=== PATIENT | female | born 1965 | race Caucasian/White ===

== ENCOUNTER 2017-01-29 16:16 | Emergency (ER) | payer MEDICARE, OTHER ==
[2017-01-29 17:56] LABS: Bilirubin Negative (Negative); Blood, Urine Trace (Negative); Glucose, Urine (Dipstick) 250 mg/dL (Negative); Ketone, Urine Negative (Negative); Nitrite Negative (Negative); Protein, Urine (Dipstick) 100 mg/dL (Neg-Trace); Urobilinogen 0.2 mg/dL (0.2-1.0)
[2017-01-29 17:59] LABS: Bacteria/HPF 4+ HPF (None Seen); RBC/HPF 0-3 HPF (0-3); Squamous Epithelial 0-3 HPF (0-3); WBC/HPF 21-50 HPF (0-3)
[2017-01-29 18:11] LABS: Hyaline Casts/LPF 0-3 HYALINE CAST LPF (0-3 Hyaline)
[2017-01-29] MEDS ORDERED: Fentanyl 100 MCG/2 ML VIAL ONE (18:37)
[2017-01-29] MEDS ORDERED: Ketorolac Tromethamine 30 MG/ML VIAL ONE (18:37)
[2017-01-29] MEDS ORDERED: fentaNYL 50 mcg/hour Patch TD SCH (18:45)
[2017-01-29 18:59] LABS: #Lymphocytes 1.5 thou/uL (1.20-3.40); #Monocytes 0.8 thou/uL (0.11-0.59); #Neutrophils 9.3 thou/uL (1.40-6.50); %Basophils 0.4 % (0.0-1.0); %Eosinophils 0.4 % (0.0-10.0); %Lymphocytes 12.8 % (21.0-51.0); %Monocytes 6.6 % (0.0-10.0); Hematocrit 42.5 % (36.0-47.0); Mean Platelet Volume 6.5 fL (7.4-10.4); Red Blood Cell (RBC) Count 4.25 mill/uL (4.20-5.40); White Blood Cell (WBC) Count 11.6 thou/uL (4.8-10.8)
[2017-01-29 19:18] LABS: Lactic Acid - Sepsis 1.5 mmol/L (0.5-2.2)
[2017-01-29 19:19] LABS: Anion Gap 14 mmol/L (10-20); BUN (Urea Nitrogen) 10 mg/dL (9.8-20.1); Calc. Creatinine Clearance 0 mL/min (70-130); Calcium 9.3 mg/dL (7.8-10.44); Carbon Dioxide 29 mmol/L (22-29); Chloride 98 mmol/L (98-107); Estimated GFR-MDRD 77
[2017-01-29] MEDS ORDERED: Ondansetron HCl/PF 4 MG/2 ML Vial ONE (19:36)
== END 2017-01-29 20:45 | disposition home or self-care (01) ==
LOC: ERS 16:16
DX: T83.091A Other mechanical complication of indwelling urethral catheter, initial encounter (principal); N39.0 Urinary tract infection, site not specified; E03.9 Hypothyroidism, unspecified; I12.0 Hypertensive chronic kidney disease with stage 5 chronic kidney disease or end stage renal disease; E11.22 Type 2 diabetes mellitus with diabetic chronic kidney disease; N18.9 Chronic kidney disease, unspecified; G43.909 Migraine, unspecified, not intractable, without status migrainosus; E78.5 Hyperlipidemia, unspecified; F41.9 Anxiety disorder, unspecified; E66.9 Obesity, unspecified
CPT/HCPCS: 36415; 80048; 81003; 81015; 83605; 85025; 87040; 87077; 87086; 87149; 87186; J1885; J1956; J2405; J3010

== ENCOUNTER 2017-01-31 17:25 | Inpatient (IN) | payer MEDICARE, MEDICAID ==
[2017-01-31] MEDS ORDERED: Aztreonam 1 GM in Sodium Chloride 0.9% 100 ML IVPB SCH (19:15)
--- NOTE | 2017-01-31 20:06 | HP ---
PRIMARY CARE PROVIDER: Fanny Barber CHIEF COMPLAINT: Dysuria. HISTORY OF PRESENT ILLNESS: Ms. Mills is a pleasant 51-year-old lady who was seen at [facility] on 01/31/2017 following transfer from emergency room at [facility]. She is a senior living resident and has a history of multiple sclerosis and chronic Cho catheterization. S he reports having abdominal pain 6 weeks ago. She also reports having dysuria. She reports that [facility] pain was across her abdomen, now. She is unable to recall any aggravating or relieving factors. She reports that she had a urine test and was started on levofloxacin. She did not improve in terms of dysuria. She was seen at this emergency room 2 days ago and was started on levofloxacin. She s ubsequently went to the emergency room at [facility] the same day. Today, she was notified that h er urine cultures grew organisms that were resistant to levofloxacin. She therefore presented to [facility] emergency room at [facility] and was transferred to this facility. She reports chills and night sweats. She has no other complaints. The following complete review of systems was negative, unless otherwise mentioned in the HPI or belo w: Constitutional: Weight loss or gain, sense of well-being, ability to conduct usual activities, exer cise tolerance. Skin/Breast: Rash, itching, changes in hair growth or loss, nail changes, breast lumps, tenderness, swelling, nipple discharge. Eyes: Vision, double vision, tearing, blind spots, pain. ENT/Mouth: Headaches (location, time of onset, duration, precipitating factors), vertigo, lighthead edness, injury. Vision, double vision, tearing, blind spots, pain, nose bleeding, colds, obstruction , discharge, dental difficulties, gingival bleeding, dentures, neck stiffness, pain, tenderness, mas ses in thyroid or other areas. Cardiovascular: Precordial pain, substernal distress, palpitations, syncope, dyspnea on exertion, o rthopnea, nocturnal paroxysmal dyspnea, edema, cyanosis, hypertension, heart murmurs, varicosities, phlebitis, claudication. Respiratory: Pain, shortness of breath, wheezing, stridor, cough, hemoptysis, fever or night sweats . Gastrointestinal: Poor appetite, dysphagia, indigestion, abdominal pain, heartburn, eructation, patti sea, vomiting, hematemesis, jaundice, constipation, or diarrhea, abnormal stools (drea-colored, anjum y, bloody, greasy, foul smelling), flatulence, hemorrhoids, recent changes in bowel habits. Genitourinary: Urgency, frequency, dysuria, nocturia, hematuria, polyuria, oliguria, unusual (or ch fabio in) color of urine, stones, hesitancy, change in size of stream, dribbling, acute retention or incontinence, libido, potency. Musculoskeletal: Pain, swelling, redness or heat of muscles or joints, limitation, of motion, muscu lar weakness, atrophy, cramps. Neurologic/Psychiatric: Convulsions, paralyses, tremor, incoordination, paraesthesias, difficulties with memory of speech, sensory or motor disturbances, or muscular coordination (ataxia, tremor), em otional problems, anxiety, depression, previous psychiatric care, unusual perceptions, hallucination s. Allergy/Immunologic: Skin rash, anemia, bleeding tendency, polydipsia, polyuria, intolerance to hea t or cold. PAST MEDICAL HISTORY: Significant for multiple sclerosis, hypothyroidism, hypertension, anxiety dis order, diabetes mellitus type 2, urinary retention with chronic indwelling Cho catheter, chronic k idney disease stage 3, chronic lymphedema of the lower extremities, and morbid obesity. PAST SURGICAL HISTORY: Significant for tonsillectomy, adenoidectomy, thyroidectomy, D\T\C x2, hyste rectomy, and left hand surgery. ALLERGIES: PENICILLIN, OMNICEF, AMITRIPTYLINE, CHLORPHENIRAMINE, CLINDAMYCIN, MORPHINE, SUMATRIPTAN , TETRACYCLINE, SULFONAMIDES, and TRIPTANS. FAMILY HISTORY: Significant for coronary artery disease and diabetes mellitus. SOCIAL HISTORY: The patient is a senior living resident at [facility] in [facility]. She denies tobacco use, alcohol use or recreational drug use. CURRENT MEDICATIONS: This include alprazolam 0.25 mg daily, vitamin D3 1000 units daily, azathiopri ne 50 mg 2 times a day, docusate 100 mg daily, duloxetine 60 mg 2 times a day, montelukast 10 mg sirena ly, pantoprazole 40 mg daily, pravastatin 20 mg daily, fentanyl 50 mcg transdermal patch every 72 ho urs, furosemide 40 mg 2 times a day, levothyroxine 112 mcg daily, mirtazapine 15 mg daily, Humalog i nsulin by sliding scale, Lantus insulin 80 units at bedtime, lisinopril 40 mg daily, and Dilaudid 2 mg at bedtime. PHYSICAL EXAMINATION: GENERAL: On examination, Ms. Mills is awake and alert, not in acute distress. She is morbidly obe se. VITAL SIGNS: Blood pressure is 160/102, pulse is 105. She is breathing at rate of 18 and saturatin g 98% on room air. She is afebrile. EYES: No scleral icterus. No conjunctival pallor. ENT: Moist mucosal membranes, no oropharyngeal erythema or exudates. NECK: Supple, nontender, normal range of movement, trachea is midline. RESPIRATORY: Accessory muscles of breathing are not active. Chest wall movements are symmetric deepthi aterally. LUNGS: Clear to auscultation without wheeze, rhonchi or crepitations. CARDIOVASCULAR: S1 and S2 are heard, regular. LUNGS: Peripheral pulses are palpable. No carotid bruit, no pericardial rub. ABDOMEN: Distended, nontender, bowel sounds heard, no hepatomegaly, no splenomegaly. NEUROLOGIC: Cranial nerves II-XII are intact, deep tendon reflexes are 2+. PSYCHIATRIC: Normal mood, normal affect, patient is oriented to time, place and person. MUSCULOSKELETAL: Power is 5/5 in all 4 extremities. Normal range of movement at all major extremit y joints. LYMPHATIC: No cervical lymphadenopathy. SKIN: No rashes or subcutaneous nodules. IMAGING AND LABORATORY DATA: Ms. Mills's labs and investigations were reviewed. She had a chest x -ray at [facility], which did not show any pulmonary infiltrates. Laboratory investigations show leukocytosis with 12,100 white cells, of which 92% are neutrophils, normal hemoglobin, normal platel et count, normal electrolytes, normal creatinine of 0.89, elevated lactic acid level of 2.9, normal calcium, normal total bilirubin, normal AST, normal ALT, normal alkaline phosphatase. Urinalysis is positive for blood, nitrite and leukocyte esterase. Urine cultures from 01/24/2017 grew Morganella morganii and Proteus mirabilis. Morganella morganii is sensitive to amikacin, cefepime, ceftazidim e, ceftriaxone, cefoxitin, gentamicin, meropenem, piperacillin, tazobactam and tobramycin. Proteus mirabilis is sensitive to amikacin, ampicillin/sulbactam, cefepime, ceftazidime, ceftriaxone, gentam icin, meropenem, piperacillin, tazobactam, tobramycin, and trimethoprim/sulfamethoxazole. ASSESSMENT AND PLAN: Mr. Mills is a pleasant 51-year-old lady who was seen at [facility] on 01/31/2017. Her problem list includes: 1. Sepsis: Ms. Mills was tachycardic in the emergency room at [facility]. She also has leukocy tosis. She meets the criteria for sepsis, with suspected source of infection in the urinary tract. 2. Urinary tract infection. Ms. Mills will be admitted to the hospital and started on intravenous fluid resuscitation as well as antibiotics. Given her extensive allergy history, including allergy to OMNICEF which was recently known, I am electing to treat her with aztreonam. 3. Diabetes mellitus type 2: Her home medications will be resumed once clarified. She will be sta rted on insulin sliding scale as well. 4. Multiple sclerosis: Home medications to be restarted. 5. Hypertension: Resume home medications, monitor vital signs and titrate antihypertensives as nee ded. 6. Chronic kidney disease stage 3: This appears to have improved. Her creatinine is normal today. 7. Hypothyroidism: Stable. Many thanks for allowing me to participate in your patient's care. Please feel free to contact me w ith any questions or concerns. LEVEL OF RISK: Moderate. LEVEL OF COMPLEXITY: Moderate.
[2017-01-31] MEDS ORDERED: cloNIDine HCl 0.1 MG TAB PO PRN (20:37)
[2017-01-31] MEDS ORDERED: HYDROmorphone 2 MG TAB PO SCH (21:00)
[2017-01-31] MEDS ORDERED: INSULIN GLARGINE HUM REC ANLOG 65 UNIT SQ SCH (21:00)
[2017-01-31] MEDS ORDERED: HYDROmorphone HCl 0.5 MG/0.5 ML SYRINGE ONE (21:10)
[2017-01-31] MEDS: azaTHIOprine 50 MG TAB PO SCH (23:23)
[2017-01-31] MEDS: Phenazopyridine HCl 97.5 MG TABLET PO SCH (23:23)
[2017-01-31] MEDS: Pravastatin Sodium 20 MG TAB PO SCH (23:23)
[2017-01-31] MEDS: ALPRAZolam 0.5 MG TAB PO SCH (23:24)
[2017-01-31] MEDS: Insulin Detemir 100 UNITS/ML 65 UNITS in Pre-Filled Syringe 1 EACH SC SCH (23:24)
[2017-01-31] MEDS: Sodium Chloride 0.9% 1,000 ML IV SCH (23:25)
[2017-01-31] MEDS: Cyclobenzaprine 10 MG TAB PO PRN (23:32)
[2017-01-31] MEDS: HYDROmorphone 2 MG TAB PO PRN (23:32)
[2017-01-31 23:58] VITALS: BMI 39.2
[2017-02-01] MEDS: Levothyroxine Sodium 112 MCG TAB PO SCH (05:02)
[2017-02-01] MEDS: Sodium Chloride 0.9% 1,000 ML IV SCH ×3 (05:04→21:04)
[2017-02-01 05:44] LABS: #Eosinphils 0.3 thou/uL (0.0-0.7); #Lymphocytes 1.8 thou/uL (1.20-3.40); #Monocytes 0.8 thou/uL (0.11-0.59); #Neutrophils 6.4 thou/uL (1.40-6.50); %Basophils 0.4 % (0.0-1.0); %Eosinophils 2.8 % (0.0-10.0); %Lymphocytes 19.4 % (21.0-51.0); %Monocytes 8.8 % (0.0-10.0); Hematocrit 39.4 % (36.0-47.0); Mean Platelet Volume 6.9 fL (7.4-10.4); Red Blood Cell (RBC) Count 3.88 mill/uL (4.20-5.40); White Blood Cell (WBC) Count 9.4 thou/uL (4.8-10.8)
[2017-02-01 05:55] LABS: Anion Gap 10 mmol/L (10-20); BUN (Urea Nitrogen) 9 mg/dL (9.8-20.1); Calc. Creatinine Clearance 178 mL/min (70-130); Carbon Dioxide 24 mmol/L (22-29); Chloride 106 mmol/L (98-107); Estimated GFR-MDRD 87
[2017-02-01] MEDS: glipiZIDE 5 MG TAB PO SCH ×2 (08:04→15:30)
[2017-02-01] MEDS: Cyclobenzaprine 10 MG TAB PO PRN ×2 (08:04→20:52)
[2017-02-01] MEDS: Phenazopyridine HCl 97.5 MG TABLET PO SCH ×3 (08:05→20:51)
[2017-02-01] MEDS: Montelukast Sodium 10 mg Tablet PO SCH (08:06)
[2017-02-01] MEDS: azaTHIOprine 50 MG TAB PO SCH ×2 (08:06→20:51)
[2017-02-01] MEDS: Losartan Potassium 25 MG TAB PO SCH (08:06)
[2017-02-01] MEDS: Furosemide 40 MG TAB PO SCH (08:06)
[2017-02-01] MEDS: Lactinex Tablet PO SCH (08:06)
[2017-02-01] MEDS: HYDROmorphone 2 MG TAB PO PRN ×2 (08:07→20:51)
[2017-02-01] MEDS: Enoxaparin Sodium 40 MG/0.4 ML SYRINGE SC SCH (08:07)
[2017-02-01] MEDS: Insulin Detemir 100 UNITS/ML 65 UNITS in Pre-Filled Syringe 1 EACH SC SCH ×2 (08:10→20:52)
[2017-02-01] MEDS: Ondansetron HCl/PF 4 MG/2 ML Vial IVP PRN ×3 (08:55→20:53)
[2017-02-01] MEDS: cefTRIAXone\\ROCEPHIN 2 GM in Sodium Chloride 0.9% 100 ML IVPB SCH (08:55)
[2017-02-01] MEDS ORDERED: fentaNYL 50 mcg/hour Patch TD SCH (09:00)
[2017-02-01] MEDS ORDERED: FLU VACC QS2017-18 36 mo. & older 0.5 ML SYRINGE IM ONE (09:00)
[2017-02-01] MEDS ORDERED: Aztreonam 1 GM in Sodium Chloride 0.9% 100 ML IVPB SCH (09:00)
--- NOTE | 2017-02-01 09:41 | CT ---
CT ABDOMEN AND PELVIS WITHOUT CONTRAST: Comparison: 04-06-15 History: Recurrent urinary tract infections, history of kidney stones. Technique: Multiple contiguous axial images were obtained in a CT of the abdomen and pelvis without contrast. Coronal reformats were performed. FINDINGS: There is diffuse hypoattenuation of the liver likely secondary to diffuse fatty infiltration. There is a more significant hypoattenuation in the left lobe of the liver. There is still flow seen within the portal venous structures in this location. The cause for this hypoattenuation in the left lobe could represent a more significant fatty infiltration of the liver versus areas of decreased enhance ment from potential blockage of flow to the left lobe of the liver. There are hyperdensities in the dependent aspect of the gallbladder which may represent gallstones. The patient has a horseshoe kidney. There are nonobstructing calcifications in the left renal molali ty of the horseshoe kidney. No hydronephrosis is seen within either molality of the horseshoe kidney . The adrenal glands, spleen, and pancreas are unremarkable although evaluation is limited on this non contrast examination. The patient is status post hysterectomy. A catheter is seen within the urinary bladder. The visualiz ed large and small bowel are unremarkable. No abdominal or pelvic lymphadenopathy are seen. Atherosc lerotic calcifications are seen in the aorta. There is round atelectasis in the left lung base. Degenerative changes are seen in the spine. The ab dominal wall soft tissues are unremarkable. IMPRESSION: 1. Fatty liver. 2. Increased hypoattenuation in the left lobe of the liver is nonspecific. This could represent more significant fatty infiltration left lobe of the liver. An infarction of the left lobe of the liver is also a possibility. Correlate with OFTs. 3. Horseshoe kidney with nonobstructing calcifications. POS: MARITA
[2017-02-01] MEDS ORDERED: Ibuprofen 600 MG TAB PO PRN ×2 (12:47→12:51)
--- NOTE | 2017-02-01 15:44 | PDOC.PN ---
- Subjective Encounter Start Date: 02/01/17 Encounter Start Time: 14:00 Subjective: no trouble breathing -: eating well - Objective MAR Reviewed: Yes Vital Signs & Weight: Vital Signs (12 hours) Temp Pulse Resp BP BP Pulse Ox 02/01/17 11:32 98.3 F 85 16 118/59 L 97 02/01/17 08:00 98.3 F 85 16 124/77 99 02/01/17 04:10 98.3 F 91 18 108/65 96 Weight Weight 265 lb 5 oz Result Diagrams: 02/01/17 05:18 02/01/17 05:18 Additional Labs: Accuchecks 02/01/17 02/01/17 01/31/17 11:37 09:32 23:23 POC Glucose 164 H 137 H 100 Phys Exam - Physical Examination HEENT: PERRLA, moist MMs Neck: no nodes, no JVD Respiratory: no wheezing, no rales Cardiovascular: RRR, no significant murmur Gastrointestinal: soft, non-tender, no distention, positive bowel sounds Musculoskeletal: pulses present Neurological: non-focal, moves all 4 limbs Psychiatric: A&O x 3 Dx/Plan (1) Sepsis Code(s): A41.9 - SEPSIS, UNSPECIFIED ORGANISM Status: Acute Qualifiers: Sepsis type: sepsis due to unspecified organism Qualified Code(s): A41.9 - Sepsis, unspecified organism (2) UTI (urinary tract infection) Status: Acute Qualifiers: Urinary tract infection type: acute cystitis Hematuria presence: without hematuria Qualified Code(s): N30.00 - Acute cystitis without hematuria (3) Chronic pain syndrome Code(s): G89.4 - CHRONIC PAIN SYNDROME Status: Chronic (4) DM type 2 (diabetes mellitus, type 2) Status: Chronic Qualifiers: Diabetes mellitus complication status: with unspecified complications Diabetes mellitus termite control service representative insulin use: with halfway use Qualified Code(s) : E11.8 - Type 2 diabetes mellitus with unspecified complications; Z79.4 - jail (current) use of insulin; Z79.4 - watermaster (current) use of insulin; Z79.4 - jail (current) use of insulin; Z79.4 - jail (current) use of insulin (5) 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 Review of Systems - Medications/Allergies Allergies/Adverse Reactions: Allergies Allergy/AdvReac Type Severity Reaction Status Date / Time sulfamethoxazole Allergy Severe Verified 11/28/13 12:26 [From Bactrim] trimethoprim [From Bactrim] Allergy Severe Verified 11/28/13 12:26 amitriptyline Allergy Verified 11/26/13 01:32 chlorpheniramine Allergy Verified 11/26/13 01:32 clindamycin Allergy Verified 11/26/13 01:32 morphine Allergy Verified 11/26/13 01:32 sulfacetamide Allergy Verified 11/26/13 01:32 sumatriptan Allergy Verified 11/26/13 01:32 tetracycline [Tetracycline] Allergy Verified 11/26/13 01:32 [id number] Antimigraine Allergy Verified 11/26/13 01:32 Agents Medications: Current Medications Acidophilus (Floranex) 1 tab PO DAILY [facility] Last Admin: 02/01/17 08:06 Dose: 1 tab Alprazolam (Xanax) 0.5 mg PO HS [facility] Last Admin: 01/31/17 23:24 Dose: 0.5 mg Azathioprine (Imuran) 50 mg PO BID [facility] Last Admin: 02/01/17 08:06 Dose: 50 mg Clonidine HCl (Catapres) 0.1 mg PO Q6HR PRN PRN Reason: SBP >170 Cyclobenzaprine HCl (Flexeril) 5 mg PO TIDPRN PRN PRN Reason: Muscle Spasms Last Admin: 02/01/17 08:04 Dose: 5 mg Enoxaparin Sodium (Lovenox) 40 mg SC 0900 [facility] Last Admin: 02/01/17 08:07 Dose: 40 mg Fentanyl (Duragesic) 50 mcg TD Q3D [facility] Last Admin: 02/01/17 10:02 Dose: 50 mcg Furosemide (Lasix) 40 mg PO DAILY [facility] Last Admin: 02/01/17 08:06 Dose: 40 mg Glipizide (Glucotrol) 5 mg PO BID-AC [facility] Last Admin: 02/01/17 15:30 Dose: 5 mg Hydromorphone HCl (Dilaudid) 2 mg PO BIDPRN PRN PRN Reason: Pain Last Admin: 02/01/17 08:07 Dose: 2 mg Sodium Chloride (Normal Saline 0.9%) 1,000 mls @ 100 mls/hr IV .Q10H [facility] Last Admin: 02/01/17 09:07 Dose: 1,000 mls Insulin Detemir 65 units/ (Miscellaneous Medication) 0.65 mls @ 0 mls/hr SC BID [facility] Last Admin: 02/01/17 08:10 Dose: 0.65 mls Ceftriaxone Sodium 2 gm/ (Sodium Chloride) 100 mls @ 200 mls/hr IVPB Q24HR [facility] Last Admin: 02/01/17 08:55 Dose: 100 mls Ibuprofen (Motrin) 600 mg PO TIDPRN PRN PRN Reason: Pain Last Admin: 02/01/17 13:39 Dose: 600 mg Levothyroxine Sodium (Synthroid) 112 mcg PO 0600 [facility] Last Admin: 02/01/17 05:02 Dose: 112 mcg Losartan Potassium (Cozaar) 25 mg PO DAILY [facility] Last Admin: 02/01/17 08:06 Dose: 25 mg Miscellaneous Medication (Movantik) 12.5 mg PO DAILYPRN PRN PRN Reason: opiod induced constipation Montelukast Sodium (Singulair) 10 mg PO DAILY [facility] Last Admin: 02/01/17 08:06 Dose: 10 mg Ondansetron HCl (Zofran) 4 mg IVP Q6H PRN PRN Reason: Nausea/Vomiting Last Admin: 02/01/17 15:30 Dose: 4 mg Pantoprazole Sodium (Protonix) 40 mg PO DAILY [facility] Last Admin: 02/01/17 08:06 Dose: 40 mg Phenazopyridine HCl (Azo Standard) 195 mg PO TID [facility] Last Admin: 02/01/17 15:30 Dose: 195 mg Pravastatin Sodium (Pravachol) 20 mg PO HS [facility] Last Admin: 01/31/17 23:23 Dose: 20 mg Sodium Chloride (Flush - Normal Saline) 10 ml IVF Q12HR [facility] Last Admin: 02/01/17 08:14 Dose: 10 ml Sodium Chloride (Flush - Normal Saline) 10 ml IVF PRN PRN PRN Reason: Saline Flush
[2017-02-01] MEDS: ALPRAZolam 0.5 MG TAB PO SCH (20:51)
[2017-02-01] MEDS: Pravastatin Sodium 20 MG TAB PO SCH (20:52)
[2017-02-02 05:11] LABS: #Eosinphils 0.2 thou/uL (0.0-0.7); #Lymphocytes 1.7 thou/uL (1.20-3.40); #Monocytes 0.5 thou/uL (0.11-0.59); %Basophils 0.7 % (0.0-1.0); %Eosinophils 3.7 % (0.0-10.0); %Lymphocytes 26.4 % (21.0-51.0); %Monocytes 7.5 % (0.0-10.0); Hematocrit 36.6 % (36.0-47.0); Mean Platelet Volume 6.7 fL (7.4-10.4); Red Blood Cell (RBC) Count 3.64 mill/uL (4.20-5.40); White Blood Cell (WBC) Count 6.5 thou/uL (4.8-10.8)
[2017-02-02] MEDS: Levothyroxine Sodium 112 MCG TAB PO SCH (05:11)
[2017-02-02] MEDS: Sodium Chloride 0.9% 1,000 ML IV SCH (05:14)
[2017-02-02 05:37] LABS: Anion Gap 7 mmol/L (10-20); BUN (Urea Nitrogen) 11 mg/dL (9.8-20.1); Calc. Creatinine Clearance 189 mL/min (70-130); Calcium 7.7 mg/dL (7.8-10.44); Carbon Dioxide 29 mmol/L (22-29); Chloride 108 mmol/L (98-107); Estimated GFR-MDRD Greater than 90
[2017-02-02] MEDS: cefTRIAXone\\ROCEPHIN 2 GM in Sodium Chloride 0.9% 100 ML IVPB SCH (08:31)
[2017-02-02] MEDS: glipiZIDE 5 MG TAB PO SCH (08:31)
[2017-02-02] MEDS: Montelukast Sodium 10 mg Tablet PO SCH (08:34)
[2017-02-02] MEDS: azaTHIOprine 50 MG TAB PO SCH (08:34)
[2017-02-02] MEDS: Losartan Potassium 25 MG TAB PO SCH (08:34)
[2017-02-02] MEDS: Phenazopyridine HCl 97.5 MG TABLET PO SCH (08:34)
[2017-02-02] MEDS: Furosemide 40 MG TAB PO SCH (08:34)
[2017-02-02] MEDS: Lactinex Tablet PO SCH (08:34)
[2017-02-02] MEDS: Enoxaparin Sodium 40 MG/0.4 ML SYRINGE SC SCH (08:35)
[2017-02-02] MEDS: Insulin Detemir 100 UNITS/ML 65 UNITS in Pre-Filled Syringe 1 EACH SC SCH (08:36)
[2017-02-02] MEDS ORDERED: FLU VACC QS2017-18 36 mo. & older 0.5 ML SYRINGE IM ONE (09:00)
[2017-02-02] MEDS: Cyclobenzaprine 10 MG TAB PO PRN (09:45)
[2017-02-02] MEDS: HYDROmorphone 2 MG TAB PO PRN (09:46)
[2017-02-02] MEDS: Ondansetron HCl/PF 4 MG/2 ML Vial IVP PRN (09:51)
[2017-02-02 11:47] VITALS: BP 153/84; TEMP 97.6
--- NOTE | 2017-02-02 16:53 | PDOC.PN ---
- Subjective Encounter Start Date: 02/02/17 Encounter Start Time: 08:15 Subjective: feels better - Objective MAR Reviewed: Yes Vital Signs & Weight: Vital Signs (12 hours) Temp Pulse Resp BP Pulse Ox 02/02/17 11:46 97.6 F 78 18 153/84 H 98 02/02/17 08:40 98.2 F 85 16 97 02/02/17 07:55 98.2 F 85 16 126/54 L 97 Weight Weight 265 lb 5 oz I&O: 02/01/17 02/02/17 02/03/17 06:59 06:59 06:59 Intake Total 1700 780 Output Total 4200 1850 Balance -2500 -1070 Result Diagrams: 02/02/17 05:02 02/02/17 05:02 Additional Labs: Accuchecks 02/02/17 02/02/17 02/01/17 11:05 04:13 21:10 POC Glucose 88 87 182 H 02/01/17 16:48 POC Glucose 150 H Phys Exam - Physical Examination HEENT: PERRLA, moist MMs Neck: no JVD, supple Respiratory: no wheezing, no rales Cardiovascular: RRR, no significant murmur Gastrointestinal: soft, non-tender, positive bowel sounds Musculoskeletal: no edema, pulses present Neurological: non-focal, moves all 4 limbs Psychiatric: A&O x 3 Dx/Plan (1) Sepsis Code(s): A41.9 - SEPSIS, UNSPECIFIED ORGANISM Status: Resolved Qualifiers: Sepsis type: sepsis due to unspecified organism Qualified Code(s): A41.9 - Sepsis, unspecified organism (2) UTI (urinary tract infection) Status: Acute Qualifiers: Urinary tract infection type: acute cystitis Hematuria presence: without hematuria Qualified Code(s): N30.00 - Acute cystitis without hematuria (3) Chronic pain syndrome Code(s): G89.4 - CHRONIC PAIN SYNDROME Status: Chronic (4) DM type 2 (diabetes mellitus, type 2) Status: Chronic Qualifiers: Diabetes mellitus complication status: with unspecified complications 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
--- NOTE | 2017-02-02 21:54 | DIS ---
DATE OF ADMISSION: 01/31/2017 DATE OF DISCHARGE: 02/02/2017 DISCHARGE DISPOSITION: To retirement. PRIMARY DISCHARGE DIAGNOSIS: Sepsis with urinary tract infection, resolving. SECONDARY DISCHARGE DIAGNOSES: Chronic pain syndrome; diabetes mellitus type 2 ; history of multiple sclerosis; functional quadriplegia secondary to multiple sclerosis, being wheelchair bound; hypertension; morbid obesity. PROCEDURES DONE DURING HOSPITALIZATION: Abdominal and pelvic CAT scan done showed fatty liver with horseshoe kidney with nonobstructing calcifications. Urine culture drawn on 01/29/2017 grew Morganella morganii and Proteus sensitive to cephalosporins. ALLERGIES: To SULFA, AMITRIPTYLINE, CHLORPHENIRAMINE, CLINDAMYCIN, MORPHINE, SUMATRIPTAN, TETRACYCLINE, and TRIPTANS. DISCHARGE MEDICATIONS: Xanax 0.5 mg p.o. at bedtime, Vantin 200 mg p.o. twice daily for another 6 days, vitamin D 3000 units p.o. daily, Flexeril 5 mg p.o. 3 times daily p.r.n., Cymbalta 60 mg p.o. daily, Lasix 40 mg p.o. daily, Dilaudid 4 mg p.o. twice daily, Humalog 20 units subcu twice daily, Lantus 65 units subcu twice daily, Floranex 1 tab daily, levothyroxine 112 mcg p.o. daily, Cozaar 25 mg p.o. daily, melatonin 5 mg p.o. at bedtime p.r.n., Movantik 12.5 mg p.o. daily, Protonix 40 mg p.o. daily, K-Dur 20 mEq p.o. twice daily, Pravachol 20 mg p.o. at bedtime, Imuran 50 mg p.o. twice daily, fentanyl patch 50 mcg transdermal q.72 hours, Glipizide 5 mg p.o. twice daily. DISCHARGE PLAN: Patient to follow up with primary care physician in 1 week. BRIEF COURSE DURING HOSPITALIZATION: The patient initially got admitted on the after she was transferred from [facility] with complaints of dysuria and abdominal pain. She has chronic Cho catheter due to advanced multiple sclerosis and chronic deconditioning with very poor functional status being wheelchair bound. She has had cultures drawn on the , which grew Proteus and Morganella morganii. Based on the sensitivity patterns, the patient has been placed on Vantin at the time of discharge. She was on IV antibiotics prior to this. The patient has history of chronic pain syndrome and is at risk for respiratory depression. She is hemodynamically stable and will be shortly discharged back to retirement. The only change in her medication is Vantin, which she needs to take for another 6 days. It is not clear if this is colonization versus invasive strain. Please note, the patient has chronic indwelling Cho catheter. A total of 35 minutes was spent on discharge plan. Patient needs to follow up with her primary care physician in 1 week. Please see a [id number] documentation on [facility] for the day of discharge. ROSALINA
== END 2017-02-02 14:52 | DRG 871 ==
LOC: ERS 17:25 → T4-B 19:40
PROVIDERS: ADMIT Internal Medicine; ATTEND Internal Medicine
DX: A41.9 Sepsis, unspecified organism (principal); R53.2 Functional quadriplegia; E11.22 Type 2 diabetes mellitus with diabetic chronic kidney disease; N18.3 Chronic kidney disease, stage 3 (moderate); E66.01 Morbid (severe) obesity due to excess calories; N30.00 Acute cystitis without hematuria; G35 Multiple sclerosis; Z96.0 Presence of urogenital implants; E03.9 Hypothyroidism, unspecified; R33.9 Retention of urine, unspecified; Z68.39 Body mass index [BMI] 39.0-39.9, adult; I89.0 Lymphedema, not elsewhere classified; Z88.1 Allergy status to other antibiotic agents; Z88.5 Allergy status to narcotic agent; Z88.0 Allergy status to penicillin; Z88.2 Allergy status to sulfonamides; Z79.4 Long term (current) use of insulin; I12.9 Hypertensive chronic kidney disease with stage 1 through stage 4 chronic kidney disease, or unspecified chronic kidney disease; G89.4 Chronic pain syndrome; Z99.3 Dependence on wheelchair; B96.4 Proteus (mirabilis) (morganii) as the cause of diseases classified elsewhere; K64.8 Other hemorrhoids; F41.8 Other specified anxiety disorders; E78.5 Hyperlipidemia, unspecified; E55.9 Vitamin D deficiency, unspecified
CPT/HCPCS: 36415; 36416; 74176; 80048; 81003; 81015; 83605; 85025; 87040; 87077; 87086; 87149; 87186; 90471; 90682; 90732; 96365; 96375; A4216; G0008; G0009; J0696; J1170; J1650; J1815; J1885; J1956; J2405; J3010; J3490; J7050; J7500; Q2036

== ENCOUNTER 2017-09-11 16:55 | Inpatient (IN) | payer MEDICAID, MEDICARE ==
[~2017-09-11 16:55] MED LIST: ISOVUE-370 76%-LOCM 1 ML ONE
[2017-09-11] MEDS ORDERED: HYDROmorphone 0.5 MG/0.5 ML SYRINGE ONE (18:27)
[2017-09-11 18:30] LABS: Bilirubin Negative (Negative); Blood, Urine Large (Negative); Glucose, Urine (Dipstick) Negative (Negative); Leukocyte Moderate (Negative); Nitrite Positive (Negative); Protein, Urine (Dipstick) 100 mg/dL (Neg-Trace); Urobilinogen 0.2 mg/dL (0.2-1.0)
[2017-09-11 18:37] LABS: Clarity Cloudy (Clear)
[2017-09-11 18:39] LABS: Squamous Epithelial 0-3 HPF (0-3)
[2017-09-11 18:40] LABS: Bacteria/HPF Rare-Few HPF (None Seen)
[2017-09-11 18:41] LABS: Hyaline Casts/LPF NONE SEEN LPF (0-3 Hyaline)
[2017-09-11 18:53] LABS: #Eosinphils 0.1 thou/uL (0.0-0.7); #Lymphocytes 1.1 thou/uL (1.20-3.40); #Monocytes 0.6 thou/uL (0.11-0.59); %Basophils 0.3 % (0.0-1.0); %Eosinophils 0.5 % (0.0-10.0); %Lymphocytes 9.3 % (21.0-51.0); %Monocytes 5.1 % (0.0-10.0); %Neutrophils 84.8 % (42.0-75.0); Hemoglobin 11.8 g/dL (12.0-16.0); Mean Corpuscular HGB CONC 32.3 g/dL (32.0-36.0); Mean Corpuscular Hemoglobin 31.4 pg (27.0-31.0); Mean Corpuscular Volume 97.2 fl (81.0-99.0); Mean Platelet Volume 6.2 fL (7.4-10.4); Platelet Count 444 thou/uL (130-400); RBC Distribution Width 14.9 % (11.5-14.5); Red Blood Cell (RBC) Count 3.76 mill/uL (4.20-5.40); White Blood Cell (WBC) Count 11.8 thou/uL (4.8-10.8)
[2017-09-11 18:57] LABS: INR-International Normal Ratio 1.1; Prothrombin Time 14.1 SEC (12.0-14.7)
[2017-09-11 18:58] LABS: PTT 31.9 SEC (22.9-36.1)
[2017-09-11 18:59] LABS: BHCG - Serum Negative (NEGATIVE); Pregs Control Background? CLEAR/WHITE (CLR/WHITE); Pregs Control Bar Appear? YES (CONTROL BAR)
[2017-09-11] MEDS ORDERED: Lorazepam 2 MG/ML VIAL ONE (19:25)
[2017-09-11] MEDS ORDERED: cefTRIAXone\\ROCEPHIN 2 GM VIAL ONE (19:26)
--- NOTE | 2017-09-11 19:32 | RAD ---
PORTABLE AP CHEST: Date: 09/11/17 HISTORY: Abdominal pain, fever. Skin complaints. COMPARISON: 01/31/17. FINDINGS: Cardiac silhouette and pulmonary vasculature are within normal limits. There is linear minimal patchy density in the region of the lingula, but some of the findings were seen on prior studies and this i s likely attributable to an area of scarring. There is linear density seen in the right mid lung zone . This could be related to either a linear area of atelectasis or possibly secondary to a tiny amount of fluid or pleural thickening in the region of the minor fissure. Lungs are otherwise clear. Vascul ar calcifications are seen in the thoracic aorta. IMPRESSION: 1. No acute cardiopulmonary process. 2. Probable scarring in the region of the lingula. POS: YONNY
[2017-09-11 19:53] LABS: ALT (SGPT) 13 U/L (8-55); AST (SGOT) 24 U/L (5-34); Albumin 3.6 g/dL (3.5-5.0); Alkaline Phosphatase 97 U/L (40-150); Anion Gap 14 mmol/L (10-20); BUN (Urea Nitrogen) 13 mg/dL (9.8-20.1); Bilirubin, Total 0.4 mg/dL (0.2-1.2); CK (CPK) 27 U/L (29-168); Calc. Creatinine Clearance 0 mL/min (70-130); Calcium 8.5 mg/dL (7.8-10.44); Carbon Dioxide 29 mmol/L (22-29); Chloride 99 mmol/L (98-107); Estimated GFR-MDRD 83; Globulin 3.8 g/dL (2.4-3.5); Glucose 154 mg/dL (70-105); Magnesium 2.3 mg/dL (1.6-2.6); Potassium 4.1 mmol/L (3.5-5.1); Protein, Total 7.4 g/dL (6.0-8.3); Sodium 138 mmol/L (136-145)
--- NOTE | 2017-09-11 21:08 | CT ---
CT OF THE ABDOMEN AND PELVIS WITH IV CONTRAST: Date: 09/11/17 PROVIDED CLINICAL HISTORY: Perineal pain. COMPARISON: Comparison is made with the examination performed 02/01/17. FINDINGS: The visualized lung bases are free of significant opacity. Fatty infiltration of the liver demonstrated. Horseshoe kidney is again seen. The solid abdominal org ans demonstrate an otherwise unremarkable CT appearance. There is no bowel dilatation, intraperitoneal fat stranding, free fluid, or free air apparent. There is widening of the symphysis pubis, measuring about 18.0 mm. This is a new finding from the gary or study. The opposing medial margins of the pubic bodies are somewhat poorly defined in terms of the ir cortices. There is mild soft tissue fullness and stranding about this region. There is no evidence for a well-defined regional fluid collection. There is nonspecific soft tissue prominence seen in th e expected location of the distal rectum and anus. The osseous structures demonstrate no additional lytic or blastic processes. Vascular calcification i s noted. Cho catheter is noted within the urinary bladder. IMPRESSION: 1. Widened appearance to the symphysis pubis with indistinct cortical margins and surrounding soft t issue density. In the absence of interval surgical change in this region, the findings would be suspi cious for septic arthritis involving the symphysis pubis. 2. Nonspecific soft tissue prominence in the region of the anus and distal rectum. Correlation with direct visualization is necessary. 3. Other chronic findings as above. POS: [facility]
[2017-09-11] MEDS ORDERED: Ondansetron ODT 4 MG TAB SL PRN (22:20)
[2017-09-11] MEDS ORDERED: Sodium Chloride 0.9% 1,000 ML IV SCH (22:20)
[2017-09-11] MEDS ORDERED: Acetaminophen 325 MG TAB PO PRN (22:20)
[2017-09-11] MEDS ORDERED: HYDROcodone/Acetaminophen 5/325 mg Tablet PO PRN ×2 (22:20)
[2017-09-11] MEDS ORDERED: Ondansetron HCl/PF 4 MG/2 ML Vial IVP PRN (22:20)
[2017-09-11 22:21] VITALS: BMI 35.2
[2017-09-11] MEDS ORDERED: Piperacillin/Tazobactam 3.375 GM in Sodium Chloride 0.9% 100 ML IVPB SCH (23:59)
[2017-09-12] MEDS ORDERED: Guaifenesin DM 100-10/5 ML UDCUP PO PRN (00:59)
[2017-09-12] MEDS ORDERED: Dextrose 50% Abboject 50 ML SYRINGE SLOW IVP PRN (00:59)
[2017-09-12] MEDS ORDERED: Acetaminophen 325 MG TAB PO PRN (00:59)
[2017-09-12] MEDS ORDERED: Dextrose 5% in Water 1,000 ML IV PRN (00:59)
[2017-09-12] MEDS ORDERED: HumaLOG 300 UNITS/3 ML VIAL SC PRN ×2 (00:59)
[2017-09-12] MEDS: Piperacillin/Tazobactam 4.5 GM in Sodium Chloride 0.9% 100 ML IVPB SCH ×3 (01:41→17:48)
[2017-09-12] MEDS ORDERED: fentaNYL 50 mcg/hour Patch TD SCH (02:00)
[2017-09-12] MEDS: Ondansetron ODT 4 MG TAB PO PRN ×2 (03:18→08:00)
[2017-09-12 05:01] LABS: #Eosinphils 0.1 thou/uL (0.0-0.7); #Lymphocytes 1.3 thou/uL (1.20-3.40); #Monocytes 0.7 thou/uL (0.11-0.59); #Neutrophils 7.4 thou/uL (1.40-6.50); %Basophils 0.3 % (0.0-1.0); %Lymphocytes 13.3 % (21.0-51.0); %Monocytes 7.6 % (0.0-10.0); %Neutrophils 77.7 % (42.0-75.0); Hemoglobin 10.7 g/dL (12.0-16.0); Mean Corpuscular HGB CONC 32.3 g/dL (32.0-36.0); Mean Corpuscular Hemoglobin 31.7 pg (27.0-31.0); Mean Corpuscular Volume 98.1 fl (81.0-99.0); Mean Platelet Volume 5.9 fL (7.4-10.4); Platelet Count 358 thou/uL (130-400); RBC Distribution Width 14.9 % (11.5-14.5); Red Blood Cell (RBC) Count 3.38 mill/uL (4.20-5.40); White Blood Cell (WBC) Count 9.6 thou/uL (4.8-10.8)
[2017-09-12 05:09] LABS: Anion Gap 11 mmol/L (10-20); BUN (Urea Nitrogen) 9 mg/dL (9.8-20.1); Calc. Creatinine Clearance 170 mL/min (70-130); Carbon Dioxide 27 mmol/L (22-29); Chloride 105 mmol/L (98-107); Estimated GFR-MDRD Greater than 90; Glucose 104 mg/dL (70-105); Potassium 3.6 mmol/L (3.5-5.1); Sodium 139 mmol/L (136-145)
[2017-09-12] MEDS: Famotidine 20 MG TAB PO SCH ×2 (06:17→20:38)
[2017-09-12] MEDS: Levothyroxine Sodium 112 MCG TAB PO SCH (06:17)
[2017-09-12] MEDS: glipiZIDE 5 MG TAB PO SCH ×2 (06:18→17:49)
--- NOTE | 2017-09-12 06:22 | HP ---
REASON FOR ADMISSION: Possible septic arthritis of pubic symphysis. HISTORY OF PRESENTING ILLNESS: Patient was sent from [facility] for complaints of pain in the pubic area. Patient states that she has had difficult exchange of her Cho catheter [facility]. Since then, she has had some pain and swelling in her mons pubis area. Yesterday morning, patient was seen by her primary care physician, Dr. Kc. She was asked to come to the emergency room for further evaluation. Patient has multiple sclerosis and is essentially wheelchair bound. She says she felt feverish at the [facility]. Mother at bedside adds that she has had recurrent UTIs. Here in the ER, she has had a CT of the abdomen and pelvis done which shows widening of symphysis pubis with likely septic arthritis of the area. ER physician apparently noticed some increased edema of the mons pubis area and was essentially admitted for possible septic arthritis of pubic symphysis and mons pubis cellulitis. PAST MEDICAL AND SURGICAL HISTORY: History of chronic pain syndrome, diabetes mellitus type 2, obesity, hypertension, anxiety disorder, hypothyroidism, fibromyalgia, chronic migraines, dyslipidemia, chronic indwelling Cho, hysterectomy, left wrist surgery, thyroidectomy, tonsillectomy, adenoidectomy, left arm surgery. CURRENT MEDICATIONS: Patient is on Xanax 0.5 mg p.o. at bedtime, Imuran 50 mg twice daily, vitamin D 3000 units p.o. daily, clonidine p.r.n., Flexeril 5 mg p.o. 3 times daily p.r.n., Colace 100 mg p.o. twice daily, Cymbalta 60 mg p.o. daily, fentanyl 50 mcg transdermal every 3 days, Lasix 40 mg twice daily, glipizide 5 mg twice daily, Dilaudid 4 mg p.o. twice daily, Lantus 85 units subcutaneous twice daily, Floranex one tablet daily, levothyroxine 150 mcg daily , Cozaar 25 mg daily, melatonin 5 mg p.o. at bedtime, Movantik 12.5 mg p.o. daily, Protonix 40 mg daily, K-Dur 20 mEq p.o. daily, Pravachol 20 mg p.o. at bedtime. ALLERGIES: SULFA, CHLORPHENIRAMINE, AMITRIPTYLINE, CLINDAMYCIN, MORPHINE, OMNICEF, SUMATRIPTAN, TETRACYCLINE. PERSONAL HISTORY: Does not abuse alcohol or drugs. No history of smoking. Patient is a pen[facility] resident likely [facility]. FAMILY HISTORY: Significant for coronary artery disease and diabetes. REVIEW OF SYSTEMS: The following complete review of systems was negative, unless otherwise mentioned in the HPI or below: Constitutional: Weight loss or gain, ability to conduct usual activities. Skin: Rash, itching. Eyes: Double vision, pain. ENT/Mouth: Nose bleeding, neck stiffness, pain, tenderness. Cardiovascular: Palpitations, dyspnea on exertion, orthopnea. Respiratory: Shortness of breath, wheezing, cough, hemoptysis, fever, or night sweats. Gastrointestinal: Poor appetite, abdominal pain, heartburn, nausea, vomiting, constipation, or diarrhea. Genitourinary: Urgency, frequency, dysuria, nocturia. Musculoskeletal: Pain, swelling. Neurologic/Psychiatric: Anxiety, depression. Allergy/Immunologic: Skin rash, bleeding tendency. PHYSICAL EXAMINATION: GENERAL: Patient is a 51-year-old female who is currently not in any acute distress. VITAL SIGNS: Blood pressure 180/80, pulse 84 per minute, respiratory rate 18 per minute, temperature 98.2 degrees Fahrenheit, saturating 97% on room air. NECK: Supple, no elevated JVD. HEENT: Eyes, extraocular muscles intact. Pupils reacting to light. Oral cavity, mucous membranes are moist. No exudates or congestion. CARDIOVASCULAR SYSTEM: S1, S2 heard. Regular rhythm. RESPIRATORY SYSTEM: Air entry 1+ bilateral. No rales or rhonchi. ABDOMEN: Soft, bowel sounds heard. No tenderness, rigidity, or guarding. Patient has mild tenderness in the mons pubis area. No obvious fluctuation or erythema seen. Has indwelling Cho catheter. EXTREMITIES: Mild peripheral edema. No calf tenderness. VASCULAR SYSTEM: Peripheral pulses 1+ bilateral. No ischemic ulcerations or gangrene. CENTRAL NERVOUS SYSTEM: No gross focal deficits seen. Patient is awake and oriented well. PSYCHIATRIC SYSTEM: Patient's mood is euthymic. No hallucinations or delusions. LABORATORY DATA AND X-RAY FINDINGS: White count of 11, H&H 11 and 36, platelet count is 444 with 84% neutrophils. Sed rate is 130. PT, INR, PTT within normal limits. Electrolytes are stable. BUN 13, creatinine 0.7, glucose 154. Liver enzymes are within normal limits. CK level is 27, albumin is 3.6. CRP 5.68. test is negative. UA shows moderate leukoesterase, positive nitrite, pH of 7.0 with 11-20 wbc's, rare few bacteria. Abdominal and pelvic CAT scan done shows whitened appearance to the symphysis pubis with indistinct cortical margins and surrounding soft tissue density. Findings are suspicious for possible septic arthritis involving symphysis pubis. Chest x-ray done shows no acute cardiopulmonary abnormalities. CLINICAL IMPRESSION AND PLAN: Patient will be admitted to medical floor for possible septic arthritis of symphysis pubis. Please note, patient claims to have had prior surgery on her urethra and it is unclear if the changes from that is what seen on the CAT scan. Patient has pain in the mons pubis area. There is no obvious fluctuation seen. I did not appreciate any edema in the area. Patient also has chronic pain syndrome and is on multiple pain medications including fentanyl patch, Dilaudid, Thelma, Xanax, and it is hard to discern if these are new pains. We will obtain Orthopedic surgery consultation with Dr. Aguayo. She will be on vancomycin and Zosyn until then in view of multiple antibiotic allergies. Urine culture has been sent from the ER. Patient has chronic indwelling Cho catheter and unlikely to have new infection , likely is colonized. We will continue her diabetic medications as before. We will also continue her Xanax, Cymbalta, Movantik, fentanyl, Lasix, glipizide , Lantus at 65 units twice daily, Synthroid, Cozaar, Pravachol as before. We will continue to closely monitor her on medical floor. Please note, I have seen and examined the patient on 09[facility]11/2017 [facility]
[2017-09-12] MEDS: HYDROmorphone 2 MG TAB PO SCH ×2 (07:57→20:32)
[2017-09-12] MEDS: Losartan 25 MG TAB PO SCH (07:58)
[2017-09-12] MEDS: DULoxetine 30 MG CAP PO SCH (07:59)
[2017-09-12] MEDS ORDERED: Non-Formulary Item 1 EACH (Insulin Glargine,Hum.Rec.Anlog [Lantus Solostar] 65 UNIT) SQ SCH (09:00)
[2017-09-12] MEDS ORDERED: Vancomycin HCl 1 GM in Premix Bag 1 BAG IVPB SCH (09:00)
[2017-09-12] MEDS: Potassium Chloride 10 MEQ TAB PO SCH ×2 (09:46→20:37)
[2017-09-12] MEDS: Furosemide 40 MG TAB PO SCH (09:46)
[2017-09-12] MEDS: Docusate 100 MG CAP PO SCH ×2 (09:47→20:37)
[2017-09-12] MEDS: Lactinex Tablet PO SCH (09:49)
[2017-09-12] MEDS: Insulin Glargine 65 UNITS in Pre-Filled Syringe 1 EACH SC SCH ×2 (09:52→20:35)
[2017-09-12] MEDS: Enoxaparin Sodium 40 MG/0.4 ML SYRINGE SC SCH (09:55)
--- NOTE | 2017-09-12 10:25 | CON ---
DATE OF CONSULTATION: 09/12/2017 CHIEF COMPLAINT: Pelvic pain. HISTORY OF PRESENT ILLNESS: Ms. Mills is a 51-year-old female with multiple sclerosis. She lives i n a nursing facility. She has an indwelling Cho catheter. She reports having some trauma with her Cho catheter over the last several days. She was unhappy with how this was exchanged. She had so me swelling and pain. She is wheelchair bound and does not ambulate. She began having anxiety and f elt feverish at the nursing facility. She has had a history of recurrent UTIs. She had a urethral s urgery when she was young at [address] scan was done in the emergency department and demonst rated widening of the symphysis pubis with either post-surgical changes or evidence of septic arthrit is. Orthopedics was consulted to evaluate the symphysis pubis. She was started on intravenous antib iotics. PAST MEDICAL HISTORY: Multiple sclerosis, hypertension, anxiety, hypothyroidism, fibromyalgia, chron ic migraines, dyslipidemia, diabetes, obesity. PAST SURGICAL HISTORY: Includes thyroidectomy, tonsillectomy, adenoidectomy, hysterectomy, left wris t surgery, hysterectomy. ALLERGIES: SULFA, AMITRIPTYLINE, CLINDAMYCIN, MORPHINE, OMNICEF, SUMATRIPTAN, TETRACYCLINE and CHLOR PHENIRAMINE. SOCIAL HISTORY: The patient denies any tobacco, alcohol or drug use. She lives in a nursing facilit y. FAMILY MEDICAL HISTORY: Positive for coronary artery disease and diabetes. REVIEW OF SYSTEMS: Positive for pain around the symphysis pubis. Otherwise, she complains of anxiet y, restlessness and feeling feverish. PHYSICAL EXAMINATION: VITAL SIGNS: Temperature is 98.6, pulse is 81, respiratory 18, 92% on room air, 158/84 blood pressur e. GENERAL: She is lying supine, alert, in no apparent distress. RESPIRATORY: Breathing comfortably. HEENT: Normocephalic, atraumatic. ABDOMEN: Obese, nontender. MUSCULOSKELETAL: The patient does have tenderness to palpation over the symphysis pubis. There is n o fluctuance, no erythema, no swelling of the mons pubis. She has mild pain with pelvic squeeze test . She has skin intact without any drainage or fistula. : There is a Cho catheter in place. IMAGES: CT scan of the pelvis demonstrates slight approximately 1.5 cm widening of the symphysis pub is. There is no obvious osteomyelitis. There is some thickening of the tissues, but no obvious absc ess or fluid collection. IMPRESSION: Recurrent urinary tract infections in a patient with multiple sclerosis. The patient h as changes of the pubic symphysis and pain which could suggest pubic symphyseal infection. These pos sibly simply represent chronic changes from her urethral surgery at a very young age. At this point, I think the patient should continue her intravenous antibiotics to treat her urinary t ract infection as well as possible infection of the symphysis pubis. She may need a protracted cours e for antibiotics. I would not recommend surgical intervention for this problem. If there was a lar ge abscess or fluid collection we could consider drainage either open or percutaneous with Radiology; however, this does not seem to be the case. I think she can be treated with intravenous antibiotics to clear this problem. It may be appropriate to consult Dr. Rivera for antibiotic guidance. She can weightbear as tolerated without restriction. She will not need orthopedic followup, but we will con tinue to follow her while she is in the hospital.
[2017-09-12] MEDS: Vancomycin HCl 1.75 GM in Sodium Chloride 0.9% 500 ML IVPB SCH ×2 (11:18→20:39)
[2017-09-12] MEDS ORDERED: Acetaminophen/Codeine 30-300mg Tablet PO PRN (12:35)
[2017-09-12] MEDS: Acetaminophen/Codeine 30-300mg Tablet PO PRN ×3 (13:55→23:40)
[2017-09-12] MEDS: Cyclobenzaprine 10 MG TAB PO SCH ×2 (13:56→20:32)
--- NOTE | 2017-09-12 17:01 | PDOC.PN ---
- Subjective Encounter Start Date: 09/12/17 Encounter Start Time: 17:00 Pt seen for followup re: septic arthritis of symphysis pubis. Denies chest pain or shortness of breath. No fevers or chills. - Objective Resuscitation Status: Resuscitation Status FULL:Full Resuscitation MAR Reviewed: Yes Vital Signs & Weight: Vital Signs (12 hours) Temp Pulse Resp BP Pulse Ox 09/12/17 12:00 98.5 F 85 20 168/75 H 95 09/12/17 08:00 98.6 F 81 18 94 L 09/12/17 07:00 98.6 F 81 18 158/84 H 94 L Weight Weight 239 lb I&O: 09/11/17 09/12/17 09/13/17 06:59 06:59 06:59 Intake Total 640 Output Total 1350 Balance -710 Result Diagrams: 09/12/17 04:12 09/12/17 04:12 Additional Labs: Accuchecks 09/12/17 09/12/17 11:51 04:27 POC Glucose 158 H 106 Labs reviewed by me Phys Exam - Physical Examination Obese HEENT: moist MMs, sclera anicteric, oral pharynx no lesions, 2+ tonsils Neck: no nodes, no JVD, supple, full ROM Respiratory: no wheezing, no rales, no rhonchi, clear to auscultation bilateral Cardiovascular: RRR, no rub S1, S2 Gastrointestinal: soft, non-tender, positive bowel sounds distention Musculoskeletal: edema present Neurological: moves all 4 limbs Psychiatric: normal affect, A&O x 3 Dx/Plan (1) Septic arthritis Status: Acute Comment: Continue IV antibiotics as below, await cultures (2) DM type 2 (diabetes mellitus, type 2) Status: Chronic Qualifiers: Diabetes mellitus chcf insulin use: with chcf use Diabetes mellitus complication status: with unspecified complications Qualified Code(s) : E11.8 - Type 2 diabetes mellitus with unspecified complications; Z79.4 - MCC (current) use of insulin; Z79.4 - manager intermediate (current) use of insulin; Z79.4 - manager intermediate (current) use of insulin; Z79.4 - MCC (current) use of insulin Comment: Continue accuchecks, insulin sliding scale (3) 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 Consult ID. Appreciate ortho input. Review of Systems - Review of Systems Constitutional: negative: fever, chills, sweats, weakness, malaise Respiratory: negative: Cough, Shortness of Breath, SOB with Excertion, Pleuritic Pain, Wheezing Cardiovascular: negative: chest pain, palpitations, orthopnea, paroxysmal nocturnal dyspnea, edema, light headedness Gastrointestinal: negative: Nausea, Vomiting, Abdominal Pain, Diarrhea, Constipation, Melena, Hematochezia Musculoskeletal: Other (pubic pain). negative: Neck Pain, Shoulder Pain, Arm Pain, Back Pain, Hand Pain, Leg Pain, Foot Pain - Medications/Allergies Allergies/Adverse Reactions: Allergies Allergy/AdvReac Type Severity Reaction Status Date / Time sulfamethoxazole Allergy Severe Verified 11/28/13 12:26 [From Bactrim] trimethoprim [From Bactrim] Allergy Severe Verified 11/28/13 12:26 amitriptyline Allergy Verified 11/26/13 01:32 chlorpheniramine Allergy Verified 11/26/13 01:32 clindamycin Allergy Verified 11/26/13 01:32 morphine Allergy Verified 11/26/13 01:32 sulfacetamide Allergy Verified 11/26/13 01:32 sumatriptan Allergy Verified 11/26/13 01:32 tetracycline [Tetracycline] Allergy Verified 11/26/13 01:32 [id number] Antimigraine Allergy Verified 11/26/13 01:32 Agents Medications: Current Medications Acetaminophen (Tylenol) 650 mg PO Q4H PRN PRN Reason: Headache/Fever or Pain Acetaminophen/Codeine Phosphate (Tylenol #3) 1 tab PO Q6H PRN PRN Reason: Mild Pain (1-3) Acetaminophen/Codeine Phosphate (Tylenol #3) 2 tab PO Q4H PRN PRN Reason: Moderate Pain (4-6) Last Admin: 09/12/17 13:55 Dose: 2 tab Acidophilus (Floranex) 1 tab PO DAILY [facility] Last Admin: 09/12/17 09:49 Dose: 1 tab Alprazolam (Xanax) 0.5 mg PO [facility] Cyclobenzaprine HCl (Flexeril) 10 mg PO TID [facility] Last Admin: 09/12/17 13:56 Dose: 10 mg Dextrose/Water (Dextrose 50%) 25 gm SLOW IVP PRN PRN PRN Reason: Hypoglycemia Docusate Sodium (Colace) 100 mg PO BID [facility] Last Admin: 09/12/17 09:47 Dose: 100 mg Duloxetine HCl (Cymbalta) 60 mg PO DAILY [facility] Last Admin: 09/12/17 07:59 Dose: 60 mg Enoxaparin Sodium (Lovenox) 40 mg SC 0900 [facility] Last Admin: 09/12/17 09:55 Dose: 40 mg Famotidine (Pepcid) 20 mg PO BID [facility] Last Admin: 09/12/17 06:17 Dose: 20 mg Fentanyl (Duragesic) 50 mcg TD Q3D@0200 [facility] Last Admin: 09/12/17 01:39 Dose: Not Given Furosemide (Lasix) 40 mg PO DAILY [facility] Last Admin: 09/12/17 09:46 Dose: 40 mg Glipizide (Glucotrol) 5 mg PO BID-AC [facility] Last Admin: 09/12/17 06:18 Dose: Not Given Glucagon (Glucagon) 1 mg IM PRN PRN PRN Reason: Hypoglycemia Guaifenesin/Dextromethorphan (Robitussin Dm) 15 ml PO Q4H PRN PRN Reason: Cough Hydromorphone HCl (Dilaudid) 4 mg PO BID [facility] Last Admin: 09/12/17 07:57 Dose: 4 mg Dextrose/Water (D5w) 1,000 mls @ 0 mls/hr IV .Q0M PRN; As Directed PRN Reason: Hypoglycemia Piperacillin Sod/Tazobactam (Sod 4.5 gm/ Sodium Chloride) 100 mls @ 200 mls/hr IVPB 0200,1000,1800 [facility] Last Admin: 09/12/17 09:34 Dose: 100 mls Insulin Glargine 65 units/ (Miscellaneous Medication) 0.65 mls @ 0 mls/hr SC BID [facility] Last Admin: 09/12/17 09:52 Dose: Not Given Vancomycin HCl 1.75 gm/ Sodium (Chloride) 500 mls @ 250 mls/hr IVPB Q12HR [facility] Last Admin: 09/12/17 11:18 Dose: 500 mls Insulin Human Lispro (Humalog) 0 units SC .MODERATE SLIDING SC PRN PRN Reason: Moderate Correctional Scale Insulin Human Lispro (Humalog) 0 units SC .BEDTIME SLIDING SC PRN PRN Reason: Bedtime Correctional Scale Levothyroxine Sodium (Synthroid) 112 mcg PO 0600 [facility] Last Admin: 09/12/17 06:17 Dose: 112 mcg Losartan Potassium (Cozaar) 25 mg PO DAILY [facility] Last Admin: 09/12/17 07:58 Dose: 25 mg Miscellaneous Medication (Movantik) 12.5 mg PO DAILY [facility] Last Admin: 09/12/17 09:49 Dose: Not Given Ondansetron HCl (Zofran Odt) 4 mg PO Q6HR PRN PRN Reason: Nausea Last Admin: 09/12/17 08:00 Dose: 4 mg Potassium Chloride (Klor-Con 10) 20 meq PO BID [facility] Last Admin: 09/12/17 09:46 Dose: 20 meq Pravastatin Sodium (Pravachol) 20 mg PO HS [facility] Sodium Chloride (Flush - Normal Saline) 10 ml IVF Q12HR [facility] Sodium Chloride (Flush - Normal Saline) 10 ml IVF PRN PRN PRN Reason: Saline Flush
--- NOTE | 2017-09-12 19:45 | ULT ---
BILATERAL LOWER EXTREMITY VENOUS DOPPLER: 09/12/2017 PROVIDED CLINICAL HISTORY: Bilateral foot pain and swelling. FINDINGS: To-scale and color Doppler sonography with spectral analysis was performed of the bilateral common femoral, femoral, popliteal, posterior tibial, greater saphenous, and profunda femoral veins, demonst rating a normal sonographic appearance to each. IMPRESSION: No sonographic evidence for lower extremity deep venous thrombosis. POS: [id number]
[2017-09-12] MEDS: ALPRAZolam 1 MG TAB PO SCH (20:37)
[2017-09-12] MEDS: Pravastatin Sodium 20 MG TAB PO SCH (20:38)
[2017-09-13] MEDS: Acetaminophen/Codeine 30-300mg Tablet PO PRN ×4 (03:16→23:55)
[2017-09-13] MEDS: Piperacillin/Tazobactam 4.5 GM in Sodium Chloride 0.9% 100 ML IVPB SCH ×3 (03:16→17:56)
[2017-09-13] MEDS: Ondansetron ODT 4 MG TAB PO PRN ×2 (04:14→11:18)
[2017-09-13] MEDS: Levothyroxine Sodium 112 MCG TAB PO SCH (04:15)
[2017-09-13] MEDS: Cyclobenzaprine 10 MG TAB PO SCH ×3 (08:18→21:24)
[2017-09-13] MEDS: Lactinex Tablet PO SCH (08:18)
[2017-09-13] MEDS: Losartan 25 MG TAB PO SCH (08:18)
[2017-09-13] MEDS: DULoxetine 30 MG CAP PO SCH (08:18)
[2017-09-13] MEDS: HYDROmorphone 2 MG TAB PO SCH ×2 (08:19→21:26)
[2017-09-13] MEDS: Potassium Chloride 10 MEQ TAB PO SCH ×2 (08:19→21:26)
[2017-09-13] MEDS: Docusate 100 MG CAP PO SCH ×2 (08:19→21:24)
[2017-09-13] MEDS: Furosemide 40 MG TAB PO SCH (08:20)
[2017-09-13] MEDS: Famotidine 20 MG TAB PO SCH ×2 (08:21→21:28)
[2017-09-13] MEDS: Enoxaparin Sodium 40 MG/0.4 ML SYRINGE SC SCH (08:27)
[2017-09-13] MEDS: glipiZIDE 5 MG TAB PO SCH ×2 (08:28→17:00)
[2017-09-13] MEDS: Vancomycin HCl 1.75 GM in Sodium Chloride 0.9% 500 ML IVPB SCH ×2 (09:51→21:31)
[2017-09-13] MEDS: fentaNYL 50 mcg/hour Patch TD SCH (11:54)
[2017-09-13] MEDS: Insulin Glargine 65 UNITS in Pre-Filled Syringe 1 EACH SC SCH ×2 (11:59→21:29)
--- NOTE | 2017-09-13 12:43 | CON ---
DATE OF CONSULTATION: 09/13/2017 REASON FOR CONSULTATION: Pubic symphysis infection. HISTORY OF PRESENT ILLNESS: A 51-year-old whom I had seen in 2013 when she presented with a history of type 2 diabetes, multiple sclerosis, who had been a resident in a senior care in [place]. She represented with neutrophilia, history of prior respiratory tract infections and some skin lesions. Extensive workup showed no evidence of an opportunistic infectious process and the other possibility would be vasculitis. At the time of discharge, the concern with not immune syndrome, particularly vasculitis was the main issue. All serologies were negative. In 02/2016, she developed gastrointestinal bleeding secondary to hemorrhoids. At that time, she had a pelvic abdominal CT, which showed a horseshoe kidney, but no calcifications. This time, she presents with a history of pain in the pubic area and reported difficulty in the exchange of her Luu catheter at the senior care. Since then, she has developed pain and swelling of the pubic region was seen by Dr. Kc, her PCP and had noticed some fever. At the emergency room, she had a CT of abdomen and pelvis, which showed widening of the symphysis pubis with possible septic arthritis. The patient is currently still with pain in the area, still has a Luu catheter inserted, which has not been exchanged. No headaches, no dyspnea or maybe mild dyspnea, no cough, no abdominal pain, no change in her neurological condition. Apparently, had a repeat MRI of her head done in [place], since reportedly they are not yet sure that she truly has multiple sclerosis. 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 The changes that would be consistent with erythema multiforme features. No infective organisms were identified in the lesions. She has a chronic indwelling Luu catheter for management of neurogenic bladder, prior hysterectomy, left wrist surgery, thyroidectomy, tonsillectomy, and adenoidectomy. ALLERGIES: SULFA DRUGS, CLINDAMYCIN, OMNICEF, TETRACYCLINE, ANTIHISTAMINICS, AMITRIPTYLINE, and MORPHINE. SOCIAL HISTORY: Living in a senior care for many years now. Never a smoker. FAMILY HISTORY: Coronary artery disease and diabetes mellitus type 2. REVIEW OF SYSTEMS: Constipation. CURRENT MEDICATIONS: Tylenol, Floranex, Xanax, Flexeril, dextrose, Cymbalta, Lovenox, Pepcid, Duragesic, Glucotrol, and Dilaudid. MEDICATIONS IN THE HOSPITAL: Insulin, Synthroid, Cozaar, Movantik, Zofran, Zosyn, and vancomycin. PHYSICAL EXAMINATION: VITAL SIGNS: Temperature max 98.6, blood pressure 140/75, pulse 81, respirations 18, and O2 sat 97%. SKIN: Not remarkable. She has a peripheral IV access and a Luu catheter in place. The skin around the Luu catheter has a little bit of exudate, did not see any obvious drainage. Otherwise, no erythema. No other areas of skin breakdown, no lymphadenopathy. HEENT: Ocular movements are conjugate. Oral cavity moist. NECK: Supple. LUNGS: With symmetric air entry. HEART: S1 and S2, regular rate. No S3 or S4. ABDOMEN: Soft, not distended or tender. No ascites. No bladder distention. EXTREMITIES: She has weakness of all 4 extremities, more so on the lower extremities. She is able to wiggle her toes and fingers. I did not elicit any plantar responses. No clonus was noticed. Pulses 1+ in dorsalis pedis. NEURO: Awake, alert, oriented, and follows commands. LABORATORY DATA: WBC count was 11.8 down to 9.6, hemoglobin 11.8 and now 10.7, MCV 98, platelets from 444 to 358. Neutrophils percentage from 84% to 77%. INR 1.1 and chemistry with a sodium 138, glucose 150, creatinine 0.74. Liver profile normal. CK 27, albumin 3.6. CRP 5.68. Urinalysis with 11-20 WBCs. Microbiology studies, we have pending urine culture. Previous urine culture from 02/2017 with Pseudomonas aeruginosa, Morganella morganii, susceptibility profile showed resistance to quinolones, ampicillin, nitrofurantoin, and Bactrim. She had one bout of blood culture from 01/2017 with coagulase negative Staph and alpha hemolytic streptococcus. IMAGING STUDIES: We have the recent abdomen and pelvis CT from 2 days ago, which showed a widening of the symphysis pubis indistinct cortical margins surrounding soft tissue density. No evidence of abscess was noted. ASSESSMENT: 1. Chronic neurological illness with quadriparesis, initially felt to be secondary to multiple sclerosis, but more recently her neurologist seems to be questioning that diagnosis. 2. Previous episode of erythema multiforme a few years ago. 3. Issues related to exchange of the Luu catheter now with pain in the pubic area and evidence of pubic symphysis inflammatory changes. DISCUSSION: Pubic symphysis arthritis and osteomyelitis is not very common, but usually develops secondary to either hematogenous spread to the area or secondary to local spread from trauma associated with surgical procedures including prostatectomy and procedures to elevate the bladder for management of incontinence. Reports of pubic symphysis osteomyelitis or septic arthritis secondary to trauma from Luu catheters are rare. At this time, we would continue the current antimicrobials. I do not think she would be amenable for any surgical intervention at this point except for maybe considering replacement of the Luu catheter to a suprapubic catheter. Approximately 50% of cases as this will resolve with conservative management, the remainder require surgical intervention and she will require follow up imaging study to verify resolution or improvement of the process. I would advise consulting Dr. Elise, who is her urologist particularly in reference to the role of her luu catheter in this process. She will need long-term treatment at least 4- 6 weeks with a broad-spectrum regimen. Percutaneous aspirate of the pubic symphysis may be discussed with Radiology to see if we could determine a specific organism. Most likely she will require continuation of broad spectrum coverage; therefore, she would need a PICC line placement. The treatment will have to be carried out in the senior care. Therefore, regimen that would allow less frequent administration would be favored. WILIAMD
--- NOTE | 2017-09-13 14:41 | PDOC.PN ---
- Subjective Encounter Start Date: 09/13/17 Encounter Start Time: 09:20 Pt seen for followup re: septic arthritis. Denies fevers. reports nausea and vomiting. - Objective Resuscitation Status: Resuscitation Status FULL:Full Resuscitation MAR Reviewed: Yes Vital Signs & Weight: Vital Signs (12 hours) Temp Pulse Resp BP Pulse Ox 09/13/17 11:43 98.0 F 80 18 159/75 H 96 09/13/17 07:21 98.5 F 81 18 145/75 H 97 09/13/17 04:58 98 F 73 18 127/71 96 Weight Weight 239 lb I&O: 09/12/17 09/13/17 09/14/17 06:59 06:59 06:59 Intake Total 640 945 Output Total 1350 450 Balance -710 495 Result Diagrams: 09/12/17 04:12 09/12/17 04:12 Additional Labs: Accuchecks 09/13/17 09/13/17 09/13/17 10:47 07:32 04:54 POC Glucose 156 H 91 91 09/12/17 09/12/17 20:43 16:34 POC Glucose 154 H 153 H Labs reviewed by me Phys Exam - Physical Examination Obesity HEENT: moist MMs, sclera anicteric, oral pharynx no lesions, 2+ tonsils Neck: no nodes, no JVD, supple, full ROM Respiratory: no wheezing, no rales, no rhonchi, clear to auscultation bilateral Cardiovascular: RRR, no rub S1, S2 Gastrointestinal: soft, non-tender, positive bowel sounds distended Neurological: moves all 4 limbs Psychiatric: normal affect, A&O x 3 Dx/Plan (1) Septic arthritis Status: Acute Comment: Continue IV antibiotics as below, cultures pending (2) Nausea and vomiting Code(s): R11.2 - NAUSEA WITH VOMITING, UNSPECIFIED Status: Acute Comment: continue IV Zofran, start PRN IV/IM phenergan (3) DM type 2 (diabetes mellitus, type 2) Status: Chronic Qualifiers: Diabetes mellitus skilled nursing insulin use: with termite renewal inspector use Diabetes mellitus complication status: with unspecified complications Qualified Code(s) : E11.8 - Type 2 diabetes mellitus with unspecified complications; Z79.4 - termite treater (current) use of insulin; Z79.4 - alf (current) use of insulin; Z79.4 - alf (current) use of insulin; Z79.4 - termite treater (current) use of insulin Comment: on accuchecks, insulin sliding scale (4) 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 Code(s): G35 - MULTIPLE SCLEROSIS; R53.2 - FUNCTIONAL QUADRIPLEGIA Status: Chronic Comment: stable (5) Hypertension Code(s): I10 - ESSENTIAL (PRIMARY) HYPERTENSION Status: Chronic Qualifiers: Comment: monitor vital signs and titrate antihypertensives as needed (6) Multiple sclerosis Code(s): G35 - MULTIPLE SCLEROSIS Status: Chronic Comment: stable (7) Neurogenic bladder Code(s): N31.9 - NEUROMUSCULAR DYSFUNCTION OF BLADDER, UNSPECIFIED Status: Chronic Comment: chronic indwelling luu - Plan * . Review of Systems - Review of Systems Constitutional: negative: fever, chills, sweats, weakness, malaise Respiratory: negative: Cough, Shortness of Breath, SOB with Excertion, Pleuritic Pain, Wheezing Cardiovascular: negative: chest pain, palpitations, orthopnea, paroxysmal nocturnal dyspnea, edema, light headedness Gastrointestinal: Nausea, Vomiting. negative: Abdominal Pain, Diarrhea, Constipation, Melena, Hematochezia Genitourinary: negative: Dysuria, Frequency, Incontinence, Hematuria, Retention Skin: negative: Rash, Lesions, Sammy, Bruising - Medications/Allergies Allergies/Adverse Reactions: Allergies Allergy/AdvReac Type Severity Reaction Status Date / Time sulfamethoxazole Allergy Severe Verified 11/28/13 12:26 [From Bactrim] trimethoprim [From Bactrim] Allergy Severe Verified 11/28/13 12:26 amitriptyline Allergy Verified 11/26/13 01:32 chlorpheniramine Allergy Verified 11/26/13 01:32 clindamycin Allergy Verified 11/26/13 01:32 morphine Allergy Verified 11/26/13 01:32 sulfacetamide Allergy Verified 11/26/13 01:32 sumatriptan Allergy Verified 11/26/13 01:32 tetracycline [Tetracycline] Allergy Verified 11/26/13 01:32 [id number] Antimigraine Allergy Verified 11/26/13 01:32 Agents Medications: Current Medications Acetaminophen (Tylenol) 650 mg PO Q4H PRN PRN Reason: Headache/Fever or Pain Acetaminophen/Codeine Phosphate (Tylenol #3) 1 tab PO Q6H PRN PRN Reason: Mild Pain (1-3) Acetaminophen/Codeine Phosphate (Tylenol #3) 2 tab PO Q4H PRN PRN Reason: Moderate Pain (4-6) Last Admin: 09/13/17 11:19 Dose: 2 tab Acidophilus (Floranex) 1 tab PO DAILY [facility] Last Admin: 09/13/17 08:18 Dose: 1 tab Alprazolam (Xanax) 0.5 mg PO HS [facility] Last Admin: 09/12/17 20:37 Dose: 0.5 mg Calcium Carbonate (Tums) 1,000 mg PO Q4H PRN PRN Reason: Indigestion Cyclobenzaprine HCl (Flexeril) 10 mg PO TID [facility] Last Admin: 09/13/17 08:18 Dose: 10 mg Dextrose/Water (Dextrose 50%) 25 gm SLOW IVP PRN PRN PRN Reason: Hypoglycemia Docusate Sodium (Colace) 100 mg PO BID [facility] Last Admin: 09/13/17 08:19 Dose: 100 mg Duloxetine HCl (Cymbalta) 60 mg PO DAILY [facility] Last Admin: 09/13/17 08:18 Dose: 60 mg Enoxaparin Sodium (Lovenox) 40 mg SC 0900 [facility] Last Admin: 09/13/17 08:27 Dose: 40 mg Famotidine (Pepcid) 20 mg PO BID [facility] Last Admin: 09/13/17 08:21 Dose: 20 mg Fentanyl (Duragesic) 50 mcg TD Q3D@1100 [facility] Last Admin: 09/13/17 11:54 Dose: 50 mcg Furosemide (Lasix) 40 mg PO DAILY [facility] Last Admin: 09/13/17 08:20 Dose: 40 mg Glipizide (Glucotrol) 5 mg PO BID-AC [facility] Last Admin: 09/13/17 08:28 Dose: Not Given Glucagon (Glucagon) 1 mg IM PRN PRN PRN Reason: Hypoglycemia Guaifenesin/Dextromethorphan (Robitussin Dm) 15 ml PO Q4H PRN PRN Reason: Cough Hydromorphone HCl (Dilaudid) 4 mg PO BID [facility] Last Admin: 09/13/17 08:19 Dose: 4 mg Dextrose/Water (D5w) 1,000 mls @ 0 mls/hr IV .Q0M PRN; As Directed PRN Reason: Hypoglycemia Piperacillin Sod/Tazobactam (Sod 4.5 gm/ Sodium Chloride) 100 mls @ 200 mls/hr IVPB 0200,1000,1800 [facility] Last Admin: 09/13/17 08:51 Dose: 100 mls Insulin Glargine 65 units/ (Miscellaneous Medication) 0.65 mls @ 0 mls/hr SC BID [facility] Last Admin: 09/13/17 11:59 Dose: Not Given Vancomycin HCl 1.75 gm/ Sodium (Chloride) 500 mls @ 250 mls/hr IVPB Q12HR [facility] Last Admin: 09/13/17 09:51 Dose: 500 mls Promethazine HCl 25 mg/Miscellaneous Medication 1 each/ Sodium Chloride 51 mls @ 204 mls/hr IVPB Q6H PRN PRN Reason: Nausea Insulin Human Lispro (Humalog) 0 units SC .MODERATE SLIDING SC PRN PRN Reason: Moderate Correctional Scale Insulin Human Lispro (Humalog) 0 units SC .BEDTIME SLIDING SC PRN PRN Reason: Bedtime Correctional Scale Levothyroxine Sodium (Synthroid) 112 mcg PO 0600 [facility] Last Admin: 09/13/17 04:15 Dose: 112 mcg Losartan Potassium (Cozaar) 25 mg PO DAILY [facility] Last Admin: 09/13/17 08:18 Dose: 25 mg Miscellaneous Medication (Movantik) 12.5 mg PO DAILY [facility] Last Admin: 09/13/17 08:33 Dose: Not Given Ondansetron HCl (Zofran Odt) 4 mg PO Q6HR PRN PRN Reason: Nausea Last Admin: 09/13/17 11:18 Dose: 4 mg Potassium Chloride (Klor-Con 10) 20 meq PO BID [facility] Last Admin: 09/13/17 08:19 Dose: 20 meq Pravastatin Sodium (Pravachol) 20 mg PO HS [facility] Last Admin: 09/12/17 20:38 Dose: 20 mg Promethazine HCl (Phenergan) 25 mg IM/IV Q6H PRN PRN Reason: Nausea/Vomiting Sodium Chloride (Flush - Normal Saline) 10 ml IVF Q12HR [facility] Last Admin: 09/13/17 08:33 Dose: 10 ml Sodium Chloride (Flush - Normal Saline) 10 ml IVF PRN PRN PRN Reason: Saline Flush
[2017-09-13] MEDS: Calcium Carbonate 500 MG ChewTAB PO PRN (15:08)
[2017-09-13] MEDS: Promethazine HCl 25 MG, Admixture Fee 1 EACH in Sodium Chloride 0.9% 50 ML IVPB PRN ×2 (15:09→22:29)
[2017-09-13] MEDS: ALPRAZolam 1 MG TAB PO SCH (21:24)
[2017-09-13] MEDS: Pravastatin Sodium 20 MG TAB PO SCH (21:28)
[2017-09-13] MEDS: Promethazine HCl 25 MG/ML VIAL IM/IV PRN (22:29)
[2017-09-14] MEDS: Piperacillin/Tazobactam 4.5 GM in Sodium Chloride 0.9% 100 ML IVPB SCH ×2 (03:16→09:28)
[2017-09-14] MEDS: Levothyroxine Sodium 112 MCG TAB PO SCH (05:35)
[2017-09-14] MEDS: Promethazine HCl 25 MG/ML VIAL IM/IV PRN ×2 (05:36→23:55)
[2017-09-14] MEDS: Acetaminophen/Codeine 30-300mg Tablet PO PRN ×2 (07:04→14:55)
[2017-09-14 08:26] LABS: Vancomycin, Trough 36.6 ug/mL
[2017-09-14] MEDS ORDERED: Vancomycin HCl 1.75 GM in Sodium Chloride 0.9% 500 ML IVPB SCH (09:15)
[2017-09-14] MEDS: DULoxetine 30 MG CAP PO SCH (09:28)
[2017-09-14] MEDS: Cyclobenzaprine 10 MG TAB PO SCH ×3 (09:28→21:55)
[2017-09-14] MEDS: HYDROmorphone 2 MG TAB PO SCH ×2 (09:29→21:56)
[2017-09-14] MEDS: Lactinex Tablet PO SCH (09:29)
[2017-09-14] MEDS: Losartan 25 MG TAB PO SCH (09:29)
[2017-09-14] MEDS: Docusate 100 MG CAP PO SCH ×2 (09:30→21:55)
[2017-09-14] MEDS: Famotidine 20 MG TAB PO SCH ×2 (09:30→21:57)
[2017-09-14] MEDS: Potassium Chloride 10 MEQ TAB PO SCH ×2 (09:30→21:55)
[2017-09-14] MEDS: Furosemide 40 MG TAB PO SCH (09:30)
[2017-09-14] MEDS: Enoxaparin Sodium 40 MG/0.4 ML SYRINGE SC SCH (09:31)
[2017-09-14] MEDS: glipiZIDE 5 MG TAB PO SCH ×2 (09:31→17:16)
[2017-09-14] MEDS: Insulin Glargine 65 UNITS in Pre-Filled Syringe 1 EACH SC SCH ×2 (09:32→22:12)
[2017-09-14] MEDS: Vancomycin HCl 1.75 GM in Sodium Chloride 0.9% 500 ML IVPB SCH (10:00)
[2017-09-14] MEDS ORDERED: Lorazepam 0.5 MG TAB PO SCH (10:45)
--- NOTE | 2017-09-14 13:12 | PDOC.PN ---
- Subjective Encounter Start Date: 09/14/17 Encounter Start Time: 07:40 Pt seen for followup re:septic arthritis. Denies chest pain or shortness of breath. Nausea better. - Objective Resuscitation Status: Resuscitation Status FULL:Full Resuscitation MAR Reviewed: Yes Vital Signs & Weight: Vital Signs (12 hours) Temp Pulse Resp BP Pulse Ox 09/14/17 08:00 98.3 F 86 16 95 09/14/17 07:35 98.3 F 86 16 147/70 H 95 09/14/17 04:00 98.3 F 83 18 143/70 H 95 Weight Weight 239 lb I&O: 09/13/17 09/14/17 09/15/17 06:59 06:59 06:59 Intake Total 945 650 Output Total 450 2400 Balance 495 -1750 Result Diagrams: 09/15/17 04:50 09/15/17 06:19 Additional Labs: Accuchecks 09/14/17 09/13/17 09/13/17 04:15 19:43 17:12 POC Glucose 221 H 159 H 155 H Labs reviewed by me Phys Exam - Physical Examination Obese HEENT: moist MMs, sclera anicteric, oral pharynx no lesions, 2+ tonsils Neck: no nodes, no JVD, supple, full ROM Respiratory: no wheezing, no rales, no rhonchi, clear to auscultation bilateral Cardiovascular: RRR, no rub S1, S2 Neurological: moves all 4 limbs Psychiatric: normal affect, A&O x 3 Dx/Plan (1) Septic arthritis Status: Acute Comment: Continue IV antibiotics cefepime and Zosyn, follow cultures. (2) Nausea and vomiting Code(s): R11.2 - NAUSEA WITH VOMITING, UNSPECIFIED Status: Acute Comment: continue PRN IV/IM phenergan (3) DM type 2 (diabetes mellitus, type 2) Status: Chronic Qualifiers: Diabetes mellitus terminal superintendent insulin use: with group home use Diabetes mellitus complication status: with unspecified complications Qualified Code(s) : E11.8 - Type 2 diabetes mellitus with unspecified complications; Z79.4 - half-way (current) use of insulin; Z79.4 - half-way (current) use of insulin; Z79.4 - half-way (current) use of insulin; Z79.4 - intermediate designer (current) use of insulin Comment: on accuchecks, insulin sliding scale (4) 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 Code(s): G35 - MULTIPLE SCLEROSIS; R53.2 - FUNCTIONAL QUADRIPLEGIA Status: Chronic Comment: stable (5) Hypertension Code(s): I10 - ESSENTIAL (PRIMARY) HYPERTENSION Status: Chronic Qualifiers: Comment: monitor vital signs and titrate antihypertensives as needed (6) Multiple sclerosis Code(s): G35 - MULTIPLE SCLEROSIS Status: Chronic Comment: stable (7) Neurogenic bladder Code(s): N31.9 - NEUROMUSCULAR DYSFUNCTION OF BLADDER, UNSPECIFIED Status: Chronic Comment: chronic indwelling luu, pt awaiting urology consult - Plan * . Review of Systems - Review of Systems Constitutional: negative: fever, chills, sweats, weakness, malaise Respiratory: negative: Cough, Shortness of Breath, SOB with Excertion, Pleuritic Pain, Wheezing Cardiovascular: negative: chest pain, palpitations, orthopnea, paroxysmal nocturnal dyspnea, edema, light headedness, other Gastrointestinal: Nausea. negative: Vomiting, Abdominal Pain, Diarrhea, Constipation, Melena, Hematochezia Genitourinary: negative: Dysuria, Frequency, Incontinence, Hematuria, Retention - Medications/Allergies Allergies/Adverse Reactions: Allergies Allergy/AdvReac Type Severity Reaction Status Date / Time sulfamethoxazole Allergy Severe Verified 11/28/13 12:26 [From Bactrim] trimethoprim [From Bactrim] Allergy Severe Verified 11/28/13 12:26 amitriptyline Allergy Verified 11/26/13 01:32 chlorpheniramine Allergy Verified 11/26/13 01:32 clindamycin Allergy Verified 11/26/13 01:32 morphine Allergy Verified 11/26/13 01:32 sulfacetamide Allergy Verified 11/26/13 01:32 sumatriptan Allergy Verified 11/26/13 01:32 tetracycline [Tetracycline] Allergy Verified 11/26/13 01:32 [id number] Antimigraine Allergy Verified 11/26/13 01:32 Agents Medications: Current Medications Acetaminophen (Tylenol) 650 mg PO Q4H PRN PRN Reason: Headache/Fever or Pain Acetaminophen/Codeine Phosphate (Tylenol #3) 1 tab PO Q6H PRN PRN Reason: Mild Pain (1-3) Acetaminophen/Codeine Phosphate (Tylenol #3) 2 tab PO Q4H PRN PRN Reason: Moderate Pain (4-6) Last Admin: 09/14/17 07:04 Dose: 2 tab Acidophilus (Floranex) 1 tab PO DAILY [facility] Last Admin: 09/14/17 09:29 Dose: 1 tab Alprazolam (Xanax) 0.5 mg PO HS [facility] Last Admin: 09/13/17 21:24 Dose: 0.5 mg Calcium Carbonate (Tums) 1,000 mg PO Q4H PRN PRN Reason: Indigestion Last Admin: 09/13/17 15:08 Dose: 1,000 mg Cyclobenzaprine HCl (Flexeril) 10 mg PO TID [facility] Last Admin: 09/14/17 09:28 Dose: 10 mg Dextrose/Water (Dextrose 50%) 25 gm SLOW IVP PRN PRN PRN Reason: Hypoglycemia Docusate Sodium (Colace) 100 mg PO BID [facility] Last Admin: 09/14/17 09:30 Dose: 100 mg Duloxetine HCl (Cymbalta) 60 mg PO DAILY [facility] Last Admin: 09/14/17 09:28 Dose: 60 mg Enoxaparin Sodium (Lovenox) 40 mg SC 0900 [facility] Last Admin: 09/14/17 09:31 Dose: 40 mg Famotidine (Pepcid) 20 mg PO BID [facility] Last Admin: 09/14/17 09:30 Dose: 20 mg Fentanyl (Duragesic) 50 mcg TD Q3D@1100 [facility] Last Admin: 09/13/17 11:54 Dose: 50 mcg Furosemide (Lasix) 40 mg PO DAILY [facility] Last Admin: 09/14/17 09:30 Dose: 40 mg Glipizide (Glucotrol) 5 mg PO BID-AC [facility] Last Admin: 09/14/17 09:31 Dose: Not Given Glucagon (Glucagon) 1 mg IM PRN PRN PRN Reason: Hypoglycemia Guaifenesin/Dextromethorphan (Robitussin Dm) 15 ml PO Q4H PRN PRN Reason: Cough Hydromorphone HCl (Dilaudid) 4 mg PO BID [facility] Last Admin: 09/14/17 09:29 Dose: 4 mg Dextrose/Water (D5w) 1,000 mls @ 0 mls/hr IV .Q0M PRN; As Directed PRN Reason: Hypoglycemia Piperacillin Sod/Tazobactam (Sod 4.5 gm/ Sodium Chloride) 100 mls @ 200 mls/hr IVPB 0200,1000,1800 [facility] Last Admin: 09/14/17 09:28 Dose: 100 mls Insulin Glargine 65 units/ (Miscellaneous Medication) 0.65 mls @ 0 mls/hr SC BID [facility] Last Admin: 09/14/17 09:32 Dose: Not Given Promethazine HCl 25 mg/Miscellaneous Medication 1 each/ Sodium Chloride 51 mls @ 204 mls/hr IVPB Q6H PRN PRN Reason: Nausea Last Admin: 09/13/17 15:09 Dose: 51 mls Vancomycin HCl 1.75 gm/ Sodium (Chloride) 500 mls @ 250 mls/hr IVPB .PENDING LEVEL [facility] Insulin Human Lispro (Humalog) 0 units SC .MODERATE SLIDING SC PRN PRN Reason: Moderate Correctional Scale Insulin Human Lispro (Humalog) 0 units SC .BEDTIME SLIDING SC PRN PRN Reason: Bedtime Correctional Scale Levothyroxine Sodium (Synthroid) 112 mcg PO 0600 [facility] Last Admin: 09/14/17 05:35 Dose: 112 mcg Losartan Potassium (Cozaar) 25 mg PO DAILY [facility] Last Admin: 09/14/17 09:29 Dose: 25 mg Miscellaneous Medication (Movantik) 12.5 mg PO DAILY [facility] Last Admin: 09/14/17 09:32 Dose: Not Given Ondansetron HCl (Zofran Odt) 4 mg PO Q6HR PRN PRN Reason: Nausea Last Admin: 09/13/17 11:18 Dose: 4 mg Potassium Chloride (Klor-Con 10) 20 meq PO BID [facility] Last Admin: 09/14/17 09:30 Dose: 20 meq Pravastatin Sodium (Pravachol) 20 mg PO HS [facility] Last Admin: 09/13/17 21:28 Dose: 20 mg Promethazine HCl (Phenergan) 25 mg IM/IV Q6H PRN PRN Reason: Nausea/Vomiting Last Admin: 09/14/17 05:36 Dose: 25 mg Sodium Chloride (Flush - Normal Saline) 10 ml IVF Q12HR [facility] Last Admin: 09/14/17 09:27 Dose: 10 ml Sodium Chloride (Flush - Normal Saline) 10 ml IVF PRN PRN PRN Reason: Saline Flush
--- NOTE | 2017-09-14 14:27 | SPC ---
ULTRASOUND GUIDED LEFT UPPER EXTREMITY PICC PLACEMENT: Date: 09-14-17 History: Infection. In need of IV antibiotics. FINDINGS: Informed consent obtained prior to the procedure. Left antecubital fossa was prepped and draped in normal sterile fashion. Skin overlying the basilic v ein was anesthetized with 1% buffered Lidocaine. Attempts were made to access the left basilic vein, but secondary to the small size of the left basilic vein, access instead was obtained via the left br achial vein. Brachial vein was punctured under direct sonographic guidance with vascular access needl e and an 018 wire was advanced to the level of the IVC, subsequently retracted to the cavoatrial junc tion. Intervascular length is calculated at 45 cm and PICC was cut accordingly. The needle was remove d and replaced with a peel-away sheath. The PICC was advanced over a wire. The wire and peel-away she ath were removed. The tip of the catheter overlies the cavoatrial junction. Both ports flush well and the catheter is ready for use. Exposure Data: 0.2 minutes fluoroscopic time, 1423 mGy*cm^2. IMPRESSION: Successful ultrasound guided dual-lumen left upper extremity PICC placement via the left brachial vei n. POS: [facility]
[2017-09-14] MEDS: Promethazine HCl 25 MG, Admixture Fee 1 EACH in Sodium Chloride 0.9% 50 ML IVPB PRN (17:00)
--- NOTE | 2017-09-14 18:02 | PRG ---
DATE OF SERVICE: 09/14/2017 SUBJECTIVE: Still having pain in the pubic area and she noticed sharp pain in the vaginal introitus next to the Cho catheter. Denies any headaches. No respiratory symptoms. No diarrhea. OBJECTIVE: VITAL SIGNS: Temperature max 98.4, blood pressure 160/75, pulse 85, respirations 16-18, O2 sat 98%. GENERAL: Appears in no distress. LUNGS: Clear. CARDIOVASCULAR: S1, S2, regular rate. NEUROLOGIC: Unchanged. GENITOURINARY: Pubic area appears supple without any redness or induration. Introitus, I did not se e any inflammatory changes or drainage. LABORATORY DATA: White cell count is at 9.6, hemoglobin 10.7, platelets 358. Chemistry not remarkab le. Microbiology with a urine culture which is greater than 100,000 CFUs with mixed enteric earl. ASSESSMENT AND DISCUSSION: Chronic neurological illness with quadriparesis. Initially felt to be se condary to multiple sclerosis, but a different diagnosis is being considered by her neurologist. Rec ent problems with exchange of the Cho catheter with pain developing in the suprapubic area with afshan dence of pubic symphysis inflammatory changes, likely infectious arthritis, possible osteomyelitis. DISCUSSION: The patient is currently receiving broad-spectrum coverage with Zosyn and vancomycin. W e will transition patient to vancomycin and cefepime. The reported history of allergy to Omnicef is not true hypersensitivity reaction. She was able to tolerate medication recently without any problem s. The end date of therapy will be 10/28/2017, weekly labs.
[2017-09-14 20:28] LABS: Vancomycin, Random 19.5 ug/mL (See Comment)
[2017-09-14] MEDS: ALPRAZolam 1 MG TAB PO SCH (21:51)
[2017-09-14] MEDS: Cefepime 2 GM in Sodium Chloride 0.9% 100 ML IVPB SCH (21:52)
[2017-09-14] MEDS: Calcium Carbonate 500 MG ChewTAB PO PRN (21:54)
[2017-09-14] MEDS: Pravastatin Sodium 20 MG TAB PO SCH (21:56)
[2017-09-14] MEDS: Vancomycin HCl 1 GM in Premix Bag 1 BAG IVPB SCH (23:21)
[2017-09-15] MEDS: Acetaminophen/Codeine 30-300mg Tablet PO PRN ×2 (04:43→15:45)
[2017-09-15 05:27] LABS: #Eosinphils 0.4 thou/uL (0.0-0.7); #Lymphocytes 1.3 thou/uL (1.20-3.40); #Monocytes 0.6 thou/uL (0.11-0.59); #Neutrophils 6.2 thou/uL (1.40-6.50); %Basophils 0.2 % (0.0-1.0); %Lymphocytes 15.2 % (21.0-51.0); %Monocytes 7.5 % (0.0-10.0); %Neutrophils 72.2 % (42.0-75.0); Mean Corpuscular HGB CONC 33.6 g/dL (32.0-36.0); Mean Corpuscular Hemoglobin 32.7 pg (27.0-31.0); Mean Corpuscular Volume 97.3 fl (81.0-99.0); Mean Platelet Volume 6.3 fL (7.4-10.4); Platelet Count 359 thou/uL (130-400); RBC Distribution Width 14.7 % (11.5-14.5); Red Blood Cell (RBC) Count 3.66 mill/uL (4.20-5.40); White Blood Cell (WBC) Count 8.6 thou/uL (4.8-10.8)
[2017-09-15] MEDS: Levothyroxine Sodium 112 MCG TAB PO SCH (06:19)
[2017-09-15 06:44] LABS: Anion Gap 10 mmol/L (10-20); BUN (Urea Nitrogen) 9 mg/dL (9.8-20.1); Calc. Creatinine Clearance 144 mL/min (70-130); Calcium 9.2 mg/dL (7.8-10.44); Carbon Dioxide 27 mmol/L (22-29); Chloride 104 mmol/L (98-107); Estimated GFR-MDRD 77; Glucose 168 mg/dL (70-105); Potassium 4.2 mmol/L (3.5-5.1); Sodium 137 mmol/L (136-145)
[2017-09-15] MEDS: Cefepime 2 GM in Sodium Chloride 0.9% 100 ML IVPB SCH ×2 (09:41→20:30)
[2017-09-15] MEDS: Insulin Glargine 65 UNITS in Pre-Filled Syringe 1 EACH SC SCH ×2 (09:50→22:56)
[2017-09-15] MEDS: glipiZIDE 5 MG TAB PO SCH ×2 (09:50→17:11)
[2017-09-15] MEDS: Promethazine HCl 25 MG, Admixture Fee 1 EACH in Sodium Chloride 0.9% 50 ML IVPB PRN ×2 (10:46→20:23)
[2017-09-15] MEDS: Enoxaparin Sodium 40 MG/0.4 ML SYRINGE SC SCH (11:13)
[2017-09-15] MEDS: Potassium Chloride 10 MEQ TAB PO SCH (11:14)
[2017-09-15] MEDS: DULoxetine 30 MG CAP PO SCH (11:15)
[2017-09-15] MEDS: Losartan 25 MG TAB PO SCH (11:15)
[2017-09-15] MEDS: HYDROmorphone 2 MG TAB PO SCH ×2 (11:16→20:27)
[2017-09-15] MEDS: Furosemide 40 MG TAB PO SCH (11:17)
[2017-09-15] MEDS: Cyclobenzaprine 10 MG TAB PO SCH ×3 (11:17→20:26)
[2017-09-15] MEDS: Famotidine 20 MG TAB PO SCH ×2 (11:17→20:27)
[2017-09-15] MEDS: Lactinex Tablet PO SCH (11:17)
[2017-09-15] MEDS: Docusate 100 MG CAP PO SCH ×2 (11:18→20:26)
[2017-09-15] MEDS: Vancomycin HCl 1 GM in Premix Bag 1 BAG IVPB SCH ×2 (11:23→23:15)
--- NOTE | 2017-09-15 12:54 | PDOC.PN ---
- Subjective Encounter Start Date: 09/15/17 Encounter Start Time: 10:00 Pt seen for followup re: septic arthritis. Denies chest pain or shortness of breath. nausea+, but better. - Objective Resuscitation Status: Resuscitation Status FULL:Full Resuscitation MAR Reviewed: Yes Vital Signs & Weight: Vital Signs (12 hours) Temp Pulse Resp BP Pulse Ox 09/15/17 11:40 97.8 F 86 16 157/83 H 94 L 09/15/17 07:40 98.2 F 87 16 190/72 H 95 Weight Weight 239 lb I&O: 09/14/17 09/15/17 09/16/17 06:59 06:59 06:59 Intake Total 650 Output Total 2400 2250 Balance -1750 -2250 Result Diagrams: 09/15/17 04:50 09/15/17 06:19 Additional Labs: Accuchecks 09/15/17 09/15/17 09/14/17 11:42 04:27 19:42 POC Glucose 184 H 156 H 154 H 09/14/17 09/14/17 16:54 14:31 POC Glucose 131 H 158 H Labs reviewed by me Phys Exam - Physical Examination Obese HEENT: moist MMs, sclera anicteric, oral pharynx no lesions Neck: no nodes, no JVD, supple, full ROM Respiratory: no wheezing, no rales, no rhonchi, clear to auscultation bilateral Cardiovascular: RRR, no rub S1, S2 Gastrointestinal: soft, non-tender, no distention, positive bowel sounds Neurological: moves all 4 limbs Psychiatric: normal affect, A&O x 3 Skin: no rash Dx/Plan (1) Septic arthritis Status: Acute Comment: Continue IV antibiotics cefepime and Zosyn, follow cultures. (2) Nausea and vomiting Code(s): R11.2 - NAUSEA WITH VOMITING, UNSPECIFIED Status: Acute Comment: continue PRN IV/IM phenergan (3) DM type 2 (diabetes mellitus, type 2) Status: Chronic Qualifiers: Diabetes mellitus residential insulin use: with residential use Diabetes mellitus complication status: with unspecified complications Qualified Code(s) : E11.8 - Type 2 diabetes mellitus with unspecified complications; Z79.4 - half-way (current) use of insulin; Z79.4 - terminal operator (current) use of insulin; Z79.4 - terminal operator (current) use of insulin; Z79.4 - half-way (current) use of insulin Comment: on accuchecks, insulin sliding scale (4) 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 Code(s): G35 - MULTIPLE SCLEROSIS; R53.2 - FUNCTIONAL QUADRIPLEGIA Status: Chronic Comment: stable (5) Hypertension Code(s): I10 - ESSENTIAL (PRIMARY) HYPERTENSION Status: Chronic Qualifiers: Comment: monitor vital signs and titrate antihypertensives as needed (6) Multiple sclerosis Code(s): G35 - MULTIPLE SCLEROSIS Status: Chronic Comment: stable (7) Neurogenic bladder Code(s): N31.9 - NEUROMUSCULAR DYSFUNCTION OF BLADDER, UNSPECIFIED Status: Chronic Comment: chronic indwelling luu, pt awaiting urology consult - Plan * . Review of Systems - Review of Systems Constitutional: negative: fever, chills, sweats, weakness, malaise Respiratory: negative: Cough, Dry, Shortness of Breath, Hemoptysis, SOB with Excertion, Pleuritic Pain, Sputum, Wheezing Cardiovascular: negative: chest pain, palpitations, orthopnea, paroxysmal nocturnal dyspnea, edema, light headedness Gastrointestinal: Nausea. negative: Vomiting, Abdominal Pain, Diarrhea, Constipation, Melena, Hematochezia Genitourinary: negative: Dysuria, Frequency, Incontinence, Hematuria, Retention - Medications/Allergies Allergies/Adverse Reactions: Allergies Allergy/AdvReac Type Severity Reaction Status Date / Time sulfamethoxazole Allergy Severe Verified 11/28/13 12:26 [From Bactrim] trimethoprim [From Bactrim] Allergy Severe Verified 11/28/13 12:26 amitriptyline Allergy Verified 11/26/13 01:32 chlorpheniramine Allergy Verified 11/26/13 01:32 clindamycin Allergy Verified 11/26/13 01:32 morphine Allergy Verified 11/26/13 01:32 sulfacetamide Allergy Verified 11/26/13 01:32 sumatriptan Allergy Verified 11/26/13 01:32 tetracycline [Tetracycline] Allergy Verified 11/26/13 01:32 [id number] Antimigraine Allergy Verified 11/26/13 01:32 Agents Medications: Current Medications Acetaminophen (Tylenol) 650 mg PO Q4H PRN PRN Reason: Headache/Fever or Pain Acetaminophen/Codeine Phosphate (Tylenol #3) 1 tab PO Q6H PRN PRN Reason: Mild Pain (1-3) Acetaminophen/Codeine Phosphate (Tylenol #3) 2 tab PO Q4H PRN PRN Reason: Moderate Pain (4-6) Last Admin: 09/15/17 04:43 Dose: 2 tab Acidophilus (Floranex) 1 tab PO DAILY [facility] Last Admin: 09/15/17 11:17 Dose: 1 tab Alprazolam (Xanax) 0.5 mg PO HS [facility] Last Admin: 09/14/17 21:51 Dose: 0.5 mg Calcium Carbonate (Tums) 1,000 mg PO Q4H PRN PRN Reason: Indigestion Last Admin: 09/14/17 21:54 Dose: 1,000 mg Cyclobenzaprine HCl (Flexeril) 10 mg PO TID [facility] Last Admin: 09/15/17 11:17 Dose: 10 mg Dextrose/Water (Dextrose 50%) 25 gm SLOW IVP PRN PRN PRN Reason: Hypoglycemia Docusate Sodium (Colace) 100 mg PO BID [facility] Last Admin: 09/15/17 11:18 Dose: 100 mg Duloxetine HCl (Cymbalta) 60 mg PO DAILY [facility] Last Admin: 09/15/17 11:15 Dose: 60 mg Enoxaparin Sodium (Lovenox) 40 mg SC 0900 [facility] Last Admin: 09/15/17 11:13 Dose: 40 mg Famotidine (Pepcid) 20 mg PO BID [facility] Last Admin: 09/15/17 11:17 Dose: 20 mg Fentanyl (Duragesic) 50 mcg TD Q3D@1100 [facility] Last Admin: 09/13/17 11:54 Dose: 50 mcg Furosemide (Lasix) 40 mg PO DAILY [facility] Last Admin: 09/15/17 11:17 Dose: 40 mg Glipizide (Glucotrol) 5 mg PO BID-AC [facility] Last Admin: 09/15/17 09:50 Dose: Not Given Glucagon (Glucagon) 1 mg IM PRN PRN PRN Reason: Hypoglycemia Guaifenesin/Dextromethorphan (Robitussin Dm) 15 ml PO Q4H PRN PRN Reason: Cough Hydromorphone HCl (Dilaudid) 4 mg PO BID [facility] Last Admin: 09/15/17 11:16 Dose: 4 mg Dextrose/Water (D5w) 1,000 mls @ 0 mls/hr IV .Q0M PRN; As Directed PRN Reason: Hypoglycemia Insulin Glargine 65 units/ (Miscellaneous Medication) 0.65 mls @ 0 mls/hr SC BID [facility] Last Admin: 09/15/17 09:50 Dose: Not Given Promethazine HCl 25 mg/Miscellaneous Medication 1 each/ Sodium Chloride 51 mls @ 204 mls/hr IVPB Q6H PRN PRN Reason: Nausea Last Admin: 09/15/17 10:46 Dose: 51 mls Cefepime HCl 2 gm/ Sodium (Chloride) 100 mls @ 200 mls/hr IVPB Q12HR [facility] Last Admin: 09/15/17 09:41 Dose: 100 mls Vancomycin HCl 1 gm/ Device 200 mls @ 200 mls/hr IVPB 1100,2300 [facility] Last Admin: 09/15/17 11:23 Dose: 200 mls Insulin Human Lispro (Humalog) 0 units SC .MODERATE SLIDING SC PRN PRN Reason: Moderate Correctional Scale Insulin Human Lispro (Humalog) 0 units SC .BEDTIME SLIDING SC PRN PRN Reason: Bedtime Correctional Scale Levothyroxine Sodium (Synthroid) 112 mcg PO 0600 [facility] Last Admin: 09/15/17 06:19 Dose: 112 mcg Losartan Potassium (Cozaar) 25 mg PO DAILY [facility] Last Admin: 09/15/17 11:15 Dose: 25 mg Miscellaneous Medication (Movantik) 12.5 mg PO DAILY [facility] Last Admin: 09/15/17 11:20 Dose: Not Given Ondansetron HCl (Zofran Odt) 4 mg PO Q6HR PRN PRN Reason: Nausea Last Admin: 09/13/17 11:18 Dose: 4 mg Potassium Chloride (Klor-Con 10) 20 meq PO BID [facility] Last Admin: 09/15/17 11:14 Dose: 20 meq Pravastatin Sodium (Pravachol) 20 mg PO HS [facility] Last Admin: 09/14/17 21:56 Dose: 20 mg Promethazine HCl (Phenergan) 25 mg IM/IV Q6H PRN PRN Reason: Nausea/Vomiting Last Admin: 09/14/17 23:55 Dose: 25 mg Sodium Chloride (Flush - Normal Saline) 10 ml IVF Q12HR [facility] Last Admin: 09/15/17 09:41 Dose: 10 ml Sodium Chloride (Flush - Normal Saline) 10 ml IVF PRN PRN PRN Reason: Saline Flush
[2017-09-15] MEDS: ALPRAZolam 1 MG TAB PO SCH (20:26)
[2017-09-15] MEDS: Pravastatin Sodium 20 MG TAB PO SCH (20:26)
--- NOTE | 2017-09-15 22:09 | CON ---
DATE OF CONSULTATION: 09/15/2017 CONSULTED PHYSICIAN: Dr. Braydon Rivera. CONSULTING PHYSICIAN: Dr. Zuhair Elise. 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 HISTORY OF PRESENT ILLNESS: Ms. Mills is a 51-year-old white female, who is previously known to me for issues of urinary retention with multiple sclerosis. I had previously seen her at that time and she had been managed her bladder with indwelling Cho catheter. She does have the ability to void o n her own, but had significant issues with leakage and urge incontinence. We had elected to place a catheter since she had lost the ability to walk and she was happy with this regimen and she was doing well on her own with her own self-catheter care. During this time, she stopped following up since e amething was going well and during this time also, I was transferred to a new care facility. There, they would not allow her to perform her own catheter care and she states that things got progressive ly worse and she had more problems with her catheter. 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 She does have frequent urinary tract infections in the past and they were controlled for some time until she began stating that she was having infectio ns again. It is unclear if these infections were truly symptomatic infections or just provider care getting multiple urine cultures, which will always be positive given her indwelling catheter. In eit her case, she also states that she is having significant amounts of bloody discharge from which she jabier daniels is around her catheter. She has had a prior hysterectomy and states that she does not believ e this coming from the vagina. She goes through multiple pads a day and does wet her sheets at her c [facility] facility and has been doing so here at the hospital as well. She currently takes Bentyl for spas ms, but does not take anything bladder specific. She states her bowel movements have been reasonable . She is currently denies any fevers. Her catheter, she states it has been clear, but she continues to have a bloody discharge otherwise. ALLERGIES: 1. SULFA. 2. CLINDAMYCIN. 3. OMNICEF. 4. TETRACYCLINE. 5. ANTIHISTAMINE. 6. AMITRIPTYLINE. 7. MORPHINE. CURRENT HOME MEDICATIONS: 1. Singulair. 2. Nystatin cream. 3. Melatonin. 4. Floranex. 5. Flexeril. 6. Tums. 7. Tylenol. 8. Colace. 9. Bentyl. 10. Imuran 11. Zofran. 12. Vitamin D3. 13. Dilaudid. 14. Protonix. 15. Klor-Con 16. Cozaar. 17. Synthroid. 18. Lantus. 19. Humalog. 20. Xanax. 21. Lasix. 22. Clonidine. 23. Fentanyl. PAST MEDICAL HISTORY: 1. Multiple sclerosis. 2. Fibromyalgia. 3. Hypothyroidism. 4. Type 2 diabetes. 5. Hypertension. 6. Arthritis. 7. Urinary retention with neurogenic bladder. 8. Recurrent urinary tract infections. PAST SURGICAL HISTORY: 1. Hysterectomy. 2. Left wrist surgery. 3. Thyroidectomy. 4. Tonsillectomy. 5. Adenoidectomy. FAMILY HISTORY: Significant for coronary artery disease and diabetes, but no other neurological cond itions. SOCIAL HISTORY: The patient has been living in a fpc for several years. She denies any smo harry history. Denies alcohol abuse or illicit drug use. REVIEW OF SYSTEMS: A 12-point review of systems is significant for prior issues with constipation, l ower back pain and flank pain, entire pelvic pain, bloody discharge from either the urethra or vagina , painful bladder spasms at times. She denies chest pain, shortness of breath, bloody bowel movement s, nausea or vomiting, fevers or chills. Remainder of 12-point review of systems was reviewed and ot herwise negative. PHYSICAL EXAMINATION: VITAL SIGNS: Temperature is 98.6, pulse 95, respirations 15, blood pressure 154/72, saturation 96% o n room air. GENERAL: No apparent distress, communicative and alert. Appears well-nourished, well-developed. HEENT: Normocephalic and atraumatic. Sclerae are nonicteric. Pupils are symmetric and round. Trac hea is midline. Previous scar from thyroid surgery has noted. Moist mucous membranes. CARDIOVASCULAR: Regular rate and rhythm. Normal S1 and S2. Symmetric pulses. CHEST: No increased work of breathing. Symmetric expansion of lungs. Clear anteriorly. ABDOMEN: Soft, nontender, nondistended. No significant suprapubic tenderness; however, there is a p ubic symphyseal tenderness. There is no organomegaly. No rebound or guarding. GENITOURINARY: Cho catheter is in place, draining clear urine. Labia appeared normal, slightly er ythematous. There does not appear to be any vaginal discharge or blood in the vagina. There is bloo d around the meatus, but nothing obvious that can be seen actively bleeding. The urethra does not ap pear eroded. There is no erosion of the catheter, going in any direction. EXTREMITIES: No clubbing, cyanosis or edema. There is some muscle atrophy in the lower extremities. MUSCULOSKELETAL: No joint deformities or joint erythema noted. Again, muscle wasting in the lower e xtremities, no joint erythema noted. Range of motion appears normal in the upper extremities and isabell ewhat limited in the lower extremities. NEUROLOGIC: Cranial nerves II-XII appear grossly intact. No focal or sensory deficits identified ex cept in the lower extremities where the patient has weakness. PSYCHIATRIC: Alert and oriented x3, appropriate mood and affect. LABORATORY DATA: On laboratory evaluation, a full set of labs in the [facility] system, which I have r eviewed. Of note, the patient's white count is currently 8.6 with hemoglobin of 12. Creatinine is c urrently 0.79. Urinalysis demonstrates nitrite positive, urine with moderate leukocyte esterase, 11- 20 red cells, 11-20 white cells. Urine culture from 09/11/2017 has mixed organisms, from the is currently negative. ASSESSMENT: A 51-year-old white female with multiple sclerosis and neurogenic bladder, currently man aged with indwelling Cho catheter with gross hematuria and likely bladder spasms, although I cannot rule out potential other sources of leakage or bleeding. There does not appear to be any direct ext ension or cause of her pubic symphyseal infection from a direct extension from the Cho catheter as there does not appear to be any erosions or problems. It is unknown whether or not she had a signifi cant infection in the past that may have caused hematogenous spread to the pubic symphysis. From thi s standpoint, I do think it is reasonable for the patient to continue with antibiotics and conservati ve management has been previously laid out by Orthopedics and Infectious Disease. From my standpoint , the gross hematuria somewhat concerning if it is indeed coming from her urethra. I would recommend that since she is due for a catheter, change that. We consider looking inside her bladder to inspec t for possible problems. She has already undergone a CT, which did not demonstrate any concerning fi ndings in the upper tracts other than her previously known horseshoe kidney. I will take her down fo r a diagnostic cystoscopy. We discussed possible intervention, but she states that she does not want to fast unless it is necessary, so we will plan for just a diagnostic cystoscopy and if something is discovered, then we will plan for an actual treatment based procedure the following day. I told her I will also perform a vaginoscopy in the same setting to evaluate for potential bleeding sites from the vagina. If there appears to be risk for a vesicovaginal fistula, then I will perform a cystogram or methylene blue dye test. I will go ahead and start her on VESIcare or oxybutynin to see if the s ource of her leakage or discharge is coming for bladder spasms, which seems likely, as this is a high risk and multiple sclerosis populations. Further recommendations will be based on findings during t his time. The patient states that she would ultimately like to get rid of her catheter and see if sh e can go back to voiding on her own. With proper bladder control, she may be able to transfer into t he bathroom to urinate there. Because she has this goal, I would hold off on placement of a suprapub ic tube for the time being, but if she is unable to reach this goal in a timely fashion then I think a suprapubic tube would be reasonable for the patient. Assuming that she wants this as an SP tube wh ile it would assist in drainage of her bladder. We will leave an open source from the urethra where she may be incontinent and have leakage which was the patient's primary concern. This also would not be addressed by an SP tube in. For the time being, I think leaving the indwelling Cho catheter so long as there is no evidence of erosions is reasonable. I will go ahead and make plans for taking h er down to the OR tomorrow for just a diagnostic cystoscopy without anesthesia. PLAN: 1. Continue IV antibiotics. 2. We will plan for diagnostic cystoscopy tomorrow with potential additional testing including a cys togram. 3. If any concerning findings are found, we will plan for a separate procedure with anesthesia. 4. We will change her Cho catheter at the time of the cystoscopy. I will continue to follow along .
[2017-09-16] MEDS: Acetaminophen/Codeine 30-300mg Tablet PO PRN ×4 (00:15→23:09)
[2017-09-16] MEDS: Levothyroxine Sodium 112 MCG TAB PO SCH (05:32)
[2017-09-16 05:36] LABS: #Eosinphils 0.4 thou/uL (0.0-0.7); #Lymphocytes 1.8 thou/uL (1.20-3.40); #Monocytes 0.6 thou/uL (0.11-0.59); #Neutrophils 5.3 thou/uL (1.40-6.50); %Basophils 0.1 % (0.0-1.0); %Eosinophils 5.5 % (0.0-10.0); %Lymphocytes 22.1 % (21.0-51.0); %Monocytes 7.1 % (0.0-10.0); %Neutrophils 65.2 % (42.0-75.0); Hemoglobin 11.7 g/dL (12.0-16.0); Mean Corpuscular HGB CONC 31.7 g/dL (32.0-36.0); Mean Corpuscular Volume 97.6 fl (81.0-99.0); Mean Platelet Volume 6.1 fL (7.4-10.4); Platelet Count 331 thou/uL (130-400); RBC Distribution Width 14.8 % (11.5-14.5); Red Blood Cell (RBC) Count 3.78 mill/uL (4.20-5.40); White Blood Cell (WBC) Count 8.1 thou/uL (4.8-10.8)
[2017-09-16 05:55] LABS: Anion Gap 8 mmol/L (10-20); BUN (Urea Nitrogen) 13 mg/dL (9.8-20.1); Calc. Creatinine Clearance 148 mL/min (70-130); Calcium 8.9 mg/dL (7.8-10.44); Carbon Dioxide 27 mmol/L (22-29); Chloride 106 mmol/L (98-107); Estimated GFR-MDRD 79; Glucose 123 mg/dL (70-105); Potassium 4.3 mmol/L (3.5-5.1); Sodium 137 mmol/L (136-145)
[2017-09-16] MEDS: glipiZIDE 5 MG TAB PO SCH ×2 (08:07→16:49)
[2017-09-16] MEDS: DULoxetine 30 MG CAP PO SCH (08:11)
[2017-09-16] MEDS: Cyclobenzaprine 10 MG TAB PO SCH ×3 (08:12→20:34)
[2017-09-16] MEDS: Losartan 25 MG TAB PO SCH (08:12)
[2017-09-16] MEDS: Docusate 100 MG CAP PO SCH ×2 (08:12→20:34)
[2017-09-16] MEDS: HYDROmorphone 2 MG TAB PO SCH ×2 (08:13→20:35)
[2017-09-16] MEDS: Oxybutynin ER 5 MG TAB PO SCH (08:13)
[2017-09-16] MEDS: Furosemide 40 MG TAB PO SCH (08:13)
[2017-09-16] MEDS: Lactinex Tablet PO SCH (08:14)
[2017-09-16] MEDS: Famotidine 20 MG TAB PO SCH ×2 (08:14→20:34)
[2017-09-16] MEDS: Cefepime 2 GM in Sodium Chloride 0.9% 100 ML IVPB SCH ×2 (08:15→20:45)
[2017-09-16] MEDS: Insulin Glargine 65 UNITS in Pre-Filled Syringe 1 EACH SC SCH ×2 (08:15→20:33)
[2017-09-16] MEDS: Promethazine HCl 25 MG, Admixture Fee 1 EACH in Sodium Chloride 0.9% 50 ML IVPB PRN ×2 (09:37→17:46)
[2017-09-16] MEDS: Enoxaparin Sodium 40 MG/0.4 ML SYRINGE SC SCH ×2 (10:36→16:50)
[2017-09-16 10:45] LABS: Vancomycin, Trough 25.6 ug/mL
[2017-09-16] MEDS: Vancomycin HCl 1 GM in Premix Bag 1 BAG IVPB SCH (11:30)
[2017-09-16] MEDS: fentaNYL 50 mcg/hour Patch TD SCH (11:42)
--- NOTE | 2017-09-16 13:19 | PDOC.PN ---
- Subjective Encounter Start Date: 09/16/17 Encounter Start Time: 08:40 Pt seen for followup re: septic arthritis. Reports nausea on and off. No fevers. - Objective Resuscitation Status: Resuscitation Status FULL:Full Resuscitation MAR Reviewed: Yes Vital Signs & Weight: Vital Signs (12 hours) Temp Pulse Resp BP Pulse Ox 09/16/17 11:01 98.7 F 84 18 151/84 H 96 09/16/17 08:00 98.6 F 83 16 Weight Weight 239 lb I&O: 09/15/17 09/16/17 09/17/17 06:59 06:59 06:59 Intake Total 1230 120 Output Total 2250 2100 Balance -2250 -870 120 Result Diagrams: 09/16/17 04:23 09/16/17 04:23 Additional Labs: Accuchecks 09/16/17 09/16/17 09/15/17 11:09 05:15 21:03 POC Glucose 209 H 135 H 148 H 09/15/17 16:24 POC Glucose 239 H Labs reviewed by me Phys Exam - Physical Examination Obese HEENT: moist MMs Neck: supple Respiratory: clear to auscultation bilateral Cardiovascular: RRR Gastrointestinal: soft Neurological: moves all 4 limbs Psychiatric: normal affect Skin: no rash Dx/Plan (1) Septic arthritis Status: Acute Comment: Continue IV cefepime and Zosyn (2) Nausea and vomiting Code(s): R11.2 - NAUSEA WITH VOMITING, UNSPECIFIED Status: Acute Comment: continue PRN IV/IM phenergan and PRN IV Zofran (3) DM type 2 (diabetes mellitus, type 2) Status: Chronic Qualifiers: Diabetes mellitus intermediate insulin use: with keno terminal operator use Diabetes mellitus complication status: with unspecified complications Qualified Code(s) : E11.8 - Type 2 diabetes mellitus with unspecified complications; Z79.4 - custodial (current) use of insulin; Z79.4 - custodial (current) use of insulin; Z79.4 - custodial (current) use of insulin; Z79.4 - custodial (current) use of insulin Comment: continue accuchecks, insulin sliding scale (4) 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 Code(s): G35 - MULTIPLE SCLEROSIS; R53.2 - FUNCTIONAL QUADRIPLEGIA Status: Chronic Comment: stable (5) Hypertension Code(s): I10 - ESSENTIAL (PRIMARY) HYPERTENSION Status: Chronic Qualifiers: Comment: monitor vital signs and titrate antihypertensives as needed (6) Multiple sclerosis Code(s): G35 - MULTIPLE SCLEROSIS Status: Chronic Comment: stable (7) Neurogenic bladder Code(s): N31.9 - NEUROMUSCULAR DYSFUNCTION OF BLADDER, UNSPECIFIED Status: Chronic Comment: Pt to have cystoscopy - Plan * . Review of Systems - Review of Systems Constitutional: negative: fever, chills, sweats, weakness, malaise Respiratory: negative: Cough, Shortness of Breath, SOB with Excertion, Pleuritic Pain, Wheezing Gastrointestinal: Nausea - Medications/Allergies Allergies/Adverse Reactions: Allergies Allergy/AdvReac Type Severity Reaction Status Date / Time sulfamethoxazole Allergy Severe Verified 11/28/13 12:26 [From Bactrim] trimethoprim [From Bactrim] Allergy Severe Verified 11/28/13 12:26 amitriptyline Allergy Verified 11/26/13 01:32 chlorpheniramine Allergy Verified 11/26/13 01:32 clindamycin Allergy Verified 11/26/13 01:32 morphine Allergy Verified 11/26/13 01:32 sulfacetamide Allergy Verified 11/26/13 01:32 sumatriptan Allergy Verified 11/26/13 01:32 tetracycline [Tetracycline] Allergy Verified 11/26/13 01:32 [id number] Antimigraine Allergy Verified 11/26/13 01:32 Agents Medications: Current Medications Acetaminophen (Tylenol) 650 mg PO Q4H PRN PRN Reason: Headache/Fever or Pain Acetaminophen/Codeine Phosphate (Tylenol #3) 1 tab PO Q6H PRN PRN Reason: Mild Pain (1-3) Acetaminophen/Codeine Phosphate (Tylenol #3) 2 tab PO Q4H PRN PRN Reason: Moderate Pain (4-6) Last Admin: 09/16/17 00:15 Dose: 2 tab Acidophilus (Floranex) 1 tab PO DAILY [facility] Last Admin: 09/16/17 08:14 Dose: 1 tab Alprazolam (Xanax) 0.5 mg PO HS [facility] Last Admin: 09/15/17 20:26 Dose: 0.5 mg Calcium Carbonate (Tums) 1,000 mg PO Q4H PRN PRN Reason: Indigestion Last Admin: 09/14/17 21:54 Dose: 1,000 mg Cyclobenzaprine HCl (Flexeril) 10 mg PO TID [facility] Last Admin: 09/16/17 08:12 Dose: 10 mg Dextrose/Water (Dextrose 50%) 25 gm SLOW IVP PRN PRN PRN Reason: Hypoglycemia Docusate Sodium (Colace) 100 mg PO BID [facility] Last Admin: 09/16/17 08:12 Dose: 100 mg Duloxetine HCl (Cymbalta) 60 mg PO DAILY [facility] Last Admin: 09/16/17 08:11 Dose: 60 mg Enoxaparin Sodium (Lovenox) 40 mg SC 0900 [facility] Last Admin: 09/16/17 10:36 Dose: Not Given Famotidine (Pepcid) 20 mg PO BID [facility] Last Admin: 09/16/17 08:14 Dose: 20 mg Fentanyl (Duragesic) 50 mcg TD Q3D@1100 [facility] Last Admin: 09/16/17 11:42 Dose: 50 mcg Furosemide (Lasix) 40 mg PO DAILY [facility] Last Admin: 09/16/17 08:13 Dose: 40 mg Glipizide (Glucotrol) 5 mg PO BID-AC [facility] Last Admin: 09/16/17 08:07 Dose: Not Given Glucagon (Glucagon) 1 mg IM PRN PRN PRN Reason: Hypoglycemia Guaifenesin/Dextromethorphan (Robitussin Dm) 15 ml PO Q4H PRN PRN Reason: Cough Hydromorphone HCl (Dilaudid) 4 mg PO BID [facility] Last Admin: 09/16/17 08:13 Dose: 4 mg Dextrose/Water (D5w) 1,000 mls @ 0 mls/hr IV .Q0M PRN; As Directed PRN Reason: Hypoglycemia Insulin Glargine 65 units/ (Miscellaneous Medication) 0.65 mls @ 0 mls/hr SC BID [facility] Last Admin: 09/16/17 08:15 Dose: Not Given Promethazine HCl 25 mg/Miscellaneous Medication 1 each/ Sodium Chloride 51 mls @ 204 mls/hr IVPB Q6H PRN PRN Reason: Nausea Last Admin: 09/16/17 09:37 Dose: 51 mls Cefepime HCl 2 gm/ Sodium (Chloride) 100 mls @ 200 mls/hr IVPB Q12HR [facility] Last Admin: 09/16/17 08:15 Dose: 100 mls Vancomycin HCl 1.5 gm/ Sodium (Chloride) 300 mls @ 200 mls/hr IVPB 2300 [facility] Insulin Human Lispro (Humalog) 0 units SC .MODERATE SLIDING SC PRN PRN Reason: Moderate Correctional Scale Insulin Human Lispro (Humalog) 0 units SC .BEDTIME SLIDING SC PRN PRN Reason: Bedtime Correctional Scale Levothyroxine Sodium (Synthroid) 112 mcg PO 0600 [facility] Last Admin: 09/16/17 05:32 Dose: 112 mcg Losartan Potassium (Cozaar) 25 mg PO DAILY [facility] Last Admin: 09/16/17 08:12 Dose: 25 mg Miscellaneous Medication (Movantik) 12.5 mg PO DAILY [facility] Last Admin: 09/15/17 13:46 Dose: 12.5 mg Ondansetron HCl (Zofran Odt) 4 mg PO Q6HR PRN PRN Reason: Nausea Last Admin: 09/13/17 11:18 Dose: 4 mg Oxybutynin Chloride (Ditropan Xl) 10 mg PO DAILY [facility] Last Admin: 09/16/17 08:13 Dose: 10 mg Potassium Chloride (Klor-Con) 20 meq PO BID-[facility] Last Admin: 09/16/17 08:14 Dose: 20 meq Pravastatin Sodium (Pravachol) 20 mg PO HS [facility] Last Admin: 09/15/17 20:26 Dose: 20 mg Promethazine HCl (Phenergan) 25 mg IM/IV Q6H PRN PRN Reason: Nausea/Vomiting Last Admin: 09/14/17 23:55 Dose: 25 mg Sodium Chloride (Flush - Normal Saline) 10 ml IVF Q12HR [facility] Last Admin: 09/16/17 08:17 Dose: 10 ml Sodium Chloride (Flush - Normal Saline) 10 ml IVF PRN PRN PRN Reason: Saline Flush Last Admin: 09/16/17 09:38 Dose: 10 ml
[2017-09-16] MEDS ORDERED: Iothalamate Meglumine 60% 50 ML VIAL FS ONE (15:39)
--- NOTE | 2017-09-16 17:14 | OP ---
DATE OF PROCEDURE: 09/16/2017 SERVICE: Urology. SURGEON: Zuhair Elise M.D. PREOPERATIVE DIAGNOSES: Gross hematuria and urge incontinence. POSTOPERATIVE DIAGNOSES: Chronic cystitis with urge incontinence and urethral diverticulum. PROCEDURE PERFORMED: Diagnostic cystoscopy and vaginoscopy. INDICATIONS FOR PROCEDURE: Mrs. Mills is a 51-year-old white female with multiple sclerosis and a n eurogenic bladder, who was admitted for pubic symphysis osteomyelitis. During her initial evaluation , there was no obvious cause of her possible osteomyelitis. During workup, she was found to have blo jacqui discharge from around her catheter. The patient is not entirely sure if it is coming from the va uvaldo or the urethra, but she believes that it is urine. Because of her hematuria, I have elected to perform a cystoscopy for diagnostic purposes. Risks and benefits have been discussed and she has agr eed to proceed forward. DESCRIPTION OF PROCEDURE: After identification of armband and verification of consent, the patient w as brought down to the operating room where she underwent monitoring by nursing, but no anesthesia wa s given. She was placed in dorsolithotomy position and prepped and draped in usual sterile fashion. After appropriate timeout, a lubricated 17-[place] cystoscope was introduced per urethra into the lennie dder. A full cystoscopy was performed with both the 30 degree and 70 degree lens. There was noted t o be squamous metaplasia around the trigone and bladder neck, probably from longstanding indwelling F oley catheter and the balloon irritating this area. Where the expected tip of the catheter was, ther e was noted to be cystitis cystica and chronic inflammatory changes, but nothing that appeared consis tent with a tumor or malignancy. There were no bladder stones, diverticulum, trabeculation or cellul es noted. There was cystitis cystica and cystitis glandularis also noted in scattered areas througho ut the bladder. Overall, there was no evidence of a fistula from the bladder to anywhere else or any concerning lesions within the bladder, no stones or any other concerning findings. The urethra itse lf was slightly hyperemic, but there was a large ostia anteriorly on the urethra which leads to a bli nd pouch. The cystoscope could not easily be navigated into this, but it does appear to blindly end. The direction of the diverticulum is directly towards the pubic symphysis, which may be the source of how the patient developed osteomyelitis. The cystoscope was then removed and placed into the jam ent's vagina and a vaginoscopy performed. The vagina appeared normal. There was no cervix present a s the patient has had a prior hysterectomy. There was a very small hole at the apex of the vagina, w hich does not have any surrounding erythema, discharge or blood or any other concerning findings. Th is is likely just a remnant of her previous surgery and it does not appear to be any concerning findi ngs regarding this. The cystoscope was then withdrawn and an 18-[place] Cho catheter with 10 mL in the balloon was placed into the urethra and instilled with 10 mL of sterile water. This was then pepe ked up to a gravity bag. The patient was then taken out of lithotomy and transferred back to a [facility] to be taken back to her room. COMPLICATIONS: None. ESTIMATED BLOOD LOSS: None. RETAINED TUBES AND DRAINS: An 18-[place] Cho catheter. SPECIMENS: None. FINDINGS: Again, is a urethral diverticulum and chronic inflammatory changes within the bladder, but no concerning sources of hematuria except possibly the urethral diverticulum. DISPOSITION: The patient will go her room back to the medical service. I will order an MRI of the p cheryle to further identify the proximity of the diverticulum to the pubic symphysis as this may be the source of the infection.
[2017-09-16] MEDS ORDERED: Magnesium Citrate 300 ML BOT PO SCH (17:15)
[2017-09-16] MEDS: Pravastatin Sodium 20 MG TAB PO SCH (20:34)
[2017-09-16] MEDS: ALPRAZolam 1 MG TAB PO SCH (20:36)
--- NOTE | 2017-09-16 22:15 | EKG ---
Test Reason : Blood Pressure : / mmHG Vent. Rate : 082 BPM Atrial Rate : 082 BPM P-R Int : 164 ms QRS Dur : 082 ms QT Int : 402 ms P-R-T Axes : 042 -06 041 degrees QTc Int : 469 ms Normal sinus rhythm Minimal voltage criteria for LVH, may be normal variant Borderline ECG Confirmed by TARA PIERRE D.O. ([id number]), technical writer and editor RUTH PAPPAS ([id number]) on 09/16/2017 10:14:23 PM Referred By: Confirmed By:TARA PIERRE D.O.
[2017-09-16] MEDS: Vancomycin HCl 1.5 GM in Sodium Chloride 0.9% 250 ML 300 ML IVPB SCH (23:06)
[2017-09-17] MEDS: Calcium Carbonate 500 MG ChewTAB PO PRN (01:43)
[2017-09-17] MEDS: Promethazine HCl 25 MG, Admixture Fee 1 EACH in Sodium Chloride 0.9% 50 ML IVPB PRN ×3 (01:44→20:31)
[2017-09-17] MEDS: Acetaminophen/Codeine 30-300mg Tablet PO PRN ×3 (02:59→19:42)
[2017-09-17] MEDS: Levothyroxine Sodium 112 MCG TAB PO SCH (05:19)
[2017-09-17 05:27] LABS: #Eosinphils 0.5 thou/uL (0.0-0.7); #Lymphocytes 1.8 thou/uL (1.20-3.40); #Monocytes 0.7 thou/uL (0.11-0.59); #Neutrophils 7.2 thou/uL (1.40-6.50); %Basophils 0.4 % (0.0-1.0); %Eosinophils 5.3 % (0.0-10.0); %Lymphocytes 17.1 % (21.0-51.0); %Monocytes 7.2 % (0.0-10.0); Hemoglobin 11.7 g/dL (12.0-16.0); Mean Corpuscular HGB CONC 33.3 g/dL (32.0-36.0); Mean Corpuscular Hemoglobin 32.5 pg (27.0-31.0); Mean Corpuscular Volume 97.7 fl (81.0-99.0); Mean Platelet Volume 6.3 fL (7.4-10.4); Platelet Count 333 thou/uL (130-400); RBC Distribution Width 15.1 % (11.5-14.5); Red Blood Cell (RBC) Count 3.61 mill/uL (4.20-5.40); White Blood Cell (WBC) Count 10.3 thou/uL (4.8-10.8)
[2017-09-17 06:12] LABS: Anion Gap 7 mmol/L (10-20); BUN (Urea Nitrogen) 16 mg/dL (9.8-20.1); Calc. Creatinine Clearance 132 mL/min (70-130); Calcium 9.2 mg/dL (7.8-10.44); Carbon Dioxide 30 mmol/L (22-29); Chloride 104 mmol/L (98-107); Estimated GFR-MDRD 70; Glucose 161 mg/dL (70-105); Potassium 4.4 mmol/L (3.5-5.1); Sodium 137 mmol/L (136-145)
[2017-09-17] MEDS: Cyclobenzaprine 10 MG TAB PO SCH ×3 (09:03→20:29)
[2017-09-17] MEDS: Lactinex Tablet PO SCH (09:04)
[2017-09-17] MEDS: Oxybutynin ER 5 MG TAB PO SCH (09:06)
[2017-09-17] MEDS: Famotidine 20 MG TAB PO SCH ×2 (09:06→20:29)
[2017-09-17] MEDS: glipiZIDE 5 MG TAB PO SCH ×2 (09:07→16:30)
[2017-09-17] MEDS: DULoxetine 30 MG CAP PO SCH (09:08)
[2017-09-17] MEDS: Docusate 100 MG CAP PO SCH ×2 (09:09→20:29)
[2017-09-17] MEDS: Enoxaparin Sodium 40 MG/0.4 ML SYRINGE SC SCH (09:09)
[2017-09-17] MEDS: Furosemide 40 MG TAB PO SCH (09:09)
[2017-09-17] MEDS: HYDROmorphone 2 MG TAB PO SCH ×2 (09:10→20:29)
[2017-09-17] MEDS: Insulin Glargine 65 UNITS in Pre-Filled Syringe 1 EACH SC SCH ×2 (09:12→20:32)
[2017-09-17] MEDS: Losartan 25 MG TAB PO SCH (09:12)
[2017-09-17] MEDS: Cefepime 2 GM in Sodium Chloride 0.9% 100 ML IVPB SCH ×3 (10:18→20:31)
[2017-09-17] MEDS ORDERED: Lorazepam 2 MG/ML VIAL SLOW IVP SCH (11:00)
[2017-09-17] MEDS ORDERED: ALPRAZolam 0.5 MG TAB PO SCH (11:00)
--- NOTE | 2017-09-17 12:57 | PDOC.PN ---
- Subjective Encounter Start Date: 09/17/17 Encounter Start Time: 09:20 Pt seen for followup re: constipation. Reports her last bowel movement was 1 week ago. Received magnesium citrate without relief last night. - Objective Resuscitation Status: Resuscitation Status FULL:Full Resuscitation MAR Reviewed: Yes Vital Signs & Weight: Vital Signs (12 hours) Temp Pulse Resp BP Pulse Ox 09/17/17 08:00 98.3 F 92 18 09/17/17 07:15 98.3 F 92 18 127/76 96 Weight Weight 239 lb I&O: 09/16/17 09/17/17 09/18/17 06:59 06:59 06:59 Intake Total 1230 2620 120 Output Total 2100 1900 Balance -870 720 120 Result Diagrams: 09/17/17 04:42 09/17/17 04:42 Additional Labs: Accuchecks 09/17/17 09/17/17 09/16/17 10:57 04:46 19:49 POC Glucose 144 H 168 H 250 H 09/16/17 16:50 POC Glucose 155 H Labs reviewed by me Phys Exam - Physical Examination Obese HEENT: moist MMs Neck: supple Respiratory: clear to auscultation bilateral Cardiovascular: RRR Gastrointestinal: soft Neurological: moves all 4 limbs Psychiatric: normal affect Dx/Plan (1) Constipation Code(s): K59.00 - CONSTIPATION, UNSPECIFIED Status: Acute Comment: Trial Relistor (2) Septic arthritis Status: Acute Comment: Continue IV cefepime and Zosyn till 10/28/2017 (3) Nausea and vomiting Code(s): R11.2 - NAUSEA WITH VOMITING, UNSPECIFIED Status: Acute Comment: Improved, continue PRN IV/IM phenergan and PRN IV Zofran (4) DM type 2 (diabetes mellitus, type 2) Status: Chronic Qualifiers: Diabetes mellitus alf insulin use: with core checker use Diabetes mellitus complication status: with unspecified complications Qualified Code(s) : E11.8 - Type 2 diabetes mellitus with unspecified complications; Z79.4 - staffing program manager (current) use of insulin; Z79.4 - staffing program manager (current) use of insulin; Z79.4 - staffing program manager (current) use of insulin; Z79.4 - staffing program manager (current) use of insulin Comment: continue accuchecks, insulin sliding scale (5) 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 Review of Systems - Review of Systems Constitutional: negative: fever, chills, sweats, weakness, malaise Gastrointestinal: Nausea, Constipation. negative: Vomiting, Abdominal Pain, Diarrhea, Melena, Hematochezia - Medications/Allergies Allergies/Adverse Reactions: Allergies Allergy/AdvReac Type Severity Reaction Status Date / Time sulfamethoxazole Allergy Severe Verified 11/28/13 12:26 [From Bactrim] trimethoprim [From Bactrim] Allergy Severe Verified 11/28/13 12:26 amitriptyline Allergy Verified 11/26/13 01:32 chlorpheniramine Allergy Verified 11/26/13 01:32 clindamycin Allergy Verified 11/26/13 01:32 morphine Allergy Verified 11/26/13 01:32 sulfacetamide Allergy Verified 11/26/13 01:32 sumatriptan Allergy Verified 11/26/13 01:32 tetracycline [Tetracycline] Allergy Verified 11/26/13 01:32 [id number] Antimigraine Allergy Verified 11/26/13 01:32 Agents Medications: Current Medications Acetaminophen (Tylenol) 650 mg PO Q4H PRN PRN Reason: Headache/Fever or Pain Acetaminophen/Codeine Phosphate (Tylenol #3) 1 tab PO Q6H PRN PRN Reason: Mild Pain (1-3) Acetaminophen/Codeine Phosphate (Tylenol #3) 2 tab PO Q4H PRN PRN Reason: Moderate Pain (4-6) Last Admin: 09/17/17 02:59 Dose: 2 tab Acidophilus (Floranex) 1 tab PO DAILY [facility] Last Admin: 09/17/17 09:04 Dose: 1 tab Alprazolam (Xanax) 0.5 mg PO HS [facility] Last Admin: 05/26/18 20:36 Dose: 0.5 mg Alprazolam (Xanax) 0.5 mg PO WILLCALL [facility] Last Admin: 09/17/17 11:10 Dose: 0.5 mg Calcium Carbonate (Tums) 1,000 mg PO Q4H PRN PRN Reason: Indigestion Last Admin: 09/17/17 01:43 Dose: 1,000 mg Cyclobenzaprine HCl (Flexeril) 10 mg PO TID [facility] Last Admin: 09/17/17 09:03 Dose: 10 mg Dextrose/Water (Dextrose 50%) 25 gm SLOW IVP PRN PRN PRN Reason: Hypoglycemia Docusate Sodium (Colace) 100 mg PO BID [facility] Last Admin: 09/17/17 09:09 Dose: 100 mg Duloxetine HCl (Cymbalta) 60 mg PO DAILY [facility] Last Admin: 09/17/17 09:08 Dose: 60 mg Enoxaparin Sodium (Lovenox) 40 mg SC 0900 [facility] Last Admin: 09/17/17 09:09 Dose: 40 mg Famotidine (Pepcid) 20 mg PO BID [facility] Last Admin: 09/17/17 09:06 Dose: 20 mg Fentanyl (Duragesic) 50 mcg TD Q3D@1400 [facility] Furosemide (Lasix) 40 mg PO DAILY [facility] Last Admin: 09/17/17 09:09 Dose: 40 mg Glipizide (Glucotrol) 5 mg PO BID-AC [facility] Last Admin: 09/17/17 09:07 Dose: 5 mg Glucagon (Glucagon) 1 mg IM PRN PRN PRN Reason: Hypoglycemia Guaifenesin/Dextromethorphan (Robitussin Dm) 15 ml PO Q4H PRN PRN Reason: Cough Hydromorphone HCl (Dilaudid) 4 mg PO BID [facility] Last Admin: 09/17/17 09:10 Dose: 4 mg Dextrose/Water (D5w) 1,000 mls @ 0 mls/hr IV .Q0M PRN; As Directed PRN Reason: Hypoglycemia Insulin Glargine 65 units/ (Miscellaneous Medication) 0.65 mls @ 0 mls/hr SC BID [facility] Last Admin: 09/17/17 09:12 Dose: Not Given Promethazine HCl 25 mg/Miscellaneous Medication 1 each/ Sodium Chloride 51 mls @ 204 mls/hr IVPB Q6H PRN PRN Reason: Nausea Last Admin: 09/17/17 08:36 Dose: 51 mls Cefepime HCl 2 gm/ Sodium (Chloride) 100 mls @ 200 mls/hr IVPB Q12HR [facility] Last Admin: 09/17/17 10:25 Dose: 100 mls Vancomycin HCl 1.5 gm/ Sodium (Chloride) 300 mls @ 200 mls/hr IVPB 2300 [facility] Last Admin: 09/16/17 23:06 Dose: 300 mls Insulin Human Lispro (Humalog) 0 units SC .MODERATE SLIDING SC PRN PRN Reason: Moderate Correctional Scale Insulin Human Lispro (Humalog) 0 units SC .BEDTIME SLIDING SC PRN PRN Reason: Bedtime Correctional Scale Levothyroxine Sodium (Synthroid) 112 mcg PO 0600 [facility] Last Admin: 09/17/17 05:19 Dose: 112 mcg Lorazepam (Ativan) 1 mg SLOW IVP WILLCALL [facility] Last Admin: 09/17/17 11:11 Dose: 1 mg Losartan Potassium (Cozaar) 25 mg PO DAILY [facility] Last Admin: 09/17/17 09:12 Dose: 25 mg Methylnaltrexone [place] (Relistor) 12 mg SC ONE [facility] Miscellaneous Medication (Movantik) 12.5 mg PO DAILY [facility] Last Admin: 09/17/17 09:17 Dose: Not Given Ondansetron HCl (Zofran Odt) 4 mg PO Q6HR PRN PRN Reason: Nausea Last Admin: 09/13/17 11:18 Dose: 4 mg Oxybutynin Chloride (Ditropan Xl) 10 mg PO DAILY [facility] Last Admin: 09/17/17 09:06 Dose: 10 mg Potassium Chloride (Klor-Con) 20 meq PO BID-[facility] Last Admin: 09/17/17 09:09 Dose: 20 meq Pravastatin Sodium (Pravachol) 20 mg PO [facility] Last Admin: 09/16/17 20:34 Dose: 20 mg Promethazine HCl (Phenergan) 25 mg IM/IV Q6H PRN PRN Reason: Nausea/Vomiting Last Admin: 09/14/17 23:55 Dose: 25 mg Sodium Chloride (Flush - Normal Saline) 10 ml IVF Q12HR [facility] Last Admin: 09/17/17 09:13 Dose: 10 ml Sodium Chloride (Flush - Normal Saline) 10 ml IVF PRN PRN PRN Reason: Saline Flush Last Admin: 09/17/17 01:44 Dose: 10 ml
[2017-09-17] MEDS ORDERED: Methylnaltrexone 12 MG/0.6 ML VIAL SC SCH (13:00)
--- NOTE | 2017-09-17 13:42 | MRI ---
PELVIC MRI: HISTORY: Evaluate for infection. Unknown source. Urethral diverticulum. COMPARISON: None. TECHNIQUE: Pelvic MRI is performed with and without intravenous Gadolinium administration. Multisequential, mul tiplanar imaging is performed. FINDINGS: There is a Cho catheter that decompresses the urinary bladder. Minimal amount of residual urine is noted in the bladder. The urinary bladder wall does not appear to be grossly unremarkable. Visualized sacrum has an appropriate marrow signal intensity. There is abnormal T2 hyperintensity wi th associated edema involving the anterior aspect of the superior and inferior pubic rami as well as the anterior right acetabulum. There appears to be a T2 hyperintensity with somewhat mixed signal me asuring 4.6 cm craniocaudal. On the postcontrast images, there is peripheral enhancement. On the ax ial images, this lesion measures 1.7 x 2.1 cm. There is induration and enhancement of the overlying subcutaneous soft tissues. This lesion appears to be superficial to the anterior margin of the pelvi s, specifically the symphysis pubis. No definite contiguation with the underlying urinary bladder. Mild edema of the muscles of the pelvic floor along the inferior aspect . These muscles abut the infl nikita anterior inferior pubic rami. There is a significant amount of edema involving the anterior lower panus. Additional edema is noted in the perineum. A small amount of abnormal fluid is noted tracking along the presacral space. There is enhancement involving the perineum, perirectal in location. There may be a small perirectal abscess, measuring 0.8 cm. Incidental left gluteal edema, incompletely evaluated. IMPRESSION: 1. Abnormal enhancement involving the soft tissues and musculature in the floor of the pelvis predom inantly at the level of the anterior aspect of the inferior and superior pubic rami bilaterally. The re is a probable infected fluid collection/abscess anterior to the symphysis pubis. 2. There appears to be possible edema and subtle enhancement involving the perineum, perirectal in l ocation. There appears to be a possible small associated left perirectal abscess. POS: [facility]
[2017-09-17] MEDS: fentaNYL 50 mcg/hour Patch TD SCH (14:46)
[2017-09-17] MEDS: Pravastatin Sodium 20 MG TAB PO SCH (20:29)
[2017-09-17] MEDS: ALPRAZolam 1 MG TAB PO SCH (20:32)
--- NOTE | 2017-09-17 22:25 | PRG ---
DATE OF SERVICE: 09/17/2017 SUBJECTIVE: The patient is still with pain in the suprapubic area. She had a cystoscopy by Dr. Babar patton. There is possibly a diverticulum in the urethra. She is not having any respiratory symptoms, s ome back pain. No change in neurological condition. OBJECTIVE: VITAL SIGNS: T-max 98.5, blood pressure 140/60, pulse 89, respirations 18, O2 sat 92%-96% on room ai r. GENERAL: Awake, oriented. Does not appear in any distress. LUNGS: Clear. HEART: S1, S2, regular rate. ABDOMEN: Soft, not distended. Suprapubic area, still with some swelling, but no erythema. LABORATORY DATA: White cell count 10.3, hemoglobin 11.7, platelets 333 with 70% neutrophils, which i s improved from admission. The chemistry with a creatinine of 0.86. The patient had an MRI of the p cheryle ordered by Dr. Elise and this identified area of enhancement in the soft tissues and musculat ure of the floor of the pelvis, predominantly at the level of the anterior aspect of the inferior and superior pubic rami bilaterally, likely infected fluid collection anterior to the symphysis pubis an d possible edema and subtle enhancement involving the perineum. 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 I would advise at this point, the consulting Radiology for p ercutaneous aspirate guided by CT or ultrasound to submit for cultures. It does not appear that the process is related to the Cho catheter. There is area of small inflammatory change in the perirect al tissue. She did have some reported hematochezia in the past, has had a colonoscopy about year and a half ago which showed diverticulosis only. The size of the pubic area of enhancement measures abo ut 1.7 x 2.1 cm and appears to be superficial to the anterior margin of the pelvis. This could be em anating from the symphysis pubis. Continue current antimicrobial regimen.
[2017-09-17] MEDS: Vancomycin HCl 1.5 GM in Sodium Chloride 0.9% 250 ML 300 ML IVPB SCH (23:19)
[2017-09-18] MEDS: Levothyroxine Sodium 112 MCG TAB PO SCH (05:28)
[2017-09-18] MEDS: Promethazine HCl 25 MG, Admixture Fee 1 EACH in Sodium Chloride 0.9% 50 ML IVPB PRN ×3 (07:50→23:55)
[2017-09-18] MEDS: Insulin Glargine 65 UNITS in Pre-Filled Syringe 1 EACH SC SCH ×2 (08:58→20:08)
[2017-09-18] MEDS: HYDROmorphone 2 MG TAB PO SCH ×2 (08:59→20:07)
[2017-09-18] MEDS: Famotidine 20 MG TAB PO SCH ×2 (09:00→20:07)
[2017-09-18] MEDS: Lactinex Tablet PO SCH (09:00)
[2017-09-18] MEDS: DULoxetine 30 MG CAP PO SCH (09:00)
[2017-09-18] MEDS: Cyclobenzaprine 10 MG TAB PO SCH ×3 (09:00→20:06)
[2017-09-18] MEDS: Docusate 100 MG CAP PO SCH ×2 (09:01→20:07)
[2017-09-18] MEDS: Losartan 25 MG TAB PO SCH (09:01)
[2017-09-18] MEDS: glipiZIDE 5 MG TAB PO SCH ×2 (09:01→17:19)
[2017-09-18] MEDS: Enoxaparin Sodium 40 MG/0.4 ML SYRINGE SC SCH (09:02)
[2017-09-18] MEDS: Furosemide 40 MG TAB PO SCH (09:02)
[2017-09-18] MEDS: Cefepime 2 GM in Sodium Chloride 0.9% 100 ML IVPB SCH ×2 (09:10→20:07)
[2017-09-18] MEDS ORDERED: Methylnaltrexone 12 MG/0.6 ML VIAL SC SCH (09:15)
[2017-09-18] MEDS: Oxybutynin ER 5 MG TAB PO SCH ×2 (10:40→12:53)
[2017-09-18] MEDS: Acetaminophen/Codeine 30-300mg Tablet PO PRN ×3 (11:39→23:34)
[2017-09-18] MEDS ORDERED: Nystatin Powder 15 GM BOT TOP PRN (11:43)
--- NOTE | 2017-09-18 12:40 | PRG ---
DATE OF SERVICE: 09/18/2017 SUBJECTIVE: The patient states that she is feeling okay. She is still having significant amount of constipation and complaining of significant vaginal irritation. She thinks that the leakage around t he catheter has decreased some, although she is not entirely sure. She did undergo an MRI per my req uest, which is reported below. She denies any significant pain or fevers. PHYSICAL EXAMINATION: VITAL SIGNS: Temperature 98.2, pulse 85, respirations 18, blood pressure 130/59, saturation 96% on r oom air. GENERAL: No apparent distress, communicative and alert. CARDIOVASCULAR: Regular rate and rhythm. CHEST: No increased work of breathing, clear anteriorly. ABDOMEN: Soft, nontender, nondistended, positive bowel sounds. No organomegaly. GENITOURINARY: Deferred at this time. A Cho catheter is in place with clear yellow urine. EXTREMITIES: Atrophy with decreased range of motion and weakness, which is stable from prior examina tions. No significant edema. LABORATORY EVALUATION: There are no new significant labs from today. MRI from 09/17/2017 demonstrates abnormal enhancement in the soft tissues and musculature in the floo r of the pelvis, predominantly the level of the anterior aspect of the inferior and superior pubic ra mi bilaterally. There is probably an infected fluid collection or abscess anterior to the symphysis pubis. There appears also to be edema and subtle enhancement involving the perineum and perirectal a berny which may be a possible abscess. ASSESSMENT AND PLAN: A 51-year-old white female with multiple sclerosis and neurogenic bladder with pubic symphysis osteomyelitis and possible fluid collection and possible perirectal abscess. It is s till unclear how she developed this osteomyelitis; however, given that her cystoscopic findings demon strated an anterior urethral diverticulum, it is certainly possible this had become infected and then through direct extension had infected the pubic symphysis. The MRI does not definitively demonstrat e this. However, I am not entirely sure how well she may have gotten this other than some type of he matogenous infection which went undiagnosed previously. In either case, I think it would be reasonab le to close this diverticulum as it does represent a significant possible source of future infections or repeated episodes of osteomyelitis; however, that reconstruction cannot be done at the current ti me and probably will need to be done once the patient is completed with her antibiotic therapy and he r osteomyelitis has resolved. For now, I would recommend continuation of the indwelling Cho cathet er as there is no concerning demonstration that the patient has any type of erosion in the urethra ot herwise. Since she is still complaining of constipation I will go ahead and give her Milk of Magnesi a and an enema. She did not respond to the magnesium citrate. We will also start her on triamcinolo ne cream to the vagina twice a day since she is complaining of irritation, probably secondary to the repeated episodes of urinary incontinence. We will leave her on the oxybutynin as well as this shoul d further improve her urgency and urge incontinence as it reaches a steady state within the blood. I will continue to monitor and make recommendations accordingly.
[2017-09-18] MEDS: Nystatin 500,000 UNITS/5 ML UDCUP SSW SCH ×3 (12:54→20:08)
[2017-09-18] MEDS: Fleet Enema 133 ML BOT PR SCH ×2 (13:07→14:15)
--- NOTE | 2017-09-18 14:57 | PDOC.PN ---
- Subjective Encounter Start Date: 09/18/17 Encounter Start Time: 09:40 Pt seen for followup re: constipation. Denies chest pain, shortness of breath, fevers or chills. - Objective Resuscitation Status: Resuscitation Status FULL:Full Resuscitation MAR Reviewed: Yes Vital Signs & Weight: Vital Signs (12 hours) Temp Pulse Resp BP Pulse Ox 09/18/17 08:00 98.2 F 85 18 09/18/17 07:16 98.2 F 85 18 130/59 L 96 Weight Weight 239 lb I&O: 09/17/17 09/18/17 09/19/17 06:59 06:59 06:59 Intake Total 2620 2030 240 Output Total 1900 1275 Balance 720 755 240 Result Diagrams: 09/17/17 04:42 09/17/17 04:42 Additional Labs: Accuchecks 09/18/17 09/17/17 04:37 19:52 POC Glucose 124 H 165 H Labs reviewed by me Phys Exam - Physical Examination Morbid obesity HEENT: moist MMs Neck: supple Respiratory: clear to auscultation bilateral Cardiovascular: RRR Gastrointestinal: soft, non-tender Neurological: moves all 4 limbs Psychiatric: normal affect Dx/Plan (1) Constipation Code(s): K59.00 - CONSTIPATION, UNSPECIFIED Status: Acute Comment: Try one more dose of Relistor (2) Septic arthritis Status: Acute Comment: on IV cefepime and Zosyn till 10/28/2017 (3) DM type 2 (diabetes mellitus, type 2) Status: Chronic Qualifiers: Diabetes mellitus ferry terminal agent insulin use: with correction use Diabetes mellitus complication status: with unspecified complications Qualified Code(s) : E11.8 - Type 2 diabetes mellitus with unspecified complications; Z79.4 - superintendent terminal (current) use of insulin; Z79.4 - shelter (current) use of insulin; Z79.4 - shelter (current) use of insulin; Z79.4 - shelter (current) use of insulin Comment: on accuchecks and insulin sliding scale, continue (4) 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 Code(s): G35 - MULTIPLE SCLEROSIS; R53.2 - FUNCTIONAL QUADRIPLEGIA Status: Chronic Comment: stable (5) Hypertension Code(s): I10 - ESSENTIAL (PRIMARY) HYPERTENSION Status: Chronic Qualifiers: Comment: titrate antihypertensives as needed (6) Multiple sclerosis Code(s): G35 - MULTIPLE SCLEROSIS Status: Chronic Comment: stable (7) Neurogenic bladder Code(s): N31.9 - NEUROMUSCULAR DYSFUNCTION OF BLADDER, UNSPECIFIED Status: Chronic Comment: MRI pelvis report noted, await aspiration (8) Nausea and vomiting Code(s): R11.2 - NAUSEA WITH VOMITING, UNSPECIFIED Status: Resolved Comment : continue PRN IV/IM phenergan and PRN IV Zofran - Plan * . Review of Systems - Review of Systems Constitutional: negative: fever, chills, sweats, weakness, malaise Gastrointestinal: Constipation. negative: Nausea, Vomiting, Abdominal Pain, Diarrhea, Melena, Hematochezia - Medications/Allergies Allergies/Adverse Reactions: Allergies Allergy/AdvReac Type Severity Reaction Status Date / Time sulfamethoxazole Allergy Severe Verified 11/28/13 12:26 [From Bactrim] trimethoprim [From Bactrim] Allergy Severe Verified 11/28/13 12:26 amitriptyline Allergy Verified 11/26/13 01:32 chlorpheniramine Allergy Verified 11/26/13 01:32 clindamycin Allergy Verified 11/26/13 01:32 morphine Allergy Verified 11/26/13 01:32 sulfacetamide Allergy Verified 11/26/13 01:32 sumatriptan Allergy Verified 11/26/13 01:32 tetracycline [Tetracycline] Allergy Verified 11/26/13 01:32 [id number] Antimigraine Allergy Verified 11/26/13 01:32 Agents Medications: Current Medications Acetaminophen (Tylenol) 650 mg PO Q4H PRN PRN Reason: Headache/Fever or Pain Acetaminophen/Codeine Phosphate (Tylenol #3) 1 tab PO Q6H PRN PRN Reason: Mild Pain (1-3) Acetaminophen/Codeine Phosphate (Tylenol #3) 2 tab PO Q4H PRN PRN Reason: Moderate Pain (4-6) Last Admin: 09/18/17 11:39 Dose: 2 tab Acidophilus (Floranex) 1 tab PO DAILY [facility] Last Admin: 09/18/17 09:00 Dose: 1 tab Alprazolam (Xanax) 0.5 mg PO HS [facility] Last Admin: 09/17/17 20:32 Dose: 0.5 mg Alprazolam (Xanax) 0.5 mg PO WILLCALL [facility] Last Admin: 09/17/17 11:10 Dose: 0.5 mg Betamethasone Valerate (Valisone 0.1% Cream) 1 gm TOP BID [facility] Stop: 09/25/17 21:01 Calcium Carbonate (Tums) 1,000 mg PO Q4H PRN PRN Reason: Indigestion Last Admin: 09/17/17 01:43 Dose: 1,000 mg Cyclobenzaprine HCl (Flexeril) 10 mg PO TID [facility] Last Admin: 09/18/17 14:14 Dose: 10 mg Dextrose/Water (Dextrose 50%) 25 gm SLOW IVP PRN PRN PRN Reason: Hypoglycemia Docusate Sodium (Colace) 100 mg PO BID [facility] Last Admin: 09/18/17 09:01 Dose: 100 mg Duloxetine HCl (Cymbalta) 60 mg PO DAILY [facility] Last Admin: 09/18/17 09:00 Dose: 60 mg Enoxaparin Sodium (Lovenox) 40 mg SC 0900 [facility] Last Admin: 09/18/17 09:02 Dose: 40 mg Famotidine (Pepcid) 20 mg PO BID [facility] Last Admin: 09/18/17 09:00 Dose: 20 mg Fentanyl (Duragesic) 50 mcg TD Q3D@1400 [facility] Last Admin: 09/17/17 14:46 Dose: 50 mcg Furosemide (Lasix) 40 mg PO DAILY [facility] Last Admin: 09/18/17 09:02 Dose: 40 mg Glipizide (Glucotrol) 5 mg PO BID-AC [facility] Last Admin: 09/18/17 09:01 Dose: 5 mg Glucagon (Glucagon) 1 mg IM PRN PRN PRN Reason: Hypoglycemia Guaifenesin/Dextromethorphan (Robitussin Dm) 15 ml PO Q4H PRN PRN Reason: Cough Hydromorphone HCl (Dilaudid) 4 mg PO BID [facility] Last Admin: 09/18/17 08:59 Dose: 4 mg Dextrose/Water (D5w) 1,000 mls @ 0 mls/hr IV .Q0M PRN; As Directed PRN Reason: Hypoglycemia Insulin Glargine 65 units/ (Miscellaneous Medication) 0.65 mls @ 0 mls/hr SC BID [facility] Last Admin: 09/18/17 08:58 Dose: 0.65 mls Promethazine HCl 25 mg/Miscellaneous Medication 1 each/ Sodium Chloride 51 mls @ 204 mls/hr IVPB Q6H PRN PRN Reason: Nausea Last Admin: 09/18/17 07:50 Dose: 51 mls Cefepime HCl 2 gm/ Sodium (Chloride) 100 mls @ 200 mls/hr IVPB Q12HR [facility] Last Admin: 09/18/17 09:10 Dose: 100 mls Vancomycin HCl 1.5 gm/ Sodium (Chloride) 300 mls @ 200 mls/hr IVPB 2300 [facility] Last Admin: 09/17/17 23:19 Dose: 300 mls Insulin Human Lispro (Humalog) 0 units SC .MODERATE SLIDING SC PRN PRN Reason: Moderate Correctional Scale Last Admin: 09/18/17 13:05 Dose: 2 unit Insulin Human Lispro (Humalog) 0 units SC .BEDTIME SLIDING SC PRN PRN Reason: Bedtime Correctional Scale Levothyroxine Sodium (Synthroid) 112 mcg PO 0600 [facility] Last Admin: 09/18/17 05:28 Dose: 112 mcg Lorazepam (Ativan) 1 mg SLOW IVP [facility]CALL [facility] Last Admin: 09/17/17 11:11 Dose: 1 mg Losartan Potassium (Cozaar) 25 mg PO DAILY [facility] Last Admin: 09/18/17 09:01 Dose: 25 mg Magnesium Hydroxide (Milk Of Magnesium) 30 ml PO DAILY [facility] Miscellaneous Medication (Movantik) 12.5 mg PO DAILY [facility] Last Admin: 09/18/17 09:04 Dose: 12.5 mg Nystatin (Mycostatin) 500,000 units SSW QID [facility] Last Admin: 09/18/17 12:54 Dose: 500,000 units Nystatin (Mycostatin Powder) 1 gm TOP BID PRN PRN Reason: Topical Irritations Ondansetron HCl (Zofran Odt) 4 mg PO Q6HR PRN PRN Reason: Nausea Last Admin: 09/13/17 11:18 Dose: 4 mg Oxybutynin Chloride (Ditropan Xl) 10 mg PO DAILY [facility] Last Admin: 09/18/17 12:53 Dose: 10 mg Potassium Chloride (Klor-Con) 20 meq PO BID-[facility] Last Admin: 09/18/17 09:01 Dose: 20 meq Pravastatin Sodium (Pravachol) 20 mg PO HS [facility] Last Admin: 09/17/17 20:29 Dose: 20 mg Promethazine HCl (Phenergan) 25 mg IM/IV Q6H PRN PRN Reason: Nausea/Vomiting Last Admin: 09/14/17 23:55 Dose: 25 mg Sodium Chloride (Flush - Normal Saline) 10 ml IVF Q12HR [facility] Last Admin: 09/18/17 09:14 Dose: 10 ml Sodium Chloride (Flush - Normal Saline) 10 ml IVF PRN PRN PRN Reason: Saline Flush Last Admin: 09/17/17 23:19 Dose: 10 ml
[2017-09-18] MEDS: Betamethasone 0.1% Cream 45 GM TUBE TOP SCH (17:25)
[2017-09-18] MEDS: ALPRAZolam 1 MG TAB PO SCH (20:06)
[2017-09-18] MEDS: Pravastatin Sodium 20 MG TAB PO SCH (20:07)
[2017-09-18 22:31] LABS: Vancomycin, Trough 18.2 ug/mL
[2017-09-18] MEDS: Vancomycin HCl 1.5 GM in Sodium Chloride 0.9% 250 ML 300 ML IVPB SCH (23:34)
[2017-09-19] MEDS: Calcium Carbonate 500 MG ChewTAB PO PRN (01:42)
[2017-09-19] MEDS: Levothyroxine Sodium 112 MCG TAB PO SCH (06:04)
[2017-09-19] MEDS: Acetaminophen/Codeine 30-300mg Tablet PO PRN ×3 (06:10→16:16)
[2017-09-19] MEDS: Nystatin 500,000 UNITS/5 ML UDCUP SSW SCH ×4 (10:10→21:24)
[2017-09-19] MEDS: Milk Of Magnesia 30 ML UDCUP PO SCH (10:10)
[2017-09-19] MEDS: Ondansetron ODT 4 MG TAB PO PRN (10:11)
[2017-09-19] MEDS: Oxybutynin ER 5 MG TAB PO SCH (10:11)
[2017-09-19] MEDS: DULoxetine 30 MG CAP PO SCH (10:11)
[2017-09-19] MEDS: Furosemide 40 MG TAB PO SCH (10:11)
[2017-09-19] MEDS: Enoxaparin Sodium 40 MG/0.4 ML SYRINGE SC SCH (10:12)
[2017-09-19] MEDS: HYDROmorphone 2 MG TAB PO SCH ×2 (10:12→21:20)
[2017-09-19] MEDS: Losartan 25 MG TAB PO SCH (10:12)
[2017-09-19] MEDS: Docusate 100 MG CAP PO SCH ×2 (10:13→21:19)
[2017-09-19] MEDS: Cyclobenzaprine 10 MG TAB PO SCH ×3 (10:13→21:18)
[2017-09-19] MEDS: Lactinex Tablet PO SCH (10:13)
[2017-09-19] MEDS: glipiZIDE 5 MG TAB PO SCH ×2 (10:14→16:18)
[2017-09-19] MEDS: Famotidine 20 MG TAB PO SCH ×2 (10:16→21:19)
[2017-09-19] MEDS: Promethazine HCl 25 MG, Admixture Fee 1 EACH in Sodium Chloride 0.9% 50 ML IVPB PRN ×2 (12:42→18:57)
[2017-09-19] MEDS: Cefepime 2 GM in Sodium Chloride 0.9% 100 ML IVPB SCH ×2 (12:43→23:17)
[2017-09-19] MEDS: Insulin Glargine 65 UNITS in Pre-Filled Syringe 1 EACH SC SCH ×2 (12:45→21:46)
[2017-09-19] MEDS: Betamethasone 0.1% Cream 45 GM TUBE TOP SCH ×2 (12:46→21:23)
[2017-09-19] MEDS ORDERED: Lorazepam 2 MG/ML VIAL SLOW IVP SCH (16:13)
[2017-09-19 16:49] LABS: INR-International Normal Ratio 1.1; PTT 32.7 SEC (22.9-36.1)
--- NOTE | 2017-09-19 16:58 | PRG ---
DATE OF SERVICE: 09/19/2017 SUBJECTIVE: She is still not feeling very well, is still with that sensation of tenderness in the pu bic area. No respiratory symptoms. She has a Cho catheter in place, still constipated and the mul tiple attempts at laxative administration did not result in adequate stooling. OBJECTIVE: VITAL SIGNS: Essentially normal. GENERAL: Awake, alert, oriented. LUNGS: Clear. HEART: S1, S2, regular rate. ABDOMEN: Soft. The pubic area is slightly swollen and tender, but not erythematous. No drainage no ticeable. LABORATORY DATA: White cell count 10.3, hemoglobin 11.7, platelets 333 with a normal differential. The differential has improved over time since antimicrobials were started and the urine culture no gr owth at 36 hours from 09/14/2017. ASSESSMENT AND DISCUSSION: Pubic symphysis or septic arthritis, possible osteomyelitis and possible abscess as well in the area. After extensive evaluation by Dr. Elise, there was no apparent communication with the vaginal or ur inary tract. The plan is to do a CT guided aspirate to submit for cultures, bacterial, fungal and my cobacterial. Continue current antimicrobial therapy.
[2017-09-19] MEDS ORDERED: Magnesium Citrate 300 ML BOT PO SCH (17:15)
--- NOTE | 2017-09-19 17:16 | PDOC.PN ---
- Subjective Encounter Start Date: 09/19/17 Encounter Start Time: 09:00 Pt seen for followup re: septic arthritis. Denies chest pain, shortness of breath, fevers or chills. Had bowel movement. - Objective Resuscitation Status: Resuscitation Status FULL:Full Resuscitation MAR Reviewed: Yes Vital Signs & Weight: Vital Signs (12 hours) Temp Pulse Resp BP Pulse Ox 09/19/17 08:00 98.1 F 78 16 95 09/19/17 07:34 98.1 F 78 16 133/70 95 Weight Weight 239 lb I&O: 09/18/17 09/19/17 09/20/17 06:59 06:59 06:59 Intake Total 2030 2910 Output Total 1275 3000 Balance 755 -90 Result Diagrams: 09/17/17 04:42 09/17/17 04:42 Additional Labs: Accuchecks 09/19/17 09/19/17 09/18/17 11:44 04:59 19:03 POC Glucose 122 H 108 167 H 09/17/17 16:22 POC Glucose 104 Labs reviewed by me Phys Exam - Physical Examination Obese HEENT: moist MMs Neck: supple Respiratory: clear to auscultation bilateral Cardiovascular: RRR Gastrointestinal: soft Neurological: moves all 4 limbs Psychiatric: normal affect Dx/Plan (1) Septic arthritis Status: Acute Comment: continue IV cefepime and Zosyn till 10/28/2017. Pt is awaiting aspiration of pubic fluid collection. Swing bed at [place] approved for further management. (2) DM type 2 (diabetes mellitus, type 2) Status: Chronic Qualifiers: Diabetes mellitus long-term insulin use: with long-term use Diabetes mellitus complication status: with unspecified complications Qualified Code(s) : E11.8 - Type 2 diabetes mellitus with unspecified complications; Z79.4 - watermaster (current) use of insulin; Z79.4 - watermaster (current) use of insulin; Z79.4 - watermaster (current) use of insulin; Z79.4 - watermaster (current) use of insulin Comment: on accuchecks and insulin sliding scale (3) 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 Code(s): G35 - MULTIPLE SCLEROSIS; R53.2 - FUNCTIONAL QUADRIPLEGIA Status: Chronic Comment: stable (4) Hypertension Code(s): I10 - ESSENTIAL (PRIMARY) HYPERTENSION Status: Chronic Qualifiers: Comment: titrate antihypertensives as needed (5) Multiple sclerosis Code(s): G35 - MULTIPLE SCLEROSIS Status: Chronic Comment: stable (6) Neurogenic bladder Code(s): N31.9 - NEUROMUSCULAR DYSFUNCTION OF BLADDER, UNSPECIFIED Status: Chronic Comment: stable (7) Nausea and vomiting Code(s): R11.2 - NAUSEA WITH VOMITING, UNSPECIFIED Status: Resolved Comment : continue PRN IV/IM phenergan and PRN IV Zofran (8) Constipation Code(s): K59.00 - CONSTIPATION, UNSPECIFIED Status: Resolved - Plan * . Review of Systems - Review of Systems Constitutional: negative: fever, chills, sweats, weakness, malaise Cardiovascular: negative: chest pain, palpitations, orthopnea, paroxysmal nocturnal dyspnea, edema, light headedness - Medications/Allergies Allergies/Adverse Reactions: Allergies Allergy/AdvReac Type Severity Reaction Status Date / Time sulfamethoxazole Allergy Severe Verified 11/28/13 12:26 [From Bactrim] trimethoprim [From Bactrim] Allergy Severe Verified 11/28/13 12:26 amitriptyline Allergy Verified 11/26/13 01:32 chlorpheniramine Allergy Verified 11/26/13 01:32 clindamycin Allergy Verified 11/26/13 01:32 morphine Allergy Verified 11/26/13 01:32 sulfacetamide Allergy Verified 11/26/13 01:32 sumatriptan Allergy Verified 11/26/13 01:32 tetracycline [Tetracycline] Allergy Verified 11/26/13 01:32 [id number] Antimigraine Allergy Verified 11/26/13 01:32 Agents Medications: Current Medications Acetaminophen (Tylenol) 650 mg PO Q4H PRN PRN Reason: Headache/Fever or Pain Acetaminophen/Codeine Phosphate (Tylenol #3) 1 tab PO Q6H PRN PRN Reason: Mild Pain (1-3) Acetaminophen/Codeine Phosphate (Tylenol #3) 2 tab PO Q4H PRN PRN Reason: Moderate Pain (4-6) Last Admin: 09/19/17 16:16 Dose: 2 tab Acidophilus (Floranex) 1 tab PO DAILY [facility] Last Admin: 09/19/17 10:13 Dose: 1 tab Alprazolam (Xanax) 0.5 mg PO HS [facility] Last Admin: 09/18/17 20:06 Dose: 0.5 mg Alprazolam (Xanax) 0.5 mg PO WILLCALL [facility] Last Admin: 09/17/17 11:10 Dose: 0.5 mg Betamethasone Valerate (Valisone 0.1% Cream) 1 gm TOP BID [facility] Stop: 09/25/17 21:01 Last Admin: 09/19/17 12:46 Dose: 1 applic Calcium Carbonate (Tums) 1,000 mg PO Q4H PRN PRN Reason: Indigestion Last Admin: 09/19/17 01:42 Dose: 1,000 mg Cyclobenzaprine HCl (Flexeril) 10 mg PO TID [facility] Last Admin: 09/19/17 16:17 Dose: 10 mg Dextrose/Water (Dextrose 50%) 25 gm SLOW IVP PRN PRN PRN Reason: Hypoglycemia Docusate Sodium (Colace) 100 mg PO BID [facility] Last Admin: 09/19/17 10:13 Dose: 100 mg Duloxetine HCl (Cymbalta) 60 mg PO DAILY [facility] Last Admin: 09/19/17 10:11 Dose: 60 mg Enoxaparin Sodium (Lovenox) 40 mg SC 0900 [facility] Last Admin: 09/19/17 10:12 Dose: 40 mg Famotidine (Pepcid) 20 mg PO BID [facility] Last Admin: 09/19/17 10:16 Dose: 20 mg Fentanyl (Duragesic) 50 mcg TD Q3D@1400 [facility] Last Admin: 09/17/17 14:46 Dose: 50 mcg Fluconazole (Diflucan) 100 mg PO DAILY [facility] Furosemide (Lasix) 40 mg PO DAILY [facility] Last Admin: 09/19/17 10:11 Dose: 40 mg Glipizide (Glucotrol) 5 mg PO BID-AC [facility] Last Admin: 09/19/17 16:18 Dose: 5 mg Glucagon (Glucagon) 1 mg IM PRN PRN PRN Reason: Hypoglycemia Guaifenesin/Dextromethorphan (Robitussin Dm) 15 ml PO Q4H PRN PRN Reason: Cough Hydromorphone HCl (Dilaudid) 4 mg PO BID [facility] Last Admin: 09/19/17 10:12 Dose: 4 mg Dextrose/Water (D5w) 1,000 mls @ 0 mls/hr IV .Q0M PRN; As Directed PRN Reason: Hypoglycemia Insulin Glargine 65 units/ (Miscellaneous Medication) 0.65 mls @ 0 mls/hr SC BID [facility] Last Admin: 09/19/17 12:45 Dose: Not Given Promethazine HCl 25 mg/Miscellaneous Medication 1 each/ Sodium Chloride 51 mls @ 204 mls/hr IVPB Q6H PRN PRN Reason: Nausea Last Admin: 09/19/17 12:42 Dose: 51 mls Cefepime HCl 2 gm/ Sodium (Chloride) 100 mls @ 200 mls/hr IVPB Q12HR [facility] Last Admin: 09/19/17 12:43 Dose: 100 mls Vancomycin HCl 1.5 gm/ Sodium (Chloride) 300 mls @ 200 mls/hr IVPB 2300 [facility] Last Admin: 09/18/17 23:34 Dose: 300 mls Insulin Human Lispro (Humalog) 0 units SC .MODERATE SLIDING SC PRN PRN Reason: Moderate Correctional Scale Last Admin: 09/18/17 13:05 Dose: 2 unit Insulin Human Lispro (Humalog) 0 units SC .BEDTIME SLIDING SC PRN PRN Reason: Bedtime Correctional Scale Levothyroxine Sodium (Synthroid) 112 mcg PO 0600 [facility] Last Admin: 09/19/17 06:04 Dose: 112 mcg Lorazepam (Ativan) 1 mg SLOW IVP [facility]CALL [facility] Stop: 09/20/17 16:14 Losartan Potassium (Cozaar) 25 mg PO DAILY [facility] Last Admin: 09/19/17 10:12 Dose: 25 mg Magnesium Citrate (Citrate Of Magnesia 300 Ml Bot) 300 ml PO ONE [facility] Magnesium Hydroxide (Milk Of Magnesium) 30 ml PO DAILY [facility] Last Admin: 09/19/17 10:10 Dose: 30 ml Miscellaneous Medication (Movantik) 12.5 mg PO DAILY [facility] Last Admin: 09/19/17 12:42 Dose: 12.5 mg Nystatin (Mycostatin) 500,000 units SSW QID [facility] Last Admin: 09/19/17 16:15 Dose: 500,000 units Nystatin (Mycostatin Powder) 1 gm TOP BID PRN PRN Reason: Topical Irritations Last Admin: 09/18/17 15:39 Dose: 1 applic Ondansetron HCl (Zofran Odt) 4 mg PO Q6HR PRN PRN Reason: Nausea Last Admin: 09/19/17 10:11 Dose: 4 mg Oxybutynin Chloride (Ditropan Xl) 10 mg PO DAILY [facility] Last Admin: 09/19/17 10:11 Dose: 10 mg Potassium Chloride (Klor-Con) 20 meq PO BID-[facility] Last Admin: 09/19/17 16:17 Dose: 20 meq Pravastatin Sodium (Pravachol) 20 mg PO HS [facility] Last Admin: 09/18/17 20:07 Dose: 20 mg Promethazine HCl (Phenergan) 25 mg IM/IV Q6H PRN PRN Reason: Nausea/Vomiting Last Admin: 09/14/17 23:55 Dose: 25 mg Sodium Chloride (Flush - Normal Saline) 10 ml IVF Q12HR [facility] Last Admin: 09/19/17 12:46 Dose: 10 ml Sodium Chloride (Flush - Normal Saline) 10 ml IVF PRN PRN PRN Reason: Saline Flush Last Admin: 09/17/17 23:19 Dose: 10 ml
[2017-09-19] MEDS: ALPRAZolam 1 MG TAB PO SCH (21:19)
[2017-09-19] MEDS: Pravastatin Sodium 20 MG TAB PO SCH (21:20)
[2017-09-20] MEDS: Activase 2 MG VIAL CATH PRN ×2 (00:49→05:38)
[2017-09-20] MEDS: Acetaminophen/Codeine 30-300mg Tablet PO PRN ×5 (01:07→22:24)
[2017-09-20] MEDS: Vancomycin HCl 1.5 GM in Sodium Chloride 0.9% 250 ML 300 ML IVPB SCH ×2 (02:25→23:24)
[2017-09-20] MEDS: Promethazine HCl 25 MG, Admixture Fee 1 EACH in Sodium Chloride 0.9% 50 ML IVPB PRN ×3 (04:41→21:59)
[2017-09-20] MEDS: Levothyroxine Sodium 112 MCG TAB PO SCH (05:37)
[2017-09-20] MEDS: Cyclobenzaprine 10 MG TAB PO SCH ×3 (09:23→22:03)
[2017-09-20] MEDS: DULoxetine 30 MG CAP PO SCH (09:23)
[2017-09-20] MEDS: Fluconazole 100 MG TAB PO SCH (09:24)
[2017-09-20] MEDS: Famotidine 20 MG TAB PO SCH ×2 (09:24→22:03)
[2017-09-20] MEDS: Losartan 25 MG TAB PO SCH (09:24)
[2017-09-20] MEDS: glipiZIDE 5 MG TAB PO SCH ×2 (09:24→15:26)
[2017-09-20] MEDS: Lactinex Tablet PO SCH (09:24)
[2017-09-20] MEDS: HYDROmorphone 2 MG TAB PO SCH ×2 (09:24→20:13)
[2017-09-20] MEDS: Docusate 100 MG CAP PO SCH ×2 (09:25→22:03)
[2017-09-20] MEDS: Nystatin 500,000 UNITS/5 ML UDCUP SSW SCH ×4 (09:25→22:04)
[2017-09-20] MEDS: Furosemide 40 MG TAB PO SCH (09:25)
[2017-09-20] MEDS: Milk Of Magnesia 30 ML UDCUP PO SCH (09:26)
[2017-09-20] MEDS: Enoxaparin Sodium 40 MG/0.4 ML SYRINGE SC SCH (09:28)
[2017-09-20] MEDS: Betamethasone 0.1% Cream 45 GM TUBE TOP SCH ×2 (09:28→22:14)
[2017-09-20] MEDS: Insulin Glargine 65 UNITS in Pre-Filled Syringe 1 EACH SC SCH ×2 (09:29→21:58)
[2017-09-20] MEDS: Cefepime 2 GM in Sodium Chloride 0.9% 100 ML IVPB SCH ×2 (10:50→22:03)
[2017-09-20] MEDS: Oxybutynin ER 5 MG TAB PO SCH (10:50)
--- NOTE | 2017-09-20 11:48 | PDOC.PN ---
- Subjective Encounter Start Date: 09/20/17 Encounter Start Time: 09:10 no acute night events. denies fever and chills - Objective Resuscitation Status: Resuscitation Status FULL:Full Resuscitation Vital Signs & Weight: Vital Signs (12 hours) Temp Pulse Resp BP Pulse Ox 09/20/17 11:37 98.3 F 82 16 159/89 H 95 09/20/17 08:00 98.4 F 82 16 95 09/20/17 07:44 98.4 F 82 16 144/70 H 96 Weight Weight 239 lb I&O: 09/19/17 09/20/17 09/21/17 06:59 06:59 06:59 Intake Total 2910 350 Output Total 3000 3500 Balance -90 -3150 Result Diagrams: 09/17/17 04:42 09/17/17 04:42 Additional Labs: Accuchecks 09/20/17 09/20/17 09/19/17 11:09 04:56 21:39 POC Glucose 194 H 164 H 124 H 09/19/17 09/19/17 15:46 11:44 POC Glucose 190 H 122 H Phys Exam - Physical Examination Constitutional: NAD HEENT: PERRLA, moist MMs Neck: no nodes, no JVD, supple Respiratory: no wheezing, no rales, no rhonchi Cardiovascular: RRR, no rub Gastrointestinal: positive bowel sounds Musculoskeletal: pulses present Neurological: non-focal, moves all 4 limbs Psychiatric: A&O x 3 Dx/Plan (1) Septic arthritis Status: Acute Comment: continue IV cefepime and Zosyn till 10/28/2017. Pt is awaiting aspiration of pubic fluid collection. Swing bed at [place] approved for further management. (2) Constipation Code(s): K59.00 - CONSTIPATION, UNSPECIFIED Status: Resolved (3) Nausea and vomiting Code(s): R11.2 - NAUSEA WITH VOMITING, UNSPECIFIED Status: Resolved Comment : continue PRN IV/IM phenergan and PRN IV Zofran (4) PRITI (acute kidney injury) Code(s): N17.9 - ACUTE KIDNEY FAILURE, UNSPECIFIED Status: Acute (5) Diabetes 1.5, managed as type 2 Code(s): E13.9 - OTHER SPECIFIED DIABETES MELLITUS WITHOUT COMPLICATIONS Status: Acute (6) Pneumonia due to Pseudomonas Code(s): J15.1 - PNEUMONIA DUE TO PSEUDOMONAS Status: Acute - Plan cont current plan of care, continue antibiotics * . pending aspiration of pubic fluid collection unlikley diffuse septic arthritis supportive care mgmt pain mgmt control follow with recs from specialties
--- NOTE | 2017-09-20 14:49 | CT ---
CT GUIDED ASPIRATION/BIOPSY PUBIC SYMPHYSIS: Indications: Destructive process of the pubic symphysis is noted. Infection is presumed and CT guided aspirate/biopsy was requested for culture. FINDINGS: A 17 gauge guide needle was introduced from an anterior approach in the midline under CT guidance. Th e tip was positioned in the pubic symphysis at the site of soft tissue density. There was no aspirate that could be obtained. Approximately 0.5 cc saline was introduced and some fluid was then aspirated for culture. The 18 gauge biopsy gun was then introduced through the guide needle and an 18 gauge ti ssue sample was obtained and sent for culture. Post procedure CT shows tiny gas pockets at the biopsy site. PROCEDURE NOTE: Patient placed supine on the CT table. Entry site was identified. The overlying skin was prepped and draped in sterile manner. Local anesthesia was administered with lidocaine and bicarb. 17 gauge guide needle with Trocar in place was introduced under CT guidance. The tip of the needle was introduced i nto the suprapubic symphysis in the midline into the soft tissue density which had been previously no gordo. There is widening of the pubic symphysis which has been previously described. Trocar was removed . Aspiration was attempted although no aspirate could be obtained. ==== cc of saline was injected and aspirated for culture. The 18 gauge biopsy instrument was introduced and a 1.3 cm core specimen was obtained and sent for culture. Patient tolerated the procedure well with no problems or complications. POS: [facility]
[2017-09-20] MEDS: fentaNYL 50 mcg/hour Patch TD SCH (15:02)
[2017-09-20] MEDS: Ondansetron ODT 4 MG TAB PO PRN (20:13)
[2017-09-20] MEDS: Pravastatin Sodium 20 MG TAB PO SCH (22:02)
[2017-09-20] MEDS: ALPRAZolam 1 MG TAB PO SCH (22:02)
[2017-09-21 02:02] VITALS: TEMP 98.3
[2017-09-21] MEDS: Levothyroxine Sodium 112 MCG TAB PO SCH (06:20)
[2017-09-21] MEDS: Acetaminophen/Codeine 30-300mg Tablet PO PRN ×2 (06:21→12:20)
[2017-09-21] MEDS: Promethazine HCl 25 MG, Admixture Fee 1 EACH in Sodium Chloride 0.9% 50 ML IVPB PRN (06:27)
[2017-09-21 07:47] VITALS: BP 114/62
[2017-09-21] MEDS: Enoxaparin Sodium 40 MG/0.4 ML SYRINGE SC SCH (08:24)
[2017-09-21] MEDS: Nystatin 500,000 UNITS/5 ML UDCUP SSW SCH (08:24)
[2017-09-21] MEDS: Milk Of Magnesia 30 ML UDCUP PO SCH (08:24)
[2017-09-21] MEDS: DULoxetine 30 MG CAP PO SCH (08:25)
[2017-09-21] MEDS: HYDROmorphone 2 MG TAB PO SCH (08:25)
[2017-09-21] MEDS: Ondansetron ODT 4 MG TAB PO PRN (08:26)
[2017-09-21] MEDS: Fluconazole 100 MG TAB PO SCH (08:26)
[2017-09-21] MEDS: Oxybutynin ER 5 MG TAB PO SCH (08:26)
[2017-09-21] MEDS: Losartan 25 MG TAB PO SCH (08:26)
[2017-09-21] MEDS: Lactinex Tablet PO SCH (08:26)
[2017-09-21] MEDS: glipiZIDE 5 MG TAB PO SCH (08:26)
[2017-09-21] MEDS: Docusate 100 MG CAP PO SCH (08:26)
[2017-09-21] MEDS: Cyclobenzaprine 10 MG TAB PO SCH (08:26)
[2017-09-21] MEDS: Furosemide 40 MG TAB PO SCH (08:26)
[2017-09-21] MEDS: Insulin Glargine 65 UNITS in Pre-Filled Syringe 1 EACH SC SCH (08:32)
[2017-09-21] MEDS: Famotidine 20 MG TAB PO SCH (08:33)
[2017-09-21] MEDS: Cefepime 2 GM in Sodium Chloride 0.9% 100 ML IVPB SCH (08:34)
[2017-09-21] MEDS: Betamethasone 0.1% Cream 45 GM TUBE TOP SCH (08:39)
--- NOTE | 2017-09-21 10:56 | DIS ---
PRIMARY CARE PHYSICIAN: Dr. Fanny Kc DATE OF ADMISSION: 09/12/2017 DATE OF DISCHARGE: 09/21/2017 DISCHARGE DIAGNOSES: 1. Septic arthritis of the pubic symphysis. 2. Long-term antibiotic use current. 3. Essential hypertension. 4. Multiple sclerosis. 5. Neurogenic bladder. 6. Constipation, resolved. 7. Nausea and vomiting, resolved. 8. Diabetes mellitus type 2, insulin-dependent. 9. Functional quadriplegia secondary to multiple sclerosis. 10. Anxiety. 11. Chronic pain syndrome. 12. Hypothyroidism. 13. Fibromyalgia. 14. Chronic migraines. 15. Hyperlipidemia. 16. Chronic indwelling Cho. 17. Obesity. CONSULTATIONS: 1. Orthopedics, Dr. Cornell Aguayo on 09/12/2017. 2. Infectious Disease, Dr. Braydon Rivera on 09/13/2017. 3. Urology, Dr. Zuhair Elise on 09/15/2017. PROCEDURES: 1. CT guided biopsy of the pubic symphysis 09/20/2017, pathology pending. 2. PICC line placement 09/14/2017, 45 cm long. 3. 09/12/[address] Elise diagnostic cystoscopy and vaginoscopy. HISTORY AND PHYSICAL: Ms. Mills is a 51-year-old female with the above history who presents to the Emergency Department for possible septic arthritis of the pubic symphysis. She is a resident of [facility] and complains of pubic area pain. It had been difficult to change her pubic rosas ter and had some swelling and pain in the mons pubis. She was seen by her PCP and told to come [facility] emergency department for evaluation. In the emergency department, CT showed a widening of the symp hysis and possible septic arthritis. We were subsequently called for admission. HOSPITAL COURSE: The patient was seen and examined by Dr. Haas. She was placed in inpatient status and started on broad spectrum antibiotics with vancomycin and Zosyn. Infectious Disease and O rthopedics was consulted. Overnight, the patient remained afebrile. She was seen in the morning by Dr. Sherman Aguayo with Or thopedi. He recommended intravenous antibiotics and no surgical intervention. She tolerated antibiotics well and was seen by Dr. Rivera on 09/13/2017. He recommended long-term ant ibiotics and aspiration of the area. He recommended a Urology consultation to make sure there was no complication associated with the Cho catheter. He recommended 4-6 weeks of broad spectrum treatme nt. He recommended narrowing the antibiotics to vancomycin and cefepime. From 09/13/2017 to 09/16/2017 the patient slowly improved. She had a PICC line placed on 09/14/2017 without difficulty. She was seen by Dr. Elise on 09/15/2017 and taken to the cystoscopy suite 08/23 for diagnostic cystoscopy and vaginoscopy. The patient continued to improve. Repeat imaging with MRI was performed, showed inflammation of the site. At that point, they consulted Interventional Radiology for a CT guided biopsy. This was aries priest and set up to be done on 09/20/2017. There was no aspiratable fluid. A core biopsy was sent and is pending. The patient was stable today and was stable for discharge to her swing bed in [facility] to complete her antibiotics and to follow up with Dr. Rivera in 2 weeks with biopsy results. Weekly labs including CBC, CMP, sed rate, CRP, and vancomycin trough were ordered. DISCHARGE CONDITION: Stable. DISPOSITION: Being transferred to [facility] to a swing bed for long-term antibiotics. DISCHARGE ACTIVITY: As tolerated. PT, OT consults have been requested. DISCHARGE DIET: Diabetic, heart healthy recommended. DISCHARGE MEDICATIONS: 1. Vancomycin and 1.5 grams q. 24 hours. 2. Cefepime 2 grams IV q.12 hours. 3. Azathioprine 50 mg p.o. b.i.d. 4. Xanax 0.5 mg p.o. at bedtime. 5. Activase as needed. 6. Tylenol Arthritis p.r.n. 7. Tums p.r.n. 8. Clonidine 0.1 mg p.o. q.6 hours. 9. Flexeril 10 mg p.o. t.i.d. p.r.n. muscle spasm. 10. Bentyl 10 mg p.o. q.i.d. p.r.n. bladder spasm. 11. Colace q.i.d. 12. MiraLax 17 grams daily. 13. Fentanyl patch 50 microgram transdermal, change every 3 days. 14. Fluconazole 100 mg p.o. daily. 15. Lasix 40 mg p.o. b.i.d. 16. Glipizide 5 mg p.o. b.i.d. 17. Humalog as preadmit. 18. Dilaudid 4 mg p.o. b.i.d. p.r.n. severe pain. 19. Lantus 85 units subcu b.i.d. 20. Floranex 1 tab daily. 21. Levothyroxine 112 mcg daily. 22. Losartan 25 mg daily. 23. Melatonin 10 mg at bedtime. 24. Ditropan-XL 10 mg p.o. daily. 25. Protonix 40 mg p.o. daily. FOLLOWUP APPOINTMENTS: 1. Dr. Kc within a week. 2. Dr. Rivera in 2 weeks. Weekly labs have been ordered. A dressing change for the PICC line q. week has been requested.
== END 2017-09-21 13:21 | DRG 548 ==
LOC: ERS 16:55 → T4-B 21:57
PROVIDERS: ADMIT Emergency Medicine; ATTEND Emergency Medicine
PROC: 02HV33Z Insertion of Infusion Device into Superior Vena Cava, Percutaneous Approach (ICD-10-PCS; principal; 2017-09-14)
PROC: B548ZZA Ultrasonography of Superior Vena Cava, Guidance (ICD-10-PCS; 2017-09-14)
PROC: 0TJB8ZZ Inspection of Bladder, Via Natural or Artificial Opening Endoscopic (ICD-10-PCS; 2017-09-16)
PROC: 0UJH8ZZ Inspection of Vagina and Cul-de-sac, Via Natural or Artificial Opening Endoscopic (ICD-10-PCS; 2017-09-16)
PROC: 0JBC3ZX Excision of Pelvic Region Subcutaneous Tissue and Fascia, Percutaneous Approach, Diagnostic (ICD-10-PCS; 2017-09-20)
DX: M00.9 Pyogenic arthritis, unspecified (principal); R53.2 Functional quadriplegia; J15.1 Pneumonia due to Pseudomonas; N17.9 Acute kidney failure, unspecified; I10 Essential (primary) hypertension; G35 Multiple sclerosis; N31.2 Flaccid neuropathic bladder, not elsewhere classified; K59.00 Constipation, unspecified; R11.2 Nausea with vomiting, unspecified; E11.9 Type 2 diabetes mellitus without complications; F41.9 Anxiety disorder, unspecified; G89.4 Chronic pain syndrome; E03.9 Hypothyroidism, unspecified; M79.7 Fibromyalgia; G43.909 Migraine, unspecified, not intractable, without status migrainosus; N30.91 Cystitis, unspecified with hematuria; Q63.1 Lobulated, fused and horseshoe kidney; B95.2 Enterococcus as the cause of diseases classified elsewhere; N28.89 Other specified disorders of kidney and ureter; E66.9 Obesity, unspecified; R31.0 Gross hematuria; R33.8 Other retention of urine; E78.5 Hyperlipidemia, unspecified; R32 Unspecified urinary incontinence; Z79.4 Long term (current) use of insulin; Z79.2 Long term (current) use of antibiotics; Z79.899 Other long term (current) drug therapy; Z96.0 Presence of urogenital implants; Z87.440 Personal history of urinary (tract) infections; Z90.710 Acquired absence of both cervix and uterus; Z99.3 Dependence on wheelchair; Z68.35 Body mass index [BMI] 35.0-35.9, adult
CPT/HCPCS: 36415; 36416; 36569; 71045; 72192; 72197; 74177; 77012; 80048; 80053; 80202; 81003; 81015; 82550; 83605; 83735; 84703; 85025; 85610; 85652; 85730; 86140; 87070; 87077; 87086; 87102; 87116; 87186; 87205; 87206; 93005; 93970; 96361; 96365; 96367; 96375; A4216; C1751; G8978-GP-CM; G8979-GP-CL; J0692; J0696; J1170; J1650; J2060; J2543; J2550; J2997; J3370; J7050; Q0162; Q9961

== ENCOUNTER 2018-02-10 17:23 | Inpatient (IN) | payer MEDICARE, MEDICAID ==
[2018-02-10 17:48] LABS: Bilirubin Negative (Negative); Blood, Urine Moderate (Negative); Clarity CLOUDY (Clear); Glucose, Urine (Dipstick) Negative (Negative); Leukocyte Moderate (Negative); Nitrite Negative (Negative); Protein, Urine (Dipstick) 100 mg/dL (Neg-Trace); Specific Gravity, Urine 1.012 (1.002-1.036)
[2018-02-10 17:49] LABS: Bacteria/HPF 4+ HPF (None Seen); Pathc Cast-AUWi Flag 0.72 (0-2.49)
[2018-02-10 18:03] LABS: Crystals/HPF 2+ TRIPLE PHOS HPF (Negative); Hyaline Casts/LPF 0-3 HYALINE CAST LPF (0-3 Hyaline); Renal Epithelial None Seen HPF (0-3); Transitional Epithelial NONE SEEN HPF (0-3)
--- NOTE | 2018-02-10 18:07 | RAD ---
CHEST ONE VIEW: 02/10/18 HISTORY: Fever. COMPARISON: 09/11/17. FINDINGS: Normal cardiac silhouette. Pulmonary vessels and hilum are normal. Costophrenic angles are clear. No masses or consolidation. Chronic changes in the lung bases. No pneumothorax or osseous abnormalities. IMPRESSION: No acute cardiopulmonary process. POS: [facility]
[2018-02-10 18:10] LABS: Hemoglobin 14.5 g/dL (12.0-16.0); Mean Corpuscular HGB CONC 34.3 g/dL (32.0-36.0); Mean Corpuscular Hemoglobin 33.3 pg (27.0-31.0); Platelet Count 302 thou/uL (130-400); RBC Distribution Width 13.3 % (11.5-14.5); Red Blood Cell (RBC) Count 4.37 mill/uL (4.20-5.40)
[2018-02-10] MEDS ORDERED: Ketorolac Tromethamine 30 MG/ML VIAL ONE (18:10)
[2018-02-10] MEDS ORDERED: Ondansetron PF 4 MG/2 ML Vial ONE (18:10)
[2018-02-10 18:22] LABS: ALT (SGPT) 108 U/L (8-55); AST (SGOT) 227 U/L (5-34); Alkaline Phosphatase 215 U/L (40-150); Anion Gap 12 mmol/L (10-20); BUN (Urea Nitrogen) 17 mg/dL (9.8-20.1); Bilirubin, Total 2.3 mg/dL (0.2-1.2); Calc. Creatinine Clearance 0 mL/min (70-130); Calcium 9.6 mg/dL (7.8-10.44); Carbon Dioxide 26 mmol/L (22-29); Chloride 105 mmol/L (98-107); Estimated GFR-MDRD 65; Globulin 4.3 g/dL (2.4-3.5); Glucose 158 mg/dL (70-105); Potassium 4.1 mmol/L (3.5-5.1); Protein, Total 8.3 g/dL (6.0-8.3); Sodium 139 mmol/L (136-145)
[2018-02-10 18:24] LABS: Band 14 % (5-11); MDiff Complete? YES; Monocytes 3 % (0-10); Neutrophil 83 % (42-75); PLT Morphology Comment Appears Adequate; RBC Morphology Normal
[2018-02-10] MEDS ORDERED: Fentanyl 100 MCG/2 ML VIAL ONE ×2 (18:44→20:41)
--- NOTE | 2018-02-10 19:28 | RAD ---
AP VIEW OF THE PELVIS: 02/10/18 INDICATION: History of flank pain and fever. FINDINGS: There is mild degenerative change of both hips. There is mild diastasis of the symphysis pubis which is nonspecific. This is stable to a CT examination dated 11/10/17. Mild degenerative arthrosis of both hips. IMPRESSION: No acute osseous abnormality. POS: [facility]
--- NOTE | 2018-02-10 19:37 | CT ---
CT OF THE ABDOMEN AND PELVIS WITHOUT CONTRAST 02/10/18 INDICATION: Concern for renal stones. FINDINGS: There is mild bibasilar atelectasis, left greater than right. There is fatty infiltration of the live r. Unopacified pancreas and adrenal glands are unremarkable. Spleen is unremarkable. There is a horseshoe kidney. No hydronephrosis is demonstrated. There are mild vascular calcifications involving the abdominal aorta. There is a Cho catheter in a decompressed bladder. There is a mild amount of retained stool within the rectum and sigmoid colon. There is a normal appendix in the right lower quadrant. There is diffuse muscular atrophy. There is diffuse osteopenia. No acute osseous abnormality is evident. There is stable slight diastasis involving the symphysis pub is. IMPRESSION: 1. No renal or ureteral calculus. 2. Stable appearance of the horseshoe kidney. 3. Stable fatty infiltration of the liver. 4. Bibasilar atelectasis. 5. Cho catheter. POS: [facility]
[2018-02-10] MEDS ORDERED: Dextrose 50% Abboject 50 ML SYRINGE SLOW IVP PRN (20:58)
[2018-02-10] MEDS ORDERED: Dextrose 5% in Water 1,000 ML IV PRN (20:58)
[2018-02-10] MEDS ORDERED: INSULIN GLARGINE HUM REC ANLOG SQ SCH (21:00)
[2018-02-10] MEDS ORDERED: Acetaminophen 325 MG TAB PO PRN (21:03)
[2018-02-10] MEDS ORDERED: fentaNYL 50 mcg/hour Patch TD SCH (21:45)
--- NOTE | 2018-02-10 21:49 | ULT ---
RIGHT UPPER QUADRANT ULTRASOUND: 02/10/18 INDICATION: Elevated LFTs and white blood cell count. FINDINGS: There is slight increased echogenicity of the liver suspicious for fatty infiltration. No intralumina l gallstones are evident. There is some mild gallbladder wall thickening up to 4.4 mm which is nonspe cific. No pericholecystic fluid is identified. No sonographic Moser's sign is reported. Common bile duct measures 7.2 mm which is slightly prominent for age. The right kidney measured 14.4 x 5.8 x 6.3 cm without evidence of hydronephrosis. The patient has a known horseshoe kidney better seen on the re cent CT examination performed today. IMPRESSION: 1. Fatty infiltration of the liver. 2. Mild gallbladder wall thickening without definite sonographic evidence of acute cholecystitis . 3. Slightly prominent common bile duct measuring up to 7.2 mm is nonspecific. No definite intrah epatic biliary ductal dilatation is grossly evident. 4. Horseshoe kidney. POS: [facility]
[2018-02-10] MEDS: Melatonin 3 MG TAB PO SCH (22:10)
[2018-02-10] MEDS: ALPRAZolam 0.5 MG TAB PO SCH (22:14)
[2018-02-10] MEDS ORDERED: cefTRIAXone\\ROCEPHIN 2 GM in Sodium Chloride 0.9% 100 ML IVPB SCH (23:59)
--- NOTE | 2018-02-11 05:48 | HP ---
DATE OF ADMISSION: 02/10/2018 CHIEF COMPLAINT: Patient is here with chief complaint for fever. HISTORY OF PRESENT ILLNESS: This is a 52-year-old female with past medical history of hypothyroidism, multiple sclerosis, diabetes mellitus type 2, obesity , fibromyalgia, chronic migraines, hyperlipidemia, hypertension, urinary tract infection, CKD, lymphedema candidiasis of the skin presenting with fever, myalgias, and arthralgias. Per patient's electronic medical record, patient is having hot/cold flashes (generalized weakness) 8/10 pain, which has been ongoing for the past couple of days. Patient states that her symptoms are associated with chills, joint pain, myalgias. Of note, patient was recently in the hospital on 10/21/2017 and patient was diagnosed with septic arthritis of symphysis pubis requiring long-term IV antibiotics. Cefepime and vancomycin was given at that time and patient had to be transferred to our facility for one month of ampicillin. REVIEW OF SYSTEMS: Positive for flank pain, arthralgias, myalgias, hot and cold flashes, otherwise as documented in the HPI. All other systems are reviewed and are negative. PAST MEDICAL HISTORY: Hypothyroidism, diabetes mellitus type 2, multiple sclerosis, obesity, fibromyalgia, chronic migraines, hyperlipidemia, hypertension, urinary retention CKD, lymphedema. FAMILY HISTORY: Reviewed and noncontributory to this visit. PAST SURGICAL HISTORY: Hysterectomy, left wrist surgery, adenoid surgery, bilateral eye surgery when patient was young, multiple D&C's. PSYCHIATRIC HISTORY: Anxiety. SOCIAL HISTORY: Patient denies any alcohol, denies any illicit drug use. Patient does not smoke. Patient lives in [facility]. ALLERGIES: Patient is allergic to AMITRIPTYLINE, BACTRIM, CHLORPHENIRAMINE, CLINDAMYCIN, MORPHINE, OMNICEF, PENICILLIN, SULFACETAMIDE, SULFAMETHOXAZOLE, SUMATRIPTAN, TETRACYCLINE, TRIMETHOPRIM. MEDICATIONS: Patient is on Xanax 0.5 mg, glipizide 10 mg, NovoLog, Lantus 85 mg b.i.d., Lasix 40 mg, clonidine 0.1 mg, levothyroxine 150 mcg, dicyclomine, vitamin D, Colace, pantoprazole, Cymbalta 60 mg, Dilaudid 4 mg, Caltrate 600+ D plus minerals, potassium chloride, losartan 25 mg, fentanyl transdermal patch. PHYSICAL EXAMINATION: VITAL SIGNS: Blood pressure 154/74, pulse of 123, respiratory rate of 22, temperature of 101.1, O2 saturation of 97. GENERAL: Patient is febrile at 101. Lying in bed comfortably, does not appear to be in any acute distress. Patient is alert, oriented x3. HEENT: Normocephalic, atraumatic. Pupils are equally round and react to light. Extraocular movements are intact. No scleral icterus. NECK: Full range of motion. Trachea is midline. No meningeal signs. RESPIRATORY: Lungs, clear to auscultation bilaterally. No wheezing, no rales, no rhonchi is appreciated. CARDIOVASCULAR: Positive S1, S2. Patient is tachycardic. No murmurs, no gallops, or rubs appreciated. ABDOMEN: Soft, nondistended. No masses. No pulsatile masses. No peritoneal signs. No rigidity, no guarding at this time. There is mild discomfort at the right upper quadrant with deep palpation GENITOURINARY: Patient has a Cho in place, draining yellowish urine. EXTREMITIES: Upper extremities: Patient has 5/5 upper extremity strength, 5/5 lower extremity strength. Left lower extremity: Patient has 5/5 lower extremity with good pulses bilaterally. NEUROLOGIC: Cranial nerves II-XII grossly intact. No neurologic deficits noted. SKIN: Warm, dry, and intact. LABORATORY DATA: EKG shows sinus tachycardia. WBC is 21.0, hemoglobin 14.5, hematocrit 42.4, MCV is 97.0, RDW is 13.3, platelet count is 302. Sodium is 139 , potassium is 4.1, chloride is 105, carbon dioxide 26, anion gap of 12, BUN of 17, creatinine 0.91, glucose of 158. Lactic acid is 1.9. Total bilirubin is 2.3, AST 227, ALT is 108, alkaline phosphatase is 215. Urinalysis positive for leukoesterase and negative for nitrite, but squamous epithelial cells is 7-10. IMAGING: Ultrasound of the abdomen showed there is a slight increased echogenicity of the liver suspicious for fatty infiltration. No intraluminal gallstones are evident. There is some mild gallbladder wall thickening up to 4.4 mm, which is nonspecific. No pericholecystic fluid is identified. No sonographic Moser sign is reported. Common bile duct measures 7.2 mm at rest, which is slightly prominent for age. The right kidney measures about 14.4 x 5.8 x 6.3 without evidence of hydronephrosis. The patient has known horseshoe kidney better seen on the recent CT examination performed today. Abdomen and pelvis CT shows no renal or ureteral calculi, stable appearance of the horseshoe kidney, stable fatty infiltration of the liver, bibasilar atelectasis Cho catheter. ASSESSMENT AND PLAN: This is a 52-year-old female being admitted for: 1. Sepsis, etiology unknown at this time. Patient did have a positive leukoesterase; however, there is increased epithelial cells in the urine. Therefore, we will get a repeat urine and we will start patient on antibiotics. Patient also has some discomfort with abdominal exam; therefore, right upper quadrant was ordered, which shows that there is some slight dilatation and gallbladder wall thickness. Therefore, we have consulted GI. Patient will possibly benefit from HIDA scan; however, we will leave this up to GI for their recommendations and we will continue to monitor the patient, we will treat the patient for fevers and we will treat patient with antibiotics. We will trend the patient's white count. 2. Transaminitis, most likely due to fatty liver disease or cholecystitis. At this point, GI has been consulted. Patient has been started on antibiotics. We will trend patient's AST and ALT. We will continue to monitor the patient closely. 3. Hypothyroidism. We will continue patient on current medication. 4. Multiple sclerosis. Continue patient on her pain medications and her home medications. 5. Diabetes mellitus, type 2. Continue patient on insulin sliding scale and monitor the patient's sugars closely. 6. Obesity. We will continue to monitor the patient. 7. Fibromyalgia. We will continue patient on her current medications. 8. Hypertension. We will monitor patient's blood pressure closely and we will give patient blood pressure medication as needed. 9. Urinary retention. Patient has a Cho in place. We will continue to monitor the patient closely. 10. Deep venous thrombosis and gastrointestinal prophylaxis, SCDs. MTDD
[2018-02-11 06:23] LABS: #Eosinphils 0.1 thou/uL (0.0-0.7); #Lymphocytes 0.7 thou/uL (1.20-3.40); #Monocytes 1.2 thou/uL (0.11-0.59); #Neutrophils 18.7 thou/uL (1.40-6.50); %Basophils 0.2 % (0.0-1.0); %Eosinophils 0.3 % (0.0-10.0); %Lymphocytes 3.2 % (21.0-51.0); %Monocytes 5.7 % (0.0-10.0); %Neutrophils 90.6 % (42.0-75.0); Hemoglobin 11.9 g/dL (12.0-16.0); Mean Corpuscular HGB CONC 32.8 g/dL (32.0-36.0); Mean Corpuscular Hemoglobin 31.9 pg (27.0-31.0); Mean Corpuscular Volume 97.3 fL (78.0-98.0); Mean Platelet Volume 7.1 fL (7.4-10.4); Platelet Count 318 thou/uL (130-400); RBC Distribution Width 13.5 % (11.5-14.5); Red Blood Cell (RBC) Count 3.74 mill/uL (4.20-5.40); White Blood Cell (WBC) Count 20.7 thou/uL (4.8-10.8)
[2018-02-11] MEDS: Piperacillin/Tazobactam 3.375 GM in Sodium Chloride 0.9% 100 ML IVPB SCH ×3 (06:23→17:34)
[2018-02-11] MEDS: Levothyroxine Sodium 112 MCG TAB PO SCH (06:23)
[2018-02-11 06:36] LABS: Anion Gap 14 mmol/L (10-20); BUN (Urea Nitrogen) 25 mg/dL (9.8-20.1); Calc. Creatinine Clearance 94 mL/min (70-130); Calcium 8.3 mg/dL (7.8-10.44); Carbon Dioxide 23 mmol/L (22-29); Chloride 105 mmol/L (98-107); Estimated GFR-MDRD 50; Glucose 97 mg/dL (70-105); Potassium 4.3 mmol/L (3.5-5.1); Sodium 138 mmol/L (136-145)
[2018-02-11] MEDS ORDERED: Lidocaine 5% Patch TD SCH (09:00)
[2018-02-11] MEDS: Enoxaparin Sodium 40 MG/0.4 ML SYRINGE SC SCH (09:00)
[2018-02-11] MEDS: Carvedilol 3.125 MG TAB PO SCH ×2 (09:00→17:31)
[2018-02-11] MEDS ORDERED: fentaNYL 50 mcg/hour Patch TD SCH (09:00)
[2018-02-11] MEDS: Docusate 100 MG CAP PO SCH ×4 (09:00→20:03)
[2018-02-11] MEDS: Oxybutynin ER 5 MG TAB PO SCH (09:02)
[2018-02-11] MEDS: Lactinex Tablet PO SCH (09:02)
[2018-02-11] MEDS: HYDROmorphone 2 MG TAB PO SCH ×2 (09:03→20:04)
[2018-02-11] MEDS: Cyclobenzaprine 10 MG TAB PO SCH ×3 (09:03→20:06)
[2018-02-11] MEDS: DULoxetine 60 MG CAP PO SCH (09:03)
[2018-02-11] MEDS: Insulin Glargine 85 UNITS in Pre-Filled Syringe 1 EACH SC SCH ×2 (09:11→21:59)
[2018-02-11] MEDS: azaTHIOprine 50 MG TAB PO SCH ×2 (09:11→20:04)
[2018-02-11] MEDS: Nystatin Powder 15 GM BOT TOP SCH ×2 (09:12→22:03)
--- NOTE | 2018-02-11 17:35 | PDOC.PN ---
- Subjective Encounter Start Date: 02/11/18 Encounter Start Time: 13:00 Pt seen for followup re: sepsis. Denies chest pain. Reports chronic constipation. Denies nausea or vomiting. Reports fevers. - Objective Resuscitation Status: Resuscitation Status FULL:Full Resuscitation MAR Reviewed: Yes Vital Signs & Weight: Vital Signs (12 hours) Temp Pulse Resp BP Pulse Ox 02/11/18 16:15 98.3 F 90 20 115/72 97 02/11/18 08:10 98.1 F 88 20 120/62 Weight Weight 230 lb I&O: 02/10/18 02/11/18 02/12/18 06:59 06:59 06:59 Output Total 700 Balance -700 Result Diagrams: 02/11/18 05:41 02/11/18 05:41 Additional Labs: Accuchecks 02/11/18 02/11/18 02/11/18 16:54 10:32 05:42 POC Glucose 92 85 91 02/10/18 22:02 POC Glucose 164 H EKG Reviewed by me: Yes (Tele: NSR) Phys Exam - Physical Examination Obese HEENT: moist MMs, sclera anicteric, oral pharynx no lesions, 2+ tonsils Neck: no nodes, no JVD, supple, full ROM Respiratory: no wheezing, no rales, no rhonchi, clear to auscultation bilateral Cardiovascular: RRR, no rub S1, s2 Gastrointestinal: soft, non-tender, positive bowel sounds distention Neurological: moves all 4 limbs Psychiatric: normal affect, A&O x 3 Dx/Plan (1) Sepsis Code(s): A41.9 - SEPSIS, UNSPECIFIED ORGANISM Status: Acute Comment: source unclear, continue Zosyn for now (2) CKD (chronic kidney disease) stage 3, GFR 30-59 ml/min Code(s): N18.3 - CHRONIC KIDNEY DISEASE, STAGE 3 (MODERATE) Status: Chronic Comment: stable (3) Chronic pain syndrome Code(s): G89.4 - CHRONIC PAIN SYNDROME Status: Chronic Comment: stable, continue home medications (4) DM type 2 (diabetes mellitus, type 2) Status: Chronic Qualifiers: Diabetes mellitus longwall foreman insulin use: with jail use Diabetes mellitus complication status: with unspecified complications Qualified Code(s) : E11.8 - Type 2 diabetes mellitus with unspecified complications; Z79.4 - exterminator termite (current) use of insulin; Z79.4 - exterminator termite (current) use of insulin; Z79.4 - exterminator termite (current) use of insulin; Z79.4 - exterminator termite (current) use of insulin Comment: continue accuchecks and insulin sliding scale (5) 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 Code(s): G35 - MULTIPLE SCLEROSIS; R53.2 - FUNCTIONAL QUADRIPLEGIA Status: Chronic Comment: stable (6) Hypertension Code(s): I10 - ESSENTIAL (PRIMARY) HYPERTENSION Status: Chronic Qualifiers: Comment: controlled (7) Insomnia Code(s): G47.00 - INSOMNIA, UNSPECIFIED Status: Chronic Qualifiers: Insomnia type: unspecified Qualified Code(s): G47.00 - Insomnia, unspecified Comment: continue Lunesta (8) Lymphedema Code(s): I89.0 - LYMPHEDEMA, NOT ELSEWHERE CLASSIFIED Status: Chronic Comment: stable (9) Constipation Code(s): K59.00 - CONSTIPATION, UNSPECIFIED Status: Chronic Comment: laxatives PRN - Plan * . Review of Systems - Review of Systems Constitutional: fever, other. negative: chills, sweats, weakness, malaise Respiratory: negative: Cough, Dry, Shortness of Breath, Hemoptysis, SOB with Excertion, Pleuritic Pain, Sputum, Wheezing Cardiovascular: negative: chest pain, palpitations, orthopnea, edema, light headedness Gastrointestinal: Constipation. negative: Nausea, Vomiting, Abdominal Pain, Diarrhea, Melena, Hematochezia Genitourinary: negative: Dysuria, Frequency, Incontinence, Hematuria, Retention Skin: negative: Rash, Lesions, Sammy, Bruising - Medications/Allergies Allergies/Adverse Reactions: Allergies Allergy/AdvReac Type Severity Reaction Status Date / Time sulfamethoxazole Allergy Severe Verified 02/10/18 23:00 [From Bactrim] trimethoprim [From Bactrim] Allergy Severe Verified 02/10/18 23:00 amitriptyline Allergy Verified 02/10/18 23:00 chlorpheniramine Allergy Verified 02/10/18 23:00 clindamycin Allergy Verified 02/10/18 23:00 morphine Allergy Verified 02/10/18 23:00 Penicillins Allergy Verified 02/10/18 23:00 sulfacetamide Allergy Verified 02/10/18 23:00 sumatriptan Allergy Verified 02/10/18 23:00 tetracycline [Tetracycline] Allergy Verified 02/10/18 23:00 [id number] Antimigraine Allergy Verified 02/10/18 23:00 Agents Medications: Current Medications Acetaminophen (Tylenol) 650 mg PO Q4H PRN PRN Reason: Headache/Fever/Mild Pain (1-3) Last Admin: 02/11/18 12:28 Dose: 650 mg Acidophilus (Floranex) 1 tab PO DAILY [facility] Last Admin: 02/11/18 09:02 Dose: 1 tab Alprazolam (Xanax) 0.5 mg PO HS [facility] Last Admin: 02/10/18 22:14 Dose: 0.5 mg Azathioprine (Imuran) 50 mg PO BID [facility] Last Admin: 02/11/18 09:11 Dose: Not Given Carvedilol (Coreg) 3.125 mg PO BID-[facility] Last Admin: 02/11/18 09:00 Dose: 3.125 mg Cyclobenzaprine HCl (Flexeril) 10 mg PO TID [facility] Last Admin: 02/11/18 14:22 Dose: 10 mg Dextrose/Water (Dextrose 50%) 25 gm SLOW IVP PRN PRN PRN Reason: Hypoglycemia Docusate Sodium (Colace) 100 mg PO QID [facility] Last Admin: 02/11/18 12:28 Dose: 100 mg Duloxetine HCl (Cymbalta) 90 mg PO QAM [facility] Last Admin: 02/11/18 09:03 Dose: 90 mg Enoxaparin Sodium (Lovenox) 40 mg SC 0900 [facility] Last Admin: 02/11/18 09:00 Dose: 40 mg Fentanyl (Duragesic) 50 mcg TD Q3D [facility] Glucagon (Glucagon) 1 mg IM PRN PRN PRN Reason: Hypoglycemia Hydromorphone HCl (Dilaudid) 4 mg PO BID [facility] Last Admin: 02/11/18 09:03 Dose: 4 mg Dextrose/Water (D5w) 1,000 mls @ 0 mls/hr IV .Q0M PRN PRN Reason: Hypoglycemia Insulin Glargine 85 units/ (Miscellaneous Medication) 0.85 mls @ 0 mls/hr SC BID [facility] Last Admin: 02/11/18 09:11 Dose: Not Given Piperacillin Sod/Tazobactam (Sod 3.375 gm/ Sodium Chloride) 100 mls @ 200 mls/ hr IVPB Q6HR [facility] Last Admin: 02/11/18 12:29 Dose: 100 mls Insulin Human Lispro (Humalog) 0 units SC .MILD SLIDING SCALE PRN PRN Reason: Mild Correctional Scale Lactulose (Lactulose) 20 gm PO NOW [facility] Stop: 02/11/18 19:00 Levothyroxine Sodium (Synthroid) 112 mcg PO 0600 [facility] Last Admin: 02/11/18 06:23 Dose: 112 mcg Lidocaine (Lidoderm 5% Patch) 1 patch TD 2100 [facility] Magnesium Hydroxide (Milk Of Magnesium) 30 ml PO NOW [facility] Stop: 02/11/18 19:00 Melatonin (Melatonin) 9 mg PO HS [facility] Last Admin: 02/10/18 22:10 Dose: Not Given Miscellaneous Medication (Movantik) 12.5 mg PO DAILY [facility] Last Admin: 02/11/18 09:12 Dose: Not Given Miscellaneous Medication (Lidocaine Patch Removal) 1 each TOP 0900 [facility] Miscellaneous Medication (Pharmacy To Dose) 1 each IVPB PRN PRN PRN Reason: Pharmacy to dose Montelukast Sodium (Singulair) 10 mg PO HS [facility] Nystatin (Mycostatin Powder) 0 gm TOP BID [facility] Last Admin: 02/11/18 09:12 Dose: Not Given Ondansetron HCl (Zofran Odt) 4 mg PO Q6H PRN PRN Reason: Nausea/Vomiting Ondansetron HCl (Zofran) 4 mg IVP Q6H PRN PRN Reason: Nausea/Vomiting Oxybutynin Chloride (Ditropan Xl) 10 mg PO DAILY [facility] Last Admin: 02/11/18 09:02 Dose: 10 mg Pantoprazole Sodium (Protonix) 40 mg PO DAILY [facility] Last Admin: 02/11/18 09:00 Dose: 40 mg Pravastatin Sodium (Pravachol) 20 mg PO HS [facility] Saccharomyces Boulardii (Florastor) 250 mg PO DAILY [facility] Senna (Senokot) 2 tab PO NOW [facility] Stop: 02/11/18 19:00 Sodium Chloride (Flush - Normal Saline) 10 ml IVF Q12H PRN PRN Reason: Saline Flush Sodium Chloride (Flush - Normal Saline) 10 ml IVF Q12HR [facility] Last Admin: 10/21/18 07:05 Dose: 10 ml Zolpidem Tartrate (Ambien) 10 mg PO HS [facility]
[2018-02-11] MEDS ORDERED: Senokot 8.6 MG TAB PO SCH (17:45)
[2018-02-11] MEDS ORDERED: Milk Of Magnesia 30 ML UDCUP PO SCH (17:45)
--- NOTE | 2018-02-11 17:49 | CON ---
DATE OF CONSULTATION: 02/11/2018 GI INPATIENT CONSULTATION NOTE REQUESTING PHYSICIAN: Dr. Herr. REASON FOR CONSULTATION: Abdominal pain and elevated LFTs. HISTORY OF PRESENT ILLNESS: Italia Mills is a 52-year-old woman with multiple medical comorbidities. She follows in the GI Clinic with Dr. Ulrich. She has a history of fibromyalgia, chronic pain s yndrome, migraines, diabetes, multiple sclerosis and lymphedema. She has recently been treated with extended antibiotics for septic arthritis of the symphysis pubis. She lives at [facility]. She was admitted to the hospital yesterday, presenting with low grade fevers, generalized myalg ias and also a complaint of right-sided abdominal pain. She says this all came on fairly acutely yes terday. The pain was sharp and associated with nausea. She had one episode of nonbloody emesis. Howard reina started having subjective fevers and this prompted her presentation. Today, she says the symptoms are feeling a bit better, though the right upper quadrant is batch still operator to palpation. She has been afebrile while here. Her laboratories on admission demonstrated LFT elevation with total bilirubin 2.3, alkaline phosphatase 215, AST 227, ALT 108 and she does have a leukocytosis to 20.7. She had ul trasound and CT imaging which demonstrates fatty liver, mild gallbladder thickening, slightly promine nt common bile duct for her age at 7.2 mm, but no intrahepatic ductal dilation. REVIEW OF SYSTEMS: Full review of systems including constitutional, head, eyes, ears, nose, throat, GI, , cardiovascular, respiratory, musculoskeletal, and neurologic systems is negative except as no gordo in the HPI. PAST MEDICAL HISTORY: Hypothyroidism, diabetes type 2, multiple sclerosis, obesity, fibromyalgia, ch ronic migraines, hyperlipidemia, hypertension, urinary retention, chronic kidney disease, lymphedema, septic arthritis of the symphysis pubis requiring extended antibiotics earlier this year, hysterecto my, left wrist surgery, adenoid surgery, bilateral eye surgery when patient was young, multiple D&Cs, anxiety. SOCIAL HISTORY: No alcohol or drug use. She does not smoke. She lives in [facility]. FAMILY HISTORY: Noncontributory. ALLERGIES: Extended list which includes AMITRIPTYLINE, BACTRIM, CHLORPHENIRAMINE, CLINDAMYCIN, MORPH INE, OMNICEF, PENICILLIN, SULFACETAMIDE, SULFAMETHOXAZOLE, SUMATRIPTAN, TETRACYCLINE and TRIMETHOPRIM . OUTPATIENT MEDICATIONS: Xanax, glipizide, NovoLog insulin, Lantus insulin 85 mg b.i.d., Lasix, cloni dine, levothyroxine, dicyclomine, vitamin D, Colace, pantoprazole, Cymbalta, Dilaudid 4 mg, Caltrate/ vitamin D plus minerals, potassium chloride, losartan, fentanyl patch. PHYSICAL EXAMINATION: VITAL SIGNS: Temperature 98.1, pulse 88, blood pressure 120/62, 96% oxygen saturation on room air. GENERAL: A 52-year-old obese woman sitting up in bed comfortably in no distress. SKIN: No jaundice, no rashes were palpable. EYES: No scleral icterus. Extraocular movements intact. ENT: Mucous membranes moist, no oral lesions. LYMPH: No submandibular or supraclavicular lymphadenopathy. THYROID: Nontender to palpation. HEART: Regular rate and rhythm, no murmur appreciated. LUNGS: Clear to auscultation bilaterally. ABDOMEN: Soft, nondistended. Bowel sounds are present. She has some tenderness to palpation in the right upper quadrant. No guarding or rebound tenderness. EXTREMITIES: No peripheral edema. VESSELS: Radial pulses 2+ bilaterally. NEUROLOGICAL: Cranial nerves II-XII intact bilaterally. No focal deficits. LABORATORY STUDIES: WBC 20.7, hemoglobin 11.9, platelets 318. Sodium 138, potassium 4.3, BUN 25, cr eatinine 1.15, glucose 85, TSH 1.34. LFTs from admission showed total bilirubin 2.3, alkaline phosph atase 215, AST 227, ALT 108, albumin 4.0. IMAGING STUDIES: Abdominal ultrasound and CT of the abdomen and pelvis on admission, as detailed in the HPI. ASSESSMENT AND PLAN: 1. Elevated liver function tests. 2. Right upper quadrant pain, improved since admission. 3. Borderline prominence of the common bile duct. 4. Fatty liver disease. The patient's presentation with somewhat acute right upper quadrant pain an d LFT elevation is indeed suggestive of possible biliary etiology. The ultrasound imaging findings a re somewhat equivocal with only mild gallbladder wall thickening, mild prominence of the common bile duct, but no intrahepatic biliary dilation. I have low suspicion for choledocholithiasis or cholangi tis. She may have cholecystitis. We will order a HIDA scan. Some of this LFT elevation may also be due to her fatty liver disease, but will go ahead and get some more liver lab workup including viral hepatitis serologies and autoimmune markers. We will plan to follow up with results of labs and HIDA scan. In the meantime, continue with current supportive measures. Agree with the antibiotics for now.
[2018-02-11] MEDS: Melatonin 3 MG TAB PO SCH (20:02)
[2018-02-11] MEDS: Montelukast Sodium 10 mg Tablet PO SCH (20:03)
[2018-02-11] MEDS: Pravastatin Sodium 20 MG TAB PO SCH (20:04)
[2018-02-11] MEDS: ALPRAZolam 0.5 MG TAB PO SCH (20:05)
[2018-02-11] MEDS ORDERED: Non-Formulary Item 1 EACH (Eszopiclone [Lunesta] 2 MG) PO SCH (21:00)
[2018-02-11] MEDS: Zolpidem Tartrate 5 MG TAB PO SCH (22:01)
[2018-02-11] MEDS: Lidocaine 5% Patch TD SCH (22:02)
[2018-02-11] MEDS: diphenhydrAMINE 25 MG CAP PO PRN (22:07)
[2018-02-12] MEDS: Piperacillin/Tazobactam 3.375 GM in Sodium Chloride 0.9% 100 ML IVPB SCH ×4 (00:33→17:59)
[2018-02-12 04:58] LABS: #Eosinphils 0.3 thou/uL (0.0-0.7); #Lymphocytes 0.5 thou/uL (1.20-3.40); #Monocytes 0.6 thou/uL (0.11-0.59); #Neutrophils 7.2 thou/uL (1.40-6.50); %Basophils 0.1 % (0.0-1.0); %Eosinophils 2.9 % (0.0-10.0); %Lymphocytes 5.6 % (21.0-51.0); %Monocytes 6.4 % (0.0-10.0); %Neutrophils 84.9 % (42.0-75.0); Hemoglobin 11.2 g/dL (12.0-16.0); Mean Corpuscular HGB CONC 32.4 g/dL (32.0-36.0); Mean Corpuscular Hemoglobin 31.9 pg (27.0-31.0); Mean Corpuscular Volume 98.3 fL (78.0-98.0); Platelet Count 284 thou/uL (130-400); RBC Distribution Width 13.4 % (11.5-14.5); Red Blood Cell (RBC) Count 3.52 mill/uL (4.20-5.40); White Blood Cell (WBC) Count 8.5 thou/uL (4.8-10.8)
[2018-02-12] MEDS: Levothyroxine Sodium 112 MCG TAB PO SCH (05:09)
[2018-02-12 05:10] LABS: ALT (SGPT) 137 U/L (8-55); AST (SGOT) 178 U/L (5-34); Albumin 3.4 g/dL (3.5-5.0); Alkaline Phosphatase 154 U/L (40-150); Anion Gap 13 mmol/L (10-20); BUN (Urea Nitrogen) 21 mg/dL (9.8-20.1); Bilirubin, Total 2.2 mg/dL (0.2-1.2); Calc. Creatinine Clearance 96 mL/min (70-130); Calcium 8.4 mg/dL (7.8-10.44); Carbon Dioxide 23 mmol/L (22-29); Chloride 108 mmol/L (98-107); Estimated GFR-MDRD 51; Globulin 3.8 g/dL (2.4-3.5); Glucose 93 mg/dL (70-105); Potassium 4.1 mmol/L (3.5-5.1); Protein, Total 7.2 g/dL (6.0-8.3); Sodium 140 mmol/L (136-145)
[2018-02-12 05:52] LABS: HBSAg Index 0.22 S/CO (0-0.99); Hep B Surf Ag Non-Reactive S/CO (NonReactive)
[2018-02-12 05:53] LABS: Hep C IgG Ab Non-Reactive (NonReactive); Hep C Index 0.43 S/CO (0-0.79)
[2018-02-12 05:55] LABS: HBCM Index 0.17 S/CO (0-0.79); Hep A IgM AB Non-Reactive (NonReactive); Hep A IgM S/CO 0.09 S/CO (0-0.79); Hepatitis B Core IgM Abs Non-Reactive (NonReactive)
[2018-02-12] MEDS: diphenhydrAMINE 25 MG CAP PO PRN (06:15)
[2018-02-12] MEDS: HYDROmorphone 2 MG TAB PO SCH ×2 (08:45→20:05)
[2018-02-12] MEDS: Enoxaparin Sodium 40 MG/0.4 ML SYRINGE SC SCH (08:48)
[2018-02-12] MEDS: azaTHIOprine 50 MG TAB PO SCH ×2 (09:02→20:08)
[2018-02-12] MEDS ORDERED: Methylnaltrexone 12 MG/0.6 ML VIAL SC SCH (10:30)
[2018-02-12] MEDS: diphenhydrAMINE 50 MG/ML VIAL IVP PRN (11:50)
[2018-02-12] MEDS: Docusate 100 MG CAP PO SCH ×4 (15:00→20:04)
[2018-02-12] MEDS: Saccharomyces boulardii 250 MG CAP PO SCH (15:01)
[2018-02-12] MEDS: Oxybutynin ER 5 MG TAB PO SCH (15:01)
[2018-02-12] MEDS: Lactinex Tablet PO SCH (15:02)
[2018-02-12] MEDS: Cyclobenzaprine 10 MG TAB PO SCH ×3 (15:02→20:04)
[2018-02-12] MEDS: Carvedilol 3.125 MG TAB PO SCH ×2 (15:02→17:59)
[2018-02-12] MEDS: Insulin Glargine 85 UNITS in Pre-Filled Syringe 1 EACH SC SCH ×2 (15:05→21:00)
[2018-02-12] MEDS: DULoxetine 60 MG CAP PO SCH (15:06)
[2018-02-12] MEDS ORDERED: DULoxetine 30 MG CAP PO SCH (15:15)
[2018-02-12] MEDS ORDERED: DULoxetine 60 MG CAP PO SCH (15:15)
--- NOTE | 2018-02-12 15:17 | NM ---
HIDA SCAN: HISTORY: Right upper quadrant pain. Elevated LFTs. Concern for cholecystitis. FINDINGS: Hepatobiliary scan was performed. Dose is 4.9 mCi of Technetium 99m Choletec. Anterior delayed imaging obtained. Images demonstrate radioisotopes seen throughout the hepatic parenchyma. No evidence of concentratio n is seen in the biliary system. No significant evidence of normal excretion is seen. There may be some activity in the gallbladder. I cannot exclude the possibility of common bile duct obstruction. Further workup using MRCP or ERCP may be of use. POS: [facility]
[2018-02-12] MEDS: Nystatin Powder 15 GM BOT TOP SCH ×2 (16:24→20:07)
[2018-02-12] MEDS: Lidocaine Patch Removal 1 EACH TOP SCH (16:25)
--- NOTE | 2018-02-12 17:55 | PDOC.PN ---
- Subjective Encounter Start Date: 02/12/18 Encounter Start Time: 17:55 Pt seen for followup re: sepsis. Denies chest pain, shortness of breath, fevers or chills. - Objective Resuscitation Status: Resuscitation Status FULL:Full Resuscitation MAR Reviewed: Yes Vital Signs & Weight: Vital Signs (12 hours) Temp Pulse Resp BP Pulse Ox 02/12/18 08:49 97.4 F L 78 16 140/64 97 Weight Admit Weight 230 lb Weight 230 lb I&O: 02/11/18 02/12/18 02/13/18 06:59 06:59 06:59 Intake Total 1700 Output Total 700 1000 Balance -700 700 Result Diagrams: 02/12/18 04:41 02/12/18 04:41 Additional Labs: Accuchecks 02/12/18 02/12/18 02/11/18 14:48 04:54 21:39 POC Glucose 72 104 135 H labs reviewed by me Phys Exam - Physical Examination Constitutional: NAD HEENT: moist MMs, sclera anicteric, oral pharynx no lesions, 2+ tonsils Neck: no nodes, no JVD, supple, full ROM Respiratory: no wheezing, no rales, no rhonchi, clear to auscultation bilateral Cardiovascular: RRR, no rub S1, S2 Gastrointestinal: soft, non-tender, positive bowel sounds distention Neurological: moves all 4 limbs Psychiatric: normal affect, A&O x 3 Dx/Plan (1) Sepsis Code(s): A41.9 - SEPSIS, UNSPECIFIED ORGANISM Status: Acute Comment: continue IV Zosyn. Source unclear, ? biliary vs other sources (2) CKD (chronic kidney disease) stage 3, GFR 30-59 ml/min Code(s): N18.3 - CHRONIC KIDNEY DISEASE, STAGE 3 (MODERATE) Status: Chronic Comment: stable (3) Chronic pain syndrome Code(s): G89.4 - CHRONIC PAIN SYNDROME Status: Chronic Comment: stable (4) DM type 2 (diabetes mellitus, type 2) Status: Chronic Qualifiers: Diabetes mellitus longterm insulin use: with longterm use Diabetes mellitus complication status: with unspecified complications Qualified Code(s) : E11.8 - Type 2 diabetes mellitus with unspecified complications; Z79.4 - correction (current) use of insulin; Z79.4 - tank terminal gauger (current) use of insulin; Z79.4 - tank terminal gauger (current) use of insulin; Z79.4 - correction (current) use of insulin Comment: controlled (5) 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 Review of Systems - Review of Systems Constitutional: negative: fever, chills, sweats, weakness, malaise Respiratory: negative: Cough, Shortness of Breath, SOB with Excertion, Pleuritic Pain, Wheezing Cardiovascular: negative: chest pain, palpitations, orthopnea, paroxysmal nocturnal dyspnea, edema, light headedness Gastrointestinal: Constipation. negative: Nausea, Vomiting, Abdominal Pain, Diarrhea, Melena, Hematochezia Genitourinary: negative: Dysuria, Frequency, Incontinence, Hematuria, Retention Skin: negative: Rash, Lesions, Sammy, Bruising - Medications/Allergies Allergies/Adverse Reactions: Allergies Allergy/AdvReac Type Severity Reaction Status Date / Time sulfamethoxazole Allergy Severe Verified 02/10/18 23:00 [From Bactrim] trimethoprim [From Bactrim] Allergy Severe Verified 02/10/18 23:00 amitriptyline Allergy Verified 02/10/18 23:00 chlorpheniramine Allergy Verified 02/10/18 23:00 clindamycin Allergy Verified 02/10/18 23:00 morphine Allergy Verified 02/10/18 23:00 Penicillins Allergy Verified 02/10/18 23:00 sulfacetamide Allergy Verified 02/10/18 23:00 sumatriptan Allergy Verified 02/10/18 23:00 tetracycline [Tetracycline] Allergy Verified 02/10/18 23:00 [id number] Antimigraine Allergy Verified 02/10/18 23:00 Agents Medications: Current Medications Acetaminophen (Tylenol) 650 mg PO Q4H PRN PRN Reason: Headache/Fever/Mild Pain (1-3) Last Admin: 02/11/18 12:28 Dose: 650 mg Acidophilus (Floranex) 1 tab PO DAILY [facility] Last Admin: 02/12/18 15:02 Dose: 1 tab Alprazolam (Xanax) 0.5 mg PO HS [facility] Last Admin: 02/11/18 20:05 Dose: 0.5 mg Azathioprine (Imuran) 50 mg PO BID [facility] Last Admin: 02/12/18 09:02 Dose: Not Given Carvedilol (Coreg) 3.125 mg PO BID-[facility] Last Admin: 02/12/18 15:02 Dose: 3.125 mg Cyclobenzaprine HCl (Flexeril) 10 mg PO TID [facility] Last Admin: 02/12/18 15:03 Dose: 10 mg Dextrose/Water (Dextrose 50%) 25 gm SLOW IVP PRN PRN PRN Reason: Hypoglycemia Diphenhydramine HCl (Benadryl) 25 mg PO Q8H PRN PRN Reason: Itching & Insomnia Last Admin: 02/12/18 06:15 Dose: 25 mg Diphenhydramine HCl (Benadryl) 25 mg IVP Q8H PRN PRN Reason: Itching & Insomnia Last Admin: 02/12/18 11:50 Dose: 25 mg Docusate Sodium (Colace) 100 mg PO QID [facility] Last Admin: 02/12/18 15:37 Dose: Not Given Duloxetine HCl (Cymbalta) 60 mg PO QAM [facility] Duloxetine HCl (Cymbalta) 30 mg PO QAM [facility] Enoxaparin Sodium (Lovenox) 40 mg SC 0900 [facility] Last Admin: 02/12/18 08:48 Dose: 40 mg Fentanyl (Duragesic) 50 mcg TD Q3D [facility] Glucagon (Glucagon) 1 mg IM PRN PRN PRN Reason: Hypoglycemia Hydromorphone HCl (Dilaudid) 4 mg PO BID [facility] Last Admin: 02/12/18 08:45 Dose: 4 mg Dextrose/Water (D5w) 1,000 mls @ 0 mls/hr IV .Q0M PRN PRN Reason: Hypoglycemia Insulin Glargine 85 units/ (Miscellaneous Medication) 0.85 mls @ 0 mls/hr SC BID [facility] Last Admin: 02/12/18 15:05 Dose: Not Given Piperacillin Sod/Tazobactam (Sod 3.375 gm/ Sodium Chloride) 100 mls @ 200 mls/ hr IVPB Q6HR [facility] Last Admin: 02/12/18 12:32 Dose: 100 mls Insulin Human Lispro (Humalog) 0 units SC .MILD SLIDING SCALE PRN PRN Reason: Mild Correctional Scale Levothyroxine Sodium (Synthroid) 112 mcg PO 0600 [facility] Last Admin: 02/12/18 05:09 Dose: 112 mcg Lidocaine (Lidoderm 5% Patch) 1 patch TD 2100 [facility] Last Admin: 02/11/18 22:02 Dose: 1 patch Melatonin (Melatonin) 9 mg PO [facility] Last Admin: 02/11/18 20:02 Dose: Not Given Miscellaneous Medication (Movantik) 12.5 mg PO DAILY [facility] Last Admin: 02/12/18 16:24 Dose: Not Given Miscellaneous Medication (Lidocaine Patch Removal) 1 each TOP 0900 [facility] Last Admin: 02/12/18 16:25 Dose: Not Given Miscellaneous Medication (Pharmacy To Dose) 1 each IVPB PRN PRN PRN Reason: Pharmacy to dose Stop: 02/12/20 23:59 Montelukast Sodium (Singulair) 10 mg PO [facility] Last Admin: 02/11/18 20:03 Dose: 10 mg Nystatin (Mycostatin Powder) 0 gm TOP BID [facility] Last Admin: 02/12/18 16:24 Dose: Not Given Ondansetron HCl (Zofran Odt) 4 mg PO Q6H PRN PRN Reason: Nausea/Vomiting Ondansetron HCl (Zofran) 4 mg IVP Q6H PRN PRN Reason: Nausea/Vomiting Oxybutynin Chloride (Ditropan Xl) 10 mg PO DAILY [facility] Last Admin: 02/12/18 15:01 Dose: 10 mg Pantoprazole Sodium (Protonix) 40 mg PO DAILY [facility] Last Admin: 02/12/18 15:02 Dose: 40 mg Pravastatin Sodium (Pravachol) 20 mg PO [facility] Last Admin: 02/11/18 20:04 Dose: 20 mg Saccharomyces Boulardii (Florastor) 250 mg PO DAILY [facility] Last Admin: 02/12/18 15:01 Dose: 250 mg Sodium Chloride (Flush - Normal Saline) 10 ml IVF Q12H PRN PRN Reason: Saline Flush Last Admin: 02/12/18 05:10 Dose: 10 ml Sodium Chloride (Flush - Normal Saline) 10 ml IVF Q12HR [facility] Last Admin: 02/12/18 16:27 Dose: 10 ml Zolpidem Tartrate (Ambien) 10 mg PO HS [facility] Last Admin: 02/11/18 22:01 Dose: 10 mg
[2018-02-12] MEDS: Zolpidem Tartrate 5 MG TAB PO SCH (20:04)
[2018-02-12] MEDS: Montelukast Sodium 10 mg Tablet PO SCH (20:04)
[2018-02-12] MEDS: Lidocaine 5% Patch TD SCH (20:04)
[2018-02-12] MEDS: Pravastatin Sodium 20 MG TAB PO SCH (20:04)
[2018-02-12] MEDS: ALPRAZolam 0.5 MG TAB PO SCH (20:06)
[2018-02-12] MEDS: Melatonin 3 MG TAB PO SCH (20:09)
--- NOTE | 2018-02-12 20:19 | RAD ---
LEFT HIP TWO VIEWS: 02/12/2018 HISTORY: Injury after a prior fall. COMPARISON: AP view pelvis from 02/10/2018. FINDINGS: There is mild diastasis of the pubic symphysis, which is stable when compared to the prior exam. The re is osteoarthritis involving the left hip. The AP view is obtained in external rotation, limiting evaluation of the femoral neck, but no obvious fracture is seen, and there is no evidence of a disloc ation. No other osseous abnormality. IMPRESSION: 1. Left hip osteoarthritis. 2. No acute osseous abnormality. 3. Stable diastasis of the pubic symphysis. POS: [facility]
--- NOTE | 2018-02-12 20:28 | RAD ---
RIGHT HIP TWO VIEWS: 02/12/2018 HISTORY: Right hip injury after a fall. COMPARISON: AP view pelvis from 02/10/2018. FINDINGS: There is stable diastasis of the pubic symphysis. There is right hip osteoarthritis. No obvious fra cture or dislocation is seen. Vascular calcifications and phleboliths overly the pelvis. Injection granulomata are seen overlying the right gluteal region. IMPRESSION: 1. Right hip osteoarthritis without an acute osseous abnormality visualized. 2. Diastasis pubic symphysis, also seen on prior examination, which is nonspecific. POS: [facility]
--- NOTE | 2018-02-12 23:01 | CON ---
DATE OF CONSULTATION: 02/12/2018 REASON FOR CONSULTATION: Abnormal liver function tests, fever, and abdominal pain. HISTORY OF PRESENT ILLNESS: A 52-year-old known to me from prior visits, history of multiple scleros is, type 2 diabetes. 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 BP was 150/70, pulse 123, respirat ions 22, and a temperature to 101.1. Patient head exam was normal. The neck was supple. Lungs with symmetric clear breath sounds. Abdomen had normal bowel sounds. Initial white cell count 21,000, he moglobin 14, platelets 302,000 with 83% neutrophils, and 14% bands. Sodium was 139, creatinine 0.91, and glucose 158, bilirubin was 2.3, AST 227, ALT 108, alkaline phosphatase 215 with albumin 4.0. Ur inalysis with 11-20 wbcs. Hepatitis serology was negative. Two sets of blood cultures thus far nega tive. Urine culture was positive, but expected because of indwelling Cho catheter. Patient has be en started on broad-spectrum antimicrobial therapy with Zosyn. She is feeling better with improvemen t in pain in the right upper quadrant. No headaches, no respiratory symptoms, no genitourinary sympt oms except for Cho catheter. No neurological symptom changes from her usual weakness in extremitie s and paresthesias. PAST MEDICAL HISTORY: Multiple sclerosis, fibromyalgia, hypothyroidism, type 2 diabetes, pubic osteo myelitis, neurogenic bladder with chronic indwelling Cho catheter, previous hypersensitivity vascul itis with skin manifestations mostly which resolved. The findings were more consistent with also jamia thema multiforme at that time. ALLERGIES: SULFA DRUGS, CLINDAMYCIN, OMNICEF, TETRACYCLINE, ANTIHISTAMINICS, AMITRIPTYLINE, and MORP NANO. SOCIAL HISTORY: care home resident. Never smoker. FAMILY HISTORY: Coronary artery disease. MEDICATIONS: Tylenol, Floranex, Xanax. Imuran, actually she is not taking Imuran and this has been stopped for her multiple sclerosis doctor many months ago. Coreg, Flexeril, Benadryl, Colace, Cymbal ta, Lovenox, Duragesic, glucagon, Dilaudid, lidocaine, montelukast, Zosyn. PHYSICAL EXAMINATION: VITAL SIGNS: T-max 99.8, now 97.4, blood pressure 140/64, pulse 78, respirations 16, O2 sat 97. GENERAL: Appears in no distress. Her mother is in the room with her. HEENT: Ocular movements conjugate. I did not see any scleral icterus. Pupils are equal. Oral cavi ty moist. NECK: Supple. LUNGS: Symmetric clear breath sounds. HEART: S1, S2, regular rate without murmurs. ABDOMEN: [id number] tenderness in the right upper quadrant. No rebound tenderness. No ascite s. No bladder distention. : Cho catheter in place, weakness in lower extremities. Pulses 1+ in dorsalis pedis. NEUROLOGIC: Cognitive function appears to be intact. LABORATORY DATA AND X-RAY FINDINGS: White cell count is down to 8.5, hemoglobin 11, platelets 284 wi th 84% neutrophils. Sodium 138, creatinine 1.15 and now 1.13. Bilirubin is at 2.2, AST down to 178, ALT down to 137, alkaline phosphatase decreased to 154. Abdomen and pelvis CT with stable horseshoe kidney, fatty infiltration of liver, bibasilar atelectases. Abdomen ultrasound, fatty infiltration, mild gallbladder wall thickening, but no acute cholecystitis, slightly prominent common bile duct, a nd hepatobiliary scan with no concentration of the radioisotope in the biliary system. DISCUSSION: 1. Multiple sclerosis, previous pubic osteomyelitis cured. 2. Acute onset of pain and fever. The pain is localized to the abdomen midline and right upper quad rant associated with abnormal liver function tests, which seem to be improving at this time. This aj d also neutrophilia associated with a discussion, differential diagnosis includes cholangitis with po ssible transient obstruction of the common bile duct by stone. It seems like she is getting better f rom the syndrome and we probably should see tomorrow continuing improvement of liver function tests. In that case, may need eventual elective cholecystectomy. ERCP as mentioned by the radiologist, but if she continues to improve, then probably that would not be necessary and continue antimicrobial th erapy as currently and I do not think she is going to require long-term antimicrobial treatment.
[2018-02-13] MEDS: Piperacillin/Tazobactam 3.375 GM in Sodium Chloride 0.9% 100 ML IVPB SCH ×4 (05:12→17:46)
[2018-02-13] MEDS: Levothyroxine Sodium 112 MCG TAB PO SCH (05:12)
[2018-02-13] MEDS: diphenhydrAMINE 50 MG/ML VIAL IVP PRN ×2 (05:13→13:33)
[2018-02-13 05:42] LABS: Red Blood Cell (RBC) Count 3.53 mill/uL (4.20-5.40); White Blood Cell (WBC) Count 7.1 thou/uL (4.8-10.8)
[2018-02-13 05:43] LABS: #Eosinphils 0.3 thou/uL (0.0-0.7); #Lymphocytes 0.6 thou/uL (1.20-3.40); #Monocytes 0.6 thou/uL (0.11-0.59); #Neutrophils 5.6 thou/uL (1.40-6.50); %Basophils 0.3 % (0.0-1.0); %Eosinophils 4.8 % (0.0-10.0); %Lymphocytes 8.1 % (21.0-51.0); %Monocytes 8.1 % (0.0-10.0); %Neutrophils 78.7 % (42.0-75.0); Mean Corpuscular Hemoglobin 31.2 pg (27.0-31.0); Mean Corpuscular Volume 97.4 fL (78.0-98.0); Platelet Count 288 thou/uL (130-400); RBC Distribution Width 13.4 % (11.5-14.5)
[2018-02-13 06:07] LABS: ALT (SGPT) 112 U/L (8-55); AST (SGOT) 139 U/L (5-34); Albumin 3.2 g/dL (3.5-5.0); Alkaline Phosphatase 163 U/L (40-150); Bilirubin, Direct 1.1 mg/dL (0.1-0.3); Bilirubin, Total 1.7 mg/dL (0.2-1.2); Protein, Total 6.8 g/dL (6.0-8.3)
[2018-02-13] MEDS: Ondansetron ODT 4 MG TAB PO PRN ×2 (07:34→14:34)
[2018-02-13] MEDS: Carvedilol 3.125 MG TAB PO SCH ×2 (07:35→16:34)
[2018-02-13] MEDS: azaTHIOprine 50 MG TAB PO SCH ×2 (09:13→21:45)
[2018-02-13] MEDS: DULoxetine 60 MG CAP PO SCH (09:15)
[2018-02-13] MEDS: Cyclobenzaprine 10 MG TAB PO SCH ×3 (09:15→22:18)
[2018-02-13] MEDS: Docusate 100 MG CAP PO SCH ×4 (09:15→20:36)
[2018-02-13] MEDS: Enoxaparin Sodium 40 MG/0.4 ML SYRINGE SC SCH (09:16)
[2018-02-13] MEDS: HYDROmorphone 2 MG TAB PO SCH ×2 (09:16→20:34)
[2018-02-13] MEDS: Insulin Glargine 85 UNITS in Pre-Filled Syringe 1 EACH SC SCH ×2 (09:17→20:21)
[2018-02-13] MEDS: Oxybutynin ER 5 MG TAB PO SCH (09:19)
[2018-02-13] MEDS: Lactinex Tablet PO SCH (09:19)
[2018-02-13] MEDS: Saccharomyces boulardii 250 MG CAP PO SCH (09:19)
[2018-02-13] MEDS: Nystatin Powder 15 GM BOT TOP SCH ×2 (09:20→20:37)
[2018-02-13] MEDS: Lidocaine Patch Removal 1 EACH TOP SCH (09:22)
[2018-02-13] MEDS: DULoxetine 30 MG CAP PO SCH (09:32)
[2018-02-13] MEDS: HumaLOG 300 UNITS/3 ML VIAL SC PRN ×3 (12:07→20:22)
[2018-02-13] MEDS ORDERED: Acetaminophen/Codeine 30-300mg Tablet PO PRN (16:08)
[2018-02-13] MEDS: Acetaminophen/Codeine 30-300mg Tablet PO PRN (16:33)
[2018-02-13] MEDS: HYDROcodone/Acetaminophen 5/325 mg Tablet PO PRN (17:45)
--- NOTE | 2018-02-13 18:08 | PDOC.PN ---
- Subjective Encounter Start Date: 02/13/18 Encounter Start Time: 17:20 Pt seen for followup re: UTI. Denies chest pain, shortness of breath, fevers or chills. - Objective Resuscitation Status: Resuscitation Status FULL:Full Resuscitation MAR Reviewed: Yes Vital Signs & Weight: Vital Signs (12 hours) Temp Pulse Resp BP BP Pulse Ox 02/13/18 16:34 98.2 F 76 18 143/71 H 98 02/13/18 13:00 98.1 F 93 18 138/73 98 02/13/18 08:00 98 02/13/18 07:32 98.2 F 85 20 137/69 98 Weight Admit Weight 230 lb Weight 230 lb I&O: 02/12/18 02/13/18 02/14/18 06:59 06:59 06:59 Intake Total 1700 1100 Output Total 1000 1500 Balance 700 -400 Result Diagrams: 02/13/18 05:20 02/12/18 04:41 Additional Labs: Accuchecks 02/13/18 02/13/18 02/13/18 15:59 11:08 05:27 POC Glucose 164 H 174 H 128 H 02/12/18 20:07 POC Glucose 112 H Labs reviewed by me Phys Exam - Physical Examination Obesity HEENT: moist MMs Neck: supple Respiratory: clear to auscultation bilateral Cardiovascular: RRR Gastrointestinal: soft Neurological: moves all 4 limbs Psychiatric: normal affect Dx/Plan (1) UTI (urinary tract infection) Status: Acute Qualifiers: Urinary tract infection type: acute cystitis Hematuria presence: without hematuria Qualified Code(s): N30.00 - Acute cystitis without hematuria Comment: Klebsiella and Proteus UTI, continue Zosyn (2) CKD (chronic kidney disease) stage 3, GFR 30-59 ml/min Code(s): N18.3 - CHRONIC KIDNEY DISEASE, STAGE 3 (MODERATE) Status: Chronic Comment: stable (3) Chronic pain syndrome Code(s): G89.4 - CHRONIC PAIN SYNDROME Status: Chronic Comment: stable (4) DM type 2 (diabetes mellitus, type 2) Status: Chronic Qualifiers: Diabetes mellitus half-way insulin use: with terminal supervisor use Diabetes mellitus complication status: with unspecified complications Qualified Code(s) : E11.8 - Type 2 diabetes mellitus with unspecified complications; Z79.4 - MCC (current) use of insulin; Z79.4 - MCC (current) use of insulin; Z79.4 - MCC (current) use of insulin; Z79.4 - termite helper (current) use of insulin Comment: controlled (5) 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 Code(s): G35 - MULTIPLE SCLEROSIS; R53.2 - FUNCTIONAL QUADRIPLEGIA Status: Chronic Comment: stable (6) Hypertension Code(s): I10 - ESSENTIAL (PRIMARY) HYPERTENSION Status: Chronic Qualifiers: Comment: controlled (7) Insomnia Code(s): G47.00 - INSOMNIA, UNSPECIFIED Status: Chronic Qualifiers: Insomnia type: unspecified Qualified Code(s): G47.00 - Insomnia, unspecified Comment: on esta (8) Lymphedema Code(s): I89.0 - LYMPHEDEMA, NOT ELSEWHERE CLASSIFIED Status: Chronic Comment: stable (9) Constipation Code(s): K59.00 - CONSTIPATION, UNSPECIFIED Status: Chronic Comment: continue Movantik (10) Sepsis Code(s): A41.9 - SEPSIS, UNSPECIFIED ORGANISM Status: Resolved - Plan * . LFTs improving, likely due to passed gall stone. Review of Systems - Review of Systems Respiratory: negative: Cough, Shortness of Breath, SOB with Excertion, Pleuritic Pain, Wheezing Cardiovascular: negative: chest pain, palpitations, orthopnea, paroxysmal nocturnal dyspnea, edema, light headedness - Medications/Allergies Allergies/Adverse Reactions: Allergies Allergy/AdvReac Type Severity Reaction Status Date / Time sulfamethoxazole Allergy Severe Verified 02/10/18 23:00 [From Bactrim] trimethoprim [From Bactrim] Allergy Severe Verified 02/10/18 23:00 amitriptyline Allergy Verified 02/10/18 23:00 chlorpheniramine Allergy Verified 02/10/18 23:00 clindamycin Allergy Verified 02/10/18 23:00 morphine Allergy Verified 02/10/18 23:00 Penicillins Allergy Verified 02/10/18 23:00 sulfacetamide Allergy Verified 02/10/18 23:00 sumatriptan Allergy Verified 02/10/18 23:00 tetracycline [Tetracycline] Allergy Verified 02/10/18 23:00 [id number] Antimigraine Allergy Verified 02/10/18 23:00 Agents Medications: Current Medications Acetaminophen (Tylenol) 650 mg PO Q4H PRN PRN Reason: Headache/Fever/Mild Pain (1-3) Last Admin: 02/11/18 12:28 Dose: 650 mg Acetaminophen/Codeine Phosphate (Tylenol #3) 1 tab PO Q6H PRN PRN Reason: Moderate Pain (4-6) Acetaminophen/Codeine Phosphate (Tylenol #3) 2 tab PO Q6H PRN PRN Reason: Severe Pain (7-10) Last Admin: 02/13/18 16:33 Dose: 2 tab Hydrocodone Bitart/Acetaminophen ([place] 5/325) 1 tab PO Q4H PRN PRN Reason: Pain Last Admin: 02/13/18 17:45 Dose: 1 tab Acidophilus (Floranex) 1 tab PO DAILY [facility] Last Admin: 02/13/18 09:19 Dose: 1 tab Alprazolam (Xanax) 0.5 mg PO HS [facility] Last Admin: 02/12/18 20:06 Dose: 0.5 mg Azathioprine (Imuran) 50 mg PO BID [facility] Last Admin: 02/13/18 09:13 Dose: Not Given Carvedilol (Coreg) 3.125 mg PO BID-[facility] Last Admin: 02/13/18 16:34 Dose: 3.125 mg Cyclobenzaprine HCl (Flexeril) 10 mg PO TID [facility] Last Admin: 02/13/18 15:14 Dose: 10 mg Dextrose/Water (Dextrose 50%) 25 gm SLOW IVP PRN PRN PRN Reason: Hypoglycemia Diphenhydramine HCl (Benadryl) 25 mg PO Q8H PRN PRN Reason: Itching & Insomnia Last Admin: 02/12/18 06:15 Dose: 25 mg Diphenhydramine HCl (Benadryl) 25 mg IVP Q8H PRN PRN Reason: Itching & Insomnia Last Admin: 02/13/18 13:33 Dose: 25 mg Docusate Sodium (Colace) 100 mg PO QID [facility] Last Admin: 02/13/18 16:32 Dose: 100 mg Duloxetine HCl (Cymbalta) 60 mg PO QAM [facility] Last Admin: 02/13/18 09:15 Dose: 60 mg Duloxetine HCl (Cymbalta) 30 mg PO QAM [facility] Last Admin: 02/13/18 09:32 Dose: 30 mg Enoxaparin Sodium (Lovenox) 40 mg SC 0900 [facility] Last Admin: 02/13/18 09:16 Dose: 40 mg Fentanyl (Duragesic) 50 mcg TD Q3D [facility] Glucagon (Glucagon) 1 mg IM PRN PRN PRN Reason: Hypoglycemia Hydromorphone HCl (Dilaudid) 4 mg PO BID [facility] Last Admin: 02/13/18 09:16 Dose: 4 mg Dextrose/Water (D5w) 1,000 mls @ 0 mls/hr IV .Q0M PRN PRN Reason: Hypoglycemia Insulin Glargine 85 units/ (Miscellaneous Medication) 0.85 mls @ 0 mls/hr SC BID [facility] Last Admin: 02/13/18 09:17 Dose: Not Given Piperacillin Sod/Tazobactam (Sod 3.375 gm/ Sodium Chloride) 100 mls @ 200 mls/ hr IVPB Q6HR [facility] Last Admin: 02/13/18 17:46 Dose: 100 mls Insulin Human Lispro (Humalog) 0 units SC .MILD SLIDING SCALE PRN PRN Reason: Mild Correctional Scale Last Admin: 02/13/18 16:36 Dose: 2 unit Levothyroxine Sodium (Synthroid) 112 mcg PO 0600 [facility] Last Admin: 02/13/18 05:12 Dose: 112 mcg Lidocaine (Lidoderm 5% Patch) 1 patch TD 2100 [facility] Last Admin: 02/12/18 20:04 Dose: 1 patch Melatonin (Melatonin) 9 mg PO HS [facility] Last Admin: 02/12/18 20:09 Dose: Not Given Miscellaneous Medication (Movantik) 12.5 mg PO DAILY [facility] Last Admin: 02/13/18 09:18 Dose: 12.5 mg Miscellaneous Medication (Lidocaine Patch Removal) 1 each TOP 0900 [facility] Last Admin: 02/13/18 09:22 Dose: Not Given Miscellaneous Medication (Pharmacy To Dose) 1 each IVPB PRN PRN PRN Reason: Pharmacy to dose Stop: 02/12/20 23:59 Montelukast Sodium (Singulair) 10 mg PO HS [facility] Last Admin: 02/12/18 20:04 Dose: 10 mg Nystatin (Mycostatin Powder) 0 gm TOP BID [facility] Last Admin: 02/13/18 09:20 Dose: Not Given Ondansetron HCl (Zofran Odt) 4 mg PO Q6H PRN PRN Reason: Nausea/Vomiting Last Admin: 02/13/18 14:34 Dose: 4 mg Ondansetron HCl (Zofran) 4 mg IVP Q6H PRN PRN Reason: Nausea/Vomiting Oxybutynin Chloride (Ditropan Xl) 10 mg PO DAILY [facility] Last Admin: 02/13/18 09:19 Dose: 10 mg Pantoprazole Sodium (Protonix) 40 mg PO DAILY [facility] Last Admin: 02/13/18 09:19 Dose: 40 mg Pravastatin Sodium (Pravachol) 20 mg PO HS [facility] Last Admin: 02/12/18 20:04 Dose: 20 mg Saccharomyces Boulardii (Florastor) 250 mg PO DAILY [facility] Last Admin: 02/13/18 09:19 Dose: 250 mg Sodium Chloride (Flush - Normal Saline) 10 ml IVF Q12H PRN PRN Reason: Saline Flush Last Admin: 02/13/18 05:21 Dose: 10 ml Sodium Chloride (Flush - Normal Saline) 10 ml IVF Q12HR [facility] Last Admin: 02/13/18 07:35 Dose: 10 ml Zolpidem Tartrate (Ambien) 10 mg PO HS [facility] Last Admin: 02/12/18 20:04 Dose: 10 mg
[2018-02-13] MEDS: Montelukast Sodium 10 mg Tablet PO SCH (20:34)
[2018-02-13] MEDS: Zolpidem Tartrate 5 MG TAB PO SCH (20:36)
[2018-02-13] MEDS: Pravastatin Sodium 20 MG TAB PO SCH (20:36)
[2018-02-13] MEDS: Melatonin 3 MG TAB PO SCH (21:00)
[2018-02-13] MEDS: fentaNYL 50 mcg/hour Patch TD SCH (21:19)
[2018-02-13] MEDS: Lidocaine 5% Patch TD SCH (22:18)
[2018-02-13] MEDS: ALPRAZolam 0.5 MG TAB PO SCH (22:19)
[2018-02-14] MEDS: Piperacillin/Tazobactam 3.375 GM in Sodium Chloride 0.9% 100 ML IVPB SCH ×5 (00:34→23:47)
[2018-02-14] MEDS: diphenhydrAMINE 50 MG/ML VIAL IVP PRN ×3 (01:48→18:37)
[2018-02-14 04:55] LABS: #Eosinphils 0.4 thou/uL (0.0-0.7); #Lymphocytes 0.8 thou/uL (1.20-3.40); #Monocytes 0.5 thou/uL (0.11-0.59); #Neutrophils 4.7 thou/uL (1.40-6.50); %Basophils 0.6 % (0.0-1.0); %Eosinophils 6.1 % (0.0-10.0); %Monocytes 8.4 % (0.0-10.0); %Neutrophils 72.9 % (42.0-75.0); Hemoglobin 10.4 g/dL (12.0-16.0); Mean Corpuscular HGB CONC 32.3 g/dL (32.0-36.0); Mean Corpuscular Hemoglobin 31.5 pg (27.0-31.0); Mean Corpuscular Volume 97.6 fL (78.0-98.0); Mean Platelet Volume 6.9 fL (7.4-10.4); Platelet Count 277 thou/uL (130-400); RBC Distribution Width 13.4 % (11.5-14.5); Red Blood Cell (RBC) Count 3.29 mill/uL (4.20-5.40); White Blood Cell (WBC) Count 6.4 thou/uL (4.8-10.8)
[2018-02-14] MEDS: Levothyroxine Sodium 112 MCG TAB PO SCH (06:35)
[2018-02-14] MEDS: HYDROmorphone 2 MG TAB PO SCH ×2 (08:16→20:42)
[2018-02-14] MEDS: Enoxaparin Sodium 40 MG/0.4 ML SYRINGE SC SCH (08:17)
[2018-02-14] MEDS: azaTHIOprine 50 MG TAB PO SCH ×2 (08:18→20:41)
[2018-02-14] MEDS: Cyclobenzaprine 10 MG TAB PO SCH ×3 (08:18→20:42)
[2018-02-14] MEDS: Carvedilol 3.125 MG TAB PO SCH ×2 (08:18→16:18)
[2018-02-14] MEDS: Insulin Glargine 85 UNITS in Pre-Filled Syringe 1 EACH SC SCH ×2 (08:19→20:44)
[2018-02-14] MEDS: DULoxetine 60 MG CAP PO SCH (08:19)
[2018-02-14] MEDS: DULoxetine 30 MG CAP PO SCH (08:19)
[2018-02-14] MEDS: Docusate 100 MG CAP PO SCH ×4 (08:19→20:42)
[2018-02-14] MEDS: Nystatin Powder 15 GM BOT TOP SCH ×2 (08:20→20:45)
[2018-02-14] MEDS: Lactinex Tablet PO SCH (08:20)
[2018-02-14] MEDS: Saccharomyces boulardii 250 MG CAP PO SCH (08:20)
[2018-02-14] MEDS: Lidocaine Patch Removal 1 EACH TOP SCH (08:48)
[2018-02-14] MEDS: Oxybutynin ER 5 MG TAB PO SCH (09:34)
[2018-02-14] MEDS: Ondansetron ODT 4 MG TAB PO PRN ×3 (10:26→23:54)
[2018-02-14] MEDS: Acetaminophen/Codeine 30-300mg Tablet PO PRN ×2 (10:56→23:52)
[2018-02-14] MEDS: HYDROcodone/Acetaminophen 5/325 mg Tablet PO PRN ×2 (12:17→16:18)
[2018-02-14] MEDS: HumaLOG 300 UNITS/3 ML VIAL SC PRN ×3 (12:19→20:47)
[2018-02-14 14:46] LABS: ANA Symphony (Qualitative) Negative (Negative); EliA Vaculitis New Method **** NEW METHOD ****; Mitochondrial Ab 0.7 U/mL (<4 Negative); dsDNA IgG Antibody 1.1 IU/mL (<10 Negative)
[2018-02-14] MEDS ORDERED: Methylnaltrexone 12 MG/0.6 ML VIAL SC SCH (15:00)
--- NOTE | 2018-02-14 15:31 | PRG ---
DATE OF SERVICE: 02/14/2018 The patient is having recrudescence of the right upper quadrant pain. No vomiting, no genitourinary symptoms. No change in neurological situation. PHYSICAL EXAMINATION: VITAL SIGNS: T-max 98.0, blood pressure 140/70, pulse 88, respirations 18, O2 saturation 98%. GENERAL: Appears in some distress from pain. LUNGS: With symmetric clear breath sounds. HEART: S1, S2, regular rate. ABDOMEN: Tenderness in the right upper quadrant. LABORATORY DATA: White cell count 6.4, hemoglobin 10.4, platelets 277, 72% neutrophils. I do not aj ve any chemistry results for today. The last ones are from yesterday. Two sets of blood cultures ne debbie from 02/10/2018. 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 Now acute onset of abdominal pain and fever, pain localized in the upper quadrants, right jennifer e and midline associated with abnormal liver function tests, which seem to be improving. At this poi nt, would advise a surgical consultation.
--- NOTE | 2018-02-14 15:55 | PDOC.PN ---
- Subjective Encounter Start Date: 02/14/18 Encounter Start Time: 15:54 Pt seen for followup re: UTI. Reports RUQ pain, worse today. No fevers or chills. - Objective Resuscitation Status: Resuscitation Status FULL:Full Resuscitation MAR Reviewed: Yes Vital Signs & Weight: Vital Signs (12 hours) Temp Pulse Resp BP Pulse Ox 02/14/18 12:13 97.9 F 88 18 148/71 H 98 02/14/18 08:00 98.0 F 82 18 143/72 H 97 Weight Admit Weight 230 lb Weight 230 lb I&O: 02/13/18 02/14/18 02/15/18 06:59 06:59 06:59 Intake Total 1100 1040 1200 Output Total 2139 219 3355 Balance -400 190 200 Result Diagrams: 02/14/18 04:41 02/12/18 04:41 Additional Labs: Accuchecks 02/14/18 02/14/18 02/13/18 11:04 06:34 20:19 POC Glucose 195 H 185 H 172 H 02/13/18 15:59 POC Glucose 164 H Labs reviewed by me Phys Exam - Physical Examination Constitutional: NAD HEENT: moist MMs Neck: supple Respiratory: clear to auscultation bilateral Cardiovascular: RRR Gastrointestinal: soft Mild RUQ tenderness Neurological: moves all 4 limbs Psychiatric: normal affect Dx/Plan (1) UTI (urinary tract infection) Status: Acute Qualifiers: Urinary tract infection type: acute cystitis Hematuria presence: without hematuria Qualified Code(s): N30.00 - Acute cystitis without hematuria Comment: Klebsiella and Proteus UTI, continue Zosyn, change to ciprofloxacin for one week at the time of discharge (2) CKD (chronic kidney disease) stage 3, GFR 30-59 ml/min Code(s): N18.3 - CHRONIC KIDNEY DISEASE, STAGE 3 (MODERATE) Status: Chronic Comment: stable (3) Chronic pain syndrome Code(s): G89.4 - CHRONIC PAIN SYNDROME Status: Chronic Comment: stable (4) DM type 2 (diabetes mellitus, type 2) Status: Chronic Qualifiers: Diabetes mellitus senior care insulin use: with terminal block assembler use Diabetes mellitus complication status: with unspecified complications Qualified Code(s) : E11.8 - Type 2 diabetes mellitus with unspecified complications; Z79.4 - terminal block assembler (current) use of insulin; Z79.4 - prison (current) use of insulin; Z79.4 - terminal block assembler (current) use of insulin; Z79.4 - terminal block assembler (current) use of insulin Comment: controlled (5) 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 Code(s): G35 - MULTIPLE SCLEROSIS; R53.2 - FUNCTIONAL QUADRIPLEGIA Status: Chronic Comment: stable (6) Hypertension Code(s): I10 - ESSENTIAL (PRIMARY) HYPERTENSION Status: Chronic Qualifiers: Comment: controlled (7) Insomnia Code(s): G47.00 - INSOMNIA, UNSPECIFIED Status: Chronic Qualifiers: Insomnia type: unspecified Qualified Code(s): G47.00 - Insomnia, unspecified Comment: continue Lunesta (8) Lymphedema Code(s): I89.0 - LYMPHEDEMA, NOT ELSEWHERE CLASSIFIED Status: Chronic Comment: stable (9) Constipation Code(s): K59.00 - CONSTIPATION, UNSPECIFIED Status: Chronic Comment: trial Relistor (10) Sepsis Code(s): A41.9 - SEPSIS, UNSPECIFIED ORGANISM Status: Resolved - Plan continue antibiotics, out of bed/ambulate * . Pt c/o worsening RUQ pain. Consult general surgery for opinion. Review of Systems - Review of Systems Constitutional: negative: fever, chills, sweats, weakness, malaise Respiratory: negative: Cough, Shortness of Breath, SOB with Excertion, Pleuritic Pain, Wheezing Cardiovascular: negative: chest pain, palpitations, orthopnea, paroxysmal nocturnal dyspnea, edema, light headedness - Medications/Allergies Allergies/Adverse Reactions: Allergies Allergy/AdvReac Type Severity Reaction Status Date / Time sulfamethoxazole Allergy Severe Verified 02/10/18 23:00 [From Bactrim] trimethoprim [From Bactrim] Allergy Severe Verified 02/10/18 23:00 amitriptyline Allergy Verified 02/10/18 23:00 chlorpheniramine Allergy Verified 02/10/18 23:00 clindamycin Allergy Verified 02/10/18 23:00 morphine Allergy Verified 02/10/18 23:00 Penicillins Allergy Verified 02/10/18 23:00 sulfacetamide Allergy Verified 02/10/18 23:00 sumatriptan Allergy Verified 02/10/18 23:00 tetracycline [Tetracycline] Allergy Verified 02/10/18 23:00 [id number] Antimigraine Allergy Verified 02/10/18 23:00 Agents Medications: Current Medications Acetaminophen (Tylenol) 650 mg PO Q4H PRN PRN Reason: Headache/Fever/Mild Pain (1-3) Last Admin: 02/11/18 12:28 Dose: 650 mg Acetaminophen/Codeine Phosphate (Tylenol #3) 1 tab PO Q6H PRN PRN Reason: Moderate Pain (4-6) Acetaminophen/Codeine Phosphate (Tylenol #3) 2 tab PO Q6H PRN PRN Reason: Severe Pain (7-10) Last Admin: 02/14/18 10:56 Dose: 2 tab Hydrocodone Bitart/Acetaminophen ([place] 5/325) 1 tab PO Q4H PRN PRN Reason: Pain Last Admin: 02/14/18 12:17 Dose: 1 tab Acidophilus (Floranex) 1 tab PO DAILY [facility] Last Admin: 02/14/18 08:20 Dose: 1 tab Alprazolam (Xanax) 0.5 mg PO HS [facility] Last Admin: 02/13/18 22:19 Dose: 0.5 mg Azathioprine (Imuran) 50 mg PO BID [facility] Last Admin: 02/14/18 08:18 Dose: Not Given Carvedilol (Coreg) 3.125 mg PO BID-[facility] Last Admin: 02/14/18 08:18 Dose: 3.125 mg Cyclobenzaprine HCl (Flexeril) 10 mg PO TID [facility] Last Admin: 02/14/18 14:20 Dose: 10 mg Dextrose/Water (Dextrose 50%) 25 gm SLOW IVP PRN PRN PRN Reason: Hypoglycemia Diphenhydramine HCl (Benadryl) 25 mg PO Q8H PRN PRN Reason: Itching & Insomnia Last Admin: 02/12/18 06:15 Dose: 25 mg Diphenhydramine HCl (Benadryl) 25 mg IVP Q8H PRN PRN Reason: Itching & Insomnia Last Admin: 02/14/18 09:35 Dose: 25 mg Docusate Sodium (Colace) 100 mg PO QID [facility] Last Admin: 02/14/18 14:21 Dose: 100 mg Duloxetine HCl (Cymbalta) 60 mg PO QAM [facility] Last Admin: 02/14/18 08:19 Dose: 60 mg Duloxetine HCl (Cymbalta) 30 mg PO QAM [facility] Last Admin: 02/14/18 08:19 Dose: 30 mg Enoxaparin Sodium (Lovenox) 40 mg SC 0900 [facility] Last Admin: 02/14/18 08:17 Dose: 40 mg Fentanyl (Duragesic) 50 mcg TD Q3D [facility] Last Admin: 02/13/18 21:19 Dose: 50 mcg Glucagon (Glucagon) 1 mg IM PRN PRN PRN Reason: Hypoglycemia Hydromorphone HCl (Dilaudid) 4 mg PO BID [facility] Last Admin: 02/14/18 08:16 Dose: 4 mg Dextrose/Water (D5w) 1,000 mls @ 0 mls/hr IV .Q0M PRN PRN Reason: Hypoglycemia Insulin Glargine 85 units/ (Miscellaneous Medication) 0.85 mls @ 0 mls/hr SC BID [facility] Last Admin: 02/14/18 08:19 Dose: Not Given Piperacillin Sod/Tazobactam (Sod 3.375 gm/ Sodium Chloride) 100 mls @ 200 mls/ hr IVPB Q6HR [facility] Last Admin: 02/14/18 12:17 Dose: 100 mls Insulin Human Lispro (Humalog) 0 units SC .MILD SLIDING SCALE PRN PRN Reason: Mild Correctional Scale Last Admin: 02/14/18 12:19 Dose: 2 unit Levothyroxine Sodium (Synthroid) 112 mcg PO 0600 [facility] Last Admin: 02/14/18 06:35 Dose: 112 mcg Lidocaine (Lidoderm 5% Patch) 1 patch TD 2100 [facility] Last Admin: 02/13/18 22:18 Dose: 1 patch Melatonin (Melatonin) 9 mg PO HS [facility] Last Admin: 02/13/18 21:00 Dose: Not Given Miscellaneous Medication (Movantik) 12.5 mg PO DAILY [facility] Last Admin: 02/14/18 09:33 Dose: 12.5 mg Miscellaneous Medication (Lidocaine Patch Removal) 1 each TOP 0900 [facility] Last Admin: 02/14/18 08:48 Dose: Not Given Miscellaneous Medication (Pharmacy To Dose) 1 each IVPB PRN PRN PRN Reason: Pharmacy to dose Stop: 02/12/20 23:59 Miscellaneous Medication (Movantik) 25 mg PO NOW [facility] Stop: 02/14/18 17:30 Montelukast Sodium (Singulair) 10 mg PO HS [facility] Last Admin: 02/13/18 20:34 Dose: 10 mg Nystatin (Mycostatin Powder) 0 gm TOP BID [facility] Last Admin: 02/14/18 08:20 Dose: Not Given Ondansetron HCl (Zofran Odt) 4 mg PO Q6H PRN PRN Reason: Nausea/Vomiting Last Admin: 02/14/18 10:26 Dose: 4 mg Ondansetron HCl (Zofran) 4 mg IVP Q6H PRN PRN Reason: Nausea/Vomiting Oxybutynin Chloride (Ditropan Xl) 10 mg PO DAILY [facility] Last Admin: 02/14/18 09:34 Dose: 10 mg Pantoprazole Sodium (Protonix) 40 mg PO DAILY [facility] Last Admin: 02/14/18 08:20 Dose: 40 mg Pravastatin Sodium (Pravachol) 20 mg PO HS [facility] Last Admin: 02/13/18 20:36 Dose: 20 mg Saccharomyces Boulardii (Florastor) 250 mg PO DAILY [facility] Last Admin: 02/14/18 08:20 Dose: 250 mg Sodium Chloride (Flush - Normal Saline) 10 ml IVF Q12H PRN PRN Reason: Saline Flush Last Admin: 02/14/18 00:34 Dose: 10 ml Sodium Chloride (Flush - Normal Saline) 10 ml IVF Q12HR [facility] Last Admin: 02/14/18 08:21 Dose: 10 ml Zolpidem Tartrate (Ambien) 10 mg PO HS [facility] Last Admin: 02/13/18 20:36 Dose: 10 mg
[2018-02-14] MEDS: ALPRAZolam 0.5 MG TAB PO SCH (20:41)
[2018-02-14] MEDS: Melatonin 3 MG TAB PO SCH (20:45)
[2018-02-14] MEDS: Montelukast Sodium 10 mg Tablet PO SCH (20:45)
[2018-02-14] MEDS: Pravastatin Sodium 20 MG TAB PO SCH (20:45)
[2018-02-14] MEDS: Zolpidem Tartrate 5 MG TAB PO SCH (20:46)
[2018-02-14] MEDS: Lidocaine 5% Patch TD SCH (20:54)
--- NOTE | 2018-02-14 23:31 | CON ---
DATE OF CONSULTATION: 02/14/2018 HISTORY OF PRESENT ILLNESS: The patient is currently on the Oncology louis who was admitted on 2017 for fever, abdominal pain and sepsis. The patient was also noted to have urinary tract infectio n that grew out Klebsiella. The patient did have negative blood cultures though her evaluation in [facility] emergency department also included abdominal CT scan that showed nothing remarkable. She then unde rwent abdominal ultrasound that noted mild gallbladder wall thickening without definite sonographic e vidence of acute cholecystitis and a slightly prominent common bile duct measuring up to 7.2 mm with again no definite intrahepatic biliary ductal dilation. The patient is admitted by the Medicine Serv ice to undergo resuscitation to include IV fluids and antibiotics. The patient was also evaluated by Gastroenterology, specifically Dr. Chavez as it was noted on admission, she had elevated total bilirub in of 2.3 and elevated transaminase. Review of her ultrasound, Dr. Chavez recommended the patient unde rgo a HIDA scan which she has. Again it was not conclusive, it is likely the patient would require e ither an MRCP or an ERCP and possibly after the study, she may require laparoscopic cholecystectomy w hich is why we were asked to see the patient. Currently, the patient is on a carb consistent diet. She was noted today that she had 2 slices of pi zza which not only reproduced her right upper quadrant pain, but it made it significantly worse. The patient also stated she had significant nausea without vomiting, and did not eat any more today. ALLERGIES: SULFA CLINDAMYCIN, OMNICEF, TETRACYCLINE, AMITRIPTYLINE and MORPHINE. PAST MEDICAL HISTORY: Multiple sclerosis, fibromyalgia, hypothyroidism, type 2 diabetes, neurogenic bladder with chronic indwelling Cho catheter, history of pubic osteomyelitis, resolved. PAST SURGICAL HISTORY: The patient had ocular surgery x2 as a small child, surgery to her left wrist and hand, tonsils and adenoids, urethral surgery. SOCIAL HISTORY: Patient denies drug, tobacco or alcohol use. She is [facility] a [facility]. CURRENT MEDICATIONS: Xanax, glipizide, NovoLog, Lantus, Lasix, clonidine, levothyroxine, dicyclomine , vitamin D3 Colace, propranolol, Cymbalta, Dilaudid, potassium chloride, losartan, fentanyl patch. PHYSICAL EXAMINATION: VITAL SIGNS: Temperature is 98.7, heart rate 71, blood pressure 135/60, respirations 16, oxygen satu ration 96% on room air. that. GENERAL: The patient is resting comfortably in bed, though she states that she is currently having 8 -9/10 pain. She is alert and oriented x3. HEENT: Head is normocephalic, atraumatic. EYES: Extraocular motion intact. PERRLA bilaterally. Ears are atraumatic without discharge. Nose is atraumatic without discharge. Oropharynx is clear. NECK: Nontender. Trachea is midline. No JVD. No lymphadenopathy is noted. LUNGS: Clear to auscultation with good inspiratory and expiratory effort. HEART: Regular rate and rhythm. ABDOMEN: Soft with tenderness to palpation to the right upper quadrant and has a positive Moser's. No peritoneal signs. EXTREMITIES: Capillary refill is less than 3 seconds. Pulses are 2+. LABORATORY DATA: White blood cell count 6.4, hemoglobin 10.4, hematocrit 32.3, platelets 277. Of no te, on 02/10/2018, patient's WBC was 21 with 14 bands. Chemistry: Sodium 140, potassium 4.1, chlori de 108, CO2 23, BUN 21, creatinine 1.13, glucose 93, total bilirubin 1.7, direct bilirubin 1.1, AST 1 39, ALT 112, alkaline phosphatase 163. On 02/10/2018, total bilirubin 2.3, AST 227, ALT 108, alkalin e phosphatase 215. Serology: Hepatitis panel was negative. Urinalysis on presentation showed 7-10 RBCs, moderate leukocyte esterase, 10-20 WBCs and 4+ bacteria. IMAGING DATA: CT of the abdomen and pelvis were unremarkable for acute findings. Ultrasound of the abdomen again showed a fatty infiltration of the liver, mild gallbladder wall thickening without defi nite sonographic evidence of acute cholecystitis and a slightly prominent common bile duct measuring up to 7.2 mm. 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 HIDA scan shows no evidence of concentration is seen in the biliary system, no significant evidence of normal excretion is seen. T here may be some activity in the gallbladder, cannot exclude the possibility of a common bile duct ob struction. Further workup using MRCP or ERCP may be useful. ASSESSMENT AND PLAN: 1. Status post admission for sepsis. 2. Urinary tract infection with Klebsiella undergoing treatment. 3. Right upper quadrant pain with inconclusive radiographic and Nuclear Med studies. 4. Multiple comorbidities and chronic medical problems. Plan will be to discuss with Dr. Chavez ERCP and likely following that we would recommend a laparoscopi c cholecystectomy. Otherwise, continue supportive care as directed by the primary team and Infectiou s Disease, Dr. Rivera. The evaluation, examination, laboratory and radiographic findings will be disc ussed with Dr. Villafuerte after this dictation.
[2018-02-15] MEDS: Acetaminophen/Codeine 30-300mg Tablet PO PRN ×3 (05:01→18:58)
[2018-02-15] MEDS: Levothyroxine Sodium 112 MCG TAB PO SCH (05:01)
[2018-02-15 05:16] LABS: #Basophils 0.1 thou/uL (0.0-0.2); #Eosinphils 0.3 thou/uL (0.0-0.7); #Lymphocytes 1.1 thou/uL (1.20-3.40); #Monocytes 0.6 thou/uL (0.11-0.59); #Neutrophils 4.6 thou/uL (1.40-6.50); %Monocytes 8.5 % (0.0-10.0); %Neutrophils 69.4 % (42.0-75.0); Hemoglobin 10.6 g/dL (12.0-16.0); Mean Corpuscular HGB CONC 31.8 g/dL (32.0-36.0); Mean Corpuscular Hemoglobin 31.1 pg (27.0-31.0); Mean Platelet Volume 7.2 fL (7.4-10.4); Platelet Count 281 thou/uL (130-400); RBC Distribution Width 13.6 % (11.5-14.5); Red Blood Cell (RBC) Count 3.41 mill/uL (4.20-5.40); White Blood Cell (WBC) Count 6.6 thou/uL (4.8-10.8)
[2018-02-15] MEDS: Piperacillin/Tazobactam 3.375 GM in Sodium Chloride 0.9% 100 ML IVPB SCH ×3 (05:36→18:18)
[2018-02-15 05:40] LABS: ALT (SGPT) 77 U/L (8-55); AST (SGOT) 68 U/L (5-34); Albumin 3.1 g/dL (3.5-5.0); Alkaline Phosphatase 166 U/L (40-150); Anion Gap 11 mmol/L (10-20); BUN (Urea Nitrogen) 12 mg/dL (9.8-20.1); Bilirubin, Direct 0.6 mg/dL (0.1-0.3); Bilirubin, Total 1.2 mg/dL (0.2-1.2); Calc. Creatinine Clearance 117 mL/min (70-130); Calcium 8.2 mg/dL (7.8-10.44); Carbon Dioxide 24 mmol/L (22-29); Chloride 108 mmol/L (98-107); Estimated GFR-MDRD 63; Glucose 191 mg/dL (70-105); Lipase Less than 4 U/L (8-78); Magnesium 1.6 mg/dL (1.6-2.6); Phosphorus 2.6 mg/dL (2.3-4.7); Potassium 4.2 mmol/L (3.5-5.1); Protein, Total 6.8 g/dL (6.0-8.3); Sodium 139 mmol/L (136-145)
[2018-02-15] MEDS: diphenhydrAMINE 50 MG/ML VIAL IVP PRN ×2 (05:57→15:53)
--- NOTE | 2018-02-15 07:29 | PRG ---
HOSPITAL VISIT NOTE DATE OF SERVICE: 02/14/2018 SUBJECTIVE: Mr. Italia Mills is a 52-year-old female hospitalized over the weekend with ab dominal pain and abnormal LFTs. The patient's abdominal sonogram shows thickening of the gallbladder wall. Also, mildly elevated LFTs. She was seen by Dr. Howie Chavez over the weekend. The HIDA scan came back abnormal. The gallbladder is not visualized and also area of in the duodenum. Docum ented previous gallbladder disease. The common bile duct is actually not dilated. She is on IV anti biotic and she is feeling better; however, abdominal pain still persists. There is no nausea today. PHYSICAL EXAMINATION: VITAL SIGNS: She is afebrile. Pulse is 88, blood pressure is 148/71. CARDIOVASCULAR: First and second heart sounds normal. LUNGS: Clear to auscultation. ABDOMEN: Soft to palpate. Abdomen is tender over the right upper quadrant. There is no rebound or guarding. The tenderness is minimal. The liver function tests remain elevated. Laboratory data from today, WBC 6400, hemoglobin 10.4, hem atocrit 32.2. Liver function tests not done today, but from yesterday shows bilirubin at 1.7, AST is 139, ALT 112, alkaline phosphatase 163, albumin 3.2. RECOMMENDATIONS: 1. Continue antibiotics. 2. Would recommend surgical consult for possible cholecystectomy as the workup so far, including the sonogram and HIDA scan are abnormal.
[2018-02-15] MEDS: Cyclobenzaprine 10 MG TAB PO SCH ×3 (09:13→20:33)
[2018-02-15] MEDS: DULoxetine 30 MG CAP PO SCH (09:13)
[2018-02-15] MEDS: Enoxaparin Sodium 40 MG/0.4 ML SYRINGE SC SCH (09:14)
[2018-02-15] MEDS: Docusate 100 MG CAP PO SCH ×4 (09:16→20:33)
[2018-02-15] MEDS: Carvedilol 3.125 MG TAB PO SCH ×2 (09:16→18:18)
[2018-02-15] MEDS: Saccharomyces boulardii 250 MG CAP PO SCH (09:16)
[2018-02-15] MEDS: Lactinex Tablet PO SCH (09:16)
[2018-02-15] MEDS: HYDROmorphone 2 MG TAB PO SCH ×2 (09:17→20:33)
[2018-02-15] MEDS: DULoxetine 60 MG CAP PO SCH (09:18)
[2018-02-15] MEDS: Oxybutynin ER 5 MG TAB PO SCH (09:21)
[2018-02-15] MEDS: Nystatin Powder 15 GM BOT TOP SCH (09:23)
[2018-02-15] MEDS: Ondansetron PF 4 MG/2 ML Vial IVP PRN ×2 (09:25→20:36)
[2018-02-15] MEDS: azaTHIOprine 50 MG TAB PO SCH (09:26)
[2018-02-15] MEDS: Insulin Glargine 85 UNITS in Pre-Filled Syringe 1 EACH SC SCH ×2 (09:26→20:34)
[2018-02-15] MEDS: Lidocaine Patch Removal 1 EACH TOP SCH (09:38)
--- NOTE | 2018-02-15 10:16 | PDOC.PN ---
- Subjective Encounter Start Date: 02/15/18 Encounter Start Time: 07:10 -: old records requested/rev Patient seen and examined. pt has right upper quadrant pain. No overnight events - Objective Resuscitation Status: Resuscitation Status FULL:Full Resuscitation MAR Reviewed: Yes Vital Signs & Weight: Vital Signs (12 hours) Temp Pulse Resp BP Pulse Ox 02/15/18 07:02 98.0 F 68 16 161/73 H 97 Weight Admit Weight 230 lb Weight 230 lb I&O: 02/14/18 02/15/18 02/16/18 06:59 06:59 06:59 Intake Total 1040 2210 Output Total 850 2975 Balance 190 -765 Result Diagrams: 02/15/18 04:47 02/15/18 04:47 Additional Labs: Accuchecks 02/15/18 02/14/18 02/14/18 05:37 19:42 17:51 POC Glucose 169 H 232 H 250 H 02/14/18 11:04 POC Glucose 195 H Radiology Reviewed by me: Yes (hida scan) Phys Exam - Physical Examination Constitutional: NAD HEENT: PERRLA, moist MMs, sclera anicteric Neck: no JVD, supple Respiratory: no wheezing, no rales, no rhonchi Cardiovascular: RRR, no significant murmur, no rub Gastrointestinal: soft, no distention, positive bowel sounds RUQ tenderness morbid obesity+ Musculoskeletal: no edema, pulses present Neurological: non-focal, normal sensation, moves all 4 limbs Lymphatic: no nodes Psychiatric: normal affect, A&O x 3 Skin: no rash, normal turgor Dx/Plan (1) Abnormal LFTs Code(s): R94.5 - ABNORMAL RESULTS OF LIVER FUNCTION STUDIES Status: Acute (2) RUQ abdominal pain Code(s): R10.11 - RIGHT UPPER QUADRANT PAIN Status: Acute (3) UTI (urinary tract infection) Status: Acute Qualifiers: Urinary tract infection type: acute cystitis Hematuria presence: without hematuria Qualified Code(s): N30.00 - Acute cystitis without hematuria Comment: (4) CKD (chronic kidney disease) stage 3, GFR 30-59 ml/min Code(s): N18.3 - CHRONIC KIDNEY DISEASE, STAGE 3 (MODERATE) Status: Chronic Comment: stable (5) Chronic pain syndrome Code(s): G89.4 - CHRONIC PAIN SYNDROME Status: Chronic Comment: stable (6) Constipation Code(s): K59.00 - CONSTIPATION, UNSPECIFIED Status: Chronic Comment: (7) DM type 2 (diabetes mellitus, type 2) Status: Chronic Qualifiers: Diabetes mellitus fci insulin use: with fci use Diabetes mellitus complication status: with unspecified complications Qualified Code(s) : E11.8 - Type 2 diabetes mellitus with unspecified complications; Z79.4 - [facility] (current) use of insulin; Z79.4 - [facility] (current) use of insulin; Z79.4 - [facility] (current) use of insulin; Z79.4 - [facility] (current) use of insulin Comment: controlled (8) 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 Code(s): G35 - MULTIPLE SCLEROSIS; R53.2 - FUNCTIONAL QUADRIPLEGIA Status: Chronic Comment: stable (9) Hypertension Code(s): I10 - ESSENTIAL (PRIMARY) HYPERTENSION Status: Chronic Qualifiers: Comment: controlled (10) Insomnia Code(s): G47.00 - INSOMNIA, UNSPECIFIED Status: Chronic Qualifiers: Insomnia type: unspecified Qualified Code(s): G47.00 - Insomnia, unspecified Comment: continue Lunesta (11) Lymphedema Code(s): I89.0 - LYMPHEDEMA, NOT ELSEWHERE CLASSIFIED Status: Chronic Comment: stable (12) Morbid obesity Code(s): E66.01 - MORBID (SEVERE) OBESITY DUE TO EXCESS CALORIES Status: Chronic (13) Multiple sclerosis Code(s): G35 - MULTIPLE SCLEROSIS Status: Chronic Comment: stable (14) Neurogenic bladder Code(s): N31.9 - NEUROMUSCULAR DYSFUNCTION OF BLADDER, UNSPECIFIED Status: Chronic Comment: stable (15) Sepsis Code(s): A41.9 - SEPSIS, UNSPECIFIED ORGANISM Status: Resolved - Plan cont current plan of care, plan discussed w/ family * general surgery on case, she may need Lap harpal for her abdominal pain * medication reviewed as below * symptomatic treatment * discussed with mother. Review of Systems - Review of Systems ENT: negative: Ear Pain, Ear Discharge, Nose Pain, Nose Discharge, Nose Congestion, Mouth Pain, Mouth Swelling, Throat Pain, Throat Swelling, Other Respiratory: negative: Cough, Dry, Shortness of Breath, Hemoptysis, SOB with Excertion, Pleuritic Pain, Sputum, Wheezing Cardiovascular: negative: chest pain, palpitations, orthopnea, paroxysmal nocturnal dyspnea, edema, light headedness, other Gastrointestinal: Abdominal Pain. negative: Nausea, Vomiting, Diarrhea, Constipation, Melena, Hematochezia, Other Genitourinary: negative: Dysuria, Frequency, Incontinence, Hematuria, Retention , Other Musculoskeletal: negative: Neck Pain, Shoulder Pain, Arm Pain, Back Pain, Hand Pain, Leg Pain, Foot Pain, Other Skin: negative: Rash, Lesions, Sammy, Bruising, Other - Medications/Allergies Allergies/Adverse Reactions: Allergies Allergy/AdvReac Type Severity Reaction Status Date / Time sulfamethoxazole Allergy Severe Verified 02/10/18 23:00 [From Bactrim] trimethoprim [From Bactrim] Allergy Severe Verified 02/10/18 23:00 amitriptyline Allergy Verified 02/10/18 23:00 chlorpheniramine Allergy Verified 02/10/18 23:00 clindamycin Allergy Verified 02/10/18 23:00 morphine Allergy Verified 02/10/18 23:00 Penicillins Allergy Verified 02/10/18 23:00 sulfacetamide Allergy Verified 02/10/18 23:00 sumatriptan Allergy Verified 02/10/18 23:00 tetracycline [Tetracycline] Allergy Verified 02/10/18 23:00 [id number] Antimigraine Allergy Verified 02/10/18 23:00 Agents Medications: Current Medications Acetaminophen (Tylenol) 650 mg PO Q4H PRN PRN Reason: Headache/Fever/Mild Pain (1-3) Last Admin: 02/11/18 12:28 Dose: 650 mg Acetaminophen/Codeine Phosphate (Tylenol #3) 1 tab PO Q6H PRN PRN Reason: Moderate Pain (4-6) Acetaminophen/Codeine Phosphate (Tylenol #3) 2 tab PO Q6H PRN PRN Reason: Severe Pain (7-10) Last Admin: 02/15/18 05:01 Dose: 2 tab Hydrocodone Bitart/Acetaminophen ([place] 5/325) 1 tab PO Q4H PRN PRN Reason: Pain Last Admin: 02/14/18 16:18 Dose: 1 tab Acidophilus (Floranex) 1 tab PO DAILY [facility] Last Admin: 02/15/18 09:16 Dose: 1 tab Alprazolam (Xanax) 0.5 mg PO HS [facility] Last Admin: 02/14/18 20:41 Dose: 0.5 mg Azathioprine (Imuran) 50 mg PO BID [facility] Last Admin: 02/15/18 09:26 Dose: Not Given Carvedilol (Coreg) 3.125 mg PO BID[facility] Last Admin: 02/15/18 09:16 Dose: 3.125 mg Cyclobenzaprine HCl (Flexeril) 10 mg PO TID [facility] Last Admin: 02/15/18 09:13 Dose: 10 mg Dextrose/Water (Dextrose 50%) 25 gm SLOW IVP PRN PRN PRN Reason: Hypoglycemia Diphenhydramine HCl (Benadryl) 25 mg PO Q8H PRN PRN Reason: Itching & Insomnia Last Admin: 02/12/18 06:15 Dose: 25 mg Diphenhydramine HCl (Benadryl) 25 mg IVP Q8H PRN PRN Reason: Itching & Insomnia Last Admin: 02/15/18 05:57 Dose: 25 mg Docusate Sodium (Colace) 100 mg PO QID [facility] Last Admin: 02/15/18 09:16 Dose: 100 mg Duloxetine HCl (Cymbalta) [facility] [place] Last Admin: 02/15/18 09:18 Dose: 60 mg Duloxetine HCl (Cymbalta) 30 mg PO [facility] Last Admin: 02/15/18 09:13 Dose: 30 mg Enoxaparin Sodium (Lovenox) 40 mg SC 0900 [facility] Last Admin: 02/15/18 09:14 Dose: 40 mg Fentanyl (Duragesic) 50 mcg TD Q3D [facility] Last Admin: 02/13/18 21:19 Dose: 50 mcg Glucagon (Glucagon) 1 mg IM PRN PRN PRN Reason: Hypoglycemia Hydromorphone HCl (Dilaudid) 4 mg PO BID [facility] Last Admin: 02/15/18 09:17 Dose: 4 mg Dextrose/Water (D5w) 1,000 mls @ 0 mls/hr IV .Q0M PRN PRN Reason: Hypoglycemia Insulin Glargine 85 units/ (Miscellaneous Medication) 0.85 mls @ 0 mls/hr SC BID [facility] Last Admin: 02/15/18 09:26 Dose: Not Given Piperacillin Sod/Tazobactam (Sod 3.375 gm/ Sodium Chloride) 100 mls @ 200 mls/ hr IVPB Q6HR [facility] Last Admin: 02/15/18 05:36 Dose: 100 mls Insulin Human Lispro (Humalog) 0 units SC .MILD SLIDING SCALE PRN PRN Reason: Mild Correctional Scale Last Admin: 02/14/18 20:47 Dose: 3 unit Levothyroxine Sodium (Synthroid) 112 mcg PO 0600 [facility] Last Admin: 02/15/18 05:01 Dose: 112 mcg Lidocaine (Lidoderm 5% Patch) 1 patch TD 2100 [facility] Last Admin: 02/14/18 20:54 Dose: Not Given Melatonin (Melatonin) 9 mg PO HS [facility] Last Admin: 02/14/18 20:45 Dose: Not Given Miscellaneous Medication (Movantik) 12.5 mg PO DAILY [facility] Last Admin: 02/15/18 10:00 Dose: 12.5 mg Miscellaneous Medication (Lidocaine Patch Removal) 1 each TOP 0900 [facility] Last Admin: 02/15/18 09:38 Dose: Not Given Miscellaneous Medication (Pharmacy To Dose) 1 each IVPB PRN PRN PRN Reason: Pharmacy to dose Stop: 02/12/20 23:59 Montelukast Sodium (Singulair) 10 mg PO HS [facility] Last Admin: 02/14/18 20:45 Dose: 10 mg Nystatin (Mycostatin Powder) 0 gm TOP BID [facility] Last Admin: 02/15/18 09:23 Dose: Not Given Ondansetron HCl (Zofran Odt) 4 mg PO Q6H PRN PRN Reason: Nausea/Vomiting Last Admin: 02/14/18 23:54 Dose: 4 mg Ondansetron HCl (Zofran) 4 mg IVP Q6H PRN PRN Reason: Nausea/Vomiting Last Admin: 02/15/18 09:25 Dose: 4 mg Oxybutynin Chloride (Ditropan Xl) 10 mg PO DAILY [facility] Last Admin: 02/15/18 09:21 Dose: 10 mg Pantoprazole Sodium (Protonix) 40 mg PO DAILY [facility] Last Admin: 02/15/18 09:15 Dose: 40 mg Pravastatin Sodium (Pravachol) 20 mg PO HS [facility] Last Admin: 02/14/18 20:45 Dose: 20 mg Saccharomyces Boulardii (Florastor) 250 mg PO DAILY [facility] Last Admin: 02/15/18 09:16 Dose: 250 mg Sodium Chloride (Flush - Normal Saline) 10 ml IVF Q12H PRN PRN Reason: Saline Flush Last Admin: 02/15/18 05:36 Dose: 10 ml Sodium Chloride (Flush - Normal Saline) 10 ml IVF Q12HR [facility] Last Admin: 02/15/18 09:20 Dose: 10 ml Zolpidem Tartrate (Ambien) 10 mg PO HS [facility] Last Admin: 02/14/18 20:46 Dose: 10 mg
--- NOTE | 2018-02-15 11:40 | PRG ---
DATE OF SERVICE: 02/15/2018 SUBJECTIVE: Ms. Mills is a 52-year-old woman admitted with acute cholecystitis with cholelithiasis and sepsis. She was seen in consultation by a General Surgery yesterday. Our recommendation at that time was ERCP prior to laparoscopic cholecystectomy. Overnight, the patient endorses significant im provement with respect to her abdominal pain. LABORATORY DATA: Today includes a CBC now with 6600 white blood cells. This is in contrast to 20,70 0 white blood cells, only 4 days previously. Hemoglobin and hematocrit are stable at 10.6 and 33.4 r espectively. Platelet count is 281,000. Metabolic profile includes sodium 139, potassium 4.2, chlor yaritza is 108, bicarbonate 24, BUN is 12, creatinine 0.93, glucose 191. Significant improvement is note d with respect to the LFTs, now total bilirubin is normal at 1.2. This is in contrast to 1.7 yesterd ay. AST and ALT are also normalizing at 68 and 77 in contrast to 139 and 112 two days ago. Alkaline phosphatase is also stable at 166. Serum lipase is less than 4. IMAGING: Abdominal examination reveals a soft and obese abdomen with minimum tenderness to palpation . Clearly no positive Moser's sign present. Liver and spleen nonpalpable below costal margin. IMPRESSION: 1. Acute cholecystitis with cholelithiasis. 2. Resolving sepsis. PLAN: Laparoscopic cholecystectomy with intraoperative cholangiogram. I have advised the patient of the above findings and recommendation. I have also advised the patient of the risks and benefits of the proposed surgery. Risks include, but not limited to bleeding, infection, injury to bile duct or surrounding structures. This information was given to the patient in the presence of her elderly mo ther and her nurse at bedside. The patient and her mother indicated understanding of information giv en. I answered their questions. The patient already had breakfast this morning. She wishes to have a surgery tomorrow. Therefore, we will place her on the surgery schedule for laparoscopic cholecyst ectomy with intraoperative cholangiogram in the morning.
--- NOTE | 2018-02-15 13:38 | PRG ---
DATE OF SERVICE: 02/15/2018 SUBJECTIVE: This is a 52-year-old who came to the hospital with abdominal pain, nausea, an d findings of cholecystitis. The patient has been seen by Dr. Villafuerte, General Surgery. Plan is being made to do a laparoscopic cholecystectomy tomorrow. The patient appears comfortable, but she has aj d some abdominal pain, but the pain is less than before. There is no nausea, no vomiting. PHYSICAL EXAMINATION: GENERAL: She is obese, appears comfortable. VITAL SIGNS: Temperature 98 degrees Fahrenheit, pulse is 68, blood pressure 160/73. CARDIOVASCULAR: Within normal limits. ABDOMEN: The abdomen is soft. Abdomen is tender over the right upper quadrant. There is no rebound or guarding. LABORATORY DATA: WBC dropping down to 6,600, hemoglobin is 10.6, BUN 12. Chem-7 is normal. Bilirub in dropping to 1.2, AST 68, ALT 77. CLINICAL IMPRESSION: Cholecystitis, planning surgery for tomorrow. The patient most likely has no c ommon bile duct stone. Anyway, plan is being made for laparoscopic cholecystectomy/cholangiogram by Dr. Villafuerte tomorrow. If the cholangiogram shows abnormal filling defect, might need endoscopic retrog rade cholangiopancreatography.
[2018-02-15] MEDS: Ondansetron ODT 4 MG TAB PO PRN (14:23)
[2018-02-15 15:33] VITALS: BMI 35.1
[2018-02-15] MEDS: HYDROcodone/Acetaminophen 5/325 mg Tablet PO PRN (15:58)
[2018-02-15] MEDS: Melatonin 3 MG TAB PO SCH (19:47)
[2018-02-15] MEDS: ALPRAZolam 0.5 MG TAB PO SCH (20:33)
[2018-02-15] MEDS: Lidocaine 5% Patch TD SCH (20:34)
[2018-02-15] MEDS: Zolpidem Tartrate 5 MG TAB PO SCH (20:35)
[2018-02-15] MEDS: Montelukast Sodium 10 mg Tablet PO SCH (20:35)
[2018-02-15] MEDS: Pravastatin Sodium 20 MG TAB PO SCH (20:35)
[2018-02-15] MEDS: HumaLOG 300 UNITS/3 ML VIAL SC PRN (20:36)
[2018-02-16] MEDS: diphenhydrAMINE 50 MG/ML VIAL IVP PRN
[2018-02-16 05:32] LABS: ALT (SGPT) 56 U/L (8-55); AST (SGOT) 48 U/L (5-34); Alkaline Phosphatase 147 U/L (40-150); Bilirubin, Direct 0.5 mg/dL (0.1-0.3); Bilirubin, Total 0.9 mg/dL (0.2-1.2); Lipase Less than 4 U/L (8-78); Protein, Total 6.7 g/dL (6.0-8.3)
[2018-02-16] MEDS: Ondansetron PF 4 MG/2 ML Vial IVP PRN ×3 (05:47→21:18)
[2018-02-16] MEDS: Levothyroxine Sodium 112 MCG TAB PO SCH (05:48)
[2018-02-16] MEDS: Acetaminophen/Codeine 30-300mg Tablet PO PRN (05:48)
[2018-02-16] MEDS: Carvedilol 3.125 MG TAB PO SCH ×2 (06:35→16:34)
[2018-02-16] MEDS: Piperacillin/Tazobactam 3.375 GM in Sodium Chloride 0.9% 100 ML IVPB SCH ×4 (06:35→17:36)
[2018-02-16] MEDS ORDERED: Iothalamate Meglumine 60% 50 ML VIAL FS ONE (08:32)
[2018-02-16] MEDS ORDERED: Bupivacaine/Epinephrine 0.25% 30 ML VIAL ONE (08:32)
[2018-02-16] MEDS ORDERED: Fentanyl 100 MCG/2 ML VIAL ONE ×3 (08:52→12:19)
[2018-02-16] MEDS ORDERED: SUGAMMADEX SODIUM 500 MG/5 ML VIAL ONE (09:27)
[2018-02-16] MEDS: Cyclobenzaprine 10 MG TAB PO SCH ×3 (10:55→21:19)
[2018-02-16] MEDS: Docusate 100 MG CAP PO SCH ×4 (10:55→21:19)
[2018-02-16] MEDS: HYDROmorphone 2 MG TAB PO SCH ×2 (10:56→21:19)
[2018-02-16] MEDS: Insulin Glargine 85 UNITS in Pre-Filled Syringe 1 EACH SC SCH ×2 (10:56→21:20)
[2018-02-16] MEDS: Enoxaparin Sodium 40 MG/0.4 ML SYRINGE SC SCH (10:56)
[2018-02-16] MEDS ORDERED: Ondansetron HCl/PF 4 MG/2 ML Vial IVP PRN ×2 (11:52→12:04)
[2018-02-16] MEDS ORDERED: Promethazine HCl 25 MG/ML VIAL IM PRN (11:52)
[2018-02-16] MEDS ORDERED: Promethazine HCl 25 MG/ML VIAL SLOW IVP PRN (11:52)
--- NOTE | 2018-02-16 12:11 | OP ---
DATE OF OPERATION: 02/16/2018 PREOPERATIVE DIAGNOSES: 1. Acute cholecystitis with cholelithiasis. 2. Status post sepsis secondary to #1. POSTOPERATIVE DIAGNOSES: 1. Acute cholecystitis with cholelithiasis. 2. Status post sepsis secondary to #1. PROCEDURES PERFORMED: 1. Laparoscopic cholecystectomy. 2. Attempted intraoperative cholangiogram. SURGEON: Mook Villafuerte D.O. ANESTHESIA: General endotracheal. ESTIMATED BLOOD LOSS: 25 mL FLUIDS GIVEN: 1200 mL crystalloids. SPONGE AND INSTRUMENT COUNT: Certified as correct x2. COMPLICATIONS: None apparent at the time of operation. INDICATIONS FOR PROCEDURE: This is a 52-year-old morbidly obese woman who presented with abdominal p ain. Clinical examination was consistent with acute cholecystitis with cholelithiasis complicated by sepsis. The patient is recovered from standpoint of sepsis. LFTs are normalizing. Decision was ma de to bring the patient to the operating room today for laparoscopic cholecystectomy with intraoperat astrid cholangiogram. Findings are consistent with a dilated gallbladder in the usual anatomic location partially encased b y omental adhesions. The liver itself was also fatty and nodular, consistent with likely cirrhosis. Gallbladder itself is intrahepatic. The cystic duct was completely sclerotic and no lumen was present. The intraoperative cholangiogram could not be performed. DESCRIPTION OF PROCEDURE: Informed consent was obtained from the patient who was brought to the oper ating room and placed in supine position. Following general anesthesia, the abdomen was sterilely pr epped and draped in usual fashion. Skin below the umbilicus was infiltrated with 0.25% Marcaine with epinephrine. A small curvilinear infraumbilical incision was made using an 11 scalpel. Umbilical s talk was grasped with Dianne and elevated. Veress needle was inserted through the incision and place d in the peritoneal cavity through which the abdomen was insufflated with 3.5 liters of CO2 gas. Int raabdominal pressure was noted at 2 mmHg. Following abdominal insufflation, Veress needle was remove d and a 5 mm trocar introduced using the Visiport under laparoscopy. Laparoscopy confirmed proper pl acement of the port, no injuries to underlying structures. An additional laparoscopy revealed gallbl adder in the usual anatomic location partially encased by omental adhesions. The liver itself appear ed fatty with a micro nodularity. Next, under direct laparoscopy, a 12 mm epigastric and two 5 mm ri t lateral subcostal ports were placed after the overlying skin were infiltrated with 0.25% Marcaine with epinephrine and appropriate incision was made. The patient was placed in a reverse Trendelenbu rg position, rotated to her left. I introduced the [place] dissector with cautery, using this to ta ke down omental adhesions to expose the fundus of the gallbladder. The Prestige grasper was introduced through the right lateral subcostal port grasping the fundus of t he gallbladder which was elevated cephalad. Omental adhesions were then taken down from the remainde r of the gallbladder. A second Prestige grasper was introduced through the right medial subcostal po rt grasping the Alcazar's pouch which was retracted laterally. An anterior coursing cystic artery wa s dissected free from surrounding structures and divided between clips applying two clips proximally and one clip at the junction of the cystic artery and gallbladder. The cystic duct was dissected free from surrounding structures. I applied one clip at the junction o f the cystic duct and gallbladder. I then introduced a cholangiocatheter through the right upper jill drant. I used EndoShears to perform a cystotomy proximal to the securing clip between the cystic daniela t and gallbladder. There was no bile return. I tried to milk the cystic duct proximal to the cystot timothy and only slight amount of mucoid material was returned. Multiple attempts to insert the catheter into the cystic ductal lumen was without success, although the ductal lumen was clearly visible. It was obvious that the cystic duct was sclerotic. This will be consistent with the HIDA scan which gallbladder was not visualized. I then decided to attempt to perform cholangiogram. At this junctur e, the cystic duct itself was divided between clips, applying two clips proximally. The intrahepatic gallbladder itself was removed using cautery with good hemostasis. Gallbladder was delivered of the abdominal cavity using an EndoCatch. Inspection of the gallbladder fossa revealed m inor oozing. Hemostasis was readily achieved using a 1 x 2 inch piece of fibula. A #19 Jevon drain was introduced into the subhepatic space and allowed to exit the abdominal cavity through the right l ateral subcostal port. The drain itself was secured to intraabdominal wall using 2-0 silk suture. F inding no other pathology, laparoscopy was terminated. Fascia of the epigastric port was closed usin g 0 Vicryl suture and Endo closure device under laparoscopy. The abdomen was desufflated. All ports and instruments were removed and accounted for. Skin incisions were closed using 4-0 Monocryl sutur e in subcuticular fashion. Dermabond was applied over the incisional closure. The patient tolerated the operation without any apparent complication and was returned to recovery room in a satisfactory condition.
--- NOTE | 2018-02-16 12:24 | PDOC.PN ---
- Subjective Encounter Start Date: 02/16/18 Encounter Start Time: 12:22 Patient seen and examined in PACU, s/p surgery, she has drain in place. No overnight events - Objective Resuscitation Status: Resuscitation Status FULL:Full Resuscitation MAR Reviewed: Yes Vital Signs & Weight: Vital Signs (12 hours) Temp Pulse Resp BP Pulse Ox 02/16/18 07:10 99 02/16/18 06:50 98.1 F 75 16 142/67 H 99 Weight Admit Weight 230 lb Weight 237 lb 14.4 oz I&O: 02/15/18 02/16/18 02/17/18 06:59 06:59 06:59 Intake Total 2210 1700 225 Output Total 2975 1300 950 Balance -765 400 -725 Result Diagrams: 02/15/18 04:47 02/15/18 04:47 Additional Labs: Accuchecks 02/16/18 02/15/18 02/15/18 05:21 19:03 16:19 POC Glucose 153 H 245 H 189 H EKG Reviewed by me: Yes (nsr) Phys Exam - Physical Examination Constitutional: NAD HEENT: PERRLA, moist MMs, sclera anicteric Neck: no JVD, supple Respiratory: no wheezing, no rales, no rhonchi Cardiovascular: RRR, no significant murmur, no rub Gastrointestinal: soft, non-tender, no distention, positive bowel sounds drain in place, Musculoskeletal: no edema, pulses present Neurological: non-focal, normal sensation Lymphatic: no nodes Psychiatric: normal affect Skin: no rash, normal turgor Dx/Plan (1) Abnormal LFTs Code(s): R94.5 - ABNORMAL RESULTS OF LIVER FUNCTION STUDIES Status: Acute (2) RUQ abdominal pain Code(s): R10.11 - RIGHT UPPER QUADRANT PAIN Status: Acute (3) UTI (urinary tract infection) Status: Acute Qualifiers: Urinary tract infection type: acute cystitis Hematuria presence: without hematuria Qualified Code(s): N30.00 - Acute cystitis without hematuria Comment: (4) CKD (chronic kidney disease) stage 3, GFR 30-59 ml/min Code(s): N18.3 - CHRONIC KIDNEY DISEASE, STAGE 3 (MODERATE) Status: Chronic Comment: stable (5) Chronic pain syndrome Code(s): G89.4 - CHRONIC PAIN SYNDROME Status: Chronic Comment: stable (6) Constipation Code(s): K59.00 - CONSTIPATION, UNSPECIFIED Status: Chronic Comment: (7) DM type 2 (diabetes mellitus, type 2) Status: Chronic Qualifiers: Diabetes mellitus skilled nursing insulin use: with oysterman use Diabetes mellitus complication status: with unspecified complications Qualified Code(s) : E11.8 - Type 2 diabetes mellitus with unspecified complications; Z79.4 - long term care social worker (current) use of insulin; Z79.4 - [facility] (current) use of insulin; Z79.4 - [facility] (current) use of insulin; Z79.4 - long term care social worker (current) use of insulin Comment: controlled (8) 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 Code(s): G35 - MULTIPLE SCLEROSIS; R53.2 - FUNCTIONAL QUADRIPLEGIA Status: Chronic Comment: stable (9) Hypertension Code(s): I10 - ESSENTIAL (PRIMARY) HYPERTENSION Status: Chronic Qualifiers: Comment: controlled (10) Insomnia Code(s): G47.00 - INSOMNIA, UNSPECIFIED Status: Chronic Qualifiers: Insomnia type: unspecified Qualified Code(s): G47.00 - Insomnia, unspecified Comment: continue Lunesta (11) Lymphedema Code(s): I89.0 - LYMPHEDEMA, NOT ELSEWHERE CLASSIFIED Status: Chronic Comment: stable (12) Morbid obesity Code(s): E66.01 - MORBID (SEVERE) OBESITY DUE TO EXCESS CALORIES Status: Chronic (13) Multiple sclerosis Code(s): G35 - MULTIPLE SCLEROSIS Status: Chronic Comment: stable (14) Neurogenic bladder Code(s): N31.9 - NEUROMUSCULAR DYSFUNCTION OF BLADDER, UNSPECIFIED Status: Chronic Comment: stable (15) Sepsis Code(s): A41.9 - SEPSIS, UNSPECIFIED ORGANISM Status: Resolved (16) S/P laparoscopic cholecystectomy Code(s): Z90.49 - ACQUIRED ABSENCE OF OTHER SPECIFIED PARTS OF DIGESTIVE TRACT Status: Acute - Plan cont current plan of care, continue antibiotics * continue post operative care * pt's family member wanted to change SNU, so pillowcase sewer is working on that * pt's mother is requesting to do MRI while in hospital which is ordered for outpt basis, I do not see any absolute indication for doing these test in hospital. will defer these testing as scheduled * continue zosyn, will change to oral tomorrow * if her current iv gets out and does not need any iv antibiotics, then ok to leave out, otherwise she may need mid line or picc line for short term use * medication reviewed as below * symptomatic treatment Review of Systems - Review of Systems ENT: negative: Ear Pain, Ear Discharge, Nose Pain, Nose Discharge, Nose Congestion, Mouth Pain, Mouth Swelling, Throat Pain, Throat Swelling, Other Respiratory: negative: Cough, Dry, Shortness of Breath, Hemoptysis, SOB with Excertion, Pleuritic Pain, Sputum, Wheezing Cardiovascular: negative: chest pain, palpitations, orthopnea, paroxysmal nocturnal dyspnea, edema, light headedness, other Gastrointestinal: negative: Nausea, Vomiting, Abdominal Pain, Diarrhea, Constipation, Melena, Hematochezia, Other Genitourinary: negative: Dysuria, Frequency, Incontinence, Hematuria, Retention , Other Musculoskeletal: negative: Neck Pain, Shoulder Pain, Arm Pain, Back Pain, Hand Pain, Leg Pain, Foot Pain, Other - Medications/Allergies Allergies/Adverse Reactions: Allergies Allergy/AdvReac Type Severity Reaction Status Date / Time sulfamethoxazole Allergy Severe Verified 02/10/18 23:00 [From Bactrim] trimethoprim [From Bactrim] Allergy Severe Verified 02/10/18 23:00 amitriptyline Allergy Verified 02/10/18 23:00 chlorpheniramine Allergy Verified 02/10/18 23:00 clindamycin Allergy Verified 02/10/18 23:00 morphine Allergy Verified 02/10/18 23:00 Penicillins Allergy Verified 02/10/18 23:00 sulfacetamide Allergy Verified 02/10/18 23:00 sumatriptan Allergy Verified 02/10/18 23:00 tetracycline [Tetracycline] Allergy Verified 02/10/18 23:00 [id number] Antimigraine Allergy Verified 02/10/18 23:00 Agents Medications: Current Medications Hydrocodone Bitart/Acetaminophen ([place] 5/325) 1 tab PO Q4H PRN PRN Reason: Pain Last Admin: 02/15/18 15:58 Dose: 1 tab Acidophilus (Floranex) 1 tab PO DAILY [facility] Last Admin: 02/15/18 09:16 Dose: 1 tab Alprazolam (Xanax) 0.5 mg PO HS [facility] Last Admin: 02/15/18 20:33 Dose: 0.5 mg Carvedilol (Coreg) 3.125 mg PO BID[facility] Last Admin: 02/16/18 06:35 Dose: 3.125 mg Cyclobenzaprine HCl (Flexeril) 10 mg PO TID [facility] Last Admin: 02/16/18 10:55 Dose: Not Given Dextrose/Water (Dextrose 50%) 25 gm SLOW IVP PRN PRN PRN Reason: Hypoglycemia Diphenhydramine HCl (Benadryl) 25 mg PO Q8H PRN PRN Reason: Itching & Insomnia Last Admin: 02/12/18 06:15 Dose: 25 mg Diphenhydramine HCl (Benadryl) 25 mg IVP Q8H PRN PRN Reason: Itching & Insomnia Last Admin: 02/16/18 00:00 Dose: 25 mg Docusate Sodium (Colace) 100 mg PO QID [facility] Last Admin: 02/16/18 10:55 Dose: Not Given Dulox[facility] ([facility]) [facility] Last Admin: 02/15/18 09:18 Dose: 60 mg Duloxetine HCl (Cymbalta) 30 mg PO [facility] Last Admin: 02/15/18 09:13 Dose: 30 mg Enoxaparin Sodium (Lovenox) 40 mg SC 0900 [facility] Last Admin: 02/16/18 10:56 Dose: Not Given Fentanyl (Duragesic) 50 mcg TD Q3D [facility] Last Admin: 02/13/18 21:19 Dose: 50 mcg Fentanyl (Pacu-Sublimaze) 50 mcg SLOW IVP Q10MIN PRN PRN Reason: Moderate to Severe Pain (6-10) Stop: 02/16/18 15:04 Glucagon (Glucagon) 1 mg IM PRN PRN PRN Reason: Hypoglycemia Hydromorphone HCl (Dilaudid) 4 mg PO BID [facility] Last Admin: 02/16/18 10:56 Dose: Not Given Dextrose/Water (D5w) 1,000 mls @ 0 mls/hr IV .Q0M PRN PRN Reason: Hypoglycemia Insulin Glargine 85 units/ (Miscellaneous Medication) 0.85 mls @ 0 mls/hr SC BID [facility] Last Admin: 02/16/18 10:56 Dose: Not Given Piperacillin Sod/Tazobactam (Sod 3.375 gm/ Sodium Chloride) 100 mls @ 200 mls/ hr IVPB Q6HR [facility] Last Admin: 02/16/18 06:35 Dose: 100 mls Insulin Human Lispro (Humalog) 0 units SC .MILD SLIDING SCALE PRN PRN Reason: Mild Correctional Scale Last Admin: 02/15/18 20:36 Dose: 3 unit Levothyroxine Sodium (Synthroid) 112 mcg PO 0600 [facility] Last Admin: 02/16/18 05:48 Dose: 112 mcg Lidocaine (Lidoderm 5% Patch) 1 patch TD 2100 [facility] Last Admin: 02/15/18 20:34 Dose: Not Given Melatonin (Melatonin) 9 mg PO HS [facility] Last Admin: 02/15/18 19:47 Dose: Not Given Miscellaneous Medication (Movantik) 12.5 mg PO DAILY [facility] Last Admin: 02/15/18 10:00 Dose: 12.5 mg Miscellaneous Medication (Lidocaine Patch Removal) 1 each TOP 0900 [facility] Last Admin: 02/15/18 09:38 Dose: Not Given Miscellaneous Medication (Pharmacy To Dose) 1 each IVPB PRN PRN PRN Reason: Pharmacy to dose Stop: 02/12/20 23:59 Montelukast Sodium (Singulair) 10 mg PO HS [facility] Last Admin: 02/15/18 20:35 Dose: 10 mg Ondansetron HCl (Zofran Odt) 4 mg PO Q6H PRN PRN Reason: Nausea/Vomiting Last Admin: 02/15/18 14:23 Dose: 4 mg Ondansetron HCl (Zofran) 4 mg IVP Q6H PRN PRN Reason: Nausea/Vomiting Last Admin: 02/16/18 05:47 Dose: 4 mg Ondansetron HCl (Pacu-Zofran) 4 mg IVP ONE PRN PRN Reason: Nausea/Vomiting Stop: 02/16/18 14:52 Ondansetron HCl (Pacu-Zofran) 4 mg IVP ONE PRN PRN Reason: Nausea/Vomiting Stop: 02/16/18 15:04 Oxybutynin Chloride (Ditropan Xl) 10 mg PO DAILY [facility] Last Admin: 02/15/18 09:21 Dose: 10 mg Pantoprazole Sodium (Protonix) 40 mg PO DAILY [facility] Last Admin: 02/15/18 09:15 Dose: 40 mg Pravastatin Sodium (Pravachol) 20 mg PO HS [facility] Last Admin: 02/15/18 20:35 Dose: 20 mg Promethazine HCl (Pacu-Phenergan) 6.25 mg SLOW IVP ONE PRN PRN Reason: Nausea/Vomiting Stop: 02/16/18 14:52 Promethazine HCl (Pacu-Phenergan) 6.25 mg IM ONE PRN PRN Reason: Nausea/Vomiting Stop: 02/16/18 14:52 Saccharomyces Boulardii (Florastor) 250 mg PO DAILY [facility] Last Admin: 02/15/18 09:16 Dose: 250 mg Sodium Chloride (Flush - Normal Saline) 10 ml IVF Q12H PRN PRN Reason: Saline Flush Last Admin: 02/16/18 05:47 Dose: 10 ml Sodium Chloride (Flush - Normal Saline) 10 ml IVF Q12HR [facility] Last Admin: 02/15/18 20:36 Dose: 10 ml Zolpidem Tartrate (Ambien) 10 mg PO HS [facility] Last Admin: 02/15/18 20:35 Dose: 10 mg
[2018-02-16] MEDS: Lidocaine Patch Removal 1 EACH TOP SCH (12:55)
[2018-02-16] MEDS ORDERED: Lidocaine 1% PF 5 ML VIAL ONE (13:04)
[2018-02-16] MEDS ORDERED: Ondansetron PF 4 MG/2 ML Vial ONE (13:04)
[2018-02-16] MEDS ORDERED: PROPOFOL 200 MG/20 ML VIAL ONE (13:04)
[2018-02-16] MEDS ORDERED: PHENYLEPHRINE-NS 100 MCG/ML 10 ML SYRINGE ONE (13:04)
[2018-02-16] MEDS: Lactinex Tablet PO SCH (13:09)
[2018-02-16] MEDS: Saccharomyces boulardii 250 MG CAP PO SCH (13:09)
[2018-02-16] MEDS: DULoxetine 30 MG CAP PO SCH (13:09)
[2018-02-16] MEDS: DULoxetine 60 MG CAP PO SCH (13:09)
[2018-02-16] MEDS: Oxybutynin ER 5 MG TAB PO SCH (13:09)
[2018-02-16] MEDS: HYDROcodone/Acetaminophen 5/325 mg Tablet PO PRN ×2 (13:10→17:36)
[2018-02-16] MEDS: HumaLOG 300 UNITS/3 ML VIAL SC PRN ×2 (13:14→16:33)
[2018-02-16] MEDS ORDERED: Magnesium Citrate 300 ML BOT PO SCH (16:30)
[2018-02-16] MEDS ORDERED: Fentanyl 100 MCG/2 ML VIAL SLOW IVP SCH (18:15)
[2018-02-16] MEDS: fentaNYL 50 mcg/hour Patch TD SCH (21:10)
[2018-02-16] MEDS: ALPRAZolam 0.5 MG TAB PO SCH (21:19)
[2018-02-16] MEDS: Lidocaine 5% Patch TD SCH (21:20)
[2018-02-16] MEDS: Montelukast Sodium 10 mg Tablet PO SCH (21:21)
[2018-02-16] MEDS: Melatonin 3 MG TAB PO SCH (21:21)
[2018-02-16] MEDS: Pravastatin Sodium 20 MG TAB PO SCH (21:21)
[2018-02-16] MEDS: Zolpidem Tartrate 5 MG TAB PO SCH (21:22)
[2018-02-16] MEDS: hydrALAZINE 20 MG/ML VIAL SLOW IVP PRN (22:33)
[2018-02-16] MEDS: Fentanyl 100 MCG/2 ML VIAL SLOW IVP PRN (23:27)
[2018-02-17] MEDS: Piperacillin/Tazobactam 3.375 GM in Sodium Chloride 0.9% 100 ML IVPB SCH ×5 (00:08→23:57)
[2018-02-17] MEDS: Fentanyl 100 MCG/2 ML VIAL SLOW IVP PRN ×7 (01:49→22:33)
[2018-02-17] MEDS: hydrALAZINE 20 MG/ML VIAL SLOW IVP PRN ×3 (03:36→14:37)
[2018-02-17] MEDS: Ondansetron PF 4 MG/2 ML Vial IVP PRN ×3 (03:37→15:07)
[2018-02-17 05:05] LABS: #Eosinphils 0.1 thou/uL (0.0-0.7); #Lymphocytes 1.2 thou/uL (1.20-3.40); #Monocytes 0.8 thou/uL (0.11-0.59); #Neutrophils 11.7 thou/uL (1.40-6.50); %Basophils 0.2 % (0.0-1.0); %Eosinophils 0.4 % (0.0-10.0); %Lymphocytes 8.6 % (21.0-51.0); %Neutrophils 84.8 % (42.0-75.0); Hemoglobin 11.6 g/dL (12.0-16.0); Mean Corpuscular HGB CONC 32.2 g/dL (32.0-36.0); Mean Corpuscular Hemoglobin 31.2 pg (27.0-31.0); Mean Corpuscular Volume 97.1 fL (78.0-98.0); Mean Platelet Volume 6.7 fL (7.4-10.4); Platelet Count 342 thou/uL (130-400); Red Blood Cell (RBC) Count 3.72 mill/uL (4.20-5.40); White Blood Cell (WBC) Count 13.8 thou/uL (4.8-10.8)
[2018-02-17 05:24] LABS: ALT (SGPT) 47 U/L (8-55); AST (SGOT) 44 U/L (5-34); Albumin 3.1 g/dL (3.5-5.0); Alkaline Phosphatase 148 U/L (40-150); Anion Gap 14 mmol/L (10-20); BUN (Urea Nitrogen) 10 mg/dL (9.8-20.1); Bilirubin, Total 0.9 mg/dL (0.2-1.2); Calc. Creatinine Clearance 138 mL/min (70-130); Calcium 8.4 mg/dL (7.8-10.44); Carbon Dioxide 21 mmol/L (22-29); Chloride 106 mmol/L (98-107); Estimated GFR-MDRD 74; Globulin 3.8 g/dL (2.4-3.5); Glucose 184 mg/dL (70-105); Magnesium 1.5 mg/dL (1.6-2.6); Phosphorus 2.5 mg/dL (2.3-4.7); Potassium 3.8 mmol/L (3.5-5.1); Protein, Total 6.9 g/dL (6.0-8.3); Sodium 137 mmol/L (136-145)
[2018-02-17] MEDS: Levothyroxine Sodium 112 MCG TAB PO SCH (05:52)
[2018-02-17] MEDS ORDERED: Magnesium Sulfate 4 GM in Sodium Chloride 0.9% 250 ML 250 ML IVPB SCH (08:00)
--- NOTE | 2018-02-17 11:04 | PDOC.PN ---
- Subjective Encounter Start Date: 02/17/18 Encounter Start Time: 07:10 Patient seen and examined. last night pt did not take any her oral meds, she was having lot of pain last night, her BP was high, mother is bedside - Objective Resuscitation Status: Resuscitation Status FULL:Full Resuscitation MAR Reviewed: Yes Vital Signs & Weight: Vital Signs (12 hours) Temp Pulse Resp BP BP Pulse Ox 02/17/18 09:25 102 H 184/77 H 02/17/18 07:07 98.2 F 102 H 16 184/77 H 96 02/17/18 03:38 98.4 F 104 H 20 198/88 H 96 02/17/18 03:36 98 02/16/18 23:22 98.5 F 98 16 192/84 H 95 Weight Admit Weight 230 lb Weight 237 lb 14.4 oz I&O: 02/16/18 02/17/18 02/18/18 06:59 06:59 06:59 Intake Total 1700 1025 Output Total 1300 3575 Balance 400 -2550 Result Diagrams: 02/17/18 04:43 02/17/18 04:43 Additional Labs: Accuchecks 02/17/18 02/16/18 02/16/18 05:37 20:41 15:51 POC Glucose 189 H 158 H 181 H 02/16/18 13:00 POC Glucose 219 H Phys Exam - Physical Examination Constitutional: NAD HEENT: PERRLA, moist MMs, sclera anicteric Neck: no JVD, supple Respiratory: no wheezing, no rales, no rhonchi Cardiovascular: RRR, no significant murmur, no rub Gastrointestinal: soft, non-tender, no distention, positive bowel sounds surgical site clean, Musculoskeletal: no edema, pulses present Neurological: non-focal, normal sensation Lymphatic: no nodes Psychiatric: normal affect, A&O x 3 Skin: no rash, normal turgor Dx/Plan (1) S/P laparoscopic cholecystectomy Code(s): Z90.49 - ACQUIRED ABSENCE OF OTHER SPECIFIED PARTS OF DIGESTIVE TRACT Status: Acute (2) Abnormal LFTs Code(s): R94.5 - ABNORMAL RESULTS OF LIVER FUNCTION STUDIES Status: Acute (3) RUQ abdominal pain Code(s): R10.11 - RIGHT UPPER QUADRANT PAIN Status: Acute (4) UTI (urinary tract infection) Status: Acute Qualifiers: Urinary tract infection type: acute cystitis Hematuria presence: without hematuria Qualified Code(s): N30.00 - Acute cystitis without hematuria Comment: (5) CKD (chronic kidney disease) stage 3, GFR 30-59 ml/min Code(s): N18.3 - CHRONIC KIDNEY DISEASE, STAGE 3 (MODERATE) Status: Chronic Comment: stable (6) Chronic pain syndrome Code(s): G89.4 - CHRONIC PAIN SYNDROME Status: Chronic Comment: stable (7) Constipation Code(s): K59.00 - CONSTIPATION, UNSPECIFIED Status: Chronic Comment: (8) DM type 2 (diabetes mellitus, type 2) Status: Chronic Qualifiers: Diabetes mellitus longterm insulin use: with manager long term care use Diabetes mellitus complication status: with unspecified complications Qualified Code(s) : E11.8 - Type 2 diabetes mellitus with unspecified complications; Z79.4 - terminal worker (current) use of insulin; Z79.4 - care home (current) use of insulin; Z79.4 - terminal worker (current) use of insulin; Z79.4 - care home (current) use of insulin Comment: controlled (9) 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 Code(s): G35 - MULTIPLE SCLEROSIS; R53.2 - FUNCTIONAL QUADRIPLEGIA Status: Chronic Comment: stable (10) Hypertension Code(s): I10 - ESSENTIAL (PRIMARY) HYPERTENSION Status: Chronic Qualifiers: Comment: controlled (11) Insomnia Code(s): G47.00 - INSOMNIA, UNSPECIFIED Status: Chronic Qualifiers: Insomnia type: unspecified Qualified Code(s): G47.00 - Insomnia, unspecified Comment: continue Lunesta (12) Lymphedema Code(s): I89.0 - LYMPHEDEMA, NOT ELSEWHERE CLASSIFIED Status: Chronic Comment: stable (13) Morbid obesity Code(s): E66.01 - MORBID (SEVERE) OBESITY DUE TO EXCESS CALORIES Status: Chronic (14) Multiple sclerosis Code(s): G35 - MULTIPLE SCLEROSIS Status: Chronic Comment: stable (15) Neurogenic bladder Code(s): N31.9 - NEUROMUSCULAR DYSFUNCTION OF BLADDER, UNSPECIFIED Status: Chronic Comment: stable (16) Sepsis Code(s): A41.9 - SEPSIS, UNSPECIFIED ORGANISM Status: Resolved - Plan cont current plan of care, plan discussed w/ family, continue antibiotics * continue zosyn for now, her LFT is much better after surgery * don't know why she has so much pain, may be suspected for her chronic pain disorder * family trying to change SNU, rn case management is working on it * will need midline for IV access * her BP is high due to her pain or stress, will monitor. Review of Systems - Review of Systems Constitutional: negative: fever, chills, sweats, weakness, malaise, other Eyes: negative: Pain, Vision Change, Conjunctivae Inflammation, Eyelid Inflammation, Redness, Other ENT: negative: Ear Pain, Ear Discharge, Nose Pain, Nose Discharge, Nose Congestion, Mouth Pain, Mouth Swelling, Throat Pain, Throat Swelling, Other Respiratory: negative: Cough, Dry, Shortness of Breath, Hemoptysis, SOB with Excertion, Pleuritic Pain, Sputum, Wheezing Cardiovascular: negative: chest pain, palpitations, orthopnea, paroxysmal nocturnal dyspnea, edema, light headedness, other Gastrointestinal: negative: Nausea, Vomiting, Abdominal Pain, Diarrhea, Constipation, Melena, Hematochezia, Other Genitourinary: negative: Dysuria, Frequency, Incontinence, Hematuria, Retention , Other - Medications/Allergies Allergies/Adverse Reactions: Allergies Allergy/AdvReac Type Severity Reaction Status Date / Time sulfamethoxazole Allergy Severe Verified 02/10/18 23:00 [From Bactrim] trimethoprim [From Bactrim] Allergy Severe Verified 02/10/18 23:00 amitriptyline Allergy Verified 02/10/18 23:00 chlorpheniramine Allergy Verified 02/10/18 23:00 clindamycin Allergy Verified 02/10/18 23:00 morphine Allergy Verified 02/10/18 23:00 Penicillins Allergy Verified 02/10/18 23:00 sulfacetamide Allergy Verified 02/10/18 23:00 sumatriptan Allergy Verified 02/10/18 23:00 tetracycline [Tetracycline] Allergy Verified 02/10/18 23:00 [id number] Antimigraine Allergy Verified 02/10/18 23:00 Agents Medications: Current Medications Hydrocodone Bitart/Acetaminophen ([place] 5/325) 1 tab PO Q4H PRN PRN Reason: Pain Last Admin: 02/16/18 17:36 Dose: 1 tab Acidophilus (Floranex) 1 tab PO DAILY [facility] Last Admin: 02/16/18 13:09 Dose: 1 tab Alprazolam (Xanax) 0.5 mg PO HS [facility] Last Admin: 02/16/18 21:19 Dose: Not Given Carvedilol (Coreg) 3.125 mg PO BID-[facility] Last Admin: 02/16/18 16:34 Dose: 3.125 mg Cyclobenzaprine HCl (Flexeril) 10 mg PO TID [facility] Last Admin: 02/16/18 21:19 Dose: Not Given Dextrose/Water (Dextrose 50%) 25 gm SLOW IVP PRN PRN PRN Reason: Hypoglycemia Diphenhydramine HCl (Benadryl) 25 mg PO Q8H PRN PRN Reason: Itching & Insomnia Last Admin: 02/12/18 06:15 Dose: 25 mg Diphenhydramine HCl (Benadryl) 25 mg IVP Q8H PRN PRN Reason: Itching & Insomnia Last Admin: 02/16/18 00:00 Dose: 25 mg Docusate Sodium (Colace) 100 mg PO QID [facility] Last Admin: 02/16/18 21:19 Dose: Not Given Duloxetine [facility] (Cymbalta) [facility] Last Admin: 02/16/18 13:09 Dose: 60 mg Duloxetine HCl (Cymbalta) 30 mg PO [facility] Last Admin: 02/16/18 13:09 Dose: 30 mg Enoxaparin Sodium (Lovenox) 40 mg SC 0900 [facility] Last Admin: 02/16/18 10:56 Dose: Not Given Fentanyl (Duragesic) 50 mcg TD Q3D [facility] Last Admin: 02/16/18 21:10 Dose: 50 mcg Fentanyl (Sublimaze) 25 mcg SLOW IVP Q2H PRN PRN Reason: PAIN 7-10 Last Admin: 02/17/18 07:12 Dose: 25 mcg Glipizide (Glucotrol) 5 mg PO BID[facility] Glucagon (Glucagon) 1 mg IM PRN PRN PRN Reason: Hypoglycemia Hydralazine HCl (Apresoline) 10 mg SLOW IVP Q4H PRN PRN Reason: FOR SBP > 170 Last Admin: 02/17/18 09:25 Dose: 10 mg Hydromorphone HCl (Dilaudid) 4 mg PO BID [facility] Last Admin: 02/16/18 21:19 Dose: Not Given Dextrose/Water (D5w) 1,000 mls @ 0 mls/hr IV .Q0M PRN PRN Reason: Hypoglycemia Insulin Glargine 85 units/ (Miscellaneous Medication) 0.85 mls @ 0 mls/hr SC BID [facility] Last Admin: 02/16/18 21:20 Dose: Not Given Piperacillin Sod/Tazobactam (Sod 3.375 gm/ Sodium Chloride) 100 mls @ 200 mls/ hr IVPB Q6HR [facility] Last Admin: 02/17/18 06:19 Dose: 100 mls Insulin Human Lispro (Humalog) 0 units SC .MILD SLIDING SCALE PRN PRN Reason: Mild Correctional Scale Last Admin: 02/16/18 16:33 Dose: 2 unit Levothyroxine Sodium (Synthroid) 112 mcg PO 0600 [facility] Last Admin: 02/17/18 05:52 Dose: Not Given Lidocaine (Lidoderm 5% Patch) 1 patch TD 2100 [facility] Last Admin: 02/16/18 21:20 Dose: Not Given Melatonin (Melatonin) 9 mg PO [facility] Last Admin: 02/16/18 21:21 Dose: Not Given Miscellaneous Medication (Movantik) 12.5 mg PO DAILY [facility] Last Admin: 02/16/18 13:10 Dose: 12.5 mg Miscellaneous Medication (Lidocaine Patch Removal) 1 each TOP 0900 [facility] Last Admin: 02/16/18 12:55 Dose: Not Given Miscellaneous Medication (Pharmacy To Dose) 1 each IVPB PRN PRN PRN Reason: Pharmacy to dose Stop: 02/12/20 23:59 Montelukast Sodium (Singulair) 10 mg PO [facility] Last Admin: 02/16/18 21:21 Dose: Not Given Ondansetron HCl (Zofran Odt) 4 mg PO Q6H PRN PRN Reason: Nausea/Vomiting Last Admin: 02/15/18 14:23 Dose: 4 mg Ondansetron HCl (Zofran) 4 mg IVP Q6H PRN PRN Reason: Nausea/Vomiting Last Admin: 02/17/18 08:53 Dose: 4 mg Oxybutynin Chloride (Ditropan Xl) 10 mg PO DAILY [facility] Last Admin: 02/16/18 13:09 Dose: 10 mg Pantoprazole Sodium (Protonix) 40 mg PO DAILY [facility] Last Admin: 02/16/18 13:09 Dose: 40 mg Pravastatin Sodium (Pravachol) 20 mg PO HS [facility] Last Admin: 02/16/18 21:21 Dose: Not Given Saccharomyces Boulardii (Florastor) 250 mg PO DAILY [facility] Last Admin: 02/16/18 13:09 Dose: 250 mg Sodium Chloride (Flush - Normal Saline) 10 ml IVF Q12H PRN PRN Reason: Saline Flush Last Admin: 02/17/18 09:26 Dose: 10 ml Sodium Chloride (Flush - Normal Saline) 10 ml IVF Q12HR [facility] Last Admin: 02/17/18 08:54 Dose: 10 ml Zolpidem Tartrate (Ambien) 10 mg PO HS [facility] Last Admin: 02/16/18 21:22 Dose: Not Given
--- NOTE | 2018-02-17 13:33 | PRG ---
DATE OF SERVICE: 02/17/2018 SUBJECTIVE: This is a 52-year-old female postop day #1 status post laparoscopic cholecystectomy. Patient has a resolving sepsis secondary to cholecystitis and urinary tract infection. Patient reports generalized pain status post-surgery. OBJECTIVE: VITAL SIGNS: Temperature 98.2, pulse 102, respirations 16, O2 sat 96% on room air, blood pressure 184/77. GENERAL: Obese female, resting in bed in no acute distress. PULMONARY: Normal work of breathing. Symmetric rise. CARDIOVASCULAR: Regular rate and rhythm. GASTROINTESTINAL: Abdomen is soft. Laparoscopic sites are clean, dry, and intact. CHRISTINA drain with serosanguineous drainage. MUSCULOSKELETAL: No focal deficit is noted. LABORATORY FINDINGS: WBC 13.8, hemoglobin 11.6, hematocrit 36.1, platelet count 342. Sodium 137, potassium 3.8, chloride 106, carbon dioxide 26, BUN 10, creatinine 0.81, glucose 184, phosphorus 2.5, magnesium 1.5, total bilirubin 0.9 , AST 44, ALT 47, alkaline phosphatase 148. ASSESSMENT: 1. Cholecystitis with cholelithiasis. 2. Postop day #1 status post laparoscopic cholecystectomy. 3. Acute pain in the setting of chronic pain on chronic home narcotics. 4. Multi-organism urinary tract infection. 5. Sepsis secondary to above. 6. Hypertension and tachycardia. 7. Multiple comorbidities. PLAN: CHRISTINA drain removed at bedside with Dr. Villafuerte. Pain management per primary team. The patient may have a diet as tolerated. We will continue to follow during this hospitalization. Once the patient has been discharged from hospital , she will need a 2-week followup with our team. Post-surgical teaching given to patient and family at bedside. All questions were answered at the time of this dictation. ROSALINA
[2018-02-17] MEDS: Carvedilol 3.125 MG TAB PO SCH ×2 (15:51→16:38)
[2018-02-17] MEDS: Docusate 100 MG CAP PO SCH ×4 (15:51→20:36)
[2018-02-17] MEDS: glipiZIDE 5 MG TAB PO SCH ×2 (15:51→16:44)
[2018-02-17] MEDS: Cyclobenzaprine 10 MG TAB PO SCH ×3 (15:51→20:36)
[2018-02-17] MEDS: HYDROmorphone 2 MG TAB PO SCH ×2 (15:52→20:36)
[2018-02-17] MEDS: DULoxetine 30 MG CAP PO SCH (15:52)
[2018-02-17] MEDS: Insulin Glargine 85 UNITS in Pre-Filled Syringe 1 EACH SC SCH ×2 (15:52→21:06)
[2018-02-17] MEDS: DULoxetine 60 MG CAP PO SCH (15:52)
[2018-02-17] MEDS: Enoxaparin Sodium 40 MG/0.4 ML SYRINGE SC SCH (15:52)
[2018-02-17] MEDS: Lidocaine Patch Removal 1 EACH TOP SCH (15:53)
[2018-02-17] MEDS: Oxybutynin ER 5 MG TAB PO SCH (15:53)
[2018-02-17] MEDS: Lactinex Tablet PO SCH (15:53)
[2018-02-17] MEDS: Saccharomyces boulardii 250 MG CAP PO SCH (15:54)
[2018-02-17] MEDS ORDERED: cloNIDine 0.2mg/24 Hour PATCH TD SCH (17:00)
[2018-02-17] MEDS: ALPRAZolam 0.5 MG TAB PO SCH (20:36)
[2018-02-17] MEDS: Montelukast Sodium 10 mg Tablet PO SCH (20:37)
[2018-02-17] MEDS: Melatonin 3 MG TAB PO SCH (20:37)
[2018-02-17] MEDS: Pravastatin Sodium 20 MG TAB PO SCH (20:37)
[2018-02-17] MEDS: Lidocaine 5% Patch TD SCH (20:37)
[2018-02-17] MEDS: Zolpidem Tartrate 5 MG TAB PO SCH (20:38)
[2018-02-17] MEDS: HumaLOG 300 UNITS/3 ML VIAL SC PRN (21:21)
[2018-02-18] MEDS: Fentanyl 100 MCG/2 ML VIAL SLOW IVP PRN ×9 (00:44→22:34)
[2018-02-18] MEDS: Ondansetron PF 4 MG/2 ML Vial IVP PRN ×2 (00:46→08:37)
[2018-02-18] MEDS: Piperacillin/Tazobactam 3.375 GM in Sodium Chloride 0.9% 100 ML IVPB SCH ×4 (05:42→23:41)
[2018-02-18] MEDS: Levothyroxine Sodium 112 MCG TAB PO SCH ×2 (05:43→08:51)
[2018-02-18 08:37] LABS: #Basophils 0.1 thou/uL (0.0-0.2); #Eosinphils 0.1 thou/uL (0.0-0.7); #Lymphocytes 0.9 thou/uL (1.20-3.40); #Neutrophils 11.1 thou/uL (1.40-6.50); %Basophils 0.4 % (0.0-1.0); %Eosinophils 0.6 % (0.0-10.0); %Lymphocytes 6.8 % (21.0-51.0); %Monocytes 7.5 % (0.0-10.0); %Neutrophils 84.7 % (42.0-75.0); Hemoglobin 10.5 g/dL (12.0-16.0); Mean Corpuscular HGB CONC 30.3 g/dL (32.0-36.0); Mean Corpuscular Hemoglobin 29.5 pg (27.0-31.0); Mean Corpuscular Volume 97.4 fL (78.0-98.0); Mean Platelet Volume 6.6 fL (7.4-10.4); Platelet Count 318 thou/uL (130-400); RBC Distribution Width 14.5 % (11.5-14.5); Red Blood Cell (RBC) Count 3.58 mill/uL (4.20-5.40); White Blood Cell (WBC) Count 13.1 thou/uL (4.8-10.8)
[2018-02-18] MEDS: HYDROmorphone 2 MG TAB PO SCH ×2 (08:50→20:37)
[2018-02-18] MEDS: glipiZIDE 5 MG TAB PO SCH ×2 (08:50→16:14)
[2018-02-18] MEDS: Carvedilol 3.125 MG TAB PO SCH ×2 (08:50→16:14)
[2018-02-18 08:51] LABS: ALT (SGPT) 32 U/L (8-55); AST (SGOT) 23 U/L (5-34); Alkaline Phosphatase 129 U/L (40-150); Anion Gap 13 mmol/L (10-20); BUN (Urea Nitrogen) 12 mg/dL (9.8-20.1); Bilirubin, Total 0.8 mg/dL (0.2-1.2); Calc. Creatinine Clearance 125 mL/min (70-130); Calcium 8.2 mg/dL (7.8-10.44); Carbon Dioxide 23 mmol/L (22-29); Chloride 105 mmol/L (98-107); Estimated GFR-MDRD 66; Globulin 3.8 g/dL (2.4-3.5); Glucose 207 mg/dL (70-105); Potassium 3.8 mmol/L (3.5-5.1); Protein, Total 6.8 g/dL (6.0-8.3); Sodium 137 mmol/L (136-145)
--- NOTE | 2018-02-18 10:37 | PDOC.PN ---
- Subjective Encounter Start Date: 02/18/18 Encounter Start Time: 07:00 Patient seen and examined. No new complaints. No overnight events - Objective Resuscitation Status: Resuscitation Status FULL:Full Resuscitation MAR Reviewed: Yes Vital Signs & Weight: Vital Signs (12 hours) Temp Pulse Resp BP Pulse Ox 02/18/18 08:00 98.9 F 91 16 180/71 H 97 Weight Admit Weight 230 lb Weight 237 lb 14.4 oz I&O: 02/17/18 02/18/18 02/19/18 06:59 06:59 06:59 Intake Total 1025 1850 Output Total 3575 925 Balance -2550 925 Result Diagrams: 02/18/18 08:23 02/18/18 08:23 Additional Labs: Accuchecks 02/18/18 02/17/18 02/17/18 05:40 20:42 16:06 POC Glucose 179 H 216 H 210 H 02/17/18 11:40 POC Glucose 216 H Phys Exam - Physical Examination Constitutional: NAD HEENT: PERRLA, moist MMs, sclera anicteric Neck: no JVD, supple Respiratory: no wheezing, no rales, no rhonchi Cardiovascular: RRR, no significant murmur, no rub Gastrointestinal: soft, non-tender, no distention, positive bowel sounds Musculoskeletal: no edema, pulses present Neurological: non-focal, normal sensation Lymphatic: no nodes Psychiatric: normal affect Skin: no rash, normal turgor Dx/Plan (1) S/P laparoscopic cholecystectomy Code(s): Z90.49 - ACQUIRED ABSENCE OF OTHER SPECIFIED PARTS OF DIGESTIVE TRACT Status: Acute (2) Abnormal LFTs Code(s): R94.5 - ABNORMAL RESULTS OF LIVER FUNCTION STUDIES Status: Acute (3) RUQ abdominal pain Code(s): R10.11 - RIGHT UPPER QUADRANT PAIN Status: Acute (4) UTI (urinary tract infection) Status: Acute Qualifiers: Urinary tract infection type: acute cystitis Hematuria presence: without hematuria Qualified Code(s): N30.00 - Acute cystitis without hematuria Comment: (5) CKD (chronic kidney disease) stage 3, GFR 30-59 ml/min Code(s): N18.3 - CHRONIC KIDNEY DISEASE, STAGE 3 (MODERATE) Status: Chronic Comment: stable (6) Chronic pain syndrome Code(s): G89.4 - CHRONIC PAIN SYNDROME Status: Chronic Comment: stable (7) Constipation Code(s): K59.00 - CONSTIPATION, UNSPECIFIED Status: Chronic Comment: (8) DM type 2 (diabetes mellitus, type 2) Status: Chronic Qualifiers: Diabetes mellitus terminal clerk insulin use: with mcc use Diabetes mellitus complication status: with unspecified complications Qualified Code(s) : E11.8 - Type 2 diabetes mellitus with unspecified complications; Z79.4 - intermediate designer (current) use of insulin; Z79.4 - senior living (current) use of insulin; Z79.4 - senior living (current) use of insulin; Z79.4 - intermediate designer (current) use of insulin Comment: controlled (9) 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 Code(s): G35 - MULTIPLE SCLEROSIS; R53.2 - FUNCTIONAL QUADRIPLEGIA Status: Chronic Comment: stable (10) Hypertension Code(s): I10 - ESSENTIAL (PRIMARY) HYPERTENSION Status: Chronic Qualifiers: Comment: controlled (11) Insomnia Code(s): G47.00 - INSOMNIA, UNSPECIFIED Status: Chronic Qualifiers: Insomnia type: unspecified Qualified Code(s): G47.00 - Insomnia, unspecified Comment: continue Lunesta (12) Lymphedema Code(s): I89.0 - LYMPHEDEMA, NOT ELSEWHERE CLASSIFIED Status: Chronic Comment: stable (13) Morbid obesity Code(s): E66.01 - MORBID (SEVERE) OBESITY DUE TO EXCESS CALORIES Status: Chronic (14) Multiple sclerosis Code(s): G35 - MULTIPLE SCLEROSIS Status: Chronic Comment: stable (15) Neurogenic bladder Code(s): N31.9 - NEUROMUSCULAR DYSFUNCTION OF BLADDER, UNSPECIFIED Status: Chronic Comment: stable (16) Sepsis Code(s): A41.9 - SEPSIS, UNSPECIFIED ORGANISM Status: Resolved - Plan cont current plan of care, plan discussed w/ family, social services aide * she has chronic pain disorder, nothing acute reason for that, await placement * medication reviewed as below * symptomatic treatment. * drain removed, labs are fine, vital stable Review of Systems - Review of Systems Eyes: negative: Pain, Vision Change, Conjunctivae Inflammation, Eyelid Inflammation, Redness, Other ENT: negative: Ear Pain, Ear Discharge, Nose Pain, Nose Discharge, Nose Congestion, Mouth Pain, Mouth Swelling, Throat Pain, Throat Swelling, Other Respiratory: negative: Cough, Dry, Shortness of Breath, Hemoptysis, SOB with Excertion, Pleuritic Pain, Sputum, Wheezing Cardiovascular: negative: chest pain, palpitations, orthopnea, paroxysmal nocturnal dyspnea, edema, light headedness, other Gastrointestinal: negative: Nausea, Vomiting, Abdominal Pain, Diarrhea, Constipation, Melena, Hematochezia, Other Genitourinary: negative: Dysuria, Frequency, Incontinence, Hematuria, Retention , Other - Medications/Allergies Allergies/Adverse Reactions: Allergies Allergy/AdvReac Type Severity Reaction Status Date / Time sulfamethoxazole Allergy Severe Verified 02/10/18 23:00 [From Bactrim] trimethoprim [From Bactrim] Allergy Severe Verified 02/10/18 23:00 amitriptyline Allergy Verified 02/10/18 23:00 chlorpheniramine Allergy Verified 02/10/18 23:00 clindamycin Allergy Verified 02/10/18 23:00 morphine Allergy Verified 02/10/18 23:00 Penicillins Allergy Verified 02/10/18 23:00 sulfacetamide Allergy Verified 02/10/18 23:00 sumatriptan Allergy Verified 02/10/18 23:00 tetracycline [Tetracycline] Allergy Verified 02/10/18 23:00 [id number] Antimigraine Allergy Verified 02/10/18 23:00 Agents Medications: Current Medications Hydrocodone Bitart/Acetaminophen ([place] 5/325) 1 tab PO Q4H PRN PRN Reason: Pain Last Admin: 02/16/18 17:36 Dose: 1 tab Acidophilus (Floranex) 1 tab PO DAILY [facility] Last Admin: 02/17/18 15:53 Dose: Not Given Alprazolam (Xanax) 0.5 mg PO HS [facility] Last Admin: 02/17/18 20:36 Dose: Not Given Carvedilol (Coreg) 3.125 mg PO BID-WM [facility] Last Admin: 02/18/18 08:50 Dose: 3.125 mg Clonidine ([id number]) 0.2 mg TD Q7D [facility] Last Admin: 02/17/18 17:30 Dose: 0.2 mg Cyclobenzaprine HCl (Flexeril) 10 mg PO TID [facility] Last Admin: 02/17/18 20:36 Dose: Not Given Dextrose/Water (Dextrose 50%) 25 gm SLOW IVP PRN PRN PRN Reason: Hypoglycemia Diphenhydramine HCl (Benadryl) 25 mg PO Q8H PRN PRN Reason: Itching & Insomnia Last Admin: 02/12/18 06:15 Dose: 25 mg Diphenhydramine HCl (Benadryl) 25 mg IVP Q8H PRN PRN Reason: Itching & Insomnia Last Admin: 02/16/18 00:00 Dose: 25 mg Docusate Sodium (Colace) 100 mg PO QID [facility] Last Admin: 02/17/18 20:36 Dose: Not Given Duloxetine HCl (Cymbalta) 60 mg PO QAM [facility] Last Admin: 02/17/18 15:52 Dose: Not Given Duloxetine HCl (Cymbalta) 30 mg PO QAM [facility] Last Admin: 02/17/18 15:52 Dose: Not Given Enoxaparin Sodium (Lovenox) 40 mg SC 0900 [facility] Last Admin: 02/17/18 15:52 Dose: Not Given Fentanyl (Duragesic) 50 mcg TD Q3D [facility] Last Admin: 02/16/18 21:10 Dose: 50 mcg Fentanyl (Sublimaze) 25 mcg SLOW IVP Q2H PRN PRN Reason: PAIN 7-10 Last Admin: 02/18/18 08:26 Dose: 25 mcg Glipizide (Glucotrol) 5 mg PO BID-AC [facility] Last Admin: 02/18/18 08:50 Dose: 5 mg Glucagon (Glucagon) 1 mg IM PRN PRN PRN Reason: Hypoglycemia Hydralazine HCl (Apresoline) 10 mg SLOW IVP Q4H PRN PRN Reason: FOR SBP > 170 Last Admin: 02/17/18 14:37 Dose: 10 mg Hydromorphone HCl (Dilaudid) 4 mg PO BID [facility] Last Admin: 02/18/18 08:50 Dose: 4 mg Dextrose/Water (D5w) 1,000 mls @ 0 mls/hr IV .Q0M PRN PRN Reason: Hypoglycemia Insulin Glargine 85 units/ (Miscellaneous Medication) 0.85 mls @ 0 mls/hr SC BID [facility] Last Admin: 02/17/18 21:06 Dose: Not Given Piperacillin Sod/Tazobactam (Sod 3.375 gm/ Sodium Chloride) 100 mls @ 200 mls/ hr IVPB Q6HR [facility] Last Admin: 02/18/18 05:42 Dose: 100 mls Insulin Human Lispro (Humalog) 0 units SC .MILD SLIDING SCALE PRN PRN Reason: Mild Correctional Scale Last Admin: 02/17/18 21:21 Dose: 2 unit Levothyroxine Sodium (Synthroid) 112 mcg PO 0600 [facility] Last Admin: 02/18/18 08:51 Dose: 112 mcg Lidocaine (Lidoderm 5% Patch) 1 patch TD 2100 [facility] Last Admin: 02/17/18 20:37 Dose: Not Given Melatonin (Melatonin) 9 mg PO HS [facility] Last Admin: 02/17/18 20:37 Dose: Not Given Miscellaneous Medication (Movantik) 12.5 mg PO DAILY [facility] Last Admin: 02/17/18 15:53 Dose: Not Given Miscellaneous Medication (Lidocaine Patch Removal) 1 each TOP 0900 [facility] Last Admin: 02/17/18 15:53 Dose: Not Given Miscellaneous Medication (Pharmacy To Dose) 1 each IVPB PRN PRN PRN Reason: Pharmacy to dose Stop: 02/12/20 23:59 Montelukast Sodium (Singulair) [address] [facility] Last Admin: 02/17/18 20:37 Dose: Not Given Ondansetron HCl (Zofran Odt) 4 mg PO Q6H PRN PRN Reason: Nausea/Vomiting Last Admin: 02/15/18 14:23 Dose: 4 mg Ondansetron HCl (Zofran) 4 mg IVP Q6H PRN PRN Reason: Nausea/Vomiting Last Admin: 02/18/18 08:37 Dose: 4 mg Oxybutynin Chloride (Ditropan Xl) 10 mg PO DAILY [facility] Last Admin: 02/17/18 15:53 Dose: Not Given Pantoprazole Sodium (Protonix) 40 mg PO DAILY [facility] Last Admin: 02/17/18 15:53 Dose: Not Given Pravastatin Sodium (Pravachol) [address] [facility] Last Admin: 02/17/18 20:37 Dose: Not Given Saccharomyces Boulardii (Florastor) 250 mg PO DAILY [facility] Last Admin: 02/17/18 15:54 Dose: Not Given Sodium Chloride (Flush - Normal Saline) 10 ml IVF Q12H PRN PRN Reason: Saline Flush Last Admin: 02/18/18 08:37 Dose: 10 ml Sodium Chloride (Flush - Normal Saline) 10 ml IVF Q12HR [facility] Last Admin: 02/18/18 08:26 Dose: 10 ml Zolpidem Tartrate (Ambien) 10 mg PO HS [facility] Last Admin: 02/17/18 20:38 Dose: Not Given
[2018-02-18] MEDS: Docusate 100 MG CAP PO SCH ×4 (11:52→19:33)
[2018-02-18] MEDS: Cyclobenzaprine 10 MG TAB PO SCH ×3 (11:52→19:32)
[2018-02-18] MEDS: Lidocaine Patch Removal 1 EACH TOP SCH (11:53)
[2018-02-18] MEDS: Enoxaparin Sodium 40 MG/0.4 ML SYRINGE SC SCH (11:53)
[2018-02-18] MEDS: Insulin Glargine 85 UNITS in Pre-Filled Syringe 1 EACH SC SCH ×2 (11:53→22:28)
[2018-02-18] MEDS: DULoxetine 60 MG CAP PO SCH (11:53)
[2018-02-18] MEDS: DULoxetine 30 MG CAP PO SCH (11:53)
[2018-02-18] MEDS: Lactinex Tablet PO SCH (11:53)
[2018-02-18] MEDS: Oxybutynin ER 5 MG TAB PO SCH (11:54)
[2018-02-18] MEDS: Saccharomyces boulardii 250 MG CAP PO SCH (12:18)
[2018-02-18] MEDS: Lidocaine 5% Patch TD SCH (16:16)
[2018-02-18] MEDS: ALPRAZolam 0.5 MG TAB PO SCH (19:31)
[2018-02-18] MEDS: Montelukast Sodium 10 mg Tablet PO SCH (19:32)
[2018-02-18] MEDS: Pravastatin Sodium 20 MG TAB PO SCH (19:33)
[2018-02-18] MEDS: Zolpidem Tartrate 5 MG TAB PO SCH (19:33)
[2018-02-18] MEDS: Melatonin 3 MG TAB PO SCH (22:43)
[2018-02-18] MEDS: diphenhydrAMINE 50 MG/ML VIAL IVP PRN (23:34)
[2018-02-19] MEDS: Fentanyl 100 MCG/2 ML VIAL SLOW IVP PRN ×9 (00:37→22:05)
[2018-02-19] MEDS: Levothyroxine Sodium 112 MCG TAB PO SCH (04:54)
[2018-02-19] MEDS: Lidocaine Patch Removal 1 EACH TOP SCH (04:55)
[2018-02-19] MEDS: Piperacillin/Tazobactam 3.375 GM in Sodium Chloride 0.9% 100 ML IVPB SCH ×3 (06:28→17:53)
[2018-02-19] MEDS ORDERED: Fleet Enema 133 ML BOT FS SCH (08:00)
[2018-02-19] MEDS: Docusate 100 MG CAP PO SCH ×4 (09:35→20:15)
[2018-02-19] MEDS: Saccharomyces boulardii 250 MG CAP PO SCH (09:35)
[2018-02-19] MEDS: Oxybutynin ER 5 MG TAB PO SCH (09:35)
[2018-02-19] MEDS: glipiZIDE 5 MG TAB PO SCH ×2 (09:35→16:08)
[2018-02-19] MEDS: DULoxetine 30 MG CAP PO SCH (09:35)
[2018-02-19] MEDS: Lactinex Tablet PO SCH (09:35)
[2018-02-19] MEDS: Carvedilol 3.125 MG TAB PO SCH ×2 (09:35→16:08)
[2018-02-19] MEDS: HYDROmorphone 2 MG TAB PO SCH ×2 (09:35→20:14)
[2018-02-19] MEDS: Cyclobenzaprine 10 MG TAB PO SCH ×3 (09:35→20:56)
[2018-02-19] MEDS: Enoxaparin Sodium 40 MG/0.4 ML SYRINGE SC SCH (09:37)
[2018-02-19] MEDS: Ondansetron PF 4 MG/2 ML Vial IVP PRN (09:49)
--- NOTE | 2018-02-19 10:20 | PDOC.PN ---
- Subjective Encounter Start Date: 02/19/18 Encounter Start Time: 09:15 Patient seen and examined. No new complaints. No overnight events - Objective Resuscitation Status: Resuscitation Status FULL:Full Resuscitation MAR Reviewed: Yes Vital Signs & Weight: Vital Signs (12 hours) Temp Pulse Resp BP Pulse Ox 02/19/18 07:15 98.2 F 76 14 134/60 99 Weight Admit Weight 230 lb Weight 237 lb 14.4 oz I&O: 02/18/18 02/19/18 02/20/18 06:59 06:59 06:59 Intake Total 1850 1950 Output Total 925 975 Balance 925 975 Result Diagrams: 02/18/18 08:23 02/18/18 08:23 Additional Labs: Accuchecks 02/19/18 02/19/18 02/18/18 05:38 04:46 21:33 POC Glucose 220 H 201 H 189 H 02/18/18 02/18/18 16:19 11:40 POC Glucose 183 H 193 H Phys Exam - Physical Examination Constitutional: NAD HEENT: PERRLA, moist MMs, sclera anicteric Neck: no JVD, supple Respiratory: no wheezing, no rales, no rhonchi Cardiovascular: RRR, no significant murmur, no rub Gastrointestinal: soft, non-tender, no distention, positive bowel sounds Musculoskeletal: no edema, pulses present Neurological: moves all 4 limbs Lymphatic: no nodes Psychiatric: normal affect Skin: no rash, normal turgor Dx/Plan (1) S/P laparoscopic cholecystectomy Code(s): Z90.49 - ACQUIRED ABSENCE OF OTHER SPECIFIED PARTS OF DIGESTIVE TRACT Status: Acute (2) Abnormal LFTs Code(s): R94.5 - ABNORMAL RESULTS OF LIVER FUNCTION STUDIES Status: Acute (3) RUQ abdominal pain Code(s): R10.11 - RIGHT UPPER QUADRANT PAIN Status: Acute (4) UTI (urinary tract infection) Status: Acute Qualifiers: Urinary tract infection type: acute cystitis Hematuria presence: without hematuria Qualified Code(s): N30.00 - Acute cystitis without hematuria Comment: (5) CKD (chronic kidney disease) stage 3, GFR 30-59 ml/min Code(s): N18.3 - CHRONIC KIDNEY DISEASE, STAGE 3 (MODERATE) Status: Chronic Comment: stable (6) Chronic pain syndrome Code(s): G89.4 - CHRONIC PAIN SYNDROME Status: Chronic Comment: stable (7) Constipation Code(s): K59.00 - CONSTIPATION, UNSPECIFIED Status: Chronic Comment: (8) DM type 2 (diabetes mellitus, type 2) Status: Chronic Qualifiers: Diabetes mellitus equipment operator intermodal yard insulin use: with equipment operator intermodal yard use Diabetes mellitus complication status: with unspecified complications Qualified Code(s) : E11.8 - Type 2 diabetes mellitus with unspecified complications; Z79.4 - terminal system operator (current) use of insulin; Z79.4 - penitentiary (current) use of insulin; Z79.4 - terminal system operator (current) use of insulin; Z79.4 - penitentiary (current) use of insulin Comment: controlled (9) 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 Code(s): G35 - MULTIPLE SCLEROSIS; R53.2 - FUNCTIONAL QUADRIPLEGIA Status: Chronic Comment: stable (10) Hypertension Code(s): I10 - ESSENTIAL (PRIMARY) HYPERTENSION Status: Chronic Qualifiers: Comment: controlled (11) Insomnia Code(s): G47.00 - INSOMNIA, UNSPECIFIED Status: Chronic Qualifiers: Insomnia type: unspecified Qualified Code(s): G47.00 - Insomnia, unspecified Comment: continue Lunesta (12) Lymphedema Code(s): I89.0 - LYMPHEDEMA, NOT ELSEWHERE CLASSIFIED Status: Chronic Comment: stable (13) Morbid obesity Code(s): E66.01 - MORBID (SEVERE) OBESITY DUE TO EXCESS CALORIES Status: Chronic (14) Multiple sclerosis Code(s): G35 - MULTIPLE SCLEROSIS Status: Chronic Comment: stable (15) Neurogenic bladder Code(s): N31.9 - NEUROMUSCULAR DYSFUNCTION OF BLADDER, UNSPECIFIED Status: Chronic Comment: stable (16) Sepsis Code(s): A41.9 - SEPSIS, UNSPECIFIED ORGANISM Status: Resolved - Plan cont current plan of care, plan discussed w/ family, continue antibiotics, PT/OT , social insurance adviser * she will not need any more antibiotics on discharge as she will finish in hospital * medication reviewed as below * symptomatic treatment * director case working on her placement [facility] as [facility] wanted to change SNU * overall stable. * fleet enema today for constipation Review of Systems - Review of Systems Constitutional: negative: fever, chills, sweats, weakness, malaise, other ENT: negative: Ear Pain, Ear Discharge, Nose Pain, Nose Discharge, Nose Congestion, Mouth Pain, Mouth Swelling, Throat Pain, Throat Swelling, Other Respiratory: negative: Cough, Dry, Shortness of Breath, Hemoptysis, SOB with Excertion, Pleuritic Pain, Sputum, Wheezing Cardiovascular: negative: chest pain, palpitations, orthopnea, paroxysmal nocturnal dyspnea, edema, light headedness, other Gastrointestinal: Constipation. negative: Nausea, Vomiting, Abdominal Pain, Diarrhea, Melena, Hematochezia, Other Genitourinary: negative: Dysuria, Frequency, Incontinence, Hematuria, Retention , Other - Medications/Allergies Allergies/Adverse Reactions: Allergies Allergy/AdvReac Type Severity Reaction Status Date / Time sulfamethoxazole Allergy Severe Verified 02/10/18 23:00 [From Bactrim] trimethoprim [From Bactrim] Allergy Severe Verified 02/10/18 23:00 amitriptyline Allergy Verified 02/10/18 23:00 chlorpheniramine Allergy Verified 02/10/18 23:00 clindamycin Allergy Verified 02/10/18 23:00 morphine Allergy Verified 02/10/18 23:00 Penicillins Allergy Verified 02/10/18 23:00 sulfacetamide Allergy Verified 02/10/18 23:00 sumatriptan Allergy Verified 02/10/18 23:00 tetracycline [Tetracycline] Allergy Verified 02/10/18 23:00 [id number] Antimigraine Allergy Verified 02/10/18 23:00 Agents Medications: Current Medications Hydrocodone Bitart/Acetaminophen ([place] 5/325) 1 tab PO Q4H PRN PRN Reason: Pain Last Admin: 02/16/18 17:36 Dose: 1 tab Acidophilus (Floranex) 1 tab PO DAILY [facility] Last Admin: 02/19/18 09:35 Dose: 1 tab Alprazolam (Xanax) 0.5 mg PO HS [facility] Last Admin: 02/18/18 19:31 Dose: 0.5 mg Carvedilol (Coreg) 3.125 mg PO BID-[facility] Last Admin: 02/19/18 09:35 Dose: 3.125 mg Clonidine (Lanufmxt-Sbc-2) 0.2 mg TD Q7D [facility] Last Admin: 02/17/18 17:30 Dose: 0.2 mg Cyclobenzaprine HCl (Flexeril) 10 mg PO TID [facility] Last Admin: 02/19/18 09:35 Dose: 10 mg Dextrose/Water (Dextrose 50%) 25 gm SLOW IVP PRN PRN PRN Reason: Hypoglycemia Diphenhydramine HCl (Benadryl) 25 mg PO Q8H PRN PRN Reason: Itching & Insomnia Last Admin: 02/12/18 06:15 Dose: 25 mg Diphenhydramine HCl (Benadryl) 25 mg IVP Q8H PRN PRN Reason: Itching & Insomnia Last Admin: 02/18/18 23:34 Dose: 25 mg Docusate Sodium (Colace) 100 mg PO QID [facility] Last Admin: 02/19/18 09:35 Dose: 100 mg Duloxetine HCl (Cymbalta) 60 mg PO QAM [facility] Last Admin: 02/18/18 11:53 Dose: Not Given Duloxetine HCl (Cymbalta) 30 mg PO QAM [facility] Last Admin: 02/19/18 09:35 Dose: 30 mg Enoxaparin Sodium (Lovenox) 40 mg SC 0900 [facility] Last Admin: 02/19/18 09:37 Dose: 40 mg Fentanyl (Duragesic) 50 mcg TD Q3D [facility] Last Admin: 02/16/18 21:10 Dose: 50 mcg Fentanyl (Sublimaze) 25 mcg SLOW IVP Q2H PRN PRN Reason: PAIN 7-10 Last Admin: 02/19/18 09:36 Dose: 25 mcg Glipizide (Glucotrol) 5 mg PO BID-AC [facility] Last Admin: 02/19/18 09:35 Dose: 5 mg Glucagon (Glucagon) 1 mg IM PRN PRN PRN Reason: Hypoglycemia Hydralazine HCl (Apresoline) 10 mg SLOW IVP Q4H PRN PRN Reason: FOR SBP > 170 Last Admin: 02/17/18 14:37 Dose: 10 mg Hydromorphone HCl (Dilaudid) 4 mg PO BID [facility] Last Admin: 02/19/18 09:35 Dose: 4 mg Dextrose/Water (D5w) 1,000 mls @ 0 mls/hr IV .Q0M PRN PRN Reason: Hypoglycemia Insulin Glargine 85 units/ (Miscellaneous Medication) 0.85 mls @ 0 mls/hr SC BID [facility] Last Admin: 02/18/18 22:28 Dose: Not Given Piperacillin Sod/Tazobactam (Sod 3.375 gm/ Sodium Chloride) 100 mls @ 200 mls/ hr IVPB Q6HR [facility] Last Admin: 02/19/18 06:28 Dose: 100 mls Insulin Human Lispro (Humalog) 0 units SC .MILD SLIDING SCALE PRN PRN Reason: Mild Correctional Scale Last Admin: 02/17/18 21:21 Dose: 2 unit Levothyroxine Sodium (Synthroid) 112 mcg PO 0600 [facility] Last Admin: 02/19/18 04:54 Dose: 112 mcg Lidocaine (Lidoderm 5% Patch) 1 patch TD 2100 [facility] Last Admin: 02/18/18 16:16 Dose: 1 patch Melatonin (Melatonin) 9 mg PO [facility] Last Admin: 02/18/18 22:43 Dose: Not Given Miscellaneous Medication (Movantik) 12.5 mg PO DAILY [facility] Last Admin: 02/18/18 11:54 Dose: Not Given Miscellaneous Medication (Lidocaine Patch Removal) 1 each TOP 0900 [facility] Last Admin: 02/19/18 04:55 Dose: 1 each Miscellaneous Medication (Pharmacy To Dose) 1 each IVPB PRN PRN PRN Reason: Pharmacy to dose Stop: 02/12/20 23:59 Montelukast Sodium (Singulair) 10 mg PO [facility] Last Admin: 02/18/18 19:32 Dose: 10 mg Ondansetron HCl (Zofran Odt) 4 mg PO Q6H PRN PRN Reason: Nausea/Vomiting Last Admin: 02/15/18 14:23 Dose: 4 mg Ondansetron HCl (Zofran) 4 mg IVP Q6H PRN PRN Reason: Nausea/Vomiting Last Admin: 02/19/18 09:49 Dose: 4 mg Oxybutynin Chloride (Ditropan Xl) 10 mg PO DAILY [facility] Last Admin: 02/19/18 09:35 Dose: 10 mg Pantoprazole Sodium (Protonix) 40 mg PO DAILY [facility] Last Admin: 02/19/18 09:35 Dose: 40 mg Pravastatin Sodium (Pravachol) 20 mg PO HS [facility] Last Admin: 02/18/18 19:33 Dose: 20 mg Saccharomyces Boulardii (Florastor) 250 mg PO DAILY [facility] Last Admin: 02/19/18 09:35 Dose: 250 mg Sodium Biphosphate/Sodium Phosphate (Fleet Enema) 133 ml FS NOW [facility] Stop: 02/19/18 14:00 Sodium Chloride (Flush - Normal Saline) 10 ml IVF Q12H PRN PRN Reason: Saline Flush Last Admin: 02/18/18 23:37 Dose: 10 ml Sodium Chloride (Flush - Normal Saline) 10 ml IVF Q12HR [facility] Last Admin: 02/19/18 09:37 Dose: 10 ml Zolpidem Tartrate (Ambien) 10 mg PO HS [facility] Last Admin: 02/18/18 19:33 Dose: 10 mg
[2018-02-19] MEDS: DULoxetine 60 MG CAP PO SCH (10:48)
[2018-02-19] MEDS: Insulin Glargine 85 UNITS in Pre-Filled Syringe 1 EACH SC SCH ×2 (10:48→20:16)
[2018-02-19] MEDS: Lidocaine 5% Patch TD SCH (20:14)
[2018-02-19] MEDS: Montelukast Sodium 10 mg Tablet PO SCH (20:14)
[2018-02-19] MEDS: Zolpidem Tartrate 5 MG TAB PO SCH (20:15)
[2018-02-19] MEDS: ALPRAZolam 0.5 MG TAB PO SCH (20:15)
[2018-02-19] MEDS: Pravastatin Sodium 20 MG TAB PO SCH (20:15)
[2018-02-19] MEDS: fentaNYL 50 mcg/hour Patch TD SCH (20:58)
[2018-02-19] MEDS: Melatonin 3 MG TAB PO SCH (21:00)
[2018-02-20] MEDS: Fentanyl 100 MCG/2 ML VIAL SLOW IVP PRN ×8 (00:05→23:32)
[2018-02-20] MEDS: Piperacillin/Tazobactam 3.375 GM in Sodium Chloride 0.9% 100 ML IVPB SCH ×5 (00:05→23:38)
[2018-02-20] MEDS: HumaLOG 300 UNITS/3 ML VIAL SC PRN (05:53)
--- NOTE | 2018-02-20 07:52 | PDOC.PN ---
- Subjective Encounter Start Date: 02/20/18 Encounter Start Time: 06:40 Patient seen and examined. pt feels that she is still constipated, No overnight events - Objective Resuscitation Status: Resuscitation Status FULL:Full Resuscitation MAR Reviewed: Yes Vital Signs & Weight: Vital Signs (12 hours) Temp Pulse Resp BP Pulse Ox 02/19/18 20:00 99.2 F 73 16 124/58 L 97 Weight Admit Weight 230 lb Weight 237 lb 14.4 oz I&O: 02/19/18 02/20/18 02/21/18 06:59 06:59 06:59 Intake Total 1950 1300 Output Total 975 1100 Balance 975 200 Result Diagrams: 02/18/18 08:23 02/18/18 08:23 Additional Labs: Accuchecks 02/20/18 02/19/18 02/19/18 05:42 20:08 17:55 POC Glucose 220 H 241 H 225 H 02/19/18 12:02 POC Glucose 237 H Phys Exam - Physical Examination Constitutional: NAD HEENT: PERRLA, moist MMs, sclera anicteric Neck: no JVD, supple Respiratory: no wheezing, no rales, no rhonchi Cardiovascular: RRR, no significant murmur, no rub Gastrointestinal: soft, non-tender, no distention, positive bowel sounds Musculoskeletal: no edema, pulses present Neurological: moves all 4 limbs Lymphatic: no nodes Psychiatric: normal affect, A&O x 3 Skin: no rash, normal turgor Dx/Plan (1) S/P laparoscopic cholecystectomy Code(s): Z90.49 - ACQUIRED ABSENCE OF OTHER SPECIFIED PARTS OF DIGESTIVE TRACT Status: Acute (2) Abnormal LFTs Code(s): R94.5 - ABNORMAL RESULTS OF LIVER FUNCTION STUDIES Status: Resolved (3) RUQ abdominal pain Code(s): R10.11 - RIGHT UPPER QUADRANT PAIN Status: Resolved (4) UTI (urinary tract infection) Status: Acute Qualifiers: Urinary tract infection type: acute cystitis Hematuria presence: without hematuria Qualified Code(s): N30.00 - Acute cystitis without hematuria Comment: (5) CKD (chronic kidney disease) stage 3, GFR 30-59 ml/min Code(s): N18.3 - CHRONIC KIDNEY DISEASE, STAGE 3 (MODERATE) Status: Chronic Comment: stable (6) Chronic pain syndrome Code(s): G89.4 - CHRONIC PAIN SYNDROME Status: Chronic Comment: stable (7) Constipation Code(s): K59.00 - CONSTIPATION, UNSPECIFIED Status: Chronic Comment: (8) DM type 2 (diabetes mellitus, type 2) Status: Chronic Qualifiers: Diabetes mellitus chcf insulin use: with chcf use Diabetes mellitus complication status: with unspecified complications Qualified Code(s) : E11.8 - Type 2 diabetes mellitus with unspecified complications; Z79.4 - moth exterminator (current) use of insulin; Z79.4 - long-term (current) use of insulin; Z79.4 - long-term (current) use of insulin; Z79.4 - moth exterminator (current) use of insulin Comment: controlled (9) 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 Code(s): G35 - MULTIPLE SCLEROSIS; R53.2 - FUNCTIONAL QUADRIPLEGIA Status: Chronic Comment: stable (10) Hypertension Code(s): I10 - ESSENTIAL (PRIMARY) HYPERTENSION Status: Chronic Qualifiers: Comment: controlled (11) Insomnia Code(s): G47.00 - INSOMNIA, UNSPECIFIED Status: Chronic Qualifiers: Insomnia type: unspecified Qualified Code(s): G47.00 - Insomnia, unspecified Comment: continue Lunesta (12) Lymphedema Code(s): I89.0 - LYMPHEDEMA, NOT ELSEWHERE CLASSIFIED Status: Chronic Comment: stable (13) Morbid obesity Code(s): E66.01 - MORBID (SEVERE) OBESITY DUE TO EXCESS CALORIES Status: Chronic (14) Multiple sclerosis Code(s): G35 - MULTIPLE SCLEROSIS Status: Chronic Comment: stable (15) Neurogenic bladder Code(s): N31.9 - NEUROMUSCULAR DYSFUNCTION OF BLADDER, UNSPECIFIED Status: Chronic Comment: stable (16) Sepsis Code(s): A41.9 - SEPSIS, UNSPECIFIED ORGANISM Status: Resolved - Plan cont current plan of care, continue antibiotics * will give her one more fleet enema today * case mgr is working on her placement * medication reviewed as below * symptomatic treatment. Review of Systems - Review of Systems Constitutional: negative: fever, chills, sweats, weakness, malaise, other Eyes: negative: Pain, Vision Change, Conjunctivae Inflammation, Eyelid Inflammation, Redness, Other ENT: negative: Ear Pain, Ear Discharge, Nose Pain, Nose Discharge, Nose Congestion, Mouth Pain, Mouth Swelling, Throat Pain, Throat Swelling, Other Respiratory: negative: Cough, Dry, Shortness of Breath, Hemoptysis, SOB with Excertion, Pleuritic Pain, Sputum, Wheezing Cardiovascular: negative: chest pain, palpitations, orthopnea, paroxysmal nocturnal dyspnea, edema, light headedness, other Gastrointestinal: Constipation. negative: Nausea, Vomiting, Abdominal Pain, Diarrhea, Melena, Hematochezia, Other Genitourinary: negative: Dysuria, Frequency, Incontinence, Hematuria, Retention , Other Musculoskeletal: negative: Neck Pain, Shoulder Pain, Arm Pain, Back Pain, Hand Pain, Leg Pain, Foot Pain, Other Skin: negative: Rash, Lesions, Sammy, Bruising, Other - Medications/Allergies Allergies/Adverse Reactions: Allergies Allergy/AdvReac Type Severity Reaction Status Date / Time sulfamethoxazole Allergy Severe Verified 02/10/18 23:00 [From Bactrim] trimethoprim [From Bactrim] Allergy Severe Verified 02/10/18 23:00 amitriptyline Allergy Verified 02/10/18 23:00 chlorpheniramine Allergy Verified 02/10/18 23:00 clindamycin Allergy Verified 02/10/18 23:00 morphine Allergy Verified 02/10/18 23:00 Penicillins Allergy Verified 02/10/18 23:00 sulfacetamide Allergy Verified 02/10/18 23:00 sumatriptan Allergy Verified 02/10/18 23:00 tetracycline [Tetracycline] Allergy Verified 02/10/18 23:00 [id number] Antimigraine Allergy Verified 02/10/18 23:00 Agents Medications: Current Medications Hydrocodone Bitart/Acetaminophen ([place] 5/325) 1 tab PO Q4H PRN PRN Reason: Pain Last Admin: 02/16/18 17:36 Dose: 1 tab Acidophilus (Floranex) 1 tab PO DAILY [facility] Last Admin: 02/19/18 09:35 Dose: 1 tab Alprazolam (Xanax) 0.5 mg PO HS [facility] Last Admin: 02/19/18 20:15 Dose: 0.5 mg Carvedilol (Coreg) 3.125 mg PO BID-WM [facility] Last Admin: 02/19/18 16:08 Dose: 3.125 mg Clonidine ([id number]-1) 0.2 mg TD Q7D [facility] Last Admin: 02/17/18 17:30 Dose: 0.2 mg Cyclobenzaprine HCl (Flexeril) 10 mg PO TID [facility] Last Admin: 02/19/18 20:56 Dose: 10 mg Dextrose/Water (Dextrose 50%) 25 gm SLOW IVP PRN PRN PRN Reason: Hypoglycemia Diphenhydramine HCl (Benadryl) 25 mg PO Q8H PRN PRN Reason: Itching & Insomnia Last Admin: 02/12/18 06:15 Dose: 25 mg Diphenhydramine HCl (Benadryl) 25 mg IVP Q8H PRN PRN Reason: Itching & Insomnia Last Admin: 02/18/18 23:34 Dose: 25 mg Docusate Sodium (Colace) 100 mg PO QID [facility] Last Admin: 02/19/18 20:15 Dose: 100 mg Duloxetine HCl (Cymbalta) 60 mg PO QAM [facility] Last Admin: 02/19/18 10:48 Dose: Not Given Duloxetine HCl (Cymbalta) [address] [facility] Last Admin: 02/19/18 09:35 Dose: 30 mg Enoxaparin Sodium (Lovenox) 40 mg SC 0900 [facility] Last Admin: 02/19/18 09:37 Dose: 40 mg Fentanyl (Duragesic) 50 mcg TD Q3D [facility] Last Admin: 02/19/18 20:58 Dose: 50 mcg Fentanyl (Sublimaze) 25 mcg SLOW IVP Q2H PRN PRN Reason: PAIN 7-10 Last Admin: 02/20/18 07:17 Dose: 25 mcg Glipizide (Glucotrol) 5 mg PO BID-AC [facility] Last Admin: 02/19/18 16:08 Dose: 5 mg Glucagon (Glucagon) 1 mg IM PRN PRN PRN Reason: Hypoglycemia Hydralazine HCl (Apresoline) 10 mg SLOW IVP Q4H PRN PRN Reason: FOR SBP > 170 Last Admin: 02/17/18 14:37 Dose: 10 mg Hydromorphone HCl (Dilaudid) 4 mg PO BID [facility] Last Admin: 02/19/18 20:14 Dose: 4 mg Dextrose/Water (D5w) 1,000 mls @ 0 mls/hr IV .Q0M PRN PRN Reason: Hypoglycemia Insulin Glargine 85 units/ (Miscellaneous Medication) 0.85 mls @ 0 mls/hr SC BID [facility] Last Admin: 02/19/18 20:16 Dose: 0.85 mls Piperacillin Sod/Tazobactam (Sod 3.375 gm/ Sodium Chloride) 100 mls @ 200 mls/ hr IVPB Q6HR [facility] Last Admin: 02/20/18 06:12 Dose: 100 mls Insulin Human Lispro (Humalog) 0 units SC .MILD SLIDING SCALE PRN PRN Reason: Mild Correctional Scale Last Admin: 02/20/18 05:53 Dose: 3 unit Levothyroxine Sodium (Synthroid) 112 mcg PO 0600 [facility] Last Admin: 02/19/18 04:54 Dose: 112 mcg Lidocaine (Lidoderm 5% Patch) 1 patch TD 2100 [facility] Last Admin: 02/19/18 20:14 Dose: 1 patch Melatonin (Melatonin) 9 mg PO [facility] Last Admin: 02/19/18 21:00 Dose: Not Given Miscellaneous Medication (Movantik) 12.5 mg PO DAILY [facility] Last Admin: 02/19/18 12:02 Dose: 12.5 mg Miscellaneous Medication (Lidocaine Patch Removal) 1 each TOP 0900 [facility] Last Admin: 02/19/18 04:55 Dose: 1 each Miscellaneous Medication (Pharmacy To Dose) 1 each IVPB PRN PRN PRN Reason: Pharmacy to dose Stop: 02/12/20 23:59 Montelukast Sodium (Singulair) 10 mg PO [facility] Last Admin: 02/19/18 20:14 Dose: 10 mg Ondansetron HCl (Zofran Odt) 4 mg PO Q6H PRN PRN Reason: Nausea/Vomiting Last Admin: 02/15/18 14:23 Dose: 4 mg Ondansetron HCl (Zofran) 4 mg IVP Q6H PRN PRN Reason: Nausea/Vomiting Last Admin: 02/19/18 09:49 Dose: 4 mg Oxybutynin Chloride (Ditropan Xl) 10 mg PO DAILY [facility] Last Admin: 02/19/18 09:35 Dose: 10 mg Pantoprazole Sodium (Protonix) 40 mg PO DAILY [facility] Last Admin: 02/19/18 09:35 Dose: 40 mg Polyethylene Glycol (Miralax) 17 gm PO DAILY [facility] Pravastatin Sodium (Pravachol) 20 mg PO [facility] Last Admin: 02/19/18 20:15 Dose: 20 mg Saccharomyces Boulardii (Florastor) 250 mg PO DAILY [facility] Last Admin: 02/19/18 09:35 Dose: 250 mg Senna (Senokot) 2 tab PO BID [facility] Sodium Biphosphate/Sodium Phosphate (Fleet Enema) 133 ml NC ONE [facility] Sodium Chloride (Flush - Normal Saline) 10 ml IVF Q12H PRN PRN Reason: Saline Flush Last Admin: 02/18/18 23:37 Dose: 10 ml Sodium Chloride (Flush - Normal Saline) 10 ml IVF Q12HR [facility] Last Admin: 02/19/18 21:00 Dose: 10 ml Zolpidem Tartrate (Ambien) 10 mg PO HS [facility] Last Admin: 02/19/18 20:15 Dose: 10 mg
[2018-02-20] MEDS ORDERED: Fleet Enema 133 ML BOT PR SCH (08:00)
[2018-02-20] MEDS: glipiZIDE 5 MG TAB PO SCH ×2 (09:54→15:39)
[2018-02-20] MEDS: DULoxetine 60 MG CAP PO SCH (09:54)
[2018-02-20] MEDS: Cyclobenzaprine 10 MG TAB PO SCH ×3 (09:54→21:06)
[2018-02-20] MEDS: Saccharomyces boulardii 250 MG CAP PO SCH (09:54)
[2018-02-20] MEDS: DULoxetine 30 MG CAP PO SCH (09:54)
[2018-02-20] MEDS: Senokot 8.6 MG TAB PO SCH ×2 (09:54→21:03)
[2018-02-20] MEDS: Lactinex Tablet PO SCH (09:54)
[2018-02-20] MEDS: Docusate 100 MG CAP PO SCH ×4 (09:55→21:05)
[2018-02-20] MEDS: Carvedilol 3.125 MG TAB PO SCH ×2 (09:55→17:10)
[2018-02-20] MEDS: Oxybutynin ER 5 MG TAB PO SCH (09:55)
[2018-02-20] MEDS: Insulin Glargine 85 UNITS in Pre-Filled Syringe 1 EACH SC SCH ×2 (09:56→21:57)
[2018-02-20] MEDS: Polyethylene Glycol 3350 17 GM Packet PO SCH (09:57)
[2018-02-20] MEDS: Enoxaparin Sodium 40 MG/0.4 ML SYRINGE SC SCH (09:57)
--- NOTE | 2018-02-20 12:20 | PRG ---
DATE OF SERVICE: 02/20/2018 SUBJECTIVE: Ms. Mills is a 52-year-old woman who is postoperative day #4 status post laparoscopic c holecystectomy. She reports adequate pain control. She is tolerating diet, having normal bowel and urinary function. OBJECTIVE: VITAL SIGNS: This morning includes blood pressure 161/69, pulse is 77, respiratory rate 16, temperat ure 98.6 degrees Fahrenheit, oxygen saturation 94% on room air. ABDOMEN: Soft and obese. All 4 incisions are intact, clean, and dry. She has mild incisional tende rness to palpation with no gross rebound tenderness present. IMPRESSION: Postop day #4, status post laparoscopic cholecystectomy, stable. The patient is certain ly suitable for discharge only from surgical standpoint. I defer discharge to primary service. Lidia ent is to follow up with me in the Surgery [facility] in 2 weeks post-discharge.
[2018-02-20] MEDS: Levothyroxine Sodium 112 MCG TAB PO SCH (13:38)
[2018-02-20] MEDS: HYDROmorphone 2 MG TAB PO SCH ×2 (13:41→21:04)
[2018-02-20] MEDS: Lidocaine Patch Removal 1 EACH TOP SCH (13:46)
[2018-02-20] MEDS: Fluconazole 100 MG TAB PO SCH ×2 (19:00→21:03)
[2018-02-20] MEDS ORDERED: ALPRAZolam 0.5 MG TAB PO SCH (21:00)
[2018-02-20] MEDS: Montelukast Sodium 10 mg Tablet PO SCH (21:05)
[2018-02-20] MEDS: Zolpidem Tartrate 5 MG TAB PO SCH (21:05)
[2018-02-20] MEDS: Pravastatin Sodium 20 MG TAB PO SCH (21:05)
[2018-02-20] MEDS: Lidocaine 5% Patch TD SCH (21:06)
[2018-02-20] MEDS: Melatonin 3 MG TAB PO SCH (21:06)
[2018-02-20] MEDS: Nystatin Powder 15 GM BOT TOP SCH (21:14)
[2018-02-20] MEDS: Ondansetron PF 4 MG/2 ML Vial IVP PRN (22:00)
[2018-02-21] MEDS: Fentanyl 100 MCG/2 ML VIAL SLOW IVP PRN ×5 (01:24→13:19)
[2018-02-21] MEDS: diphenhydrAMINE 50 MG/ML VIAL IVP PRN (01:28)
[2018-02-21] MEDS: Levothyroxine Sodium 112 MCG TAB PO SCH (05:01)
[2018-02-21] MEDS: Piperacillin/Tazobactam 3.375 GM in Sodium Chloride 0.9% 100 ML IVPB SCH (05:01)
[2018-02-21 07:55] VITALS: BP 140/65; TEMP 98.1
[2018-02-21] MEDS: Enoxaparin Sodium 40 MG/0.4 ML SYRINGE SC SCH (08:41)
[2018-02-21] MEDS: Lactinex Tablet PO SCH (08:42)
[2018-02-21] MEDS: Oxybutynin ER 5 MG TAB PO SCH (08:42)
[2018-02-21] MEDS: Docusate 100 MG CAP PO SCH ×2 (08:42→14:15)
[2018-02-21] MEDS: Carvedilol 3.125 MG TAB PO SCH (08:42)
[2018-02-21] MEDS: HYDROmorphone 2 MG TAB PO SCH (08:43)
[2018-02-21] MEDS: DULoxetine 30 MG CAP PO SCH (08:43)
[2018-02-21] MEDS: glipiZIDE 5 MG TAB PO SCH (08:43)
[2018-02-21] MEDS: Saccharomyces boulardii 250 MG CAP PO SCH (08:43)
[2018-02-21] MEDS: Senokot 8.6 MG TAB PO SCH (08:43)
[2018-02-21] MEDS: Cyclobenzaprine 10 MG TAB PO SCH (08:43)
[2018-02-21] MEDS: Nystatin Powder 15 GM BOT TOP SCH (08:47)
[2018-02-21] MEDS: Polyethylene Glycol 3350 17 GM Packet PO SCH (08:47)
--- NOTE | 2018-02-21 09:19 | PDOC.PN ---
- Subjective Encounter Start Date: 02/21/18 Encounter Start Time: 06:10 Patient seen and examined. No new complaints. No overnight events - Objective Resuscitation Status: Resuscitation Status FULL:Full Resuscitation MAR Reviewed: Yes Vital Signs & Weight: Vital Signs (12 hours) Temp Pulse Resp BP Pulse Ox 02/21/18 07:55 98.1 F 71 16 140/65 97 Weight Admit Weight 230 lb Weight 237 lb 14.4 oz I&O: 02/20/18 02/21/18 02/22/18 06:59 06:59 06:59 Intake Total 1300 2000 Output Total 1100 1900 Balance 200 100 Result Diagrams: 02/18/18 08:23 02/18/18 08:23 Additional Labs: Accuchecks 02/21/18 02/20/18 02/20/18 04:59 19:58 17:09 POC Glucose 165 H 92 134 H 02/20/18 12:59 POC Glucose 189 H Phys Exam - Physical Examination Constitutional: NAD HEENT: PERRLA, moist MMs, sclera anicteric Neck: no JVD, supple Respiratory: no wheezing, no rales, no rhonchi Cardiovascular: RRR, no significant murmur, no rub Gastrointestinal: soft, non-tender, no distention, positive bowel sounds Musculoskeletal: no edema, pulses present Lymphatic: no nodes Psychiatric: normal affect, A&O x 3 Skin: normal turgor Deviation from normal: tinea rash noted Dx/Plan (1) S/P laparoscopic cholecystectomy Code(s): Z90.49 - ACQUIRED ABSENCE OF OTHER SPECIFIED PARTS OF DIGESTIVE TRACT Status: Acute (2) Abnormal LFTs Code(s): R94.5 - ABNORMAL RESULTS OF LIVER FUNCTION STUDIES Status: Resolved (3) RUQ abdominal pain Code(s): R10.11 - RIGHT UPPER QUADRANT PAIN Status: Resolved (4) UTI (urinary tract infection) Status: Acute Qualifiers: Urinary tract infection type: acute cystitis Hematuria presence: without hematuria Qualified Code(s): N30.00 - Acute cystitis without hematuria Comment: (5) CKD (chronic kidney disease) stage 3, GFR 30-59 ml/min Code(s): N18.3 - CHRONIC KIDNEY DISEASE, STAGE 3 (MODERATE) Status: Chronic Comment: stable (6) Chronic pain syndrome Code(s): G89.4 - CHRONIC PAIN SYNDROME Status: Chronic Comment: stable (7) Constipation Code(s): K59.00 - CONSTIPATION, UNSPECIFIED Status: Chronic Comment: (8) DM type 2 (diabetes mellitus, type 2) Status: Chronic Qualifiers: Diabetes mellitus ferry terminal supervisor insulin use: with shelter use Diabetes mellitus complication status: with unspecified complications Qualified Code(s) : E11.8 - Type 2 diabetes mellitus with unspecified complications; Z79.4 - [facility] (current) use of insulin; Z79.4 - termite treater helper (current) use of insulin; Z79.4 - termite treater helper (current) use of insulin; Z79.4 - termite treater helper (current) use of insulin Comment: controlled (9) 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 Code(s): G35 - MULTIPLE SCLEROSIS; R53.2 - FUNCTIONAL QUADRIPLEGIA Status: Chronic Comment: stable (10) Hypertension Code(s): I10 - ESSENTIAL (PRIMARY) HYPERTENSION Status: Chronic Qualifiers: Comment: controlled (11) Insomnia Code(s): G47.00 - INSOMNIA, UNSPECIFIED Status: Chronic Qualifiers: Insomnia type: unspecified Qualified Code(s): G47.00 - Insomnia, unspecified Comment: continue Lunesta (12) Lymphedema Code(s): I89.0 - LYMPHEDEMA, NOT ELSEWHERE CLASSIFIED Status: Chronic Comment: stable (13) Morbid obesity Code(s): E66.01 - MORBID (SEVERE) OBESITY DUE TO EXCESS CALORIES Status: Chronic (14) Multiple sclerosis Code(s): G35 - MULTIPLE SCLEROSIS Status: Chronic Comment: stable (15) Neurogenic bladder Code(s): N31.9 - NEUROMUSCULAR DYSFUNCTION OF BLADDER, UNSPECIFIED Status: Chronic Comment: stable (16) Sepsis Code(s): A41.9 - SEPSIS, UNSPECIFIED ORGANISM Status: Resolved - Plan cont current plan of care, continue antibiotics, 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 Review of Systems - Review of Systems ENT: negative: Ear Pain, Ear Discharge, Nose Pain, Nose Discharge, Nose Congestion, Mouth Pain, Mouth Swelling, Throat Pain, Throat Swelling, Other Respiratory: negative: Cough, Dry, Shortness of Breath, Hemoptysis, SOB with Excertion, Pleuritic Pain, Sputum, Wheezing Cardiovascular: negative: chest pain, palpitations, orthopnea, paroxysmal nocturnal dyspnea, edema, light headedness, other Gastrointestinal: negative: Nausea, Vomiting, Abdominal Pain, Diarrhea, Constipation, Melena, Hematochezia, Other Genitourinary: negative: Dysuria, Frequency, Incontinence, Hematuria, Retention , Other Musculoskeletal: negative: Neck Pain, Shoulder Pain, Arm Pain, Back Pain, Hand Pain, Leg Pain, Foot Pain, Other - Medications/Allergies Allergies/Adverse Reactions: Allergies Allergy/AdvReac Type Severity Reaction Status Date / Time sulfamethoxazole Allergy Severe Verified 02/10/18 23:00 [From Bactrim] trimethoprim [From Bactrim] Allergy Severe Verified 02/10/18 23:00 amitriptyline Allergy Verified 02/10/18 23:00 chlorpheniramine Allergy Verified 02/10/18 23:00 clindamycin Allergy Verified 02/10/18 23:00 morphine Allergy Verified 02/10/18 23:00 Penicillins Allergy Verified 02/10/18 23:00 sulfacetamide Allergy Verified 02/10/18 23:00 sumatriptan Allergy Verified 02/10/18 23:00 tetracycline [Tetracycline] Allergy Verified 02/10/18 23:00 [id number] Antimigraine Allergy Verified 02/10/18 23:00 Agents Medications: Current Medications Hydrocodone Bitart/Acetaminophen ([place] 5/325) 1 tab PO Q4H PRN PRN Reason: Pain Last Admin: 02/16/18 17:36 Dose: 1 tab Acidophilus (Floranex) 1 tab PO DAILY [facility] Last Admin: 02/21/18 08:42 Dose: 1 tab Alprazolam (Xanax) 0.5 mg PO HS [facility] Last Admin: 02/20/18 21:05 Dose: 0.5 mg Carvedilol (Coreg) 3.125 mg PO BID-WM [facility] Last Admin: 02/21/18 08:42 Dose: 3.125 mg Clonidine ([id number]-6) 0.2 mg TD Q7D [facility] Last Admin: 02/17/18 17:30 Dose: 0.2 mg Cyclobenzaprine HCl (Flexeril) 10 mg PO TID [facility] Last Admin: 02/21/18 08:43 Dose: 10 mg Dextrose/Water (Dextrose 50%) 25 gm SLOW IVP PRN PRN PRN Reason: Hypoglycemia Diphenhydramine HCl (Benadryl) 25 mg PO Q8H PRN PRN Reason: Itching & Insomnia Last Admin: 02/12/18 06:15 Dose: 25 mg Diphenhydramine HCl (Benadryl) 25 mg IVP Q8H PRN PRN Reason: Itching & Insomnia Last Admin: 02/21/18 01:28 Dose: 25 mg Docusate Sodium (Colace) 100 mg PO QID [facility] Last Admin: 02/21/18 08:42 Dose: 100 mg Duloxetine HCl (Cymbalta) 60 mg PO QAM [facility] Last Admin: 02/20/18 09:54 Dose: 60 mg Duloxetine HCl (Cymbalta) 30 mg PO QAM [facility] Last Admin: 02/21/18 08:43 Dose: 30 mg Enoxaparin Sodium (Lovenox) 40 mg SC 0900 [facility] Last Admin: 02/21/18 08:41 Dose: 40 mg Fentanyl (Duragesic) 50 mcg TD Q3D [facility] Last Admin: 02/19/18 20:58 Dose: 50 mcg Fentanyl (Sublimaze) 25 mcg SLOW IVP Q2H PRN PRN Reason: PAIN 7-10 Last Admin: 02/21/18 07:14 Dose: 25 mcg Glipizide (Glucotrol) 5 mg PO BID-[facility] Last Admin: 02/21/18 08:43 Dose: 5 mg Glucagon (Glucagon) 1 mg IM PRN PRN PRN Reason: Hypoglycemia Hydralazine HCl (Apresoline) 10 mg SLOW IVP Q4H PRN PRN Reason: FOR SBP > 170 Last Admin: 02/17/18 14:37 Dose: 10 mg Dextrose/Water (D5w) 1,000 mls @ 0 mls/hr IV .Q0M PRN PRN Reason: Hypoglycemia Insulin Glargine 85 units/ (Miscellaneous Medication) 0.85 mls @ 0 mls/hr SC BID [facility] Last Admin: 02/20/18 21:57 Dose: 0.85 mls Insulin Human Lispro (Humalog) 0 units SC .MILD SLIDING SCALE PRN PRN Reason: Mild Correctional Scale Last Admin: 02/20/18 05:53 Dose: 3 unit Levothyroxine Sodium (Synthroid) 112 mcg PO 0600 [facility] Last Admin: 02/21/18 05:01 Dose: 112 mcg Lidocaine (Lidoderm 5% Patch) 1 patch TD 2100 [facility] Last Admin: 02/20/18 21:06 Dose: 1 patch Melatonin (Melatonin) 9 mg PO HS [facility] Last Admin: 02/20/18 21:06 Dose: Not Given Miscellaneous Medication (Movantik) 12.5 mg PO DAILY [facility] Last Admin: 02/20/18 13:41 Dose: 12.5 mg Miscellaneous Medication (Lidocaine Patch Removal) 1 each TOP 0900 [facility] Last Admin: 02/20/18 13:46 Dose: Not Given Miscellaneous Medication (Pharmacy To Dose) 1 each IVPB PRN PRN PRN Reason: Pharmacy to dose Stop: 02/12/20 23:59 Montelukast Sodium (Singulair) 10 mg PO [facility] Last Admin: 02/20/18 21:05 Dose: 10 mg Nystatin (Mycostatin Powder) 0 gm TOP BID [facility] Last Admin: 02/21/18 08:47 Dose: 1 applic Ondansetron HCl (Zofran Odt) 4 mg PO Q6H PRN PRN Reason: Nausea/Vomiting Last Admin: 02/15/18 14:23 Dose: 4 mg Ondansetron HCl (Zofran) 4 mg IVP Q6H PRN PRN Reason: Nausea/Vomiting Last Admin: 02/20/18 22:00 Dose: 4 mg Oxybutynin Chloride (Ditropan Xl) 10 mg PO DAILY [facility] Last Admin: 02/21/18 08:42 Dose: 10 mg Pantoprazole Sodium (Protonix) 40 mg PO DAILY [facility] Last Admin: 02/21/18 08:43 Dose: 40 mg Polyethylene Glycol (Miralax) 17 gm PO DAILY [facility] Last Admin: 02/21/18 08:47 Dose: Not Given Pravastatin Sodium (Pravachol) 20 mg PO HS [facility] Last Admin: 02/20/18 21:05 Dose: 20 mg Saccharomyces Boulardii (Florastor) 250 mg PO DAILY [facility] Last Admin: 02/21/18 08:43 Dose: 250 mg Senna (Senokot) 2 tab PO BID [facility] Last Admin: 02/21/18 08:43 Dose: 2 tab Sodium Chloride (Flush - Normal Saline) 10 ml IVF Q12H PRN PRN Reason: Saline Flush Last Admin: 02/21/18 04:58 Dose: 10 ml Sodium Chloride (Flush - Normal Saline) 10 ml IVF Q12HR [facility] Last Admin: 02/21/18 08:49 Dose: 10 ml Zolpidem Tartrate (Ambien) 10 mg PO HS [facility] Last Admin: 02/20/18 21:05 Dose: 10 mg
[2018-02-21] MEDS: Insulin Glargine 85 UNITS in Pre-Filled Syringe 1 EACH SC SCH (09:31)
[2018-02-21] MEDS: DULoxetine 60 MG CAP PO SCH (09:33)
--- NOTE | 2018-02-21 10:30 | DIS ---
PRIMARY CARE PHYSICIAN: Dr. Kc DATE OF ADMISSION: 02/10/2018 DATE OF DISCHARGE: 02/21/2018 DISCHARGE DISPOSITION: [facility] PRIMARY DISCHARGE DIAGNOSES: 1. Sepsis with acute organ dysfunction, resolved. 2. Abnormal liver function tests due to chronic cholecystitis, status post laparoscopic cholecystect timothy. 3. Right upper quadrant abdominal pain improved after problem #2. 4. Tinea cruris infection status post laparoscopic cholecystectomy. 5. Urinary tract infection treated while in the hospital. 6. Hypomagnesemia. SECONDARY DISCHARGE DIAGNOSES: Chronic pain disorder, chronic constipation, chronic kidney disease s tage 3, diabetes type 2, functional quadriplegia secondary to multiple sclerosis, hypertension, chron ic insomnia, chronic lymphedema, morbid obesity, multiple sclerosis, neurogenic bladder with indwelli ng Cho catheter. PRIMARY PROCEDURE/OPERATION: Dr. Villafuerte did laparoscopic cholecystectomy. RADIOLOGICAL INVESTIGATION: Chest x-ray was normal. Pelvis x-ray was negative for any fracture or d islocation. Abdomen and pelvis CT scan on admission showed no calculi, fatty liver, basilar atelecta sis. Abdominal ultrasound was also unremarkable. Hip x-ray was negative for any fracture or disloca tion. Hepatobiliary scan did not show any acute process. SIGNIFICANT LABORATORY DATA: WBC 13.1, hemoglobin 10.5, platelet 318. Sodium 137, potassium 3.8, BU N 12, creatinine 0.90, calcium 8.2, AST 23, ALT 32, alkaline phosphatase 129, albumin 3.0. Urinalysi s suggestive of UTI. EVY negative. Antismooth muscle antibody titer 42. Hepatitis profile negative . Blood culture negative. Urine culture grew Klebsiella and Proteus mirabilis. HOSPITAL COURSE: A 52-year-old female who has above-mentioned medical problems who was admitted by [place] Herr on 02/10/2018. Please see his H&P for further detail. The patient is from [facility] an d she was sent from [facility] for a fever. She was diagnosed with a urinary tract infection. She has indwelling Cho catheter for her neurogenic bladder at [facility] which was contributing to h er UTI. The patient was having sepsis with acute organ dysfunction. The patient was treated with br oad-spectrum antibiotic therapy while in hospital. The patient has finished complete course of antib iotic therapy while in hospital and that is why she has not required any further antibiotic therapy. While in hospital, Dr. Rivera was following for her urinary tract infection. The patient also had abnormal LFTs and she was complaining of right upper quadrant pain despite treat ment for UTI, she was not feeling better and that is why we have to do necessary workup. Initially C T of the abdomen and pelvis and ultrasound was unremarkable. HIDA scan was also unremarkable, but cl inically the patient was having gallbladder problem. Crystal Finisher and general surgeon was cons ulted and general surgeon and antique refinisher agreed with laparoscopic cholecystectomy which was d one during this admission and after that the patient was feeling better. While in the hospital the patient had multiple other minor issues including chronic constipation that was addressed with Fleet enema. She has a tinea cruris infection that was treated with Diflucan and topical nystatin cream. Family member also requested to send her to another [facility] and that was also addressed with the help of director case management. The patient is seen and examined at bedside today. She is medically stable. Paperwork for discharge done. DISCHARGE MEDICATIONS: Reconciliation done. Please see my progress note from today for further details. Total time spent on discharge day 31 minutes.
[2018-02-21] MEDS: Lidocaine Patch Removal 1 EACH TOP SCH (11:42)
== END 2018-02-21 14:12 | DRG 853 ==
LOC: ERS 17:23 → 2NO 21:46 → ONC 02-11 19:19
PROVIDERS: ADMIT Internal Medicine Infectious Disease; ATTEND Internal Medicine Infectious Disease
PROC: 0FT44ZZ Resection of Gallbladder, Percutaneous Endoscopic Approach (ICD-10-PCS; principal; 2018-02-16)
DX: A41.9 Sepsis, unspecified organism (principal); R53.2 Functional quadriplegia; K80.00 Calculus of gallbladder with acute cholecystitis without obstruction; N30.00 Acute cystitis without hematuria; E03.9 Hypothyroidism, unspecified; G35 Multiple sclerosis; E66.9 Obesity, unspecified; Z68.35 Body mass index [BMI] 35.0-35.9, adult; M79.7 Fibromyalgia; G43.909 Migraine, unspecified, not intractable, without status migrainosus; E78.5 Hyperlipidemia, unspecified; E11.22 Type 2 diabetes mellitus with diabetic chronic kidney disease; I12.9 Hypertensive chronic kidney disease with stage 1 through stage 4 chronic kidney disease, or unspecified chronic kidney disease; R33.9 Retention of urine, unspecified; F41.9 Anxiety disorder, unspecified; K59.09 Other constipation; N18.3 Chronic kidney disease, stage 3 (moderate); G89.4 Chronic pain syndrome; G47.00 Insomnia, unspecified; B96.4 Proteus (mirabilis) (morganii) as the cause of diseases classified elsewhere; B96.1 Klebsiella pneumoniae [K. pneumoniae] as the cause of diseases classified elsewhere; I89.0 Lymphedema, not elsewhere classified; N31.9 Neuromuscular dysfunction of bladder, unspecified; B35.6 Tinea cruris; E83.42 Hypomagnesemia; Z88.5 Allergy status to narcotic agent; Z88.0 Allergy status to penicillin; Z88.2 Allergy status to sulfonamides; Z88.8 Allergy status to other drugs, medicaments and biological substances; Z79.4 Long term (current) use of insulin
CPT/HCPCS: 36415; 36416; 71045; 72170; 74176; 76705; 78226; 80048; 80053; 80074; 80076; 81003; 81015; 83516; 83605; 83690; 83735; 84100; 84443; 85025; 86038; 86225; 87040; 87077; 87086; 87186; 88304; 90471; 90686; 93005; 96361; 96365; 96375; 96376; G0008; G8987-GO-CM; G8988-GO-CM; G8989-GO-CM; J0360; J0696; J1200; J1650; J1885; J1956; J2001; J2405; J2543; J2704; J3010; J3475; J7050; J7500; Q0162; Q9961